=== PATIENT | female | born 1945 | race Caucasian/White ===

== ENCOUNTER → 2017-02-19 | Outpatient (CLI) | payer MEDICARE ==
[~2017-02-19] MED LIST: ACETAMINOPHEN325 M2 PO; ACTOS45 M1 PO; ACTOS45 MG; ALDACTONE 25MG25 MG PO; AMARYL 2MG TABLE2 MG PO; AMARYL2 MG PO; AMLODIPINE BESY1 CA6 PO; ATIVAN2 MG/ML IM; B COMPLEX #11 TA1 PO; BISOPROLOL 5MG T5 MG PO; CELEBREX200 MG; COREG CR20 MG; CRESTOR5 MG PO; FAMOTIDINE20 MG PO; FISH OIL 1,2001 EACH PO; FISH OIL EC 1,1 EAC2 PO; FUROSEMIDE 40MG40 M1 PO; GUAIFENESIN DM118 ML PO; HALOPERIDOL1 MG PO; HYDROCHLOROTHIA25 M1 PO; IPRATROPIUM BROM3 M1 INH; ISOSORBIDE MONO30 MG PO; JANUVIA100 MG; KLOR-CON M2020 MEQ PO; LASIX 40MG. TAB40 MG PO; LASIX40 MG; LEVAQUIN250 MG PO; LEVOFLOXACIN 7750 M1 PO; LEVOTHYROXIN0.025 M1 PO; LEVOTHYROXIN0.025 M3 PO; LISINOPRIL 5MG T5 MG PO; MAG-OX 400MG T400 MG PO; MAREPA1200 MG; METFORMIN500 MG PO; MICONAZOLE45 GM/TUB1 TP; NICODERM C21 MG/24 H TD; NYSTATIN 1100000 UNI PO; NYSTATIN SU60 ML/BOT PO; PIOGLITAZONE HC45 MG PO; POTASSIUM CHLO10 ME3 PO; RELION NOVOL100 U/M1 IJ; RELION NOVOL100 U/M1 SC; SALINE FLUSH 1010 ML IV; SEROQUEL 25MG T25 MG PO; SUPER B-50 COM1 EACH PO; SYNTHROID0.025 MG PO; TARKA 1 MG-2401 TER PO; TYLENOL ES500 MG PO; VALIUM 10MG TAB10 MG PO; VALIUM10 MG PO; VITAMIN B COMPL1 CAP PO; ZESTRIL 5MG TABL5 MG PO; [UNRECOGNIZED DRUG - OTHER] IM
== END ==
LOC: LAB 11:29
DX: I10 Essential (primary) hypertension (principal); E11.9 Type 2 diabetes mellitus without complications

== ENCOUNTER 2017-04-18 20:10 | Inpatient (IN) | payer MEDICARE ==
[~2017-04-18] VITALS: Ht 165.1 cm; Wt 108.5 kg
[2017-04-18 20:25] VITALS: BP 152/95
--- NOTE | 2017-04-18 20:49 | Emergency Room Report ---
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 N Clinical Suspician of Infection? Y Mental Status: 2 - Mildly Altered Sepsis Risk:Possible Sepsis Risk Have you (or family members/close friends) recently traveled outside the [place]? N If Yes, where/when: Have you had exposure to infectious disease within the past month? TB? Other? Specify: 71 years old white female with history of diabetes and lung cancer, she opted for no treatment for lung cancer. She developed headache, chills, and body aches yesterday. Today she vomited 2 and was brought to the ED by the family. She does not confusion in the ED. Sore throat cough and congestion. Abdominal pain or diarrhea. She denied having neck pain or spine pain. She admitted to having ongoing burning urination with no treatment. The patient does not want to be admitted. Family on the bedside. I ordered IV fluids and IV antibiotics. Source patient, RN notes reviewed, family Exam Limitations no limitations ALLERGIES Coded Allergies: codeine (Mild, 11/21/15) latex (Mild, 11/21/15) Home Medications Active Scripts POTASSIUM CHL (Potassium Chloride) 20 MEQ PO DAILY #60 Prov: 12/17/15 Furosemide (Lasix 40MG) 40 MG PO DAILY #30 TAB Prov: 12/17/15 Spironolactone (Aldactone) 50 MG PO DAILY #30 TAB Ref 1 Prov: 12/17/15 Famotidine 20 MG PO QHS #30 TAB Ref 1 Prov: 12/17/15 Isosorbide Mononitrate (Isosorbide Mononitrate ER) 30 MG PO DAILY #30 Ref 1 Prov: 12/17/15 BISOPROLOL FUMARATE (Bisoprolol 5MG) 5 MG PO DAILY #30 TAB Ref 1 Prov: 12/17/15 Levothyroxine Sodium (Synthroid 0.025MG) 0.05 MG PO DAILY #30 TAB Ref 1 Prov: 12/17/15 Metformin HCL (Metformin) 500 MG PO BIDD #60 TAB Ref 1 Prov: 12/17/15 Reported Medications Acetaminophen (Tylenol XS 500MG) 1,000 MG PO Q6HP PRN PAIN/FEVER Glimepiride (Amaryl 2MG Tablet) 2 MG PO DAILY Quetiapine Fumarate (Seroquel 25MG) 25 MG PO DAILY Rosuvastatin Calcium (Crestor) 5 MG PO QHS Diazepam (Valium 10MG) 5 MG PO QHSP PRN ANXIETY LISINOPRIL (Lisinopril) 2.5 MG PO DAILY Famotidine (Pepcid 20MG Tablet) 20 MG PO DAILY ASPIRIN (Aspirin 325MG) 325 MG PO DAILY Metformin HCL (Metformin) 1,000 MG PO BID Glimepiride (Glimepiride 2MG Tablet) 2 MG PO BID History Medical History General CAD? No Angina: No ID: No Hypertension? Yes Hyperlipidemia? Yes CHF? Yes DVT? No PE? No COPD? No Asthma? No Anemia? No GERD? No Gastric ulcers? No GI Bleed? No Hernia? No Thyroid Problems? Yes Hypothyroidism? Yes CVA? No Seizures? No Diabetes? Yes Insulin Dependent: No Insulin Pump: No Home FSBS? Yes Renal Insuffiency? No End Stage Renal Disease? No UTI? No Stones? No BPH? No GB Disease: Yes Nephritic Syndrome? No Asplenia? No Hepatitis? No Sickle Cell Disease? No Arthritis? Yes Migraines? No Cataracts? No Glaucoma? No MRSA? No HIV? No TB? No Anxiety? Yes Depression? Yes Cancer? No More? No Immunization Hx DT/Tetanus Unknown Flu 2014-FSN Pneumonia Received In Past Surgical Hx Previous Surgery?Y Cholecystectomy LT BREAST CYST REMOVAL LT ANKLE BILATERAL CATARACTS PORT PLACEMENT Family History Family Hx Diabetes Yes CAD Yes Hypertension Yes Hyperlipidemia Yes Cancer Yes TB No Social History Smoking Hx Smoker: Former Smoker Tobacco: No Alcohol Alcohol: No Review of Systems All Other Systems Reviewed and Negative Constitutional see HPI, chills, fever Eyes no symptoms reported ENT no symptoms reported. Respiratory no symptoms reported Cardiovascular no symptoms reported Gastrointestinal see HPI, vomiting Genitourinary see HPI, dysuria. Musculoskeletal no symptoms reported Skin no symptoms reported Psychiatric/Neurological no symptoms reported Physical Exam Vital Signs Vital Signs Date Time Temp Pulse Resp B/P Pulse O2 O2 Flow FiO2 Ox Delivery Rate 08/03 2154 100 20 150/92 93 04/18 2025 99.0 114 20 152/95 94 - WBC >12,000 or <4,000 or 10% bands? 2 or more SIRS Criteria Met? B/P:152/95 MAP:114 Creatinine >2.0? UA output<0.5ml/kg/hr for 2 hrs? Platelet count >100,000? Lactate >2.0mmol/1? INR >1.2 or PTT > than 60 sec? Evidence of Organ Dysfunction? Provider documented clinical suspician of infection? Y Sepsis Criteria Count: 2 Sepsis Risk: Possible Sepsis Risk General Appearance normal appearance, WD/WN Eye Exam - bilateral eye normal exam, bilateral eye PERRL, bilateral eye EOMI Ear, Nose, Throat hearing grossly normal, normal ENT inspection Neck normal inspection, non-tender, supple, full range of motion Respiratory Status Yes: trachea midline, chest symmetrical, non tender chest. No: respiratory distress. Lung Sounds bilateral: normal breath sounds, lungs clear. 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 No Results/Orders Laboratory Tests 04/18/172205: ABG pH Pending, ABG pCO2 (Temp Corrct Pending, ABG pO2 (Temp Correct Pending, ABG HCO3 Pending, ABG O2 Sat (Calculated) Pending, ABG Base Excess Pending 04/18/17 2100: Lactic Acid 2.4 H 04/18/17 2100: Sodium 125 L, Potassium 3.5, Chloride 87 L, Carbon Dioxide 28, BUN 25 H, Creatinine 2.2 H, Estimated Creat Clear 38 L, Estimated GFR (MDRD) 22 L, Glucose 656 *H, Calcium 8.8, Total Bilirubin 1.2 H, AST 43 H, ALT 23, Alkaline Phosphatase 172 H, Creatine Kinase 1426 H, CK-MB (CK-2) Rel Index 0.1, CK and CKMB Interp 2.1, Troponin I 0.11 H, Total Protein 8.5 H, Albumin 2.9 L, Globulin 5.6 H, Albumin/Globulin Ratio 0.5 L, WBC 8.8, RBC 5.11, Hgb 14.9, Hct 47.4 H, MCV 92.8, RDW 14.1, Plt Count 191, MPV 9.2, Gran % 88.5 H, Gran # 7.8, Total Counted Pending, Lymphocytes % 5.6 L, Monocytes % 5.0, Eosinophils % 0.4, Basophils % 0.5, Neutrophils Pending, Lymphocytes (Manual) Pending, Lymphocytes # 0.5 L, Monocytes # 0.4, Eosinophils # 0.0, Basophils # 0.0, Platelet Estimate Pending, PUBS MCHC 31.2 L, MCH 29.0, Acetone Level NONE DETECTED 04/18/172039: Urine Color YELLOW, Urine Appearance CLEAR, Urine pH 6.0, Ur Specific [place] 1.015, Urine Protein 3+ H, Urine Ketones NEGATIVE, Urine Blood 3+ H, Urine Nitrate POSITIVE H, Urine Bilirubin NEGATIVE, Urine Urobilinogen 0.2, Ur Leukocyte Esterase 1+ H, Urine RBC 10-20, Urine WBC 20-50, Ur Squamous Epith Cells OCC, Urine Bacteria 1+, Urine Mucus 1+, Urine Glucose 3+ H Current Medication Orders Sig/Emanuel Start time Last Medication Dose Route Stop Time Status Admin Insulin Human Regular 100 UNITS .Q20H 04/18 2200 AC Sodium Chloride 100 ML IV Sodium Chloride 1,000 ML .Q1H1M 04/18 2200 AC IV 04/18 230 Sodium Chloride 10 ML PRN PRN 04/18 2200 AC IV 04/19 2150 Ceftriaxone Sodium 0 .STK-MED ONE 04/18 2127 DC IV Sodium Chloride 1,000 ML .STK-MED ONE 04/18 2127 DC IV Sodium Chloride 100 ML .STK-MED ONE 04/18 2126 DC IV Ceftriaxone Sodium 1 GM ONCE ONE 04/18 2115 DC 04/18 Sodium Chloride 50 ML IV 04/18 Sodium Chloride 1,000 ML .Q1H1M 04/18 2115 AC 04/18 IV 04/18 Sodium Chloride 10 ML PRN PRN 04/18 2115 AC IV 04/19 2113 Sodium Chloride 10 ML PRN PRN 04/18 2045 AC IV 04/19 2033 Orders Procedure Date/time Status DIET-NOTHING BY MOUTH 04/19 B Active ARTERIAL BLOOD GAS REQUEST 04/18 2149 Active Acetone, Serum 04/18 2149 Complete LACTIC ACID FOLLOW UP 04/18 2140 Active CULTURE, BLOOD 04/18 2114 Active LACTIC ACID 04/18 2114 Complete DIFFERENTIAL-WBC 04/[address] HEAD W/O CONTRAST 04/[address] ABD & PELVIS W/O CONTRAST 04/18 2043 Active CULTURE, URINE 04/18 2040 Active ELECTROCARDIOGRAM REQUEST 04/[address] HEAD REQ 04/[address] ABD/PELVIS REQ 04/18 2033 Complete CHEST(2 VIEWS-NOT PORTABLE) 04/18 2033 Active IV SALINE LOCK 04/18 2033 Active URINALYSIS/COMPLETE 04/18 2033 Complete COMPLETE METABOLIC PANEL 04/18 2033 Complete CBC WITH AUTO DIFF 04/18 2033 Active CARDIAC ENZYMES 04/18 2033 Complete 12 LEAD EKG-BESSON (INITIAL) 04/18 2030 Active CM/EKG CM/EKG EKG rate, NSR, rhythm, no evid. of ischemic chgs, no ectopy, normal QRS, normal MN, normal EKG, no EKG for comparison, non-spec. ST/Twave chgs, ST elevation, ST depression, LBBB, RBBB, ectopy, abnormal Q waves XRAY/CT/US XRAY/CT/US XRAY chest XR interpretation by reviewed by me Xray Results no infiltrates Departure Departure Time of Disposition 2207 Disposition Still a Patient Clinical Impression Primary Impression: UTI (urinary tract infection) Secondary Impressions: Acute renal failure, Diabetes mellitus, Hyperglycemia, Lung cancer Condition STABLE Referrals Raji AARON,Ralph Farmer (Family) Additional Instructions I discussed with the patient her that CT scan and lab findings. She agreed to be admitted for IV fluids and insulin drip. I contacted Dr. Edmond who agreed to admit to Dr. Kiser covering for Dr. Alegria. Patient was admitted in stable condition. Discharge Counseling Counseled pt/family regarding diagnosis, test results, medications/RX, follow up needs ED Critical Care Critical Care No If Critical Care minutes are documented, the time involved in the performance of seperately reportable procedures was not counted toward critical care time documented. I directly delivered medical care to this critically ill and/or injured patient. Timely evaluation and treatment was necessary to address the significant organ system(s) dysfunction present in this patient. at [id number]
[2017-04-18 20:52] LABS: URINE BILIRUBIN - DIPSTICK NEGATIVE (NEG); URINE BLOOD 3+ (NEG)
[2017-04-18 20:57] LABS: URINE SQUAMOUS CELLS OCC #/hpf (0-5)
[2017-04-18 21:19] LABS: LYMPH # 0.5 K/mm3 (0.7-4.5); LYMPH % 5.6 % (10-50.0)
[2017-04-18 21:28] LABS: HEMOGLOBIN 14.9 g/dL (12.2-16.2)
[2017-04-18] MEDS ORDERED: PEPCID 20MG TAB20 MG PO (21:31)
[2017-04-18] MEDS ORDERED: ASPIRIN 325MG325 MG PO (21:33)
[2017-04-18] MEDS ORDERED: METFORMIN500 MG PO (21:35)
[2017-04-18] MEDS ORDERED: GLIMEPIRIDE 2MG2 MG PO (21:36)
[2017-04-18 22:08] LABS: NEUTROPHILS 93 % (42-76)
[2017-04-18 22:10] LABS: ALLEN'S TEST ACCEPTABLE; ARTERIAL ABE 2.8 MMOL/L (-2.4-+2.3); OXYGEN ROOM AIR
[2017-04-18 23:00] VITALS: BP 161/72
[2017-04-18 23:57] VITALS: BP 161/72
[2017-04-19] VITALS (9 sets, daily range): BP systolic 132–172; BP diastolic 67–86
[2017-04-19] MEDS ORDERED: LASIX20 MG PO (01:32)
[2017-04-19] MEDS ORDERED: AMARYL 2MG TABLE2 MG PO (01:33)
--- NOTE | 2017-04-19 07:24 | PHARMACY CLINIC NOTE ---
Patient Demographics Patient Demographics Admission date: 04/18/17 Date: 04/19/17 Time: 0724 Allergies Coded Allergies: codeine (Mild, 11/21/15) latex (Mild, 11/21/15) HEIGHT- FT: 5 IN: 5.00 K.465 VTE General Information Labs: Laboratory Tests 04/18 2100 Hematology Hgb (12.2 - 16.2 g/dL) 14.9 Hct (37.0 - 47.0 %) 47.4 H Plt Count (142 - 424 K/mm3) 191 Disclaimer The following section includes nursing documentation that has been pulled in for pharmacy review. Patient's VTE score: 2 Patient's VTE Risk: VERY LOW RISK Clinical trial participant? No VTE prophylaxis NQF [id number] VTE prophylaxis ordered? Yes Type of prophylaxis/treatment: Lovenox at 0724
--- NOTE | 2017-04-19 07:31 | Discharge Summary Standard ---
Demographics: Admit date: 04/18/17 Chief complaint: Pain/shortness of air PRIMARY DIAGNOSIS: ACUTE RENAL FAILURE Allergies: Coded Allergies: codeine (Mild, 11/21/15) latex (Mild, 11/21/15) History of present illness: History of present illness: 71-year-old white female with diabetes, metastatic lung cancer who has refused treatment, who came to the emergency department last night with shortness of air dehydration symptoms. Was found to be hyperglycemic with evidence of dehydration and acute kidney injury and was admitted overnight for fluids and further observation. I had a long talk with her and her son this morning. She lives with her son after the of her last March. She continues to affirm that she does not wish any treatment for lung cancer and is open to hospice care for end-of-life/palliative care. She feels much better after a night of IV fluids and wishes to be discharged home. Past medical history: Family HX Diabetes Yes CAD Yes Hypertension Yes Hyperlipidemia Yes Cancer Yes TB No Immunization HX DT/Tetanus Unknown Flu 2014-FSN Pneumonia Received In Past TB Test in last year No General CAD? No Angina: No NH: No Hypertension? Yes Hyperlipidemia? Yes CHF? Yes DVT? No PE? No COPD? No Asthma? No Anemia? No GERD? No Gastric ulcers? No GI Bleed? No Hernia? No Thyroid Problems? Yes Hypothyroidism? Yes CVA? No Seizures? No Diabetes? Yes Insulin Dependent: No Insulin Pump: No Home FSBS? Yes Renal Insuffiency? No UTI? No Stones? No BPH? No GB Disease: Yes Nephritic Syndrome? No Asplenia? No Hepatitis? No Sickle Cell Disease? No Arthritis? Yes Migraines? No Cataracts? No Glaucoma? No MRSA? No HIV? No TB? No Anxiety? Yes Depression? Yes Cancer? No More? No Past Surgical HX Previous Surgery?Y Cholecystectomy LT BREAST CYST REMOVAL LT ANKLE BILATERAL CATARACTS PORT PLACEMENT Current home meds: Reported Medications Furosemide (Lasix) 20 MG PO BID Glimepiride (Amaryl 2MG Tablet) 2 MG PO BIDD Rosuvastatin Calcium (Crestor) 5 MG PO QHS LISINOPRIL (Lisinopril) 2.5 MG PO DAILY Famotidine (Pepcid 20MG Tablet) 20 MG PO DAILY ASPIRIN (Aspirin 325MG) 325 MG PO DAILY Metformin HCL (Metformin) 1,000 MG PO BID Social Hx: Smoking HX Tobacco No Alcohol Alcohol: No Hx of Drug Use Drug Use? No Patien't marital status is Review of systems: Constitutional No: fever, malaise, weakness. Respiratory shortness of breath, SOB with excertion, SOB at rest. Cardiovascular No edema, No palpitations, No syncope Gastrointestinal/Abdominal difficulty swallowing, nausea, poor appetite, poor fluid intake Genitourinary No: no symptoms reported. Musculoskeletal gout, joint pain, joint swelling. Neurological Yes: weakness. Exam: Lab data for last 24 hours: Laboratory Tests 04/19/17 0520: Sodium 137, Potassium 2.9 *L, Chloride 98, Carbon Dioxide 32, BUN 23 H, Creatinine 1.9 H, Estimated Creat Clear 48 L, Estimated GFR (MDRD) 26 L, Glucose 156 H, Calcium 8.4 L 04/19/17 0100: Lactic Acid 4.3 H 04/18/17 2206: ABG pH 7.45, ABG pCO2 (Temp Corrct 39.0, ABG pO2 (Temp Correct 56.0 L, ABG HCO3 26.8 H, ABG Total CO2 28.0 H, ABG O2 Sat (Calculated) 89 L, ABG Base Excess 2.8 H, [place] Test ACCEPTABLE 04/18/17 2100: Lactic Acid 2.4 H 04/18/17 2100: Sodium 125 L, Potassium 3.5, Chloride 87 L, Carbon Dioxide 28, BUN 25 H, Creatinine 2.2 H, Estimated Creat Clear 38 L, Estimated GFR (MDRD) 22 L, Glucose 656 *H, Calcium 8.8, Total Bilirubin 1.2 H, AST 43 H, ALT 23, Alkaline Phosphatase 172 H, Creatine Kinase 1426 H, CK-MB (CK-2) Rel Index 0.1, CK and CKMB Interp 2.1, Troponin I 0.11 H, Total Protein 8.5 H, Albumin 2.9 L, Globulin 5.6 H, Albumin/Globulin Ratio 0.5 L, WBC 8.8, RBC 5.11, Hgb 14.9, Hct 47.4 H, MCV 92.8, RDW 14.1, Plt Count 191, MPV 9.2, Gran % 88.5 H, Gran # 7.8, Total Counted 100, Lymphocytes % 5.6 L, Monocytes % 5.0, Eosinophils % 0.4, Basophils % 0.5, Neutrophils 93 H, Lymphocytes (Manual) 5 L, Lymphocytes # 0.5 L, Monocytes (Manual) 2, Monocytes # 0.4, Eosinophils # 0.0, Basophils # 0.0, Platelet Estimate NORMAL, PUBS MCHC 31.2 L, MCH 29.0, Acetone Level NONE DETECTED 04/18/172039: Urine Color YELLOW, Urine Appearance CLEAR, Urine pH 6.0, Ur Specific [place] 1.015, Urine Protein 3+ H, Urine Ketones NEGATIVE, Urine Blood 3+ H, Urine Nitrate POSITIVE H, Urine Bilirubin NEGATIVE, Urine Urobilinogen 0.2, Ur Leukocyte Esterase 1+ H, Urine RBC 10-20, Urine WBC 20-50, Ur Squamous Epith Cells OCC, Urine Bacteria 1+, Urine Mucus 1+, Urine Glucose 3+ H Microbiology 04/18 2100 BLOOD: Anaerobic Blood Culture - RECD 04/18 2100 BLOOD: Aerobic Blood Culture - RECD 04/18 2100 BLOOD: Anaerobic Blood Culture - RECD 04/18 2100 BLOOD: Aerobic Blood Culture - RECD 04/18 2040 URINE CC: Urine Culture - RECD Admission vital signs: 1ST Vital Signs Result Date Time Pulse Ox 94 04/18 2025 B/P 152/95 04/18 2025 Temp 99.0 04/18 2025 Pulse 114 04/18 2025 Resp 20 04/18 2025 O2 Delivery ROOM AIR 04/18 2300 O2 Flow Rate 2 04/18 2300 Additional information: Patient is obese. Lungs have rhonchi, fairly symmetric air entry. Heart rate regular. No edema. Eating well, alert, oriented 3. Hospital Course Hospital Course: Patient was admitted, labs improved. Patient is without symptoms at this point and wishing to be discharged. Plan will be to discharge her home with hospice services. She states that she has currently no pain. She states that she has Valium at home for anxiety and has all of her other medication. We will initiate hospice services for home today and discharge patient. Medications Medications: Discharge meds are as noted. Follow up Follow up in office in: 1 DAY with: OTHER at 0731
--- NOTE | 2017-04-19 09:09 | RADIOLOGY REPORT PS360 ---
CT HEAD W/O CONTRAST HISTORY: CONFUSIONaltered mental status. Memory loss. Confusion. Disorientation Patient Age: 71 years: Female Ordering Physician: Ralph Alegria MD TECHNIQUE: Routine axial CT head without contrast COMPARISON :Previous CT head September 30, 2015 FINDINGS Patchy low-density is seen throughout the cerebral deep white matter regions bilaterally. This appearance is very similar to 2016 study. Question very slight progression these chronic deep white matter changes the interval.. However no discrete focal single new area is identified. It can be difficult to exclude a new deep white matter ischemic focus among the chronic changes.. However no territorial infarct nor discrete new findings are evident. Basically stable Lateral ventricles only slightly dilated reflecting the cerebral atrophy. Basal cisterns are clear. Posterior fossa. Stable unchanged. CT bone windows demonstrate the visualized paranasal sinuses to be clear.. Middle air, IACs appear satisfactory. Again note some mild opacification inferior mastoid air cells bilaterally reflecting stable minimal mastoid effusion towards mastoid tip regions bilateral. IMPRESSION------ No discrete acute intracranial abnormalities Atrophy and chronic small vessel deep white matter ischemic changes cerebral hemispheres again noted. . Basically stable head CT since September 2015
--- NOTE | 2017-04-19 09:27 | RADIOLOGY REPORT PS360 ---
CHEST(2 VIEWS-NOT PORTABLE) HISTORY: NAUSEA/VOMITINGnausea and vomiting abdominal pain Patient Age: 71 years: Female Ordering Physician: Ralph Alegria MD TECHNIQUE: PA & lateral CXR 2 view COMPARISON :12/15/2015 FINDINGS Port-A-Cath again noted entering from right subclavian with tip at the superior SVC . Unchanged as prior study. The lungs clear with acute infiltrate.. Mild chronic changes. The questionable nodular density projected over the anterior second rib and likely corresponds with one of the pulmonary nodule densities seen right upper chest on CT July 2016... On the lateral film there is minimal density anteriorly which may reflect the extruded nodule at the lingula. Equivocal features on plain film here. This patient warrants ongoing CT follow-up for her metastatic disease. Borderline this mild cardiomegaly but noted Heart decreased in size since previous CXR November 2015. Studies.... Calcified aortic knob. Otherwise Judith and mediastinal structures unremarkable Chest wall T-spine stable no pleural effusion or pneumothorax. IMPRESSION: 1. No acute infiltrate or findings. Stable Port-A-Cath enters from right. 2. Vague density projected over anterior second rib likely reflects residual of of evident lung nodules on July 2016 study. Also On today's lateral film question some minimal density into the judith which may reflect treated nodule at lingula seen on that prior CT exam as well. 3. This patient will benefit from ongoing CT follow-ups through her oncology follow-up
--- NOTE | 2017-04-19 10:52 | RADIOLOGY REPORT PS360 ---
CT ABD PELVIS W/O CONTRAST HISTORY: CONFUSION confusion and headaches nausea vomiting abdominal pain history of lung cancer Patient Age: 71 years: Female Ordering Physician: Ralph Alegria MD TECHNIQUE: Helical CT scanning performed the abdomen pelvis with no oral or IV contrast utilized. Sagittal coronal reconstructions on CT workstation. COMPARISON :Previous CT abdomen and pelvis 10/02/2015. FINDINGS Lower thorax. No acute findings. Cardiomegaly . Patient has a prior treated lung lesion only partially imaged here at lingula ABDOMEN/PELVIS. The lack of oral and IV contrast decreases sensitivity. Contrast would be particularly helpful in the setting of lung cancer Liver appears satisfactory no focal lesion. Spleen appears normal size with granulomatous calcifications. Unchanged. Pancreas unremarkable. Gallbladder removed Adrenals. Mildly nodular enlarged adrenals bilaterally particularly the left adrenal. However this is seen previously and stable since November 2015.. Again noted 15 mm nodule anterior left adrenal with a slightly larger 7 tendon millimeter nodule posterior left adrenal. These are low-density, which favors stable benign adenomas Kidneys. Perinephric stranding is again seen but if anything appears slightly more pronounced today bilaterally. Warrants correlation with urinalysis to pyelonephritis. Right kidney. Suspect vaguely most likely cyst 12 mm size anterior aspect lower pole right kidney. Left kidney. 4 cm cyst anterior left kidney and off the anterior aspect lower pole again noted. Also 2.3 cm cyst off the posterior aspect lower pole again noted. These are may be incrementally larger. Pelvis. Hysterectomy. Moderate wall thickness bladder slight hazy appearance about bladder. Cannot exclude cystitis. Unremarkable. Large and small bowel satisfactory.. Appendix normal. Osseous structures intact IMPRESSION: 1. No acute findings abdomen or pelvis 2. Generous perinephric stranding about both kidneys is similar to slightly more pronounced than on previous studies.. May reflect interval infection. Warrants correlation with urinalysis to exclude current pyelonephritis No urinary tract obstruction nor calculi. Benign renal cysts again noted bilateral. 3. Suggestion of subtle hazy appearance about bladder with perhaps mild wall thickening.. Cannot exclude cystitis. Stable low-density nodules at adrenals, most notable stable low-density nodules left adrenal. These can be followed no change since 2015, and low-density character favors a benign adenomas here as well
--- OUTSIDE RECORDS SUMMARY | 2017-04-20 03:07 | External Medical Summary Rpt ---
Author Author , MARIANNA Hamilton MARIANNA Address Unknown Phone [email or web address] Providers Care Drug Abuse Counselor Name Role Phone A Korin PUTNAM MD [facility], Bibi Unavailable Unavailable Korin PUTNAM MD [facility], AM Unavailable [facility] Unavailable Un[facility], [facility] Unavailable Un[facility], [facility], ARH Unavailable Unavailable [facility] BALTA DAO, BALTA DAO Unavailable Unavailable BALTA DAO, BALTA DAO Unavailable Unavailable KATHRYN HUBERT, Unavailable Unavailable KATHRYN HUBERT GERARDO PERALTALAS, Unavailable Unavailable KATHRYN, IVAN FRANSISCO PATEL, Unavailable Unavailable FRANSISCO PATEL [facility], Unavailable Unavailable LLC[facility] HUGO ADRIAN, HUGO Unavailable Unavailable ADRIAN [facility] Unavailable Unavailable HOSPITA, [facility] SIERRA GRE, SIERRA GRE Unavailable Unavailable ALMAZAN HOANG, ALMAZAN HOANG Unavailable Unavailable PB RHO, PB Unavailable Unavailable RHO PB RHO, PB Unavailable Unavailable RHO [facility] Unavailable Unavailable [facility], [facility] Unavailable Unavailable [facility], [facility] Unavailable Unavailable [facility], [facility], Unavailable Unavailable [facility], [facility]available Unavailable [facility], Unavailable Unavailable [facility] KILPELA JEA, KILPELA Unavailable Unavailable JEA KILPELA JEA, KILPELA Unavailable Unavailable J[facility] Unavailable [facility]available [facility], [facility] [employer] [facility], Unavailable Unavailable [facility] Unavailable Unavailable SERVICES, [facility] Un[facility]available [facility], [facility] KELLEY SERRANO, Unavailable Unavailable KELLEY SERRANO RASHAAD EILEEN, RASHAAD EILEEN Unavailable Unavailable RASHAAD EILEEN, RASHAAD EILEEN Unavailable Unavailable [facility], Unavailable Unavailable [facility], Unavailable Unavailable [facility] YOSSI DAO, YOSSI Unavailable Unavailable DAO YOSSI DAO, YOSSI Unavailable Unavailable DAO YOSSI, ROSITA, Unavailable Unavailable YOSSI, ROSITA JR. FREYA BARROW, Unavailable Unavailable JR. FREYA ABRROW JR. JAM, Unavailable Unavailable JR. FREYA BARROW [facility], [facility] Unavailable Unavailable [facility], [facility] Unavailable Unavailable [facility], Unavailable [facility], Unavailable Unavailable [facility] Unavailable Unavailable [facility] MER[facility] WILLIS Unavailable Unavailable [facility] Unavailable Unavailable [facility] Unavailable Unavailable [facility], Unavailable Unavailable [facility] Unavailable [facility]available [facility], [facility] Unavailable Unavailable [facility], [facility] # [facility]available Unavailable [id number], [facility] # [id number] [facility] Unavailable Unavailable AGENCY, [facility] PUTNAM A, PUTNAM A Unavailable Unavailable PUTNAMBibi C, PUTNAM, Unavailable Unavailable A C CELESTINO MAT, CELESTINO MAT Unavailable Unavailable CELESTINO MAT, CELESTINO MAT Unavailable Unavailable Purpose Continuity of Care Document - 10-10-2007 through 2016 Problems Code Diagnosis DOS Provider Status E662 MORBID 12-09-2015 [facility] OBESITY [facility] W/ALVEOLAR HYPOVENTILA TION E872 ACIDOSIS 12-09-2015 [facility] INC I2609 OTHER 12-09-2015 [facility] EMBOLISM INC W/ACUTE COR PULMONALE I272 OTHER 12-09-2015 [facility] PULMONARY INC HYPERTENSIO N I5033 ACUTE ON 12-09-2015 [facility] DIASTOLIC INC CONGESTIV HEART FAILURE J189 PNEUMONIA 12-09-2015 [facility] ORGANISM INC J9621 ACUTE & 12-09-2015 [facility] RESPIRATORY INC FAILURE WITH HYPOXIA Z6841 BODY MASS 12-09-2015 [facility] IN[facility] BMI [facility] 40.0-44.9 INC ADULT E119 TYPE 2 11-22-2015 [facility]ETES [facility] MELLITUS INC WITHOUT COMPLICATIO NS E669 OBESITY 11-22-2015 [facility]PEC[facility] INC I130 HTN HEART & 11-22-2015 [facility] CKD W/HF & [facility] CKD STAGE INC 1-4 OR UNS CKD I5032 CHRONIC 11-22-2015 [facility]IASTOLIC [facility] CONGESTIVE INC HEART FAILURE N183 CHRONIC 11-22-2015 [facility] DISEASE INC STAGE 3 MODERATE R0902 HYPOXEMIA 11-22-2015 [facility] INC Z6842 BODY MASS 11-22-2015 [facility] 45.0-49.9 INC ADULT H39806 PERSONAL 11-22-2015 [facility] NICOTINE INC DEPENDENCE E8342 HYPOMAGNESE 09-30-2015 [facility]LOS [facility] INC E876 HYPOKALEMIA 09-30-2015 [facility] INC I129 HYPERTENSIV 09-30-2015 [facility] E CKD [facility] W/STAGE 1-4 INC CKD OR UNS CKD I2510 ASHD [place] [facility] [place] 09-30-2015 [facility] CORONARY [facility] ARTERY W/O INC ANGINA [place] N179 ACUTE 09-30-2015 [facility] FAILURE INC UNSPECIFIED 28041 SEC 06-15-2013 [facility] EQUIP OSTEOARTHRO SIS ANKLE AND FOOT 8248 UNSPECIFIED 01-28-2013 CELESTINO MAT CLOSED FRACTURE OF ANKLE 32043 PAIN IN 01-22-2013 ALVIN JOINT, [facility] ANKLE AND HOSPITA FOOT 25454 OTHER 01-22-2013 PB RHO NONSPECIFIC ABNORMAL FINDING OF LUNG FIELD V7283 OTHER 01-22-2013 ALVIN SPECIFIED [facility] PRE-OPERATI HOSPITA VE EXAMINATION 7859 OTHER 12-05-2012 [facility] INVOLVING INC CARDIOVASCU LAR SYSTEM V7612 OTHER 12-05-2012 [facility]CREENING [facility] MAMMOGRAM INC 22444 PRIMARY 10-23-2012 ALLI BARROW JR. OSTEOARTHRO SIS ANKLE AND FOOT 67197 OSTEOARTHRO 10-08-2012 [facility] SIS UNSPEC [facility] WHETHER INC GEN/LOC ANK&FOOT 19560 DISORDER OF 10-01-2012 [facility] CARTILAGE UNSPECIFIED 68581 NONSPECIFIC 08-28-2012 [facility] J ABNORMAL ELECTROCARD IOGRAM 7852 UNDIAGNOSED 08-25-2012 [facility] CARDIAC MURMURS 23227 SHORTNESS 08-25-2012 [facility] J OF BREATH V700 ROUTINE 08-04-2012 [facility] GENERAL MEDICAL EXAM@HEALTH CARE FACL 4019 UNSPECIFIED 07-18-2012 BALTA DAO ESSENTIAL HYPERTENSIO N 21124 DIAB W/O 07-17-2012 ST NEETU COMP TYPE MOUNT II/UNS NOT IJ STATED UNCNTRL 4293 CARDIOMEGAL 07-17-2012 ST DE ANDA Y [place]OUNT JI 4400 ATHEROSCLER 07-17-2012 ST DE ANDA OSIS OF [facility] AORTA JI V7284 UNSPECIFIED 07-17-2012 [facility] PRE-OPERATI JI VE EXAMINATION 62008 DIAB W/O 06-09-2012 RASHAAD EILEEN MENTION COMP TYPE II/UNS TYPE UNCNTRL 2724 OTHER AND 06-05-2012 RASHAAD ARELLANO UNSPECIFIED HYPERLIPIDE JUANCARLOS 4011 ESSENTIAL 06-05-2012 RASHAADKIERRA ARELLANO HYPERTENSIO N, BENIGN 64849 OSTEOARTHRO 04-22-2012 [facility] S [facility] WHETHER GEN/LOC UNSPEC SITE 06345 PLANTAR 03-25-2012 JENY BARROW JR. JAM FIBROMATOSI S 84744 DIAB 02-21-2012 [facility] W/NEURO SURGICAL MANIFESTS TYPE II/UNS NOT UNCNTRL 98125 PRESSURE 02-21-2012 [facility] ULCER SURGICAL UNSPECIFIED SITE E9479 UNSPEC 02-01-2012 [facility] L SBSTNC CAUS ADVRS EFF TX USE V0481 NEED 06-27-2011 [facility] VACCINATION &INOCULATIO N FLU 52064 ULCER OF 05-01-2011 YOSSI DAO OTHER PART OF FOOT 05196 UNSPECIFIED 05-01-2011 YOSSI DAO ARTHROPATHY SITE UNSPECIFIED 62180 OBESITY, 04-16-2011 [facility] UNSPECIFIED [facility]ENCY 7812 ABNORMALITY 04-16-2011 [facility] OF GAIT HEALTH AGENCY 8920 OPEN WOUND 04-16-2011 [facility] FT NO TOE HEALTH ALONE AGENCY WITHOUT MENTION COMP 8930 OPEN WOUND 04-16-2011 [facility] TOE WITHOUT HEALTH MENTION AGENCY COMPLICATIO N 7079 CHRONIC 03-23-2011 A C [place] ULCER OF [facility] UNSPECIFIED SITE 5849 ACUTE 03-22-2011 [facility] FAILURE INC UNSPECIFIED 5939 UNSPECIFIED 03-22-2011 [facility]NEY [facility] AND URETER 6827 CELLULITIS 03-22-2011 [facility] AND ABSCESS [facility]ERGENCY OF FOOT SERVICES EXCEPT TOES 21016 DIAB W/OTH 02-25-2011 [facility] MANIFESTS [facility] TYPE II/UNS INC NOT UNCNTRL 13485 PRESSURE 02-25-2011 [facility] ULCER OTHER EMERGENCY SITE SERVICES 09253 OTHER 02-25-2011 [facility] ABNORMAL EMERGENCY GLUCOSE SERVICES 7906 OTHER 02-25-2011 [facility] ABNORMAL [facility] BLOOD INC CHEMISTRY V431 LENS 04-13-2010 [place] INST FOR REPLACED BY EYEHLTH & OTHER SURGPSC MEANS 274 GOUT 11-17-2009 A Korin PUTNAM MD [facility] 39419 CORTICAL 09-01-2009 [place] INST FOR SENILE EYEHLTH & CATARACT SURGPSC 3669 UNSPECIFIED 09-01-2009 [facility] CAT[facility]ACT NE[facility]U [facility] V1582 PERS HX 09-01-2009 [facility] TOBACCO USE NEETU PRESENTING [facility] V0382 NEED PROPH 08-08-2009 DHS/CO VACCINATION HEALTH AGAINST CENTRAL STREP BANK ACCT PNEUMONE 5990 URINARY 07-28-2009 A Korin PUTNAM TRACT [facility] INFECTION SITE NOT SPECIFIED 2449 UNSPECIFIED 07-22-2009 [facility]YPOT[facility] ISM 6923 [facility] 12-17-2008 A Korin PUTNAM DERMATITIS& [facility] OTH ECZEMA-RX&M EDS [facility] W/SKN 7881 DYSURIA 07-16-2008 A Korin PUTNAM MD [facility] 1121 CANDIDIASIS 03-11-2008 A Korin PUTNAM OF [facility] 94972 OTHER SIGN 03-02-2008 [facility] SYMPTOM [facility] IN BREAST INC 04566 UNSPECIFIED 03-02-2008 [place] 7062 SEBACEOUS 01-29-2008 A Korin PUTNAM CYST [facility] 7862 COUGH 01-19-2008 A Korin PUTNAM MD [facility] 0340 STREPTOCOCC 11-04-2007 A Korin EUBANKS SORE [facility] THROAT 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 E11.9 TYPE 2 DIABETES MELLITUS WITHOUT COMPLICATIO NS E87.6 HYPOKALEMIA I50.9 HEART FAILURE, UNSPECIFIED J96.01 ACUTE RESPIRATORY FAILURE WITH HYPOXIA N17.9 ACUTE KIDNEY FAILURE, UNSPECIFIED N39.0 URINARY TRACT INFECTION, SITE NOT SPECIFIED R09.02 HYPOXEMIA R73.9 HYPERGLYCEM IA, UNSPECIFIED Allergies, Adverse Reactions, Alerts Clinical Alert Notifications Alert Diabetes: no A1C in the last 6 months Diabetes: no eye exam in the last 365 days Diabetes: no influenza vaccine in the last 365 days Diabetes: no lipid panel in the last 365 days Diabetes: no urine protein screening in the last 365 days Medications Na ND Rx Da Fi Fi Am Da Di Ph RX Ph St me C No te ll ll ou ys ag ar # ys at rm s nt no ma ic us Or Da si cy ia de te s n re d RE 53 04 04 0 85 7 ME 12 GA Ac ME 32 -0 -2 0. D 36 IN ti DY 90 3- 7- 00 CA 97 EY ve 16 20 20 0 RE 32 PH 97 16 16 NJ YT 9 PH CH OP AR AE LE MA L X CY S AN TI LL FU C NG AL 2% RE 53 04 04 0 85 7 ME 12 GA Ac ME 32 -0 -1 0. D 33 IN ti DY 90 3- 6- 00 CA 98 EY ve 16 20 20 0 RE 48 PH 97 16 16 NJ YT 9 PH CH OP AR AE LE MA L X CY S AN TI LL FU C NG AL 2% MA 00 04 04 0 30 5 ME 12 GA Ac PA 90 -0 -0 0. D 29 IN ti P 41 4- 4- 00 CA 37 EY ve 50 98 20 20 0 RE 72 0 86 16 16 NJ MG 1 PH CH AR AE TA MA L BL CY S ET LL C RE 53 04 04 0 85 7 ME 12 GA Ac ME 32 -0 -0 0. D 29 IN ti DY 90 3- 4- CA 40 EY ve 16 20 20 0 RE 18 PH 97 16 16 NJ YT 9 PH CH OP AR AE LE MA L X CY S AN TI LL FU C NG AL 2% PO 00 04 04 0 60 30 ME 12 GA Ac TA 78 -0 -0 0. D 29 IN ti SS 15 4- 4- 00 CA 37 EY ve IU 71 20 20 0 RE 88 M 01 16 16 NJ CL 0 PH CH AR AE ER MA L CY S 10 LL ME C Q TA BL ET Q- 00 04 04 0 11 3 ME 12 GA Ac TU 60 -0 -0 80 D 29 IN ti SS 30 4- 4- .0 CA 37 EY ve IN 85 20 20 00 RE 80 59 16 16 NJ DM 4 PH CH AR AE SY MA L RU CY S P LL C FI 74 03 03 0 15 15 ME 12 GA Ac SH 31 -1 -2 0. D 25 IN ti 20 1- 4- CA 52 EY ve OI 13 20 20 0 RE 01 L 32 16 16 NJ 1, 9 PH CH 20 AR AE 0 MA L MG CY S SO LL FT C GE L RE 53 03 03 0 85 5 ME 12 GA Ac ME 32 -1 -1 0. D 22 IN ti DY 90 1 4- CA 01 EY ve 16 20 20 0 RE 51 PH 97 16 16 NJ YT 9 PH CH OP AR AE LE MA L X CY S AN TI LL FU C NG AL 2% FI 74 03 03 0 15 15 ME 12 GA Ac SH 31 -1 -1 0. D 22 IN ti 20 1- 1- 00 CA 01 EY ve OI 13 20 20 0 RE 93 L 32 16 16 NJ 1, 9 PH CH 20 AR AE 0 MA L MG CY S SO LL FT C GE L FU 63 09 10 5 30 30 [place] 71 RI Ac RO 30 -1 -2 .0 L- 34 SH ti SE 40 3- 8- 00 MA 63 ER ve NJ 62 20 20 RT 9 DE 51 11 11 RI 0 PH CH 40 AR AR MA D MG CY # TA BL 10 ET 05 91 JA 00 08 10 2 30 30 WA 71 RI Ac NU 00 -1 -2 .0 L- 31 SH ti 60 7- 5- 00 MA 30 ER ve A 27 20 20 RT 5 10 73 11 11 RI 0 1 PH CH MG AR AR MA D TA CY BL # ET 10 05 91 DI 00 10 10 3 30 30 WA 44 RI Ac AZ 59 -1 -1 .0 L- 96 SH ti EP 15 3- 3- 00 MA 89 ER ve AM 62 20 20 RT 2 01 11 11 RI 10 0 PH CH AR AR MG MA D CY TA # BL ET 10 05 91 TR 68 09 10 5 30 30 WA 71 RI Ac AN 46 -1 -1 .0 L- 34 SH ti DO 20 3- 2- 00 MA 64 ER ve LA 32 20 20 RT 0 MA 90 11 11 RI -V 1 PH CH ER AR AR AP MA D AM CY # ER 10 4- 05 24 91 0 MG CR 00 03 10 2 30 30 WA 71 RI Ac ES 31 -1 -1 .0 L- 11 SH ti TO 00 5- 2- 00 MA 24 ER ve R 75 20 20 RT 1 5 59 11 11 RI MG 0 PH CH AR AR TA MA D BL CY ET # 10 05 91 HY 23 07 10 5 30 30 [place] [address] 15 -1 -1 .0 L- 26 SH ti OC 50 2- 2- 00 MA 75 ER ve HL 04 20 20 RT 3 OR 71 11 11 RI OT 0 PH CH HI AR AR AZ MA D ID CY E # 25 10 MG 05 91 TA B FU 63 09 09 5 30 30 [place] 71 RI Ac RO 30 -1 -2 .0 L- 34 SH ti SE 40 3- 5- 00 MA 63 ER ve NJ 62 20 20 RT 9 DE 51 11 11 RI 0 PH CH 40 AR AR MA D MG CY # TA BL 10 ET 05 91 JA 00 08 09 2 30 30 WA 71 RI Ac NU 00 -1 -2 .0 L- 31 SH ti 60 7- 0- 00 MA 30 ER ve A 27 20 20 RT 5 10 73 11 11 RI 0 1 PH CH MG AR AR MA D TA CY BL # ET 10 05 91 AC 64 08 09 2 30 30 WA 71 RI Ac TO 76 -1 -2 .0 L- 31 SH ti S 40 7- 0- 00 MA 30 ER ve 45 45 20 20 RT 7 12 11 11 RI MG 4 PH CH AR AR TA MA D BL CY ET # 10 05 91 TR 68 09 09 5 30 30 WA 71 RI Ac AN 46 -1 -1 .0 L- 34 SH ti DO 20 3- 3- 00 MA 64 ER ve LA 32 20 20 RT 0 MA 90 11 11 RI -V 1 PH CH ER AR AR AP MA D AM CY # ER 10 4- 05 24 91 0 MG DI 00 06 09 2 30 30 WA 44 RI Ac AZ 17 -1 -1 .0 L- 94 SH ti EP 23 5- 3- 00 MA 37 ER ve AM 92 20 20 RT 8 78 11 11 RI 10 0 PH CH AR AR MG MA D CY TA # BL ET 10 05 91 HY 23 07 09 5 30 30 [place] [address] 15 -1 -1 .0 L- 26 SH ti OC 50 2- 3- 00 MA 75 ER ve HL 04 20 20 RT 3 OR 71 11 11 RI OT 0 PH CH HI AR AR AZ MA D ID CY E # 25 10 MG 05 91 TA B FU 63 06 08 2 30 30 WA 71 RI Ac RO 30 -1 -2 .0 L- 23 SH ti SE 40 6- 9- 00 MA 49 ER ve NJ 62 20 20 RT 0 DE 51 11 11 RI 0 PH CH 40 AR AR MA D MG CY # TA BL 10 ET 05 91 JA 00 08 08 2 30 30 WA 71 RI Ac NU 00 -1 -1 .0 L- 31 SH ti 60 7- 7- 00 MA 30 ER ve A 27 20 20 RT 5 10 73 11 11 RI 0 1 PH CH MG AR AR MA D TA CY BL # ET 10 05 91 AC 64 08 08 2 30 30 WA 71 RI Ac TO 76 -1 -1 .0 L- 31 SH ti S 40 7- 7- 00 MA 30 ER ve 45 45 20 20 RT 7 12 11 11 RI MG 4 PH CH AR AR TA MA D BL CY ET # 10 05 91 TR 00 08 08 2 60 30 WA 44 RI Ac AM 37 -1 -1 .0 L- 95 SH ti AD 84 6- 6- 00 MA 61 ER ve OL 15 20 20 RT 6 10 11 11 RI HC 1 PH CH L AR AR 50 MA D CY MG # TA 10 BL 05 ET 91 HY 23 07 08 5 30 30 [place] [address] 15 -1 -1 .0 L- 26 SH ti OC 50 2- 5- 00 MA 75 ER ve HL 04 20 20 RT 3 OR 71 11 11 RI OT 0 PH CH HI AR AR AZ MA D ID CY E # 25 10 MG 05 91 TA B TR 68 06 08 2 30 30 WA 71 RI Ac AN 46 -1 -1 .0 L- 23 SH ti DO 20 6- 5- 00 MA 48 ER ve LA 32 20 20 RT 9 MA 90 11 11 RI -V 1 PH CH ER AR AR AP MA D AM CY # ER 10 4- 05 24 91 0 MG FU 63 06 07 2 30 30 WA 71 RI Ac RO 30 -1 -2 .0 L- 23 SH ti SE 40 6- 9- 00 MA 49 ER ve NJ 62 20 20 RT 0 DE 51 11 11 RI 0 PH CH 40 AR AR MA D MG CY # TA BL 10 ET 05 91 DI 00 06 07 2 30 30 WA 44 RI Ac AZ 37 -1 -2 .0 L- 94 SH ti EP 80 5- 2- 00 MA 37 ER ve AM 47 20 20 RT 8 70 11 11 RI 10 5 PH CH AR AR MG MA D CY TA # BL ET 10 05 91 AC 64 06 07 1 30 30 WA 71 RI Ac TO 76 -1 -1 .0 L- 22 SH ti S 40 3- 4- 00 MA 97 ER ve 45 45 20 20 RT 6 12 11 11 RI MG 4 PH CH AR AR TA MA D BL CY ET # 10 05 91 TR 68 06 07 2 30 30 WA 71 RI Ac AN 46 -1 -1 .0 L- 23 SH ti DO 20 6- 4- 00 MA 48 ER ve LA 32 20 20 RT 9 MA 90 11 11 RI -V 1 PH CH ER AR AR AP MA D AM CY # ER 10 4- 05 24 91 0 MG JA 00 07 07 0 30 30 WA 71 RI Ac NU 00 -1 -1 .0 L- 27 SH ti 60 4- 4- 00 MA 09 ER ve A 27 20 20 RT 1 10 73 11 11 RI 0 1 PH CH MG AR AR MA D TA CY BL # ET 10 05 91 HY 23 07 07 5 30 30 [place] [address] 15 -1 -1 .0 L- 26 SH ti OC 50 2- 2- 00 MA 75 ER ve HL 04 20 20 RT 3 OR 71 11 11 RI OT 0 PH CH HI AR AR AZ MA D ID CY E # 25 10 MG 05 91 TA B 00 07 07 0 60 10 WA 44 RI Ac 40 -0 -0 .0 L- 94 SH ti 60 8- 8- 00 MA 87 ER ve 35 20 20 RT 1 70 11 11 RI 5 PH CH AR AR MA D CY # 10 05 91 FL 00 06 06 0 2. 8 WA 71 RI Ac UC 17 -2 -2 00 L- 24 SH ti ON 25 7- 7- 0 MA 82 ER ve AZ 41 20 20 RT 8 OL 21 11 11 RI E 1 PH CH 15 AR AR 0 MA D MG CY # TA BL 10 ET 05 91 FU 63 06 06 2 30 30 WA 71 RI Ac RO 30 -1 -2 .0 L- 23 SH ti SE 40 6- 3- 00 MA 49 ER ve NJ 62 20 20 RT 0 DE 51 11 11 RI 0 PH CH 40 AR AR MA D MG CY # TA BL 10 ET 05 91 MU 68 06 06 2 22 7 WA 71 RI Ac PI 46 -2 -2 .0 L- 23 SH ti RO 20 0- 0- 00 MA 84 ER ve CI 18 20 20 RT 1 N 02 11 11 RI 2% 2 PH CH AR AR OI MA D NT CY ME # NT 10 05 91 TR 68 06 06 2 30 30 WA 71 RI Ac AN 46 -1 -1 .0 L- 23 SH ti DO 20 6- 6- 00 MA 48 ER ve LA 32 20 20 RT 9 MA 90 11 11 RI -V 1 PH CH ER AR AR AP MA D AM CY # ER 10 4- 05 24 91 0 MG DI 00 06 06 2 30 30 WA 44 RI Ac AZ 37 -1 -1 .0 L- 94 SH ti EP 80 5- 5- 00 MA 37 ER ve AM 47 20 20 RT 8 70 11 11 RI 10 5 PH CH AR AR MG MA D CY TA # BL ET 10 05 91 AM 00 06 06 0 20 10 WA 71 RI Ac OX 78 -1 -1 .0 L- 23 SH ti -C 11 4- 4- 00 MA 20 ER ve LA 85 20 20 RT 9 V 22 11 11 RI 87 0 PH CH 5- AR AR 12 MA D 5 CY MG # TA 10 BL 05 ET 91 HY 23 10 06 5 30 30 [place] [address] 15 -1 -1 .0 L- 89 SH ti OC 50 1- 4- 00 MA 77 ER ve HL 04 20 20 RT 2 OR 71 10 11 RI OT 0 PH CH HI AR AR AZ MA D ID CY E # 25 10 MG 05 91 TA B 00 06 06 0 30 5 WA 44 RI Ac 40 -1 -1 .0 L- 94 SH ti 60 4- 4- 00 MA 36 ER ve 35 20 20 RT 0 70 11 11 RI 5 PH CH AR AR MA D CY # 10 05 91 AC 64 06 06 1 30 30 WA 71 RI Ac TO 76 -1 -1 .0 L- 22 SH ti S 40 3- 3- 00 MA 97 ER ve 45 45 20 20 RT 6 12 11 11 RI MG 4 PH CH AR AR TA MA D BL CY ET # 10 05 91 CO 00 03 06 2 30 30 WA 71 RI Ac RE 00 -1 -1 .0 L- 11 SH ti G 73 5- 3- 00 MA 23 ER ve CR 37 20 20 RT 8 01 11 11 RI 10 3 PH CH AR AR MG MA D CY CA # PS UL 10 E 05 91 JA 00 06 06 0 30 30 WA 71 RI Ac NU 00 -1 -1 .0 L- 22 SH ti 60 3- 3- 00 MA 90 ER ve A 27 20 20 RT 1 10 73 11 11 RI 0 1 PH CH MG AR AR MA D TA CY BL # ET 10 05 91 CI 00 06 06 0 20 10 WA 71 GR Ac MA 37 -1 -1 .0 L- 22 AY ti OF 87 2- 2- 00 MA 83 ve LO 09 20 20 RT 6 RO XA 80 11 11 BE CI 1 PH RT N AR B HC MA L CY 50 # 0 MG 10 05 TA 91 B 00 03 05 2 30 30 WA 71 RI Ac 37 -1 -2 .0 L- 11 SH ti 80 5- 7- 00 MA 24 ER ve 21 20 20 RT 2 69 11 11 RI 3 PH CH AR AR MA D CY # 10 05 91 TR 68 03 05 2 30 30 WA 71 RI Ac AN 46 -1 -1 .0 L- 11 SH ti DO 20 5- 4- 00 MA 23 ER ve LA 32 20 20 RT 6 MA 90 11 11 RI -V 1 PH CH ER AR AR AP MA D AM CY # ER 10 4- 05 24 91 0 MG HY 23 03 05 2 30 30 [place] [address] 15 -1 -1 .0 L- 11 SH ti OC 50 5- 4- 00 MA 23 ER ve HL 04 20 20 RT 7 OR 71 11 11 RI OT 0 PH CH HI AR AR AZ MA D ID CY E # 25 10 MG 05 91 TA B DI 00 03 05 2 30 30 WA 44 RI Ac AZ 37 -1 -1 .0 L- 92 SH ti EP 80 5- 2- 00 MA 39 ER ve AM 47 20 20 RT 9 70 11 11 RI 10 5 PH CH AR AR MG MA D CY TA # BL ET 10 05 91 JA 00 03 05 2 30 30 WA 71 RI Ac NU 00 -1 -1 .0 L- 11 SH ti 60 5- 2- 00 MA 24 ER ve A 27 20 20 RT 0 10 73 11 11 RI 0 1 PH CH MG AR AR MA D TA CY BL # ET 10 05 91 CR 00 03 05 2 30 30 WA 71 RI Ac ES 31 -1 -0 .0 L- 11 SH ti TO 00 5- 3- 00 MA 24 ER ve R 75 20 20 RT 1 5 59 11 11 RI MG 0 PH CH AR AR TA MA D BL CY ET # 10 05 91 00 03 04 2 30 30 WA 71 RI Ac 37 -1 -2 .0 L- 11 SH ti 80 5- 7- 00 MA 24 ER ve 21 20 20 RT 2 69 11 11 RI 3 PH CH AR AR MA D CY # 10 05 91 AC 64 03 04 2 90 30 WA 71 RI Ac TO 76 -1 -2 .0 L- 11 SH ti S 40 5- 5- 00 MA 23 ER ve 15 15 20 20 RT 9 10 11 11 RI MG 4 PH CH AR AR TA MA D BL CY ET # 10 05 91 CO 00 03 04 2 30 30 WA 71 RI Ac RE 00 -1 -2 .0 L- 11 SH ti G 73 5- 5- 00 MA 23 ER ve CR 37 20 20 RT 8 01 11 11 RI 10 3 PH CH AR AR MG MA D CY CA # PS UL 10 E 05 91 HY 23 03 04 2 30 30 [place] [address] 15 -1 -1 .0 L- 11 SH ti OC 50 5- 5- 00 MA 23 ER ve HL 04 20 20 RT 7 OR 71 11 11 RI OT 0 PH CH HI AR AR AZ MA D ID CY E # 25 10 MG 05 91 TA B DI 00 03 04 2 30 30 [place] 44 RI Ac AZ 37 -1 -1 .0 L- 92 SH ti EP 80 5- 4- 00 MA 39 ER ve AM 47 20 20 RT 9 70 11 11 RI 10 5 PH CH AR AR MG MA D CY TA # BL ET 10 05 91 TR 68 03 04 2 30 30 WA 71 RI Ac AN 46 -1 -1 .0 L- 11 SH ti DO 20 5- 4- 00 MA 23 ER ve LA 32 20 20 RT 6 MA 90 11 11 RI -V 1 PH CH ER AR AR AP MA D AM CY # ER 10 4- 05 24 91 0 MG JA 00 03 04 2 30 30 WA 71 RI Ac NU 00 -1 -1 .0 L- 11 SH ti 60 5- 4- 00 MA 24 ER ve A 27 20 20 RT 0 10 73 11 11 RI 0 1 PH CH MG AR AR MA D TA CY BL # ET 10 05 91 00 03 03 2 30 30 [place] 71 RI Ac 37 -1 -2 .0 L- 11 SH ti 80 5- 2- 00 MA 24 ER ve 21 20 20 RT 2 69 11 11 RI 3 PH CH AR AR MA D CY # 10 05 91 CR 00 03 03 2 30 30 WA 71 RI Ac ES 31 -1 -2 .0 L- 11 SH ti TO 00 5- 2- 00 MA 24 ER ve R 75 20 20 RT 1 5 59 11 11 RI MG 0 PH CH AR AR TA MA D BL CY ET # 10 05 91 CE 00 03 03 1 30 30 WA 71 RI Ac LE 02 -1 -1 .0 L- 11 SH ti BR 51 7- 7- 00 MA 57 ER ve EX 52 20 20 RT 1 53 11 11 RI 20 1 PH CH 0 AR AR MG MA D CY CA # PS UL 10 E 05 91 23 03 03 2 30 30 WA 71 RI Ac 15 -1 -1 .0 L- 11 SH ti 50 5- 5- 00 MA 23 ER ve 13 20 20 RT 7 81 11 11 RI 0 PH CH AR AR MA D CY # 10 05 91 CO 00 03 03 2 30 30 WA 71 RI Ac RE 00 -1 -1 .0 L- 11 SH ti G 73 5- 5- 00 MA 23 ER ve CR 37 20 20 RT 8 01 11 11 RI 10 3 PH CH AR AR MG MA D CY CA # PS UL 10 E 05 91 AC 64 03 03 2 90 30 WA 71 RI Ac TO 76 -1 -1 .0 L- 11 SH ti S 40 5- 5- 00 MA 23 ER ve 15 15 20 20 RT 9 10 11 11 RI MG 4 PH CH AR AR TA MA D BL CY ET # 10 05 91 JA 00 03 03 2 30 30 [place] 71 RI Ac NU 00 -1 -1 .0 L- 11 SH ti 60 5- 5- 00 MA 24 ER ve A 27 20 20 RT 0 10 73 11 11 RI 0 1 PH CH MG AR AR MA D TA CY BL # ET 10 05 91 DI 00 03 03 2 30 30 [place] 44 RI Ac AZ 37 -1 -1 .0 L- 92 SH ti EP 80 5- 5- 00 MA 39 ER ve AM 47 20 20 RT 9 70 11 11 RI 10 5 PH CH AR AR MG MA D CY TA # BL ET 10 05 91 TR 68 03 03 2 30 30 [place] 71 RI Ac AN 46 -1 -1 .0 L- 11 SH ti DO 20 5- 5- 00 MA 23 ER ve LA 32 20 20 RT 6 MA 90 11 11 RI -V 1 PH CH ER AR AR AP MA D AM CY # ER 10 4- 05 24 91 0 MG FU 63 09 02 3 30 30 WA 70 RI Ac RO 30 -2 -2 .0 L- 87 SH ti SE 40 7- 3- 00 MA 98 ER ve NJ 62 20 20 RT 1 DE 51 10 11 RI 0 PH CH 40 AR AR MA D MG CY # TA BL 10 ET 05 91 CR 00 01 02 1 30 30 WA 71 RI Ac ES 31 -2 -2 .0 L- 03 SH ti TO 00 4- 3- 00 MA 73 ER ve R 75 20 20 RT 9 5 59 11 11 RI MG 0 PH CH AR AR TA MA D BL CY ET # 10 05 91 DI 00 12 02 2 30 30 WA 44 RI Ac AZ 37 -1 -1 .0 L- 90 SH ti EP 80 5- 4- 00 MA 49 ER ve AM 47 20 20 RT 9 70 10 11 RI 10 5 PH CH AR AR MG MA D CY TA # BL ET 10 05 91 TR 68 02 02 0 30 30 WA 71 MO Ac AN 46 -1 -1 .0 L- 06 SE ti DO 20 1- 1- 00 MA 47 S ve LA 32 [address] MA 90 11 11 EP -V 1 PH HE ER AR N AP MA A AM CY # ER 10 4- 05 24 91 0 MG JA 00 02 02 0 30 30 WA 71 MO Ac NU 00 -1 -1 .0 L- 06 SE ti 60 1- 1- 00 MA 47 S ve A 27 [address] 10 73 11 11 EP 0 1 PH HE MG AR N MA A TA CY BL # ET 10 91 AC 64 02 02 0 90 30 WA 71 MO Ac TO 76 -1 -1 .0 L- 06 SE ti S 40 1- 1- 00 MA 47 S ve 15 15 [address] 10 11 11 EP MG 4 PH HE AR N TA MA A BL CY ET # 10 CO 00 02 02 0 30 30 WA 71 MO Ac RE 00 -1 -1 .0 L- 06 SE ti G 73 1- 1- 00 MA 47 S ve CR 37 [address] 01 11 11 EP 10 3 PH HE AR N MG MA A CY CA # PS UL 10 E 05 91 23 10 02 5 30 30 WA 70 RI Ac 15 -1 -1 .0 L- 89 SH ti 50 1- 0- 00 MA 77 ER ve 13 20 20 RT 2 81 10 11 RI 0 PH CH AR AR MA D CY # 10 05 91 AC 64 12 01 2 45 15 WA 70 RI Ac TO 76 -1 -2 .0 L- 98 SH ti S 40 5- 7- 00 MA 60 ER ve 15 15 20 20 RT 5 10 10 11 RI MG 4 PH CH AR AR TA MA D BL CY ET # 10 05 91 CR 00 01 01 1 30 30 WA 71 RI Ac ES 31 -2 -2 .0 L- 03 SH ti TO 00 4- 4- 00 MA 73 ER ve R 75 20 20 RT 9 5 59 11 11 RI MG 0 PH CH AR AR TA MA D BL CY ET # 10 05 91 FU 63 09 01 3 30 30 WA 70 RI Ac RO 30 -2 -2 .0 L- 87 SH ti SE 40 7- 3- 00 MA 98 ER ve NJ 62 20 20 RT 1 DE 51 10 11 RI 0 PH CH 40 AR AR MA D MG CY # TA BL 10 ET 05 91 DI 00 12 01 2 30 30 WA 44 RI Ac AZ 37 -1 -1 .0 L- 90 SH ti EP 80 5- 6- 00 MA 49 ER ve AM 47 20 20 RT 9 70 10 11 RI 10 5 PH CH AR AR MG MA D CY TA # BL ET 10 05 91 23 10 01 5 30 30 WA 70 RI Ac 15 -1 -1 .0 L- 89 SH ti 50 1- 4- 00 MA 77 ER ve 13 20 20 RT 2 81 10 11 RI 0 PH CH AR AR MA D CY # 10 05 91 AC 64 12 01 2 45 15 WA 70 RI Ac TO 76 -1 -0 .0 L- 98 SH ti S 40 5- 9- 00 MA 60 ER ve 15 15 20 20 RT 5 10 10 11 RI MG 4 PH CH AR AR TA MA D BL CY ET # 10 05 91 JA 00 10 01 3 30 30 WA 70 RI Ac NU 00 -0 -0 .0 L- 89 SH ti 60 5- 7- 00 MA 06 ER ve A 27 20 20 RT 3 10 73 10 11 RI 0 1 PH CH MG AR AR MA D TA CY BL # ET 10 91 TR 68 10 12 2 30 30 WA 70 RI Ac AN 46 -2 -3 .0 L- 92 SH ti DO 20 9- 1- 00 MA 24 ER ve LA 32 20 20 RT 6 MA 90 10 10 RI -V 1 PH CH ER AR AR AP MA D AM CY # ER 10 4- 05 24 91 0 MG CR 00 10 12 2 30 30 [place] 70 RI Ac ES 31 -2 -2 .0 L- 91 SH ti TO 00 5- 3- 00 MA 54 ER ve R 75 20 20 RT 0 5 59 10 10 RI MG 0 PH CH AR AR TA MA D BL CY ET # 10 05 91 FU 63 09 12 3 30 30 [place] 70 RI Ac RO 30 -2 -2 .0 L- 87 SH ti SE 40 7- 2- 00 MA 98 ER ve NJ 62 20 20 RT 1 DE 51 10 10 RI 0 PH CH 40 AR AR MA D MG CY # TA BL 10 ET 05 91 DI 00 12 12 2 30 30 [place] 44 RI Ac AZ 37 -1 -1 .0 L- 90 SH ti EP 80 5- 5- 00 MA 49 ER ve AM 47 20 20 RT 9 70 10 10 RI 10 5 PH CH AR AR MG MA D CY TA # BL ET 10 05 91 AC 64 12 12 2 45 15 WA 70 RI Ac TO 76 -1 -1 .0 L- 98 SH ti S 40 5- 5- 00 MA 60 ER ve 15 15 20 20 RT 5 10 10 10 RI MG 4 PH CH AR AR TA MA D BL CY ET # 10 05 91 23 10 12 5 30 30 [place] 70 RI Ac 15 -1 -1 .0 L- 89 SH ti 50 1- 4- 00 MA 77 ER ve 13 20 20 RT 2 81 10 10 RI 0 PH CH AR AR MA D CY # 10 05 91 JA 00 10 12 3 30 30 [place] 70 RI Ac NU 00 -0 -0 .0 L- 89 SH ti 60 5- 7- 00 MA 06 ER ve A 27 20 20 RT 3 10 73 10 10 RI 0 1 PH CH MG AR AR MA D TA CY BL # ET 10 05 91 TR 68 10 11 2 30 30 [place] 70 RI Ac AN 46 -2 -3 .0 L- 92 SH ti DO 20 9- 0- 00 MA 24 ER ve LA 32 20 20 RT 6 MA 90 10 10 RI -V 1 PH CH ER AR AR AP MA D AM CY # ER 10 4- 05 24 91 0 MG CR 00 10 11 2 30 30 [place] 70 RI Ac ES 31 -2 -2 .0 L- 91 SH ti TO 00 5- 6- 00 MA 54 ER ve R 75 20 20 RT 0 5 59 10 10 RI MG 0 PH CH AR AR TA MA D BL CY ET # 10 05 91 FU 63 09 11 3 30 30 [place] 70 RI Ac RO 30 -2 -2 .0 L- 87 SH ti SE 40 7- 2- 00 MA 98 ER ve NJ 62 20 20 RT 1 DE 51 10 10 RI 0 PH CH 40 AR AR MA D MG CY # TA BL 10 ET 05 91 23 10 11 5 30 30 [place] 70 RI Ac 15 -1 -1 .0 L- 89 SH ti 50 1- 4- 00 MA 77 ER ve 13 20 20 RT 2 81 10 10 RI 0 PH CH AR AR MA D CY # 10 05 91 FR 99 11 11 11 50 25 AM 88 RI Ac EE 07 -0 -1 .0 ME [address] 30 9- 0- 00 D 12 ER ve YL 70 20 20 HO E 82 10 10 ME RI LI 2 CA CH TE RE AR D TE PH ST AR MA ST CY RI # P 1 SA 38 11 11 11 10 30 AM 88 RI Ac FE 41 -0 -1 0. ME 49 SH ti TY 50 9- 0- 00 D 13 ER ve 10 20 20 0 HO SE 03 10 10 ME RI AL 0 CA CH RE AR 30 D G PH LA AR NC MA ET CY S # 1 JA 00 10 11 3 30 30 WA 70 RI Ac NU 00 -0 -0 .0 L- 89 SH ti 60 5- 5- 00 MA 06 ER ve A 27 20 20 RT 3 10 73 10 10 RI 0 1 PH CH MG AR AR MA D TA CY BL # ET 10 05 91 DI 00 09 10 1 30 30 [place] 44 RI Ac AZ 37 -0 -2 .0 L- 88 SH ti EP 80 9- 9- 00 MA 28 ER ve AM 47 20 20 RT 8 70 10 10 RI 10 5 PH CH AR AR MG MA D CY TA # BL ET 10 05 91 TR 68 10 10 2 30 30 WA 70 RI Ac AN 46 -2 -2 .0 L- 92 SH ti DO 20 9- 9- 00 MA 24 ER ve LA 32 20 20 RT 6 MA 90 10 10 RI -V 1 PH CH ER AR AR AP MA D AM CY # ER 10 4- 05 24 91 0 MG FU 63 09 10 1 30 30 WA 70 RI Ac RO 30 -2 -2 .0 L- 87 SH ti SE 40 4- 5- 00 MA 63 ER ve NJ 62 20 20 RT 8 DE 51 10 10 RI 0 PH CH 40 AR AR MA D MG CY # TA BL 10 ET 05 91 CR 00 10 10 2 30 30 WA 70 RI Ac ES 31 -2 -2 .0 L- 91 SH ti TO 00 5- 5- 00 MA 54 ER ve R 75 20 20 RT 0 5 59 10 10 RI MG 0 PH CH AR AR TA MA D BL CY ET # 10 05 91 AC 64 06 10 1 30 30 WA 70 RI Ac TO 76 -2 -1 .0 L- 75 SH ti S 40 2- 9- 00 MA 64 ER ve 45 45 20 20 RT 3 12 10 10 RI MG 4 PH CH AR AR TA MA D BL CY ET # 10 05 91 23 10 10 5 30 30 [place] 70 RI Ac 15 -1 -1 .0 L- 89 SH ti 50 1- 1- 00 MA 77 ER ve 13 20 20 RT 2 81 10 10 RI 0 PH CH AR AR MA D CY # 10 05 91 JA 00 10 10 3 30 30 [place] 70 RI Ac NU 00 -0 -0 .0 L- 89 SH ti 60 5- 5- 00 MA 06 ER ve A 27 20 20 RT 3 10 73 10 10 RI 0 1 PH CH MG AR AR MA D TA CY BL # ET 10 05 91 TR 68 09 09 0 30 30 [place] 70 RI Ac AN 46 -2 -2 .0 L- 88 SH ti DO 20 9- 9- 00 MA 31 ER ve LA 32 20 20 RT 0 MA 90 10 10 RI -V 1 PH CH ER AR AR AP MA D AM CY # ER 10 4- 05 24 91 0 MG FU 63 09 09 1 30 30 [place] 70 RI Ac RO 30 -2 -2 .0 L- 87 SH ti SE 40 4- 4- 00 MA 63 ER ve NJ 62 20 20 RT 8 DE 51 10 10 RI 0 PH CH 40 AR AR MA D MG CY # TA BL 10 ET 05 91 DI 00 09 09 1 30 30 [place] 44 RI Ac AZ 37 -0 -2 .0 L- 88 SH ti EP 80 9- 3- 00 MA 28 ER ve AM 47 20 20 RT 8 70 10 10 RI 10 5 PH CH AR AR MG MA D CY TA # BL ET 10 05 91 CR 00 06 09 2 30 30 [place] 70 RI Ac ES 31 -2 -2 .0 L- 75 SH ti TO 00 2- 0- 00 MA 64 ER ve R 75 20 20 RT 9 5 59 10 10 RI MG 0 PH CH AR AR TA MA D BL CY ET # 10 05 91 54 06 09 2 30 30 [place] 70 RI Ac 45 -2 -0 .0 L- 75 SH ti 80 2- 7- 00 MA 64 ER ve 94 20 20 RT 8 11 10 10 RI 0 PH CH AR AR MA D CY # 10 05 91 TR 68 06 09 2 30 30 WA 70 RI Ac AN 46 -2 -0 .0 L- 75 SH ti DO 20 2- 1- 00 MA 64 ER ve LA 32 20 20 RT 7 MA 90 10 10 RI -V 1 PH CH ER AR AR AP MA D AM CY # ER 10 4- 05 24 91 0 MG JA 00 06 08 2 30 30 WA 70 RI Ac NU 00 -2 -2 .0 L- 75 SH ti 60 2- 9- 00 MA 63 ER ve A 27 20 20 RT 3 10 73 10 10 RI 0 1 PH CH MG AR AR MA D TA CY BL # ET 10 05 91 DI 00 06 08 2 30 30 [place] 44 RI Ac AZ 37 -2 -2 .0 L- 86 SH ti EP 80 2- 7- 00 MA 44 ER ve AM 47 20 20 RT 9 70 10 10 RI 10 5 PH CH AR AR MG MA D CY TA # BL ET 10 05 91 00 06 08 2 30 30 [place] 70 RI Ac 37 -2 -2 .0 L- 75 SH ti 80 2- 5- 00 MA 64 ER ve 21 20 20 RT 5 69 10 10 RI 3 PH CH AR AR MA D CY # 10 05 91 AC 64 06 08 1 30 30 WA 70 RI Ac TO 76 -2 -1 .0 L- 75 SH ti S 40 2- 8- 00 MA 64 ER ve 45 45 20 20 RT 3 12 10 10 RI MG 4 PH CH AR AR TA MA D BL CY ET # 10 05 91 CR 00 06 08 2 30 30 WA 70 RI Ac ES 31 -2 -1 .0 L- 75 SH ti TO 00 2- 7- 00 MA 64 ER ve R 75 20 20 RT 9 5 59 10 10 RI MG 0 PH CH AR AR TA MA D BL CY ET # 10 05 91 ZE 66 07 08 2 30 30 WA 70 RI Ac TI 58 -2 -1 .0 L- 79 SH ti A 20 0- 7- 00 MA 01 ER ve 10 41 20 20 RT 8 43 10 10 RI MG 1 PH CH AR AR TA MA D BL CY ET # 10 05 91 54 06 08 2 30 30 WA 70 RI Ac 45 -2 -0 .0 L- 75 SH ti 80 2- 7- 00 MA 64 ER ve 94 20 20 RT 8 11 10 10 RI 0 PH CH AR AR MA D CY # 10 05 91 TR 68 06 08 2 30 30 WA 70 RI Ac AN 46 -2 -0 .0 L- 75 SH ti DO 20 2- 1- 00 MA 64 ER ve LA 32 20 20 RT 7 MA 90 10 10 RI -V 1 PH CH ER AR AR AP MA D AM CY # ER 10 4- 05 24 91 0 MG DI 00 06 07 2 30 30 [place] 44 RI Ac AZ 37 -2 -3 .0 L- 86 SH ti EP 80 2- 0- 00 MA 44 ER ve AM 47 20 20 RT 9 70 10 10 RI 10 5 PH CH AR AR MG MA D CY TA # BL ET 10 05 91 JA 00 06 07 2 30 30 [place] 70 RI Ac NU 00 -2 -2 .0 L- 75 SH ti 60 2- 7- 00 MA 63 ER ve A 27 20 20 RT 3 10 73 10 10 RI 0 1 PH CH MG AR AR MA D TA CY BL # ET 10 05 91 00 06 07 2 30 30 [place] 70 RI Ac 37 -2 -2 .0 L- 75 SH ti 80 2- 6- 00 MA 64 ER ve 21 20 20 RT 5 69 10 10 RI 3 PH CH AR AR MA D CY # 10 05 91 ZE 66 07 07 2 30 30 WA 70 RI Ac TI 58 -2 -2 .0 L- 79 SH ti A 20 0- 0- 00 MA 01 ER ve 10 41 20 20 RT 8 43 10 10 RI MG 1 PH CH AR AR TA MA D BL CY ET # 10 05 91 CR 00 06 07 2 30 30 WA 70 RI Ac ES 31 -2 -1 .0 L- 75 SH ti TO 00 2- 2- 00 MA 64 ER ve R 75 20 20 RT 9 5 59 10 10 RI MG 0 PH CH AR AR TA MA D BL CY ET # 10 05 91 54 06 07 2 30 30 WA 70 RI Ac 45 -2 -0 .0 L- 75 SH ti 80 2- 1- 00 MA 64 ER ve 94 20 20 RT 8 11 10 10 RI 0 PH CH AR AR MA D CY # 10 05 91 TR 68 06 06 2 30 30 WA 70 RI Ac AN 46 -2 -2 .0 L- 75 SH ti DO 20 2- 8- 00 MA 64 ER ve LA 32 20 20 RT 7 MA 90 10 10 RI -V 1 PH CH ER AR AR AP MA D AM CY # ER 10 4- 05 24 91 0 MG DI 00 06 06 2 30 30 [place] 44 RI Ac AZ 37 -2 -2 .0 L- 86 SH ti EP 80 2- 5- 00 MA 44 ER ve AM 47 20 20 RT 9 70 10 10 RI 10 5 PH CH AR AR MG MA D CY TA # BL ET 10 05 91 AC 64 03 06 2 30 30 WA 70 RI Ac TO 76 -1 -2 .0 L- 63 SH ti S 40 9- 2- 00 MA 26 ER ve 45 45 20 20 RT 7 12 10 10 RI MG 4 PH CH AR AR TA MA D BL CY ET # 10 05 91 CO 00 05 06 1 30 30 WA 70 RI Ac RE 00 -2 -2 .0 L- 71 SH ti G 73 4- 2- 00 MA 84 ER ve CR 37 20 20 RT 9 01 10 10 RI 10 3 PH CH AR AR MG MA D CY CA # PS UL 10 E 05 91 JA 00 06 06 2 30 30 WA 70 RI Ac NU 00 -2 -2 .0 L- 75 SH ti 60 2- 2- 00 MA 63 ER ve A 27 20 20 RT 3 10 73 10 10 RI 0 1 PH CH MG AR AR MA D TA CY BL # ET 10 05 91 00 06 06 2 30 30 [place] 70 RI Ac 37 -2 -2 .0 L- 75 SH ti 80 2- 2- 00 MA 64 ER ve 21 20 20 RT 5 69 10 10 RI 3 PH CH AR AR MA D CY # 10 05 91 CR 00 06 06 0 30 30 WA 70 RI Ac ES 31 -1 -1 .0 L- 74 SH ti TO 00 6- 8- 00 MA 95 ER ve R 75 20 20 RT 8 5 59 10 10 RI MG 0 PH CH AR AR TA MA D BL CY ET # 10 05 91 23 09 06 99 30 30 [place] 70 RI Ac 15 -0 -0 .0 L- 35 SH ti 50 4- 7- 00 MA 31 ER ve 13 20 20 RT 9 81 09 10 RI 0 PH CH AR AR MA D CY # 10 05 91 DI 00 03 06 2 30 30 [place] 44 RI Ac AZ 37 -1 -0 .0 L- 84 SH ti EP 80 9- 1- 00 MA 28 ER ve AM 47 20 20 RT 4 70 10 10 RI 10 5 PH CH AR AR MG MA D CY TA # BL ET 10 05 91 TA 00 04 06 2 30 30 WA 70 RI Ac RK 07 -0 -0 .0 L- 65 SH ti A 43 1- 1- 00 MA 06 ER ve ER 29 20 20 RT 2 01 10 10 RI 4- 3 PH CH 24 AR AR 0 MA D MG CY # TA BL 10 ET 05 91 CR 00 03 05 2 30 30 WA 70 RI Ac ES 31 -1 -2 .0 L- 63 SH ti TO 00 9- 5- 00 MA 26 ER ve R 75 20 20 RT 6 5 59 10 10 RI MG 0 PH CH AR AR TA MA D BL CY ET # 10 05 91 CO 00 05 05 1 30 30 WA 70 RI Ac RE 00 -2 -2 .0 L- 71 SH ti G 73 4- 4- 00 MA 84 ER ve CR 37 20 20 RT 9 01 10 10 RI 10 3 PH CH AR AR MG MA D CY CA # PS UL 10 E 05 91 00 03 05 2 30 30 WA 70 RI Ac 37 -1 -2 .0 L- 63 SH ti 80 9- 4- 00 MA 27 ER ve 21 20 20 RT 0 69 10 10 RI 3 PH CH AR AR MA D CY # 10 05 91 JA 00 04 05 1 30 30 WA 70 RI Ac NU 00 -1 -1 .0 L- 67 SH ti 60 9- 5- 00 MA 27 ER ve A 27 20 20 RT 8 10 73 10 10 RI 0 1 PH CH MG AR AR MA D TA CY BL # ET 10 05 91 23 09 05 99 30 30 WA 70 RI Ac 15 -0 -0 .0 L- 35 SH ti 50 4- 7- 00 MA 31 ER ve 13 20 20 RT 9 81 09 10 RI 0 PH CH AR AR MA D CY # 10 05 91 AC 64 03 05 2 30 30 WA 70 RI Ac TO 76 -1 -0 .0 L- 63 SH ti S 40 9- 7- 00 MA 26 ER ve 45 45 20 20 RT 7 12 10 10 RI MG 4 PH CH AR AR TA MA D BL CY ET # 10 05 91 TA 00 04 04 2 30 30 WA 70 RI Ac RK 07 -0 -3 .0 L- 65 SH ti A 43 1- 0- 00 MA 06 ER ve ER 29 20 20 RT 2 01 10 10 RI 4- 3 PH CH 24 AR AR 0 MA D MG CY # TA BL 10 ET 05 91 DI 00 03 04 2 30 30 WA 44 RI Ac AZ 37 -1 -3 .0 L- 84 SH ti EP 80 9- 0- 00 MA 28 ER ve AM 47 20 20 RT 4 70 10 10 RI 10 5 PH CH AR AR MG MA D CY TA # BL ET 10 05 91 CR 00 03 04 2 30 30 WA 70 RI Ac ES 31 -1 -2 .0 L- 63 SH ti TO 00 9- 8- 00 MA 26 ER ve R 75 20 20 RT 6 5 59 10 10 RI MG 0 PH CH AR AR TA MA D BL CY ET # 10 05 91 00 03 04 2 30 30 WA 70 RI Ac 37 -1 -2 .0 L- 63 SH ti 80 9- 1- 00 MA 27 ER ve 21 20 20 RT 0 69 10 10 RI 3 PH CH AR AR MA D CY # 10 05 91 JA 00 04 04 1 30 30 WA 70 RI Ac NU 00 -1 -1 .0 L- 67 SH ti 60 9- 9- 00 MA 27 ER ve A 27 20 20 RT 8 10 73 10 10 RI 0 1 PH CH MG AR AR MA D TA CY BL # ET 10 05 91 23 09 04 99 30 30 WA 70 RI Ac 15 -0 -0 .0 L- 35 SH ti 50 4- 2- 00 MA 31 ER ve 13 20 20 RT 9 81 09 10 RI 0 PH CH AR AR MA D CY # 10 05 91 TA 00 04 04 2 30 30 WA 70 RI Ac RK 07 -0 -0 .0 L- 65 SH ti A 43 1- 1- 00 MA 06 ER ve ER 29 20 20 RT 2 01 10 10 RI 4- 3 PH CH 24 AR AR 0 MA D MG CY # TA BL 10 ET 05 91 CO 00 01 03 1 30 30 WA 70 RI Ac RE 00 -2 -2 .0 L- 55 SH ti G 73 5- 9- 00 MA 84 ER ve CR 37 20 20 RT 0 01 10 10 RI 10 3 PH CH AR AR MG MA D CY CA # PS UL 10 E 05 91 00 03 03 2 30 30 WA 70 RI Ac 37 -1 -1 .0 L- 63 SH ti 80 9- 9- 00 MA 27 ER ve 21 20 20 RT 0 69 10 10 RI 3 PH CH AR AR MA D CY # 10 05 91 LO 00 03 03 1 30 30 WA 88 RI Ac RA 78 -1 -1 .0 L- 15 SH ti TA 15 9- 9 MA 68 ER ve DI 07 20 20 RT 6 NE 70 10 10 RI 1 PH CH 10 AR AR MA D MG CY # TA BL 10 ET 05 91 DI 00 03 03 2 30 30 WA 44 RI Ac AZ 37 -1 -1 .0 L- 84 SH ti EP 80 9- 9- 00 MA 28 ER ve AM 47 20 20 RT 4 70 10 10 RI 10 5 PH CH AR AR MG MA D CY TA # BL ET 10 05 91 CR 00 03 03 2 30 30 WA 70 RI Ac ES 31 -1 -1 .0 L- 63 SH ti TO 00 9 9- MA 26 ER ve R 75 20 20 RT 6 5 59 10 10 RI MG 0 PH CH AR AR TA MA D BL CY ET # 10 05 91 AC 64 03 03 2 30 30 WA 70 RI Ac TO 76 -1 -1 .0 L- 63 SH ti S 40 9- 9- 00 MA 26 ER ve 45 45 20 20 RT 7 12 10 10 RI MG 4 PH CH AR AR TA MA D BL CY ET # 10 05 91 JA 00 01 03 2 30 30 WA 70 RI Ac NU 00 -1 -1 .0 L- 54 SH ti 60 5- 7- 00 MA 50 ER ve A 27 20 20 RT 6 10 73 10 10 RI 0 1 PH CH MG AR AR MA D TA CY BL # ET 10 05 91 23 09 03 99 30 30 WA 70 RI Ac 15 -0 -0 .0 L- 35 SH ti 50 4- 3- 00 MA 31 ER ve 13 20 20 RT 9 81 09 10 RI 0 PH CH AR AR MA D CY # 10 05 91 TA 00 12 03 2 30 30 WA 70 RI Ac RK 07 -3 -0 .0 L- 52 SH ti A 43 1- 3- 00 MA 48 ER ve ER 29 20 20 RT 2 01 09 10 RI 4- 3 PH CH 24 AR AR 0 MA D MG CY # TA BL 10 ET 05 91 JA 00 01 02 01 30 30 WA 70 RI Ac NU 00 -1 -2 .0 L- 54 SH ti 60 5- 6- 00 MA 50 ER ve A 27 20 20 RT 6 10 73 10 10 RI 0 1 PH CH MG AR AR MA D TA CY BL ET #5 91 CR 00 01 02 01 30 30 WA 70 RI Ac ES 31 -0 -2 .0 L- 53 SH ti TO 00 5- 6- 00 MA 08 ER ve R 75 20 20 RT 6 10 19 10 10 RI 0 PH CH MG AR AR MA D TA CY BL ET #5 91 00 02 02 00 30 30 [place] 70 RI Ac 37 -1 -2 .0 L- 59 SH ti 80 8- 6- 00 MA 00 ER ve 21 20 20 RT 9 69 10 10 RI 3 PH CH AR AR MA D CY #5 91 TA 00 12 02 01 30 30 [place] 70 RI Ac RK 07 -3 -1 .0 L- 52 SH ti A 43 1- 1- 00 MA 48 ER ve ER 29 20 20 RT 2 01 09 10 RI 4- 3 PH CH 24 AR AR 0 MA D MG CY TA #5 BL 91 ET 54 09 02 05 30 30 WA 70 RI Ac 45 -0 -1 .0 L- 35 SH ti 80 4- 1- 00 MA 31 ER ve 97 20 20 RT 9 01 09 10 RI 0 PH CH AR AR MA D CY #5 91 AC 64 08 02 03 30 30 WA 70 RI Ac TO 76 -2 -1 .0 L- 33 SH ti S 40 0- 1- 00 MA 11 ER ve 45 45 20 20 RT 6 12 09 10 RI MG 4 PH CH AR AR TA MA D BL CY ET #5 91 DI 00 12 02 01 30 30 [place] 44 RI Ac AZ 37 -2 -1 .0 L- 82 SH ti EP 80 4- 1- 00 MA 28 ER ve AM 47 20 20 RT 5 70 09 10 RI 10 5 PH CH AR AR MG MA D CY TA BL #5 ET 91 CO 00 02 00 30 30 WA 70 RI Ac RE 00 -2 -1 .0 L- 55 SH ti G 73 5- 1- 00 MA 84 ER ve CR 37 20 20 RT 0 01 10 10 RI 10 3 PH CH AR AR MG MA D CY CA PS #5 UL 91 E JA 00 09 16 00 30 30 WA 70 RI Ac NU 00 -1 -2 .0 L- 54 SH ti 60 5- 8- 00 MA 50 ER ve A 27 20 20 RT 6 10 73 10 10 RI 0 1 PH CH MG AR AR MA D TA CY BL ET #5 91 00 09 16 00 30 30 [place] 70 RI Ac 37 -1 -2 .0 L- 54 SH ti 80 8- 8- 00 MA 89 ER ve 21 20 20 RT 8 69 10 10 RI 3 PH CH AR AR MA D CY #5 91 CR 00 09 16 00 30 30 WA 70 RI Ac ES 31 -0 -1 .0 L- 53 SH ti TO 00 5- 4- 00 MA 08 ER ve R 75 20 20 RT 6 10 19 10 10 RI 0 PH CH MG AR AR MA D TA CY BL ET #5 91 54 09 01 04 30 30 [place] 70 RI Ac 45 -0 -1 .0 L- 35 SH ti 80 4- 4- 00 MA 31 ER ve 97 20 20 RT 9 01 09 10 RI 0 PH CH AR AR MA D CY #5 91 TA 00 12 01 00 30 30 [place] 70 RI Ac RK 07 -3 -1 .0 L- 52 SH ti A 43 1- 4- 00 MA 48 ER ve ER 29 20 20 RT 2 01 09 10 RI 4- 3 PH CH 24 AR AR 0 MA D MG CY TA #5 BL 91 ET 00 12 12 00 30 30 WA 70 RI Ac 37 -1 -3 .0 L- 50 SH ti 80 8- 1- 00 MA 77 ER ve 21 20 20 RT 6 69 09 09 RI 3 PH CH AR AR MA D CY #5 91 JA 00 08 12 03 30 30 [place] 70 RI Ac NU 00 -2 -3 .0 L- 33 SH ti 60 0- 1- 00 MA 11 ER ve A 27 20 20 RT 5 10 73 09 09 RI 0 1 PH CH MG AR AR MA D TA CY BL ET #5 91 DI 00 12 12 00 30 30 [place] 44 RI Ac AZ 37 -2 -3 .0 L- 82 SH ti EP 80 4- 1- 00 MA 28 ER ve AM 47 20 20 RT 5 70 09 09 RI 10 5 PH CH AR AR MG MA D CY TA BL #5 ET 91 AC 64 08 12 02 30 30 WA 70 RI Ac TO 76 -2 -3 .0 L- 33 SH ti S 40 0- 1- 00 MA 11 ER ve 45 45 20 20 RT 6 12 09 09 RI MG 4 PH CH AR AR TA MA D BL CY ET #5 91 CO 00 08 12 03 30 30 [place] 70 RI Ac RE 00 -2 -3 .0 L- 33 SH ti G 73 0- 1- 00 MA 11 ER ve CR 37 20 20 RT 3 01 09 09 RI 10 3 PH CH AR AR MG MA D CY CA PS #5 UL 91 E CR 00 08 12 01 30 30 [place] 70 RI Ac ES 31 -2 -1 .0 L- 33 SH ti TO 00 0- 7- 00 MA 12 ER ve R 75 20 20 RT 1 10 19 09 09 RI 0 PH CH MG AR AR MA D TA CY BL ET #5 91 TA 00 08 12 02 30 30 [place] 70 RI Ac RK 07 -2 -1 .0 L- 33 SH ti A 43 0- 7- 00 MA 11 ER ve ER 29 20 20 RT 9 01 09 09 RI 4- 3 PH CH 24 AR AR 0 MA D MG CY TA #5 BL 91 ET 54 09 12 03 30 30 [place] 70 RI Ac 45 -0 -1 .0 L- 35 SH ti 80 4- 7- 00 MA 31 ER ve 97 20 20 RT 9 01 09 09 RI 0 PH CH AR AR MA D CY #5 91 00 11 12 00 3. 20 WA 70 EV Ac GA 06 -1 -0 00 L- 47 AN ti MO 54 3- 3- 0 MA 57 S ve X 01 20 20 RT 9 ABBEY 0. 30 09 09 GARCIA 5% 3 PH NN AR ES EY MA C E CY DR OP #5 S 91 AC 64 08 12 01 30 30 WA 70 RI Ac TO 76 -2 -0 .0 L- 33 SH ti S 40 0- 3- 00 MA 11 ER ve 45 45 20 20 RT 6 12 09 09 RI MG 4 PH CH AR AR TA MA D BL CY ET #5 91 DI 00 08 12 03 30 30 [place] 44 RI Ac AZ 37 -2 -0 .0 L- 79 SH ti EP 80 0- 3- 00 MA 03 ER ve AM 47 20 20 RT 9 70 09 09 RI 10 5 PH CH AR AR MG MA D CY TA BL #5 ET 91 00 08 12 03 30 30 [place] 70 RI Ac 37 -2 -0 .0 L- 33 SH ti 80 0- 3- 00 MA 11 ER ve 21 20 20 RT 4 69 09 09 RI 3 PH CH AR AR MA D CY #5 91 JA 00 08 12 02 30 30 [place] 70 RI Ac NU 00 -2 -0 .0 L- 33 SH ti 60 0- 3- 00 MA 11 ER ve A 27 20 20 RT 5 10 73 09 09 RI 0 1 PH CH MG AR AR MA D TA CY BL ET #5 91 54 09 11 02 30 30 [place] 70 RI Ac 45 -0 -1 .0 L- 35 SH ti 80 4- 9- 00 MA 31 ER ve 97 20 20 RT 9 01 09 09 RI 0 PH CH AR AR MA D CY #5 91 MOISE 53 11 11 00 14 7 WA 70 RI Ac LF 74 -1 -1 .0 L- 45 SH ti AM 60 2- 9- 00 MA 37 ER ve ET 27 20 20 RT 6 HO 20 09 09 RI XA 5 PH CH ZO AR AR LE MA D -T CY MP #5 DS 91 TA BL ET CO 00 08 11 02 30 30 [place] 70 RI Ac RE 00 -2 -1 .0 L- 33 SH ti G 73 0- 9- 00 MA 11 ER ve CR 37 20 20 RT 3 01 09 09 RI 10 3 PH CH AR AR MG MA D CY CA PS #5 UL 91 E JA 00 08 11 01 30 30 [place] 70 RI Ac NU 00 -2 -0 .0 L- 33 SH ti 60 0- 5- 00 MA 11 ER ve A 27 20 20 RT 5 10 73 09 09 RI 0 1 PH CH MG AR AR MA D TA CY BL ET #5 91 TA 00 08 11 01 30 30 [place] 70 RI Ac RK 07 -2 -0 .0 L- 33 SH ti A 43 0- 5- 00 MA 11 ER ve ER 29 20 20 RT 9 01 09 09 RI 4- 3 PH CH 24 AR AR 0 MA D MG CY TA #5 BL 91 ET CR 00 08 11 00 30 30 [place] 70 RI Ac ES 31 -2 -0 .0 L- 33 SH ti TO 00 0- 5- 00 MA 12 ER ve R 75 20 20 RT 1 10 19 09 09 RI 0 PH CH MG AR AR MA D TA CY BL ET #5 91 DI 00 08 11 02 30 30 [place] 44 RI Ac AZ 37 -2 -0 .0 L- 79 SH ti EP 80 0- 5- 00 MA 03 ER ve AM 47 20 20 RT 9 70 09 09 RI 10 5 PH CH AR AR MG MA D CY TA BL #5 ET 91 00 08 10 02 30 30 [place] 70 RI Ac 37 -2 -2 .0 L- 33 SH ti 80 0- 2- 00 MA 11 ER ve 21 20 20 RT 4 69 09 09 RI 3 PH CH AR AR MA D CY #5 91 54 09 10 01 30 30 [place] 70 RI Ac 45 -0 -2 .0 L- 35 SH ti 80 4- 2- 00 MA 31 ER ve 97 20 20 RT 9 01 09 09 RI 0 PH CH AR AR MA D CY #5 91 CO 00 08 10 01 30 30 [place] 70 RI Ac RE 00 -2 -2 .0 L- 33 SH ti G 73 0- 2- 00 MA 11 ER ve CR 37 20 20 RT 3 01 09 09 RI 10 3 PH CH AR AR MG MA D CY CA PS #5 UL 91 E DI 00 08 10 01 30 30 [place] 44 RI Ac AZ 37 -2 -0 .0 L- 79 SH ti EP 80 0- 8- 00 MA 03 ER ve AM 47 20 20 RT 9 70 09 09 RI 10 5 PH CH AR AR MG MA D CY TA BL #5 ET 91 TA 00 08 10 00 30 30 [place] 70 RI Ac RK 07 -2 -0 .0 L- 33 SH ti A 43 0- 8- 00 MA 11 ER ve ER 29 20 20 RT 9 01 09 09 RI 4- 3 PH CH 24 AR AR 0 MA D MG CY TA #5 BL 91 ET CR 00 07 10 02 30 30 WA 70 MO Ac ES 31 -2 -0 .0 L- 30 SE ti TO 00 8- 8- 00 MA 10 S ve R 75 [address] 10 19 09 09 EP 0 PH HE MG AR N MA A TA CY BL ET #5 91 00 08 09 01 30 30 [place] 70 RI Ac 37 -2 -2 .0 L- 33 SH ti 80 0- 4- 00 MA 11 ER ve 21 20 20 RT 4 69 09 09 RI 3 PH CH AR AR MA D CY #5 91 TA 00 06 09 03 30 30 [place] 70 RI Ac RK 07 -0 -1 .0 L- 23 SH ti A 43 5- 0- 00 MA 40 ER ve ER 29 20 20 RT 3 01 09 09 RI 4- 3 PH CH 24 AR AR 0 MA D MG CY TA #5 BL 91 ET AC 64 08 09 00 30 30 WA 70 RI Ac TO 76 -2 -1 .0 L- 33 SH ti S 40 0- 0- 00 MA 11 ER ve 45 45 20 20 RT 6 12 09 09 RI MG 4 PH CH AR AR TA MA D BL CY ET #5 91 JA 00 08 09 00 30 30 [place] 70 RI Ac NU 00 -2 -1 .0 L- 33 SH ti 60 0- 0- 00 MA 11 ER ve A 27 20 20 RT 5 10 73 09 09 RI 0 1 PH CH MG AR AR MA D TA CY BL ET #5 91 54 09 09 00 30 30 [place] 70 RI Ac 45 -0 -1 .0 L- 35 SH ti 80 4- 0- 00 MA 31 ER ve 97 20 20 RT 9 01 09 09 RI 0 PH CH AR AR MA D CY #5 91 CO 00 08 09 00 30 30 [place] 70 RI Ac RE 00 -2 -1 .0 L- 33 SH ti G 73 0- 0- 00 MA 11 ER ve CR 37 20 20 RT 3 01 09 09 RI 10 3 PH CH AR AR MG MA D CY CA PS #5 UL 91 E CR 00 07 09 01 30 30 WA 70 MO Ac ES 31 -2 -1 .0 L- 30 SE ti TO 00 8- 0- 00 MA 10 S ve R 75 [address] 10 19 09 09 EP 0 PH HE MG AR N MA A TA CY BL ET #5 91 00 08 08 00 30 30 [place] 70 RI Ac 37 -2 -2 .0 L- 33 SH ti 80 0- 7- 00 MA 11 ER ve 21 20 20 RT 4 69 09 09 RI 3 PH CH AR AR MA D CY #5 91 DI 00 08 08 00 30 30 [place] 44 RI Ac AZ 37 -2 -2 .0 L- 79 SH ti EP 80 0- 7- 00 MA 03 ER ve AM 47 20 20 RT 9 70 09 09 RI 10 5 PH CH AR AR MG MA D CY TA BL #5 ET 91 PA 68 01 08 01 30 30 [place] 70 RI Ac RO 38 -0 -2 .0 L- 02 SH ti XE 20 5- 7- 00 MA 53 ER ve TI 00 20 20 RT 9 NE 10 09 09 RI 6 PH CH HC AR AR L MA D 40 CY MG #5 91 TA BL ET JA 00 06 08 02 30 30 WA 70 RI Ac NU 00 -1 -1 .0 L- 24 SH ti 60 2- 3- 00 MA 51 ER ve A 27 20 20 RT 0 10 73 09 09 RI 0 1 PH CH MG AR AR MA D TA CY BL ET #5 91 AC 64 07 08 00 30 30 [place] 70 RI Ac TO 76 -0 -1 .0 L- 27 SH ti S 40 8- 3- 00 MA 77 ER ve 45 45 20 20 RT 7 12 09 09 RI MG 4 PH CH AR AR TA MA D BL CY ET #5 91 TA 00 06 08 02 30 30 [place] 70 RI Ac RK 07 -0 -1 .0 L- 23 SH ti A 43 5- 3- 00 MA 40 ER ve ER 29 20 20 RT 3 01 09 09 RI 4- 3 PH CH 24 AR AR 0 MA D MG CY TA #5 BL 91 ET 54 07 08 00 30 30 [place] 70 RI Ac 45 -2 -1 .0 L- 30 SH ti 80 9- 3- 00 MA 29 ER ve 97 20 20 RT 9 01 09 09 RI 0 PH CH AR AR MA D CY #5 91 CR 00 07 08 00 30 30 WA 70 MO Ac ES 31 -2 -1 .0 L- 30 SE ti TO 00 8- 3- 00 MA 10 S ve R 75 [address] 10 19 09 09 EP 0 PH HE MG AR N MA A TA CY BL ET #5 91 CR 00 04 07 02 30 30 WA 70 MO Ac ES 31 -2 -1 .0 L- 17 SE ti TO 00 4- 6- 00 MA 83 S ve R 75 [address] 10 19 09 09 EP 0 PH HE MG AR N MA A TA CY BL ET #5 91 00 07 07 08 30 30 [place] 69 MO Ac 37 -2 -1 .0 L- 80 SE ti 80 5- 6- 00 MA 76 S ve 21 [address] 69 08 09 EP 3 PH HE AR N MA A CY #5 91 AC 64 01 07 02 30 30 [place] 70 RI Ac TO 76 -0 -1 .0 L- 02 SH ti S 40 5- 6- 00 MA 53 ER ve 45 45 20 20 RT 8 12 09 09 RI MG 4 PH CH AR AR TA MA D BL CY ET #5 91 DI 00 05 07 02 30 30 [place] 44 RI Ac AZ 37 -0 -1 .0 L- 76 SH ti EP 80 5- 6- 00 MA 44 ER ve AM 47 20 20 RT 5 70 09 09 RI 10 5 PH CH AR AR MG MA D CY TA BL #5 ET 91 JA 00 06 07 01 30 30 [place] 70 RI Ac NU 00 -1 -1 .0 L- 24 SH ti 60 2- 6- 00 MA 51 ER ve A 27 20 20 RT 0 10 73 09 09 RI 0 1 PH CH MG AR AR MA D TA CY BL ET #5 91 TA 00 06 07 01 30 30 [place] 70 RI Ac RK 07 -0 -1 .0 L- 23 SH ti A 43 5- 6- 00 MA 40 ER ve ER 29 20 20 RT 3 01 09 09 RI 4- 3 PH CH 24 AR AR 0 MA D MG CY TA #5 BL 91 ET HY 00 05 07 02 30 30 [place] [address] 17 -0 -1 .0 L- 19 SH ti OC 22 5- 6- 00 MA 35 ER ve HL 08 20 20 RT 5 OR 38 09 09 RI OT 0 PH CH HI AR AR AZ MA D ID CY E 25 #5 91 MG TA B DI 00 05 06 01 30 30 WA 44 RI Ac AZ 37 -0 -1 .0 L- 76 SH ti EP 80 5- 8- 00 MA 44 ER ve AM 47 20 20 RT 5 70 09 09 RI 10 5 PH CH AR AR MG MA D CY TA BL #5 ET 91 HY 00 05 06 01 30 30 [place] [address] 17 -0 -1 .0 L- 19 SH ti OC 22 5- 8- 00 MA 35 ER ve HL 08 20 20 RT 5 OR 38 09 09 RI OT 0 PH CH HI AR AR AZ MA D ID CY E 25 #5 91 MG TA B JA 00 06 06 00 30 30 WA 70 RI Ac NU 00 -1 -1 .0 L- 24 SH ti 60 2- 8- 00 MA 51 ER ve A 27 20 20 RT 0 10 73 09 09 RI 0 1 PH CH MG AR AR MA D TA CY BL ET #5 91 TA 00 06 06 00 30 30 WA 70 RI Ac RK 07 -0 -1 .0 L- 23 SH ti A 43 5- 8- 00 MA 40 ER ve ER 29 20 20 RT 3 01 09 09 RI 4- 3 PH CH 24 AR AR 0 MA D MG CY TA #5 BL 91 ET 00 07 06 07 30 30 WA 69 MO Ac 37 -2 -1 .0 L- 80 SE ti 80 5- 8- 00 MA 76 S ve 21 [address] 69 08 09 EP 3 PH HE AR N MA A CY #5 91 JA 00 01 06 03 30 30 WA 70 RI Ac NU 00 -0 -0 .0 L- 02 SH ti 60 5- 4- 00 MA 54 ER ve A 27 20 20 RT 0 10 73 09 09 RI 0 1 PH CH MG AR AR MA D TA CY BL ET #5 91 CR 00 04 06 01 30 30 WA 70 MO Ac ES 31 -2 -0 .0 L- 17 SE ti TO 00 4- 4- 00 MA 83 S ve R 75 [address] 10 19 09 09 EP 0 PH HE MG AR N MA A TA CY BL ET #5 91 AC 64 01 05 01 30 30 WA 70 RI Ac TO 76 -0 -2 .0 L- 02 SH ti S 40 5- 1- 00 MA 53 ER ve 45 45 20 20 RT 8 12 09 09 RI MG 4 PH CH AR AR TA MA D BL CY ET #5 91 HY 00 05 05 00 30 30 [place] [address] 17 -0 -2 .0 L- 19 SH ti OC 22 5- 1- 00 MA 35 ER ve HL 08 20 20 RT 5 OR 38 09 09 RI OT 0 PH CH HI AR AR AZ MA D ID CY E 25 #5 91 MG TA B DI 00 05 05 00 30 30 WA 44 RI Ac AZ 37 -0 -2 .0 L- 76 SH ti EP 80 5- 1- 00 MA 44 ER ve AM 47 20 20 RT 5 70 09 09 RI 10 5 PH CH AR AR MG MA D CY TA BL #5 ET 91 TA 00 03 05 02 30 30 WA 70 RI Ac RK 07 -0 -2 .0 L- 10 SH ti A 43 3- 1- 00 MA 39 ER ve ER 29 20 20 RT 3 01 09 09 RI 4- 3 PH CH 24 AR AR 0 MA D MG CY TA #5 BL 91 ET 00 07 05 06 30 30 WA 69 MO Ac 37 -2 -2 .0 L- 80 SE ti 80 5- 1- 00 MA 76 S ve 21 [address] 69 08 09 EP 3 PH HE AR N MA A CY #5 91 CR 00 04 05 00 30 30 WA 70 MO Ac ES 31 -2 -0 .0 L- 17 SE ti TO 00 4- 7- 00 MA 83 S ve R 75 [address] 10 19 09 09 EP 0 PH HE MG AR N MA A TA CY BL ET #5 91 DI 00 01 04 03 30 30 [place] 44 RI Ac AZ 37 -0 -2 .0 L- 73 SH ti EP 80 5- 3- 00 MA 37 ER ve AM 47 20 20 RT 0 70 09 09 RI 10 5 PH CH AR AR MG MA D CY TA BL #5 ET 91 00 07 04 05 30 30 WA 69 MO Ac 37 -2 -2 .0 L- 80 SE ti 80 5- 3- 00 MA 76 S ve 21 [address] 69 08 09 EP 3 PH HE AR N MA A CY #5 91 TA 00 03 04 01 30 30 [place] 70 RI Ac RK 07 -0 -2 .0 L- 10 SH ti A 43 3- 3- 00 MA 39 ER ve ER 29 20 20 RT 3 01 09 09 RI 4- 3 PH CH 24 AR AR 0 MA D MG CY TA #5 BL 91 ET HY 00 04 04 08 30 30 [place] [address] 17 -2 -2 .0 L- 69 SH ti OC 22 8- 3- 00 MA 74 ER ve HL 08 20 20 RT 4 OR 38 08 09 RI OT 0 PH CH HI AR AR AZ MA D ID CY E 25 #5 91 MG TA B JA 00 01 04 02 30 30 WA 70 RI Ac NU 00 -0 -2 .0 L- 02 SH ti 60 5- 3- 00 MA 54 ER ve A 27 20 20 RT 0 10 73 09 09 RI 0 1 PH CH MG AR AR MA D TA CY BL ET #5 91 KE 00 04 04 00 60 15 WA 70 RI Ac TO 09 -0 -0 .0 L- 14 SH ti CO 30 3- 9- 00 MA 94 ER ve NA 84 20 20 RT 0 ZO 03 09 09 RI LE 0 PH CH AR AR 2% MA D CY CR EA #5 M 91 AZ 00 04 04 00 6. 5 [place] 70 RI Ac IT 78 -0 -0 00 L- 14 SH ti HR 11 3- 9- 0 MA 93 ER ve OM 49 20 20 RT 9 YC 66 09 09 RI IN 8 PH CH AR AR 25 MA D 0 CY MG #5 TA 91 BL ET CR 00 01 04 02 30 30 WA 70 RI Ac ES 31 -2 -0 .0 L- 04 SH ti TO 00 0- 9- 00 MA 71 ER ve R 75 20 20 RT 2 10 19 09 09 RI 0 PH CH MG AR AR MA D TA CY BL ET #5 91 TA 00 03 03 00 30 30 [place] 70 RI Ac RK 07 -0 -1 .0 L- 10 SH ti A 43 3- 2- 00 MA 39 ER ve ER 29 20 20 RT 3 01 09 09 RI 4- 3 PH CH 24 AR AR 0 MA D MG CY TA #5 BL 91 ET HY 00 04 03 07 30 30 [place] [address] 17 -2 -1 .0 L- 69 SH ti OC 22 8- 2- 00 MA 74 ER ve HL 08 20 20 RT 4 OR 38 08 09 RI OT 0 PH CH HI AR AR AZ MA D ID CY E 25 #5 91 MG TA B DI 00 01 03 02 30 30 [place] 44 RI Ac AZ 37 -0 -1 .0 L- 73 SH ti EP 80 5- 2- 00 MA 37 ER ve AM 47 20 20 RT 0 70 09 09 RI 10 5 PH CH AR AR MG MA D CY TA BL #5 ET 91 00 07 03 04 30 30 [place] 69 MO Ac 37 -2 -1 .0 L- 80 SE ti 80 5- 2- 00 MA 76 S ve 21 [address] 69 08 09 EP 3 PH HE AR N MA A CY #5 91 JA 00 01 02 01 30 30 [place] 70 RI Ac NU 00 -0 -2 .0 L- 02 SH ti 60 5- 6- 00 MA 54 ER ve A 27 20 20 RT 0 10 73 09 09 RI 0 1 PH CH MG AR AR MA D TA CY BL ET #5 91 CR 00 01 02 01 30 30 [place] 70 RI Ac ES 31 -2 -2 .0 L- 04 SH ti TO 00 0- 6- 00 MA 71 ER ve R 75 20 20 RT 2 10 19 09 09 RI 0 PH CH MG AR AR MA D TA CY BL ET #5 91 54 12 02 02 30 30 [place] 69 RI Ac 45 -0 -1 .0 L- 97 SH ti 80 2- 2- 00 MA 97 ER ve 97 20 20 RT 2 01 08 09 RI 0 PH CH AR AR MA D CY #5 91 00 12 02 02 30 30 [place] 69 MO Ac 37 -0 -1 .0 L- 97 SE ti 80 2- 2- 00 MA 97 S ve 21 [address] 69 08 09 EP 3 PH HE AR N MA A CY #5 91 DI 00 01 02 01 30 30 [place] 44 RI Ac AZ 37 -0 -1 .0 L- 73 SH ti EP 80 5- 2- 00 MA 37 ER ve AM 47 20 20 RT 0 70 09 09 RI 10 5 PH CH AR AR MG MA D CY TA BL #5 ET 91 TA 00 12 02 02 30 30 [place] 69 RI Ac RK 07 -0 -1 .0 L- 97 SH ti A 43 2- 2- 00 MA 97 ER ve ER 29 20 20 RT 0 01 08 09 RI 4- 3 PH CH 24 AR AR 0 MA D MG CY TA #5 BL 91 ET CR 00 01 01 00 30 30 [place] 70 RI Ac ES 31 -2 -3 .0 L- 04 SH ti TO 00 0- 0- 00 MA 71 ER ve R 75 20 20 RT 2 10 19 09 09 RI 0 PH CH MG AR AR MA D TA CY BL ET #5 91 AC 64 01 00 30 30 WA 70 RI Ac TO 76 -0 -1 .0 L- 02 SH ti S 40 5- 5- 00 MA 53 ER ve 45 45 20 20 RT 8 12 09 09 RI MG 4 PH CH AR AR TA MA D BL CY ET #5 91 JA 00 01 01 00 30 30 [place] 70 RI Ac NU 00 -0 -1 .0 L- 02 SH ti 60 5- 5- 00 MA 54 ER ve A 27 20 20 RT 0 10 73 09 09 RI 0 1 PH CH MG AR AR MA D TA CY BL ET #5 91 TA 00 12 01 01 30 30 [place] 69 RI Ac RK 07 -0 -1 .0 L- 97 SH ti A 43 2- 5- 00 MA 97 ER ve ER 29 20 20 RT 0 01 08 09 RI 4- 3 PH CH 24 AR AR 0 MA D MG CY TA #5 BL 91 ET PA 68 01 01 00 30 30 [place] 70 RI Ac RO 38 -0 -1 .0 L- 02 SH ti XE 20 5- 5- 00 MA 53 ER ve TI 00 20 20 RT 9 NE 10 09 09 RI 6 PH CH HC AR AR L MA D 40 CY MG #5 91 TA BL ET DI 00 01 01 00 30 30 [place] 44 RI Ac AZ 37 -0 -1 .0 L- 73 SH ti EP 80 5- 5- 00 MA 37 ER ve AM 47 20 20 RT 0 70 09 09 RI 10 5 PH CH AR AR MG MA D CY TA BL #5 ET 91 54 12 01 01 30 30 [place] 69 RI Ac 45 -0 -1 .0 L- 97 SH ti 80 2- 5- 00 MA 97 ER ve 97 20 20 RT 2 01 08 09 RI 0 PH CH AR AR MA D CY #5 91 FU 00 12 01 01 30 30 WA 69 MO Ac RO 37 -0 -1 .0 L- 97 SE ti SE 80 2- 5- 00 MA 97 S ve NJ 21 [address] DE 60 08 09 EP 1 PH HE 40 AR N MA A MG CY TA #5 BL 91 ET CR 00 10 01 02 30 30 [place] 69 RI Ac ES 31 -1 -0 .0 L- 91 SH ti TO 00 3- 1- 00 MA 13 ER ve R 75 20 20 RT 9 10 19 08 09 RI 0 PH CH MG AR AR MA D TA CY BL ET #5 91 TA 00 12 12 00 30 30 [place] 69 RI Ac RK 07 -0 -1 .0 L- 97 SH ti A 43 2- 8- 00 MA 97 ER ve ER 29 20 20 RT 0 01 08 08 RI 4- 3 PH CH 24 AR AR 0 MA D MG CY TA #5 BL 91 ET DI 00 12 12 00 30 30 [place] 44 RI Ac AZ 37 -0 -1 .0 L- 72 SH ti EP 80 2- 8- 00 MA 54 ER ve AM 47 20 20 RT 2 70 08 08 RI 10 5 PH CH AR AR MG MA D CY TA BL #5 ET 91 54 12 12 00 30 30 [place] 69 RI Ac 45 -0 -1 .0 L- 97 SH ti 80 2- 8- 00 MA 97 ER ve 97 20 20 RT 2 01 08 08 RI 0 PH CH AR AR MA D CY #5 91 FU 00 12 12 00 30 30 WA 69 MO Ac RO 37 -0 -1 .0 L- 97 SE ti SE 80 2- 8- 00 MA 97 S ve NJ 21 [address] DE 60 08 08 EP 1 PH HE 40 AR N MA A MG CY TA #5 BL 91 ET CR 00 10 12 01 30 30 WA 69 RI Ac ES 31 -1 -0 .0 L- 91 SH ti TO 00 3- 4- 00 MA 13 ER ve R 75 20 20 RT 9 10 19 08 08 RI 0 PH CH MG AR AR MA D TA CY BL ET #5 91 TA 00 10 11 00 30 30 WA 69 RI Ac RK 07 -3 -0 .0 L- 93 SH ti A 43 1- 7- 00 MA 57 ER ve ER 29 20 20 RT 1 01 08 08 RI 4- 3 PH CH 24 AR AR 0 MA D MG CY TA #5 BL 91 ET GL 00 07 11 01 60 30 WA 69 RI Ac YB 09 -0 -0 .0 L- 78 SH ti UR 39 8- 7- 00 MA 67 ER ve ID 36 20 20 RT 5 E 40 08 08 RI 5 1 PH CH MG AR AR MA D TA CY BL ET #5 91 DI 00 10 11 00 30 30 [place] 44 RI Ac AZ 37 -3 -0 .0 L- 71 SH ti EP 80 1- 7- 00 MA 86 ER ve AM 47 20 20 RT 5 70 08 08 RI 10 5 PH CH AR AR MG MA D CY TA BL #5 ET 91 53 12 11 04 60 30 WA 69 RI Ac 74 -1 -0 .0 L- 52 SH ti 60 4- 7- 00 MA 47 ER ve 13 20 20 RT 6 20 07 08 RI 5 PH CH AR AR MA D CY #5 91 HY 00 04 11 06 30 30 [place] [address] 17 -2 -0 .0 L- 69 SH ti OC 22 8- 7- 00 MA 74 ER ve HL 08 20 20 RT 4 OR 38 08 08 RI OT 0 PH CH HI AR AR AZ MA D ID CY E 25 #5 91 MG TA B AC 64 06 11 02 30 30 WA 69 RI Ac TO 76 -2 -0 .0 L- 77 SH ti S 40 6- 7- 00 MA 37 ER ve 45 45 20 20 RT 7 12 08 08 RI MG 4 PH CH AR AR TA MA D BL CY ET #5 91 FU 00 07 11 03 30 30 WA 69 MO Ac RO 37 -2 -0 .0 L- 80 SE ti SE 80 5- 7- 00 MA 76 S ve NJ 21 [address] DE 61 08 08 EP 0 PH HE 40 AR N MA A MG CY TA #5 BL 91 ET CR 00 10 10 00 30 30 WA 69 RI Ac ES 31 -1 -2 .0 L- 91 SH ti TO 00 3- 3- 00 MA 13 ER ve R 75 20 20 RT 9 10 19 08 08 RI 0 PH CH MG AR AR MA D TA CY BL ET #5 91 TA 00 09 10 00 30 30 WA 69 RI Ac RK 07 -2 -0 .0 L- 89 SH ti A 43 9- 9- 00 MA 31 ER ve ER 29 20 20 RT 8 01 08 08 RI 4- 3 PH CH 24 AR AR 0 MA D MG CY TA #5 BL 91 ET DI 00 09 10 00 30 30 [place] 44 RI Ac AZ 37 -2 -0 .0 L- 71 SH ti EP 80 9- 9- 00 MA 14 ER ve AM 47 20 20 RT 9 70 08 08 RI 10 5 PH CH AR AR MG MA D CY TA BL #5 ET 91 HY 00 04 10 05 30 30 [place] [address] 17 -2 -0 .0 L- 69 SH ti OC 22 8- 9- 00 MA 74 ER ve HL 08 20 20 RT 4 OR 38 08 08 RI OT 0 PH CH HI AR AR AZ MA D ID CY E 25 #5 91 MG TA B FU 00 07 10 02 30 30 WA 69 MO Ac RO 37 -2 -0 .0 L- 80 SE ti SE 80 5- 9- 00 MA 76 S ve NJ 21 [address] DE 61 08 08 EP 0 PH HE 40 AR N MA A MG CY TA #5 BL 91 ET LI 00 08 09 01 30 30 [place] 69 RI Ac PI 07 -0 -2 .0 L- 82 SH ti TO 10 7- 6- 00 MA 30 ER ve R 15 20 20 RT 9 20 62 08 08 RI 3 PH CH MG AR AR MA D TA CY BL ET #5 91 DI 00 08 09 00 30 30 [place] 44 RI Ac AZ 37 -2 -1 .0 L- 70 SH ti EP 80 9- 1- 00 MA 44 ER ve AM 47 20 20 RT 9 70 08 08 RI 10 5 PH CH AR AR MG MA D CY TA BL #5 ET 91 GL 00 07 09 00 60 30 WA 69 RI Ac YB 09 -0 -1 .0 L- 78 SH ti UR 39 8- 1- 00 MA 67 ER ve ID 36 20 20 RT 5 E 40 08 08 RI 5 1 PH CH MG AR AR MA D TA CY BL ET #5 91 FU 00 07 09 01 30 30 WA 69 MO Ac RO 37 -2 -1 .0 L- 80 SE ti SE 80 5- 1- 00 MA 76 S ve NJ 21 [address] DE 61 08 08 EP 0 PH HE 40 AR N MA A MG CY TA #5 BL 91 ET HY 00 04 09 04 30 30 [place] [address] 17 -2 -1 .0 L- 69 SH ti OC 22 8- 1- 00 MA 74 ER ve HL 08 20 20 RT 4 OR 38 08 08 RI OT 0 PH CH HI AR AR AZ MA D ID CY E 25 #5 91 MG TA B TA 00 06 09 02 30 30 WA 69 RI Ac RK 07 -2 -1 .0 L- 77 SH ti A 43 6- 1- 00 MA 37 ER ve ER 29 20 20 RT 5 01 08 08 RI 4- 3 PH CH 24 AR AR 0 MA D MG CY TA #5 BL 91 ET AC 64 06 09 01 30 30 WA 69 RI Ac TO 76 -2 -1 .0 L- 77 SH ti S 40 6- 1- 00 MA 37 ER ve 45 45 20 20 RT 7 12 08 08 RI MG 4 PH CH AR AR TA MA D BL CY ET #5 91 LI 00 08 08 00 30 30 [place] 69 RI Ac PI 07 -0 -1 .0 L- 82 SH ti TO 10 7- 4- 00 MA 30 ER ve R 15 20 20 RT 9 20 62 08 08 RI 3 PH CH MG AR AR MA D TA CY BL ET #5 91 HY 00 04 08 03 30 30 [place] [address] 17 -2 -0 .0 L- 69 SH ti OC 22 8- 1- 00 MA 74 ER ve HL 08 20 20 RT 4 OR 38 08 08 RI OT 0 PH CH HI AR AR AZ MA D ID CY E 25 #5 91 MG TA B TA 00 06 08 01 30 30 WA 69 RI Ac RK 07 -2 -0 .0 L- 77 SH ti A 43 6- 1- 00 MA 37 ER ve ER 29 20 20 RT 5 01 08 08 RI 4- 3 PH CH 24 AR AR 0 MA D MG CY TA #5 BL 91 ET FU 00 07 08 00 30 30 WA 69 MO Ac RO 37 -2 -0 .0 L- 80 SE ti SE 80 5- 1- 00 MA 76 S ve NJ 21 [address] DE 61 08 08 EP 0 PH HE 40 AR N MA A MG CY TA #5 BL 91 ET GL 00 07 07 00 60 30 WA 69 RI Ac YB 09 -0 -1 .0 L- 78 SH ti UR 39 7- 7- 00 MA 49 ER ve ID 36 20 20 RT 5 E 40 08 08 RI 5 1 PH CH MG AR AR MA D TA CY BL ET #5 91 AC 64 06 07 00 30 30 WA 69 RI Ac TO 76 -2 -1 .0 L- 77 SH ti S 40 6- 7- 00 MA 37 ER ve 45 45 20 20 RT 7 12 08 08 RI MG 4 PH CH AR AR TA MA D BL CY ET #5 91 DI 00 07 07 00 30 30 [place] 44 RI Ac AZ 37 -0 -1 .0 L- 69 SH ti EP 80 8- 7- 00 MA 36 ER ve AM 47 20 20 RT 1 70 08 08 RI 10 5 PH CH AR AR MG MA D CY TA BL #5 ET 91 LI 00 05 07 02 30 30 WA 69 RI Ac PI 07 -0 -1 .0 L- 71 SH ti TO 10 8- 7- 00 MA 23 ER ve R 15 20 20 RT 7 20 62 08 08 RI 3 PH CH MG AR AR MA D TA CY BL ET #5 91 TA 00 06 07 00 30 30 WA 69 RI Ac RK 07 -2 -0 .0 L- 77 SH ti A 43 6- 3- 00 MA 37 ER ve ER 29 20 20 RT 5 01 08 08 RI 4- 3 PH CH 24 AR AR 0 MA D MG CY TA #5 BL 91 ET DI 00 05 07 01 30 30 WA 44 RI Ac AZ 37 -0 -0 .0 L- 67 SH ti EP 80 1- 3- 00 MA 90 ER ve AM 47 20 20 RT 3 70 08 08 RI 10 5 PH CH AR AR MG MA D CY TA BL #5 ET 91 63 06 07 00 2. 7 WA 69 RI Ac 30 -2 -0 00 L- 77 SH ti 40 6- 3- 0 MA 36 ER ve 80 20 20 RT 7 51 08 08 RI 2 PH CH AR AR MA D CY #5 91 53 12 07 03 60 30 WA 69 RI Ac 74 -1 -0 .0 L- 52 SH ti 60 4- 3- 00 MA 47 ER ve 13 20 20 RT 6 20 07 08 RI 5 PH CH AR AR MA D CY #5 91 PA 68 06 07 00 30 30 WA 69 RI Ac RO 38 -2 -0 .0 L- 77 SH ti XE 20 6- 3- 00 MA 37 ER ve TI 00 20 20 RT 6 NE 10 08 08 RI 6 PH CH HC AR AR L MA D 40 CY MG #5 91 TA BL ET MOISE 53 06 07 00 14 7 WA 69 RI Ac LF 74 -2 -0 .0 L- 77 SH ti AM 60 6- 3- 00 MA 36 ER ve ET 27 20 20 RT 5 HO 20 08 08 RI XA 5 PH CH ZO AR AR LE MA D -T CY MP #5 DS 91 TA BL ET FU 00 03 07 03 30 30 WA 69 RI Ac RO 37 -2 -0 .0 L- 65 SH ti SE 80 6- 3- 00 MA 62 ER ve NJ 21 20 20 RT 4 DE 61 08 08 RI 0 PH CH 40 AR AR MA D MG CY TA #5 BL 91 ET HY 00 04 07 02 30 30 [place] [address] 17 -2 -0 .0 L- 69 SH ti OC 22 8- 3- 00 MA 74 ER ve HL 08 20 20 RT 4 OR 38 08 08 RI OT 0 PH CH HI AR AR AZ MA D ID CY E 25 #5 91 MG TA B AC 64 12 06 02 30 30 WA 69 RI Ac TO 76 -1 -1 .0 L- 52 SH ti S 40 4- 2- 00 MA 47 ER ve 45 45 20 20 RT 5 12 07 08 RI MG 4 PH CH AR AR TA MA D BL CY ET #5 91 LI 00 05 06 01 30 30 WA 69 RI Ac PI 07 -0 -1 .0 L- 71 SH ti TO 10 8- 2- 00 MA 23 ER ve R 15 20 20 RT 7 20 62 08 08 RI 3 PH CH MG AR AR MA D TA CY BL ET #5 91 53 12 06 02 60 30 WA 69 RI Ac 74 -1 -0 .0 L- 52 SH ti 60 4- 5- 00 MA 47 ER ve 13 20 20 RT 6 20 07 08 RI 5 PH CH AR AR MA D CY #5 91 FU 00 03 06 02 30 30 WA 69 RI Ac RO 37 -2 -0 .0 L- 65 SH ti SE 80 6- 5- 00 MA 62 ER ve NJ 21 20 20 RT 4 DE 61 08 08 RI 0 PH CH 40 AR AR MA D MG CY TA #5 BL 91 ET TA 00 05 06 01 30 30 WA 69 RI Ac RK 07 -0 -0 .0 L- 70 SH ti A 43 1- 5- 00 MA 20 ER ve ER 29 20 20 RT 8 01 08 08 RI 4- 3 PH CH 24 AR AR 0 MA D MG CY TA #5 BL 91 ET HY 00 04 06 01 30 30 [place] [address] 17 -2 -0 .0 L- 69 SH ti OC 22 8- 5- 00 MA 74 ER ve HL 08 20 20 RT 4 OR 38 08 08 RI OT 0 PH CH HI AR AR AZ MA D ID CY E 25 #5 91 MG TA B PA 68 05 06 01 30 30 WA 69 RI Ac RO 38 -0 -0 .0 L- 70 SH ti XE 20 1- 5- 00 MA 20 ER ve TI 00 20 20 RT 9 NE 10 08 08 RI 6 PH CH HC AR AR L MA D 40 CY MG #5 91 TA BL ET TR 00 05 06 00 60 15 WA 69 RI Ac AM 37 -2 -0 .0 L- 73 SH ti AD 84 2- 5- 00 MA 01 ER ve OL 15 20 20 RT 5 10 08 08 RI HC 1 PH CH L AR AR 50 MA D CY MG #5 TA 91 BL ET DI 00 05 05 00 30 30 [place] 44 No Ac AZ 37 -0 -2 .0 L- 67 t ti EP 80 1- 2- 00 MA 90 Av ve AM 47 20 20 RT 3 ai 70 08 08 la 10 5 PH bl AR e MG MA CY TA BL #5 ET 91 53 05 05 00 60 6 WA 44 No Ac 01 -0 -2 .0 L- 67 t ti 40 5- 2- 00 MA 98 Av ve 54 20 20 RT 7 ai 86 08 08 la 7 PH bl AR e MA CY #5 91 GL 00 05 05 00 60 30 WA 69 No Ac YB 09 -1 -2 .0 L- 71 t ti UR 39 2- 2- 00 MA 62 Av ve ID 36 20 20 RT 9 ai E 40 08 08 la 5 1 PH bl MG AR e MA TA CY BL ET #5 91 LI 00 05 05 00 30 30 WA 69 No Ac PI 07 -0 -2 .0 L- 71 t ti TO 10 8- 2- 00 MA 23 Av ve R 15 20 20 RT 7 ai 20 62 08 08 la 3 PH bl MG AR e MA TA CY BL ET #5 91 00 05 05 00 21 7 WA 69 No Ac 07 -1 -2 .0 L- 72 t ti 46 5- 2- 00 MA 13 Av ve 32 20 20 RT 6 ai 01 08 08 la 3 PH bl AR e MA CY #5 91 FU 00 03 05 01 30 30 [place] 69 No Ac RO 37 -2 -0 .0 L- 65 t ti SE 80 6- 8- 00 MA 62 Av ve NJ 21 20 20 RT 4 ai DE 61 08 08 la 0 PH bl 40 AR e MA MG CY TA #5 BL 91 ET PA 68 05 05 00 30 30 WA 69 No Ac RO 38 -0 -0 .0 L- 70 t ti XE 20 1- 8- 00 MA 20 Av ve TI 00 20 20 RT 9 ai NE 10 08 08 la 6 PH bl HC AR e L MA 40 CY MG #5 91 TA BL ET TA 00 05 05 00 30 30 [place] 69 No Ac RK 07 -0 -0 .0 L- 70 t ti A 43 1- 8- 00 MA 20 Av ve ER 29 20 20 RT 8 ai 01 08 08 la 4- 3 PH bl 24 AR e 0 MA MG CY TA #5 BL 91 ET HY 00 04 05 00 30 30 [place] [address] 17 -2 -0 .0 L- 69 t ti OC 22 8- 8- 00 MA 74 Av ve HL 08 20 20 RT 4 ai OR 38 08 08 la OT 0 PH bl HI AR e AZ MA ID CY E 25 #5 91 MG TA B 53 12 05 01 60 30 WA 69 No Ac 74 -1 -0 .0 L- 52 t ti 60 4- 8- 00 MA 47 Av ve 13 20 20 RT 6 ai 20 07 08 la 5 PH bl AR e MA CY #5 91 DI 00 02 05 02 30 30 [place] 44 No Ac AZ 37 -1 -0 .0 L- 66 t ti EP 80 4- 8- 00 MA 28 Av ve AM 47 20 20 RT 3 ai 70 08 08 la 10 5 PH bl AR e MG MA CY TA BL #5 ET 91 DI 00 02 04 01 30 30 [place] 44 No Ac AZ 37 -1 -1 .0 L- 66 t ti EP 80 4- 7- 00 MA 28 Av ve AM 47 20 20 RT 3 ai 70 08 08 la 10 5 PH bl AR e MG MA CY TA BL #5 ET 91 GL 00 12 04 02 60 30 WA 69 No Ac YB 09 -1 -1 .0 L- 52 t ti UR 39 4- 0- 00 MA 47 Av ve ID 36 20 20 RT 7 ai E 40 07 08 la 5 1 PH bl MG AR e MA TA CY BL ET #5 91 LI 00 04 04 00 30 30 WA 69 No Ac PI 07 -0 -1 .0 L- 66 t ti TO 10 3- 0- 00 MA 69 Av ve R 15 20 20 RT 9 ai 20 62 08 08 la 3 PH bl MG AR e MA TA CY BL ET #5 91 TA 00 01 04 02 30 30 WA 69 No Ac RK 07 -3 -1 .0 L- 58 t ti A 43 1- 0- 00 MA 23 Av ve ER 29 20 20 RT 1 ai 01 08 08 la 4- 3 PH bl 24 AR e 0 MA MG CY TA #5 BL 91 ET HY 00 10 04 05 30 30 [place] [address] 17 -1 -1 .0 L- 45 t ti OC 22 7- 0- 00 MA 41 Av ve HL 08 20 20 RT 4 ai OR 38 07 08 la OT 0 PH bl HI AR e AZ MA ID CY E 25 #5 91 MG TA B FU 00 03 04 00 30 WA 69 No Ac RO 37 -2 -1 .0 L- 65 t ti SE 80 6- 0- 00 MA 62 Av ve NJ 21 20 20 RT 4 ai DE 61 08 08 la 0 PH bl 40 AR e MA MG CY TA #5 BL 91 ET FU 00 11 04 03 30 30 WA 69 No Ac RO 37 -1 -0 .0 L- 49 t ti SE 80 9- 7- 00 MA 06 Av ve NJ 21 20 20 RT 8 ai DE 61 07 08 la 0 PH bl 40 AR e MA MG CY TA #5 BL 91 ET LI 00 11 04 03 30 30 [place] 69 No Ac PI 07 -2 -0 .0 L- 50 t ti TO 10 9- 7- 00 MA 32 Av ve R 15 20 20 RT 8 ai 20 62 07 08 la 3 PH bl MG AR e MA TA CY BL ET #5 91 HY 00 10 04 04 30 30 [place] [address] 17 -1 -0 .0 L- 45 t ti OC 22 7- 7- 00 MA 41 Av ve HL 08 20 20 RT 4 ai OR 38 07 08 la OT 0 PH bl HI AR e AZ MA ID CY E 25 #5 91 MG TA B PA 68 12 04 02 30 30 [place] 69 No Ac RO 38 -1 -0 .0 L- 52 t ti XE 20 4- 7- 00 MA 47 Av ve TI 00 20 20 RT 4 ai NE 10 07 08 la 6 PH bl HC AR e L MA 40 CY MG #5 91 TA BL ET TA 00 01 04 01 30 30 [place] 69 No Ac RK 07 -3 -0 .0 L- 58 t ti A 43 1- 7- 00 MA 23 Av ve ER 29 20 20 RT 1 ai 01 08 08 la 4- 3 PH bl 24 AR e 0 MA MG CY TA #5 BL 91 ET AC 64 12 04 01 30 30 WA 69 No Ac TO 76 -1 -0 .0 L- 52 t ti S 40 4- 7- 00 MA 47 Av ve 45 45 20 20 RT 5 ai 12 07 08 la MG 4 PH bl AR e TA MA BL CY ET #5 91 GL 00 12 03 01 60 30 [place] 69 No Ac YB 09 -1 -2 .0 L- 52 t ti UR 39 4- 6- 00 MA 47 Av ve ID 36 20 20 RT 7 ai E 40 07 08 la 5 1 PH bl MG AR e MA TA CY BL ET #5 91 DI 00 02 03 00 30 30 [place] 44 No Ac AZ 37 -1 -2 .0 L- 66 t ti EP 80 4- 6- 00 MA 28 Av ve AM 47 20 20 RT 3 ai 70 08 08 la 10 5 PH bl AR e MG MA CY TA BL #5 ET 91 TA 00 01 03 00 30 30 [place] 69 No Ac RK 07 -3 -2 .0 L- 58 t ti A 43 1- 6- 00 MA 23 Av ve ER 29 20 20 RT 1 ai 01 08 08 la 4- 3 PH bl 24 AR e 0 MA MG CY TA #5 BL 91 ET FA 00 02 03 00 3. 1 [place] 69 No Ac MC 09 -1 -2 00 L- 60 t ti IC 38 4- 6- 0 MA 36 Av ve LO 11 20 20 RT 6 ai 95 08 08 la R 6 PH bl 50 AR e 0 MA MG CY TA #5 BL 91 ET LI 00 11 03 02 30 30 [place] 69 No Ac PI 07 -2 -2 .0 L- 50 t ti TO 10 9- 6- 00 MA 32 Av ve R 15 20 20 RT 8 ai 20 62 07 08 la 3 PH bl MG AR e MA TA CY BL ET #5 91 63 02 03 00 40 10 WA 69 No Ac 30 -1 -2 .0 L- 60 t ti 40 8- 6- 00 MA 86 Av ve 65 20 20 RT 2 ai 70 08 08 la 1 PH bl AR e MA CY #5 91 PA 60 12 03 01 30 30 [place] 69 No Ac RO 50 -1 -2 .0 L- 52 t ti XE 50 4- 5- 00 MA 47 Av ve TI 10 20 20 RT 4 ai NE 10 07 08 la 1 PH bl HC AR e L MA 40 CY MG #5 91 TA BL ET DI 00 11 03 02 30 30 [place] 44 No Ac AZ 37 -1 -2 .0 L- 64 t ti EP 80 4- 5- 00 MA 28 Av ve AM 47 20 20 RT 7 ai 70 07 08 la 10 5 PH bl AR e MG MA CY TA BL #5 ET 91 HY 00 10 03 03 30 30 [place] [address] 17 -1 -2 .0 L- 45 t ti OC 22 7- 5- 00 MA 41 Av ve HL 08 20 20 RT 4 ai OR 38 07 08 la OT 0 PH bl HI AR e AZ MA ID CY E 25 #5 91 MG TA B FU 00 11 03 02 30 30 [place] 69 No Ac RO 37 -1 -2 .0 L- 49 t ti SE 80 9- 5- 00 MA 06 Av ve NJ 21 20 20 RT 8 ai DE 61 07 08 la 0 PH bl 40 AR e MA MG CY TA #5 BL 91 ET TA 00 11 03 02 30 30 [place] 69 No Ac RK 07 -0 -2 .0 L- 47 t ti A 43 2- 4- 00 MA 20 Av ve ER 29 20 20 RT 2 ai 01 07 08 la 4- 3 PH bl 24 AR e 0 MA MG CY TA #5 BL 91 ET Immunization Name Date Rout CVX Reac Dose Comm Prov Is Faci e tion ent ider Refu lity Give sed n IIV3 06-16 141 CAROLINE No CAROLINE 2-20 VEE VEE VACC 11 CO CO INE HEAL HEAL SPLI TH TH T CENT CENT VIRU ER ER S 0.5 ML DOSA GE IM USE IIV3 07-17 141 CAROLINE No CAROLINE 0-20 VEE VEE VACC 10 CO CO INE HEAL HEAL SPLI TH TH T CENT CENT VIRU ER ER S 0.5 ML DOSA GE IM USE PPSV - 33 CAROLINE No DHS/ 23 3-20 VEE CO VACC 09 CO HEAL INE HEAL TH 2 TH CENT YRS CENT RAL OR ER BANK OLDE R ACCT FOR SUBQ /IM USE IIV3 - 141 CAROLINE No DHS/ 0-20 VEE CO VACC 09 CO HEAL INE HEAL TH SPLI TH CENT T CENT RAL VIRU ER BANK S 0.5 ACCT ML DOSA GE IM USE Results Labs Lab Lab Date Result Refere Interp Status Commen Order Detail nces retati t Range on Gas panel in Arterial blood (04-18-2017 22:06) Arteria ACCEPTA complet l 017 BLE ed patency 22:06 Wrist artery --pre arteria l punctur e Differential panel, method unspecified - (04-18-2017 21:00) LYMPH 5 % 10% - Low complet 017 50% ed 21:00 Platele NORMAL complet ts 017 ed [Presen 21:00 ce] in Blood by Light microsc opy Urinalysis dipstick W Reflex Microscopic panel in Urine (04-18-2017 20:40) Bacteri 1+ O complet a 017 ed [Presen 20:40 ce] in Urine sedimen t by Light microsc opy Erythro 10-20 0 complet cytes 017 ed [Presen 20:40 ce] in Urine sedimen t by Light microsc opy Epithel OCC 0#/hp complet ial 017 f - ed cells.s 20:40 5#/hp quamous f [Presen ce] in Urine sedimen t by Microsc opy high power field Leukocy 20-50 O complet valorie 017 wbc/hpf ed [#/volu 20:40 me] in Urine Urinalysis dipstick W Reflex Microscopic panel in Urine (04-18-2017 20:40) Appeara CLEAR CLEAR complet nce of 017 ed Urine 20:40 Bilirub NEGATIV NEG complet in 017 E ed [Presen 20:40 ce] in Urine by Test strip Erythro 3+ NEG Abnorma complet cytes 017 l ed [Presen 20:40 ce] in Urine Color YELLOW YELLOW complet of 017 ed Urine 20:40 Ketones NEGATIV NEG complet 017 E ed [Presen 20:40 ce] in Urine by Automat ed test strip Mucus 1+ NEG Abnorma complet [Presen 017 l ed ce] in 20:40 Urine sedimen t by Light microsc opy Nitrite POSITIV NEG Abnorma complet 017 E l ed [Presen 20:40 ce] in Urine by Test strip Urobili 0.2 NEG complet nogen 017 ed [Presen 20:40 ce] in Urine by Test strip Hemoglobin A1c in Blood (03-22-2017 10:30) Hemoglo 10.8 % 0.0% High complet bin A1c 017 - ed in 10:30 7.0% Blood Hemoglobin A1c in Blood (02-19-2017 09:35) Hemoglo 10.2 % 0.0% High complet bin A1c 017 - ed in 09:35 7.0% Blood Urinalysis dipstick W Reflex Microscopic panel in Urine (02-18-2017 11:50) Bacteri 1+ O complet a 017 ed [Presen 11:50 ce] in Urine sedimen t by Light microsc opy Erythro 3-5 0 complet cytes 017 ed [Presen 11:50 ce] in Urine sedimen t by Light microsc opy Epithel 3-5 0#/hp complet ial 017 f - ed cells.s 11:50 5#/hp quamous f [Presen ce] in Urine sedimen t by Microsc opy high power field Leukocy 3-5 O complet valorie 017 wbc/hpf ed [#/volu 11:50 me] in Urine Urinalysis dipstick W Reflex Microscopic panel in Urine (02-18-2017 11:50) Appeara CLEAR CLEAR complet nce of 017 ed Urine 11:50 Bilirub NEGATIV NEG complet in 017 E ed [Presen 11:50 ce] in Urine by Test strip Erythro TRACE-L NEG complet cytes 017 YSED ed [Presen 11:50 ce] in Urine Color YELLOW YELLOW complet of 017 ed Urine 11:50 Ketones NEGATIV NEG complet 017 E ed [Presen 11:50 ce] in Urine by Automat ed test strip Mucus 1+ NEG Abnorma complet [Presen 017 l ed ce] in 11:50 Urine sedimen t by Light microsc opy Nitrite NEGATIV NEG complet 017 E ed [Presen 11:50 ce] in Urine by Test strip Urobili 0.2 NEG complet nogen 017 ed [Presen 11:50 ce] in Urine by Test strip Procedures Procedure DOS Code Location Performer Comment COMPREHEN [id number] [facility] PANEL COLLECTIO 29244 M[facility] D[facility]NE[facility] N VENOUS 6 [facility] BLOOD INC INC VENIPUNCT URE GLUC BLD 49023 MANN DARNELL GLUC MNTR 6 [facility] DEV INC INC CLEARED FDA SPEC HOME USE BLOOD 89514 MANN DARNELL COUNT 6 [facility] COMPLETE INC INC AUTO&AUTO DIFRNTL WBC PRESSURIZ [id number] MANN DARNELL ED/NONPRE 6 [facility] SSURIZED INC INC INHALATIO N TREATMENT INJECTION [id number] MANN DARNELL HEPARIN 6 [facility] SODIUM INC INC PER 10 UNITS NONINVASI [id number] MANN DARNELL VE 6 [facility] EAR/PULSE INC INC OXIMETRY SINGLE DETER PRESSURIZ [id number] MANN DARNELL ED/NONPRE 6 [facility] SSURIZED INC INC INHALATIO N TREATMENT INJECTION [id number] MANN DARNELL CEFEPIME 6 [facility] INC INC HYDROCHLO RIDE 500 MG GLUC BLD 26069 MANN DARNELL GLUC MNTR 6 [facility] DEV INC INC CLEARED FDA SPEC HOME USE THERAPEUT 99523 MANN DARNELL IC PX 1/> 6 [facility] AREAS INC INC EACH 15 MIN EXERCISES PHYSICAL 68534 MANN DARNELL THERAPY 6 [facility] EVALUATIO INC INC N THERAPEUT 36913 MANN DARNELL IC PX 1/> 6 [facility] AREAS INC INC EACH 15 MIN EXERCISES THERAPEUT 62988 MANN DARNELL ACTVITY 6 [facility] DIRECT PT INC INC CONTACT EACH 15 MIN COLLECTIO [id number] MANN DARNELL N VENOUS 6 [facility] [place] [address] MANN DARNELL AMMONIA 6 [facility] INC INC GLUC BLD 38492 MANNRAY DARNELL GLUC MNTR 6 [facility] DEV INC INC CLEARED FDA SPEC HOME USE BASIC 36348 MANNRAY DARNELL METABOLIC 6 [facility] PANEL INC INC CALCIUM TOTAL INJECTION [id number] MANN DARNELL CEFEPIME 6 [facility] INC INC HYDROCHLO RIDE 500 MG PRESSURIZ 68900 MANN DARNELL ED/NONPRE 6 [facility] SSURIZED INC INC INHALATIO N TREATMENT NONINVASI 26356 MANN DARNELL VE 6 [facility] EAR/PULSE INC INC OXIMETRY SINGLE DETER RADIOLOGI 23446 MANN DARNELL C 6 [facility] EXAMINATI INC INC ON [place]ST [place] FRONTAL NONINVASI 14357 MANN DARNELL VE 6 [facility] EAR/PULSE INC INC OXIMETRY SINGLE DETER PRESSURIZ 75003 MANN DARNELL ED/NONPRE 6 [facility] SSURIZED INC INC INHALATIO N TREATMENT INJECTION [id number] MANN DARNELL CEFEPIME 6 [facility] INC INC HYDROCHLO RIDE 500 MG GLUC BLD 54709 MANN DARNELL GLUC MNTR 6 [facility] DEV INC INC CLEARED FDA SPEC HOME USE GLUC BLD 86736 MANN DARNELL GLUC MNTR 6 [facility] DEV INC INC CLEARED FDA SPEC HOME USE COLLECTIO 53586 MANN DARNELL N VENOUS 6 [facility] BLOOD INC INC VENIPUNCT URE COMPREHEN 95850 MANN DARNELL SIVE 6 [facility] METABOLIC INC INC PANEL INJECTION [id number] MANN DARNELL CEFEPIME 6 [facility] INC INC HYDROCHLO RIDE 500 MG PRESSURIZ 78973 MANN DARNELL ED/NONPRE 6 [facility] SSURIZED [place] [address] MANN DARNELL MAGNESIUM 6 [facility] INC INC BLOOD 70038 MANN DARNELL COUNT 6 [facility] COMPLETE INC INC AUTO&AUTO DIFRNTL WBC BLOOD 34839 MANN DARNELL COUNT 6 [facility] COMPLETE INC INC AUTO&AUTO DIFRNTL WBC BASIC 42020 MANN DARNELL METABOLIC 6 [facility] PANEL INC INC CALCIUM TOTAL BRNCDILAT 34480 MANN DARNELL RSPSE 6 [facility] SPMTRY INC INC [place] [address] MANN DARNELL ANGIOGRAP 6 [facility] HY CHEST INC INC W/CONTRAS T/NONCONT RAST INJECTION [id number] MANN DARNELL CEFEPIME 6 [facility] INC INC HYDROCHLO RIDE 500 MG NONINVASI 33048 MANN DARNELL VE 6 [facility] EAR/PULSE INC INC OXIMETRY SINGLE DETER COLLECTIO 52900 MANN DARNELL N VENOUS 6 [facility] BLOOD INC INC VENIPUNCT URE LOCM Q9967 MANN DARNELL [phone] [facility] MG/ML INC INC IODINE CONCENTRA TION PER ML GLUC BLD 15464 MANN DARNELL GLUC MNTR 6 [facility] DEV INC INC CLEARED FDA SPEC HOME USE CULTURE 44425 MANN DARNELL BACTERIAL 6 [facility] BLOOD INC INC AEROBIC W/ID ISOLATES GLUC BLD 03285 MANN DARNELL GLUC MNTR 6 [facility] DEV INC INC CLEARED FDA SPEC HOME USE COLLECTIO 88457 MANN MOHRKYRIE N VENOUS 6 [facility] MATTERS, BLOOD INC LLC. VENIPUNCT URE NONINVASI 11908 MANN DARNELL VE 6 [facility] EAR/PULSE INC INC OXIMETRY SINGLE DETER BASIC 98585 MANN DARNELL METABOLIC 6 [facility] PANEL INC INC CALCIUM TOTAL BASIC 37714 MANN EVRYDAY METABOLIC 6 [facility] MATTERS, [place] [address] MANN BLAKEON MAGNESIUM 6 [facility] [place] [address] MANN CHACHARYDAY TROPONIN 6 [facility] QUANTITAT INC LLC. GALDINO BLOOD 60640 MANN DARNELL COUNT 6 [facility] COMPLETE INC INC AUTO&AUTO DIFRNTL WBC NONINVASI 91338 MANN DARNELL VE 6 [facility] EAR/PULSE INC INC OXIMETRY SINGLE DETER GLUC BLD 58787 MANN DARNELL GLUC MNTR 6 [facility] DEV INC INC CLEARED FDA SPEC HOME USE GLUC BLD 01828 MANN DARNELL GLUC MNTR 6 [facility] DEV INC INC CLEARED FDA SPEC HOME USE BLOOD 68209 MANN BURNHAMRYKYRIE GASES ANY 6 [facility] MATTERS, INC LLC. COMBINATI ON PH PCO2 PO2 [place] [address] MANN EVRYDAY FOLIC 6 [facility] ACID INC LLC. SERUM COLLECTIO 73574 MANN AWAD N VENOUS 6 [facility], BLOOD INC LLC. VENIPUNCT URE COMPREHEN 35194 MANN EVRYDAY SIVE 6 [facility], [place] [address] MANN DARNELL INFUSION 6 [facility] THERAPY/P INC INC ROPHYLAXI S /DX 1ST TO 1 HR THERAPEUT 92670 MANN BLAKEON IC 6 [facility] INJECTION INC INC IV PUSH EACH NEW DRUG BLOOD 06192 MANN DARNELL COUNT 6 [facility] RETICULOC INC INC YTE AUTOMATED BLOOD 90688 MANN MANN COUNT 6 [facility] COMPLETE INC INC AUTO&[place] [address] MANN EVRYDAY TROPONIN 6 [facility] QUANTITAT INC LLC. GALDINO CYANOCOBA 72502 MANN DARNELL TIMA 6 [facility] VITAMIN INC INC B-12 NATRIURET 04494 MANN EVRYDAY IC 6 [facility], PEPTIDE INC LLC. RADIOLOGI 65109 MANN DARNELL C 6 [facility] EXAMINATI INC INC ON CHEST SINGLE VIEW FRONTAL RADIOLOGI 76584 MANN DARNELL C 6 [facility] EXAMINATI INC INC ON CHEST SINGLE VIEW FRONTAL BLOOD 76625 MANN DARNELL COUNT 6 [facility] COMPLETE INC INC AUTO&AUTO DIFRNTL WBC NONINVASI 51064 MANN DARNELL VE 6 [facility] EAR/PULSE INC INC OXIMETRY SINGLE DETER PRESSURIZ 93001 MANN DARNELL ED/NONPRE 6 [facility] SSURIZED INC INC INHALATIO N TREATMENT COMPREHEN 14237 MANN DARNELL SIVE 6 [facility] METABOLIC INC INC PANEL COLLECTIO 15008 MANN DARNELL N VENOUS 6 [facility] BLOOD INC INC VENIPUNCT URE COLLECTIO 56684 MANN DARNELL N VENOUS 6 [facility] BLOOD INC INC VENIPUNCT URE URNLS DIP 30577 MANN DARNELL 6 [facility] STICK/TAB INC INC LET REAGENT AUTO MICROSCOP Y CULTURE 80728 MANN DARNELL BACTERIAL 6 [facility] INC INC QUANTTATI VE COLONY COUNT URINE NONINVASI 66595 MANN DARNELL VE 6 [facility] EAR/PULSE INC INC OXIMETRY SINGLE DETER BASIC 76367 MANN DARNELL METABOLIC 6 [facility] PANEL INC INC CALCIUM TOTAL CREATINE 60508 MANN DARNELL KINASE 6 [facility] [place] [address] MANN DARNELL TROPONIN 6 [facility] QUANTITAT INC INC GALDINO NATRIURET 10303 MANN DARNELL IC 6 [facility] PEPTIDE INC INC BLOOD 89622 MANN DARNELL COUNT 6 [facility] COMPLETE INC INC AUTO&AUTO DIFRNTL WBC NONINVASI 72426 MANN DARNELL VE 6 [facility] EAR/PULSE INC INC OXIMETRY SINGLE DETER ECG 50902 MANN DARNELL ROUTINE 6 [facility] ECG INC INC W/LEAST 12 LDS TRCG ONLY W/O I&R CREATINE 83534 MANN DARNELL KINASE MB 6 [facility] [place] [address] MANN DARNELL THYROID 6 [facility] STIMULATI INC INC NG HORMONE TSH COMPREHEN 53556 MANN DARNELL SIVE 6 [facility] METABOLIC INC INC PANEL RADIOLOGI 28017 MANN DARNELL C 6 [facility] EXAMINATI INC INC ON CHEST SINGLE VIEW FRONTAL RADIOLOGI 71966 MANN DARNELL C 6 [facility] EXAMINATI INC INC ON CHEST SINGLE VIEW FRONTAL COMPREHEN 55593 MANN DARNELL SIVE 6 [facility] METABOLIC INC INC PANEL CREATINE 97434 MANN DARNELL KINASE MB 6 [facility] FRACTION INC INC ONLY THER 06723 MANN DARNELL PROPH/DX 6 [facility] NJX IV INC INC PUSH SINGLE/1S T SBST/[place] [address] MANN DARNELL THYROID 6 [facility] STIMULATI INC INC NG HORMONE TSH BLOOD 52837 MANN DARNELL GASES ANY 6 [facility] INC INC COMBINATI ON PH PCO2 PO2 CO2 HCO3 ECG 43243 MANN DARNELL ROUTINE 6 [facility] ECG INC INC W/LEAST 12 LDS TRCG ONLY W/O I&R BLOOD 66530 MANN DARNELL COUNT 6 [facility] COMPLETE INC INC AUTO&[place] [address] MANN DARNELL TROPONIN 6 [facility] QUANTITAT INC INC GALDINO NATRIURET 72993 MANN DARNELL IC 6 [facility] PEPTIDE INC INC CREATINE 08441 MANN DARNELL KINASE 6 [facility] TOTAL INC INC INSERTION [id number] MANN DARNELL VAD 6 [facility] CHEST INC INC SUBQ TISSUE & FASCIA OPEN INSERTION [id number] MANN DARNELL INFUSION 6 [facility] DEVC RT INC INC SUBCLAVIA N VEIN PERQ FLUORO [id number] MANN DARNELL MULTI 6 [facility] CORONARY INC INC ARTERIES LOW OSMOLAR CONT FLUOROSCO [id number] MANN DARNELL PY LEFT 6 [facility] HEART LOW INC INC OSMOLAR CONTRAST MEASUREME [id number] MANN DARNELL NT 6 [facility] CARDIAC INC INC SAMPLING PRESS LT HEART PERQ HEAVY-DUT K0006 [facility] H[facility]P WHEELCHAI EQUIP EQUIP R HEAVY-DUT K0006 [facility] HOSP WHEELCHAI EQUIP EQUIP R HEAVY-DUT K0006 [facility] HOSP WHEELCHAI EQUIP EQUIP R HEAVY-DUT K0006 [facility] 3 [facility] HOSP WHEELCHAI EQUIP EQUIP R HEAVY-DUT K0006 [facility] HOSP WHEELCHAI EQUIP EQUIP R RADIOLOGI 11316 CELESTINO MAT CELESTINO MAT C 3 EXAMINATI ON ANKLE 2 VIEWS BASIC 64991 [facility] METABOLIC 3 N N PANEL [facility] COMMUNITY CALCIUM HOSPITA HOSPITA TOTAL BLOOD 00861 [facility] COUNT 3 N N COMPLETE [facility] COMMUNITY AUTO&AUTO HOSPITA HOSPITA DIFRNTL WBC RADIOLOGI 78934 PB PB C EXAM 3 RHO RHO CHEST 2 VIEWS FRONTAL&L ATERAL COLLECTIO 49356 [facility] N VENOUS 3 N N BLOOD [facility] VENIPUNCT HOSPITA HOSPITA URE HEAVY-DUT K0006 [facility] 3 [facility]OSP HOSP WHEELCHAI EQUIP EQUIP R HEAVY-DUT K0006 [facility] 3 [facility]P HOSP WHEELCHAI EQUIP EQUIP R DUPLEX 48877 KATHRYN KATHRYN SCAN 3 [facility] H[facility]ERT EXTRACRAN IAL ART COMPL BI STUDY SCREENING G0202 MANN DARNELL 3 [facility] MAMMOGRAP INC INC HY JOSEFINA INCL CAD WHEN PERFORMD COMPUTER- 82834 MANN DARNELL AIDED 3 [facility] DETECTION INC INC SCREENING MAMMOGRAP HY COLLECTIO 41295 [facility] N VENOUS 3 N N BLOOD [facility] COMMUNITY VENIPUNCT HOSPITA HOSPITA URE BLOOD 76739 [facility] COUNT 3 N N COMPLETE [facility] COMMUNITY AUTO&AUTO HOSPITA HOSPITA DIFRNTL WBC BASIC 66444 [facility] METABOLIC 3 N N PANEL COMMUNITY COMMUNITY CALCIUM HOSPITA HOSPITA TOTAL RADIOLOGI 10222 [facility] C EXAM 3 N N CHEST 2 COMMUNITY COMMUNITY VIEWS HOSPITA HOSPITA FRONTAL&L ATERAL ECG 71331 [facility] ROUTINE 3 N N ECG COMMUNITY COMMUNITY W/LEAST HOSPITA HOSPITA 12 LDS TRCG ONLY W/O I&R HEAVY-DUT K0006 DAINA LAMA Y 3 HOSP HOSP WHEELCHAI EQUIP EQUIP R WHEELCHAI 26343 MANN DARNELL R MGMT EA 3 [facility] 15 MIN INC INC RADEX 42122 [facility] 3 Y Y [facility] MINIMUM 3 VIEWS ECHO 97642 [facility] TTHRC R-T 2 2D W/WO M-MODE REST&STRS CONT ECG DOP 77361 [facility] ECHOCARD 2 [place] V[place] [address] [facility] ECHO 2 CONTRAST AGENT DURING STRESS ECHO INJECTION Q9957 [facility] 2 PERFLUTRE N LIPID MICROSPHE RES PER ML DOPPLER 57619 [facility] ECHOCARD 2 PULSE WAVE W/SPECTRA L DISPLAY HEAVY-DUT K0006 DAINA LAMA Y 2 HOSP HOSP WHEELCHAI EQUIP EQUIP R ECG 31315 [facility] ROUTINE 2 ECG W/LEAST 12 LDS I&R ONLY RADIOLOGI 08904 [facility] C EXAM 2 [place] CHEST 2 JI JI VIEWS FRONTAL&L ATERAL ECG 27307 [facility] ROUTINE 2 [place] ECG JI JI W/LEAST 12 LDS TRCG ONLY W/O I&R BLOOD 15193 [facility] COUNT 2 [place] COMPLETE JI JI AUTO&AUTO DIFRNTL WBC COLLECTIO 10232 [facility] N VENOUS 2 [place] BLOOD JI JI VENIPUNCT URE COMPREHEN 94965 [facility] SIVE 2 [facility] METABOLIC JI JI PANEL HEAVY-DUT K0006 DAINA LAMA Y 2 HOSP HOSP WHEELCHAI EQUIP EQUIP R RADEX 36745 [facility] GRE ANKLE 2 COMPLETE MINIMUM 3 VIEWS DIAB ONLY A5500 CHERELLE ARREDONDO CSTM 2 ORTHOPEDI ORTHOPEDI PREP&SPL CS CS SHOE MX DNSITY INSRT BASIC 55090 [facility] METABOLIC 2 DIAGNOSTI DIAGNOSTI PANEL CS CS CALCIUM TOTAL LIPID 70662 RASHAAD EILEEN RASHAAD EILEEN PANEL 2 TRANSFERA 04524 RASHAAD EILEEN RASHAAD EILEEN SE 2 ASPARTATE AMINO AST SGOT GLUCOSE 11826 RASHAAD EILEEN RASHAAD EILEEN QUANTITAT 2 GALDINO BLOOD XCPT REAGENT STRIP HEMOGLOBI 71206 RASHAAD EILEEN RASHAAD EILEEN N 2 GLYCOSYLA ELSA A1C ADD LW L2820 CHERELLE VILLARREAL EXT ORTH 2 ORTHOPEDI ORTHOPEDI SFT CS CS INTERFCE MOLD BELW KNEE WALKER E0143 SHIVANI PARRISH FOLDING 2 SURGICAL SURGICAL WHEELED ADJUSTABL E/FIXED HEIGHT SEAT E0156 SHIVANI PARRISH ATTACHMEN 2 SURGICAL SURGICAL T WALKER RADEX 23206 BARROW, BARROW, ANKLE 2 JR. FREYA PILLAI COMPLETE MINIMUM 3 VIEWS DIAB ONLY A5500 SHIVANI ARREDONDO CSTM 2 SURGICAL SURGICAL PREP&SPL SHOE MX DNSITY INSRT BASIC 95721 [facility] METABOLIC 2 DIAGNOSTI DIAGNOSTI PANEL CS CS CALCIUM TOTAL COLLECTIO 91324 RASHAAD EILEEN RASHAAD EILEEN N VENOUS 2 BLOOD VENIPUNCT URE LIPID 12440 [facility] PANEL 2 DIAGNOSTI DIAGNOSTI CS CS HEMOGLOBI 00219 [facility]ST QUEST N 2 DIAGNOSTI DIAGNOSTI GLYCOSYLA CS CS ELSA A1C TRANSFERA 95734 [facility] QUEST SE 2 DIAGNOSTI DIAGNOSTI ASPARTATE CS CS AMINO AST SGOT TRANSFERA 23988 [facility] SE 2 DIAGNOSTI DIAGNOSTI ASPARTATE CS CS AMINO AST SGOT COLLECTIO 45756 YOSSI YOSSI N VENOUS 2 DAO DAO BLOOD VENIPUNCT URE HEMOGLOBI 43278 [facility] N 2 DIAGNOSTI DIAGNOSTI GLYCOSYLA CS CS ELSA A1C LIPID 22936 [facility] PANEL 2 DIAGNOSTI DIAGNOSTI CS CS BASIC 43197 [facility] METABOLIC 2 DIAGNOSTI DIAGNOSTI PANEL CS CS CALCIUM TOTAL SCREENING G0202 [place] KATHRYN 1 [facility] MAMMOGRAP IMAGING HY JOSEFINA ASS INCL CAD WHEN PERFORMD COMPUTER- 08838 [place] KATHRYN AIDED 1 [facility] DETECTION IMAGING ASS SCREENING MAMMOGRAP HY IIV3 33475 MANN DARNELL VACCINE 1 [facility] VIRUS 0.5 ML DOSAGE IM USE BASIC 20553 [facility] METABOLIC 1 DIAGNOSTI DIAGNOSTI PANEL CS CS CALCIUM TOTAL LIPID 73557 [facility] PANEL 1 DIAGNOSTI DIAGNOSTI CS CS HEMOGLOBI 00996 [facility]ST N 1 DIAGNOSTI DIAGNOSTI GLYCOSYLA CS CS ELSA A1C TRANSFERA 85059 [facility] SE 1 DIAGNOSTI DIAGNOSTI ASPARTATE CS CS AMINO AST SGOT GAUZE A6402 [facility] NON-IMPRE 1 HOME HOME [facility] 16 SQ/< AGENCY AGENCY W/O ADHES BORDR CONFORMIN A6446 [facility] ARH G BANDGE 1 HOME REFERENC NON-[facility] AGENCY KNITTED/W OVEN STERL TAPE A4450 [facility] NON-WATER 1 HOME HOME PROOF PER HEALTH HEALTH 18 AGENCY AGENCY SQUARE INCHES CUL BACT 91097 MANN DARNELL XCPT 1 [facility] URINE INC INC BLOOD/STO OL AEROBIC ISOL RADEX 46038 MANN DARNELL FOOT 1 [facility] COMPLETE INC INC MINIMUM 3 VIEWS BASIC 02813 MANN DARNELL METABOLIC 1 [facility] PANEL INC INC CALCIUM TOTAL BLOOD 85558 MANN DARNELL COUNT 1 [facility] COMPLETE INC INC AUTO&[place] [address] MANN DARNELL INFUSION 1 [facility] THERAPY/P INC INC ROPHYLAXI S /DX 1ST TO 1 HR SUSCEPTIB 06290 MANN DARNELL LTY STDY 1 [facility] ANTIMICRB INC INC IAL MICRO/AGA R DILUTJ CUL BACT 69548 MANN DARNELL AEROBIC 1 [facility] ADDL INC INC METHS DEFINITIV E EA ISOL CONFORMIN A6446 [facility] G BANDGE 1 HOME HOME NON-[facility] AGENCY AGENCY KNITTED/W OVEN STERL TUBULAR A6457 [facility] DRSG W/WO 1 HOME HOME ELASTIC HEALTH HEALTH ANY WDTH AGENCY AGENCY PER LINEAR YD TAPE A4450 [facility] NON-WATER 1 HOME HOME PROOF PER HEALTH HEALTH 18 AGENCY AGENCY SQUARE INCHES CONFORMIN A6446 [facility] G BANDGE 1 HOME HOME NON-[facility] AGENCY AGENCY KNITTED/W OVEN STERL GAUZE A6402 [facility] NON-IMPRE 1 HOME HOME G [facility] HEALTH 16 SQ/< AGENCY AGENCY W/O ADHES BORDR STERILE A4217 [facility] WATER/SULEMA 1 HOME HOME INE 500 HEALTH HEALTH ML AGENCY AGENCY GLOVES A4927 [facility] NON-STERI 1 HOME HOME LE PER HEALTH HEALTH 100 AGENCY AGENCY CULTURE 82210 MANN DARNELL BACTERIAL 1 [facility] BLOOD INC INC AEROBIC W/ID ISOLATES SUSCEPTIB 37234 MANN DARNELL LTY STDY 1 [facility] ANTIMICRB INC INC IAL MICRO/[place] IV [address] MANN DARNELL INFUSION 1 [facility] THERAPY/P INC INC ROPHYLAXI S /DX 1ST TO 1 HR CUL BACT 90955 MANN DARNELL AEROBIC 1 [facility] ADDL INC INC METHS DEFINITIV E EA ISOL BASIC 96277 MANN DARNELL METABOLIC 1 [facility] PANEL INC INC CALCIUM TOTAL BLOOD 59196 MANN DARNELL COUNT 1 [facility] COMPLETE INC INC AUTO&AUTO DIFRNTL WBC DIAB ONLY A5500 SHIVANI PARRISH FIT CSTM 1 SURGICAL SURGICAL PREP&SPL SHOE MX DNSITY INSRT FOR DIAB A5512 SHIVANI PARRISH ONLY MX 1 SURGICAL SURGICAL DNSITY INSRT DIR FORMD PRFAB EA HEMOGLOBI 49015 [facility] N 1 [facility] GLYCOSYLA ELSA A1C TRANSFERA 15872 [facility] SE 1 [facility] ASPARTATE AMINO AST SGOT LIPID 56030 [facility] PANEL 1 [facility] [facility] BASIC 43908 [facility] METABOLIC 1 [facility] PANEL CALCIUM TOTAL SCREENING G0202 MANN DARNELL 0 [facility] MAMMOGRAP INC INC HY JOSEFINA INCL CAD WHEN PERFORMD COMPUTER- 95076 MANN DARNELL AIDED 0 [facility] DETECTION INC INC SCREENING MAMMOGRAP HY IIV3 69105 MANN DARNELL VACCINE 0 [facility] VIRUS 0.5 ML DOSAGE IM USE HEMOGLOBI 34649 [facility] N 0 [facility] GLYCOSYLA ELSA A1C BASIC 37073 [facility] METABOLIC 0 [facility] PANEL CALCIUM TOTAL LIPID 85164 [facility] OF PANEL 0 [facility] [place] TRANSFERA 60432 [facility] SE 0 [place] [facility] ASPARTATE AMINO AST SGOT BLD GLU A4253 AM MED AM MED TEST/REAG 0 DIRECT DIRECT T STRIPS [facility] HOME BLD GLU SAT-50 BLD GLU A4253 AM MED AM MED TEST/REAG 0 DIRECT DIRECT T STRIPS [facility] HOME BLD GLU MON-50 LANCETS A4259 AM MED AM MED PER BOX 0 DIRECT DIRECT OF 100 [facility] DETERMINA 84210 [facility] PATEL, TION 0 FOR FRANSISCO REFRACTIV EYEHLTH & C E STATE SURGPS DUPLEX 73960 MANN DARNELL SCAN 0 [facility] EXTRACRAN INC INC IAL ART COMPL BI STUDY BASIC 08357 [facility] METABOLIC 0 [facility] PANEL CALCIUM TOTAL LIPID 25252 [facility] PANEL 0 [facility] [place] [facility] TRANSFERA 75689 [facility] SE 0 [place] [facility] ASPARTATE AMINO AST SGOT HEMOGLOBI 79868 Bibi C YOSSI, N 0 JERSEY BECKER GLYCOSYLA PSC ELSA A1C BLD GLU A4253 AM MED AM MED TEST/REAG 0 DIRECT DIRECT T STRIPS [facility] HOME BLD GLU MON-50 BLD GLU A4253 AM MED AM MED TEST/REAG 0 DIRECT DIRECT T [facility] PH[facility] GLU MON-50 LANCETS A4259 AM MED AM MED PER BOX 0 DIRECT DIRECT OF 100 [facility] PH[facility]ACY PHARMACY BLD GLU A4253 AM MED AM MED TEST/REAG 0 DIRECT DIRECT T [facility] PHARMACY GLU MON-50 FOR DIAB A5512 SHIVANI PARRISH ONLY MX 0 SURGICAL SURGICAL DNSITY INSRT DIR FORMD PRFAB EA DIAB ONLY A5500 SHIVANI PARRISH FIT CSTM 0 SURGICAL SURGICAL PREP&SPL SHOE MX DNSITY INSRT BLD GLU A4253 AM MED AM MED TEST/REAG 0 DIRECT DIRECT T [facility] PHARMACY GLU MON-50 LIPID 33460 [facility] PANEL 0 [facility] [place] [facility] TRANSFERA 09040 [facility] SE 0 [facility] [place] [facility] ASPARTATE AMINO AST SGOT HEMOGLOBI 32636 [facility] N 0 [facility] [place] [facility] GLYCOSYLA ELSA A1C BASIC 03873 [facility] METABOLIC 0 [facility] [place] [facility] PANEL CALCIUM TOTAL BLD GLU A4253 AM MED AM MED TEST/REAG 0 DIRECT DIRECT T [facility] PHARMACY GLU MON-50 LANCETS A4259 AM MED AM MED PER BOX 0 DIRECT DIRECT OF 100 [facility] PH[facility]Y PHARMACY BLD GLU A4253 AM MED AM MED TEST/REAG 0 DIRECT DIRECT T [facility] PHARMACY GLU MON-50 CATARACT 28306 RAYMUNDO PATEL, REMOVAL 9 FOR FRANSISCO INSERTION EYEHLTH & C OF LENS SURGPSC POSTERIOR V2632 [facility] AR [facility] BMTRY [address] [place] JOANNE 9 FOR FRANSISCO ECHOGRAPY EYEHLTH & C A-SCAN SURGPSC IO LENS PWR GUS BLD GLU A4253 AM MED AM MED TEST/REAG 9 DIRECT DIRECT T [facility] [employer] [facility] HOME BLD PHARMACY PHARMACY GLU MON-50 [place] 68119 [facility] REMOVAL 9 NEETU DE ANDA INSERTION [place] [facility] ANESTHESI 62843 ROLANDOA MTZ, A EYE 9 [facility] LAN R LENS ANESTHESI SURGERY A PSC PPSV23 [id number] DHS/CO MANN VACCINE 2 9 [facility] O[facility] FOR BANK ACCT SUBQ/IM USE OPHTH 87543 [place] [facility] JORGE, [facility] 9 FOR FRANSISCO XM&EVAL EYEHLTH & C COMPRHNSV SURGPSC ESTAB PT 1/> OPH BMTRY 94776 [place] [facility] JORGE, 9 FOR FRANSISCO ECHOGRAPY EYEHLTH & C A-SCAN SURGPSC IO LENS PWR GUS BLD GLU A4253 AM MED AM MED TEST/REAG 9 DIRECT DIRECT [facility] PHARMACY GLU SAT-50 LANCETS A4259 AM MED AM MED PER BOX 9 DIRECT DIRECT OF 100 [facility] PH[facility] PHARMACY LIPID 64235 [facility] PANEL 9 [employer] TRANSFERA 38148 [facility] SE 9 [employer]IC [employer] ASPARTATE [place] [address] [facility] THYROID 9 AMERIC AMERIC STIMULATI HOLDING HOLDING NG HORMONE TSH HEMOGLOBI 18439 [facility] N 9 AMERIC AMERIC GLYCOSYLA HOLDING HOLDING ELSA A1C BASIC 24512 [facility] METABOLIC 9 [employer]IC [employer] PANEL HOLDING HOLDING CALCIUM TOTAL BLD GLU A4253 AM MED AM MED TEST/REAG 9 DIRECT DIRECT T [facility] [employer] HOME BLD PHARMACY PHARMACY GLU MON-50 IIV3 [id number] DHS/CO MANN VACCINE 9 [facility]ALTH [facility] VIRUS 0.5 BANK ACCT ML DOSAGE IM USE SCREENING 96748 EB PERALTA, 9 MEDICAL IVAN MAMMOGRAP IMAGING HY ASSOCIATE BILATERAL S COMPUTER- 33201 [place] VIKTOR PERALTA 9 MEDICAL IVAN DETECTION IMAGING ASSOCIATE SCREENING S MAMMOGRAP HY FOR DIAB A5512 SHIVANI PARRISH ONLY MX 9 SURGICAL SURGICAL DNSITY INSRT DIR FORMD PRFAB EA DIAB ONLY A5500 SHIVANI PARRISH FIT CSTM 9 SURGICAL SURGICAL PREP&SPL SHOE MX DNSITY INSRT BLD GLU A4253 AM MED AM MED TEST/REAG 9 DIRECT DIRECT [facility] GLU MON-50 BLD GLU A4253 AM MED AM MED TEST/REAG 9 DIRECT DIRECT T [facility] PHARMACY GLU MON-50 LANCETS A4259 AM MED AM MED PER BOX 9 DIRECT DIRECT OF 100 [facility] PH[facility] PHARMACY LIPID 66956 [facility] PANEL 9 [employer] HOLDING COLLECTIO 55661 Bibi BLACK VENOUS 9 JERSEY Langley BLOOD PSC VENIPUNCT URE TRANSFERA 60846 [facility] SE 9 [employer] ASPARTATE HOLDING HOLDING AMINO AST SGOT HEMOGLOBI 57787 [facility] N 9 AMERIC AMERIC GLYCOSYLA HOLDING HOLDING ELSA A1C BASIC 34190 [facility] METABOLIC 9 [employer]IC [employer] PANEL HOLDING HOLDING CALCIUM TOTAL BLD GLU A4253 AM MED AM MED TEST/REAG 9 DIRECT DIRECT [facility] PHARMACY GLU MON-50 BLD GLU A4253 [facility] TEST/REAG 9 PHARMACY PHARMACY T STRIPS #[phone] #[phone] HOME BLD GLU MON-50 BLD GLU A4253 AM MED AM MED TEST/REAG 9 DIRECT DIRECT T [facility] PHARM[facility]Y GLU MON-50 LANCETS A4259 AM MED AM MED PER BOX 9 DIRECT DIRECT OF 100 [facility] PH[facility] PHARMACY BLD GLU A4253 AM MED AM MED TEST/REAG 9 DIRECT DIRECT T STRIPS [facility] PHARMACY GLU MON-50 BLD GLU A4253 AM MED AM MED TEST/REAG 9 DIRECT DIRECT T [facility] GLU MON-50 LIPID 57723 [facility] PANEL 9 [employer] COLLECTIO 23942 Sandrine HE VENOUS 9 JERSEY BECKER BLOOD PSC VENIPUNCT URE BASIC 71890 [facility] METABOLIC 9 AMERIC AMERIC PANEL HOLDING HOLDING CALCIUM TOTAL HEMOGLOBI 08660 [facility] N 9 AMERIC AMERIC GLYCOSYLA HOLDING HOLDING ELSA A1C TRANSFERA 23770 [facility] SE 9 [employer] ASPARTATE HOLDING HOLDING AMINO AST SGOT BLD GLU A4253 AM MED AM MED TEST/REAG 9 DIRECT DIRECT [facility] HOME BLD GLU MON-50 LANCETS A4259 AM MED AM MED PER BOX 9 DIRECT DIRECT OF 100 [facility] LANCETS A4259 AM MED AM MED PER BOX 8 DIRECT DIRECT OF 100 [facility] PHARMACY PHARMACY BLD GLU A4253 AM MED AM MED TEST/REAG 8 DIRECT DIRECT [facility] HOME BLD PHARMACY PHARMACY GLU MON-50 LIPID 85739 [facility] PANEL 8 [employer] COLLECTIO 09981 Sandrine HE VENOUS 8 JERSEY BECKER BLOOD PSC VENIPUNCT URE TRANSFERA 34002 [facility] SE 8 [employer] ASPARTATE HOLDING HOLDING AMINO AST SGOT HEMOGLOBI 16865 [facility] N 8 [employer]IC AMERIC GLYCOSYLA HOLDING HOLDING ELSA A1C BASIC 18737 [facility] METABOLIC 8 [employer] PANEL HOLDING HOLDING CALCIUM TOTAL URINLS 11809 Bibi SY DIP 8 JERSEY BECKER STICK/TAB PSC LET REAGNT NON-AUTO MICRSCPY HEMOGLOBI 79357 [facility] N 8 [employer] GLYCOSYLA HOLDING HOLDING ELSA A1C TRANSFERA 15963 [facility] SE 8 [employer] ASPARTATE HOLDING HOLDING AMINO AST SGOT GLUCOSE 45099 [facility] QUANTITAT 8 [employer]IC AMERIC GALDINO BLOOD HOLDING HOLDING XCPT REAGENT STRIP COLLECTIO 83200 Bibi BLACK N VENOUS 8 JERSEY Langley BLOOD PSC VENIPUNCT URE LIPID 65505 [facility] PANEL 8 [employer] MAMMOGRAP 11512 MANN DARNELL HY 8 [facility] INC INC L EXC B9 64743 Bibi SY, LESION 8 JERSEY BECKER MRGN XCP PSC SK TG T/A/L 2.1-3.0 CM TRANSFERA 10137 [facility] SE 8 [employer] ASPARTATE HOLDING HOLDING AMINO AST SGOT LIPID 75724 [facility] PANEL 8 [employer] COLLECTIO 99725 Bibi BLACK N VENOUS 8 JERSEY Langley BLOOD PSC VENIPUNCT URE HEMOGLOBI 16059 [facility] N 8 [employer] GLYCOSYLA [employer]ING HOLDING ELSA A1C BASIC 40547 [facility] METABOLIC 8 [employer] PANEL HOLDING HOLDING CALCIUM TOTAL BLD GLU A4253 [facility] TEST/REAG 8 PHARMACY PHARMACY T STRIPS #591 #591 HOME BLD GLU MON-50 IADNA 56558 Bibi SY, STREPTOCO 8 JERSEY BECKER CCUS PSC GROUP A QUANTIFIC ATION BLD GLU A4253 [facility]/REAG 8 PHARMACY PHARMACY T STRIPS #591 #591 HOME BLD GLU MON-50 Encounters Encounter Start End Date Code Location Performer Type Date EMERGENCY 63254 MANN DEPT 6 6 [facility] VISIT [facility] HIGH [facility]VERITY& THREAT [facility] MANN - 6 6 [facility] INPATIENT [facility] MANN - 6 6 [facility] INPATIENT [facility] EMERGENCY 65389 MANN 6 6 [facility] T VISIT [facility]IGH/URGE NT SEVERITY EMERGENCY 37500 MANN DEPT 6 6 [facility] VISIT [facility] HIGH SEVERITY& THREAT [facility] MANN - 6 6 [facility]PAT[facility] [place] [address] 3 N [facility] 3 3 [facility] [place] [address] [facility] [address] BARROW, BARROW, OUTPATIEN 3 3 FREYA PILLAI T VISIT 15 MINUTES HOSPITAL MANN - 3 3 [facility] OUTPATIEN [facility] UN[facility]IT - 3 3 Y [facility] T OFFICE 20610 MERLY Byrd OUTPATIEN 2 2 T NEW 45 MINUTES PERIODIC 93309 CANELO LEMOS PREVENTIV 2 2 NOLA VACA E MED EST PATIENT 40-64YRS [facility] - 2 2 [facility] T OFFICE 84919 BARROW, BARROW, OUTPATIEN 2 2 FREYA PILLAI T VISIT 15 MINUTES OFFICE 79185 [facility] GRE OUTPATIEN 2 2 T NEW 30 MINUTES OFFICE 72260 RASHAAD EILEEN RASHAAD EILEEN OUTPATIEN 2 2 T VISIT 15 MINUTES OFFICE 07879 BARROW, BARROW, OUTPATIEN 2 2 FREYA PILLAI T VISIT 15 MINUTES OFFICE 47186 BARROW, BARROW, OUTPATIEN 2 2 Hunter FREYA PILLAI T NEW 30 MINUTES OFFICE 61935 YOSSI YOSSI OUTPATIEN 2 2 DAO DAO T VISIT 25 MINUTES OFFICE 52653 YOSSI YOSSI OUTPATIEN 2 2 DAO DAO T VISIT 10 MINUTES HOSPITAL MANN - 1 1 [facility] OUTPATIEN [facility] T OFFICE 78542 YOSSI YOSSI OUTPATIEN 1 1 DAO DAO T VISIT 25 MINUTES HOME [facility], 1 1 HOME [facility] T AGENCY OFFICE 04005 Bibi Langley YOSSI OUTPATIEN 1 1 JERSEY AARON DAO T VISIT PSC 15 MINUTES HOSPITAL MANN - 1 1 [facility] OUTPATIEN INC T EMERGENCY 62561 ARLENE ARIAS DEPT 1 1 EMERGENCY [facility] VISIT SERVICES HIGH SEVERITY& THREAT FUNCJ EMERGENCY 20845 [facility] MODERATE SEVERITY HOME [facility], 1 1 HOME OUTPATIEN HEALTH T AGENCY HOME [facility] 1 1 HOME OUTPATIEN HEALTH T AGENCY OFFICE 35668 A C YOSSI OUTPATIEN 1 1 JERSEY DC T VISIT PSC 25 MINUTES HOSPITAL MANN - 1 1 [facility] OUTPATIEN INC T EMERGENCY 00713 ARLENE BOLTON 1 1 EMERGENCY DEPARTMEN SERVICES T VISIT HIGH/URGE NT SEVERITY OFFICE 52461 A C YOSSI OUTPATIEN 1 1 JERSEY DC T VISIT PSC 25 MINUTES OFFICE 18892 A Korin Mtz OUTPATIEN 1 1 JERSEY Isbell VISIT 5 PSC MINUTES HOSPITAL MANN - 0 0 [facility] OUTPATIEN [facility] T OFFICE 31912 A C YOSSI OUTPATIEN 0 0 JERSEY Isbell VISIT 5 PSC MINUTES OFFICE 84908 PA INST JORGE OUTPATIEN 0 0 FOR FRANSISCO T VISIT EYEHLTH & C 15 SURGPSC MINUTES HOSPITAL MANN - 0 0 [facility] OUTPATIEN [facility] T OFFICE 72863 A C YOSSI, OUTPATIEN 0 0 JERSEY Isbell VISIT PSC 25 MINUTES OFFICE 48855 A Bibi ANDUJAR OUTPATIEN 0 0 JERSEY Langley T VISIT 5 PSC MINUTES [facility] [address] OFFICE [address] DHS/CO MANN OUTPATIEN 9 9 [facility] MINUTES BANK ACCT OFFICE 88251 A C YOSSI, OUTPATIEN 9 9 JERSEY BECKER T VISIT PSC 15 MINUTES OFFICE 10322 A C YOSSI, OUTPATIEN 9 9 JERSEY BECKER T VISIT PSC 25 MINUTES HOSPITAL MANN - 9 9 [facility] T OFFICE 11704 A Korin PUTNAM, A OUTPATIEN 9 9 JERSEY Langley T VISIT 5 PSC MINUTES OFFICE 98424 A C YOSSI, OUTPATIEN 9 9 JERSEY BECKER T VISIT PSC 25 MINUTES OFFICE 66891 A C YOSSI, OUTPATIEN 9 9 JERSEY BECKER T VISIT PSC 25 MINUTES OFFICE 64634 A Korin YOSSI, OUTPATIEN 8 8 JERSEY BECKER T VISIT 5 PSC MINUTES OFFICE 91889 A Korin YOSSI, OUTPATIEN 8 8 JERSEY BECKER T VISIT PSC 25 MINUTES OFFICE 84384 A Korin PUTNAM A OUTPATIEN 8 8 JERSEY Langley T VISIT 5 PSC MINUTES OFFICE 10969 A C YOSSI, OUTPATIEN 8 8 JERSEY BECKER T VISIT PSC 15 MINUTES HOSPITAL MANN - 8 8 [facility] OUTPATIEN INC T OFFICE 82636 A C YOSSI, OUTPATIEN 8 8 JERSEY BECKER T VISIT PSC 15 MINUTES OFFICE 90083 A Korin PUT[place] A OUTPATIEN 8 8 JERSEY Langley T VISIT PSC 25 MINUTES OFFICE 80045 A Korin [place] A OUTPATIEN 8 8 JERSEY Langley T VISIT 5 PSC MINUTES OFFICE 21685 A Korin SY OUTPATIEN 8 8 JERSEY BECKER T VISIT PSC 15 MINUTES
--- OUTSIDE RECORDS SUMMARY | 2017-04-20 03:07 | External Medical Summary Rpt ---
Author Author , MARIANNA Hamilton MARIANNA Address Unknown Phone [email or web address] Care Team Providers Care Asset Protection Greeter Name Role Phone A Korin PUTNAM MD [...] LLC. HUGO ADRIAN, HUGO Unavailable Unavailable ADRIAN [facility] Unavailable Unavailable HOSPITA, [facility], [facility] Unavailable Unavailable ALMAZAN HOANG, ALMAZAN HOANG Unavailable Unavailable PB RHO, PB Unavailable Unavailable RHO PB RHO, PB Unavailable Unavailable RHO [facility] Unavailable Unavailable [place] Un[facility] Un[facility] [place] Unavailable Unavailable INC, [facility], Unavailable Unavailable [facility], Unavailable Unavailable [facility], Unavailable Unavailable [facility] KILPELA JEA, KILPELA Unavailable Unavailable JEA KILPELA JEA, KILPELA Unavailable Unavailable JEA [facility] Unavailable Unavailable [facility], [facility], Unavailable Unavailable [facility] Unavailable Unavailable SERVICES, [facility] Unavailable Unavailable [...] JR. FREYA BARROW, Unavailable Unavailable JR. FREYA BARROW JR. JAM, Unavailable Unavailable JR. FREYA BARROW [facility], [facility] Unavailable Unavailable [facility], [facility] Unavailable Unavailable [facility], Unavailable [facility]available [facility]available Unavailable [facility] Unavailable Unavailable [facility] MERLY WILLIS Unavailable Unavailable MERLY WILLIS Unavailable Unavailable [facility] Unavailable Unavailable [facility], Unavailable Unavailable [facility] Unavailable Unavailable [address], [facility] Unavailable Unavailable [address], [facility] # Unavailable Unavailable [id number], [facility] # [id number] [facility] Unavailable Unavailable AGENCY, [facility] PUTNAM A, PUTNAM A Unavailable Unavailable [...] INDEX BMI [facility] 45.0-49.9 INC ADULT [id number] PERSONAL 11-22-2015 [facility] NICOTINE INC DEPENDENCE E8342 HYPOMAGNESE 09-30-2015 [facility] JUANCARLOS [facility] INC E876 HYPOKALEMIA 09-30-2015 [facility] INC I129 HYPERTENSIV 09-30-2015 [facility] E CKD [facility] W/STAGE 1-4 INC CKD OR UNS CKD I2510 ASHD HUALAPAI 09-30-2015 [facility] CORONARY [facility] ARTERY W/O INC ANGINA PECTORIS N179 ACUTE 09-30-2015 [facility] KIDNEY [facility] FAILURE INC UNSPECIFIED 12210 SEC 06-15-2013 [facility] EQUIP OSTEOARTHRO SIS ANKLE AND FOOT 8248 UNSPECIFIED 01-28-2013 CELESTINO MAT CLOSED FRACTURE OF ANKLE 64155 PAIN IN 01-22-2013 [place] JOINT, [facility] ANKLE AND HOSPITA FOOT 72483 OTHER 01-22-2013 PB RHO NONSPECIFIC ABNORMAL FINDING OF LUNG FIELD V7283 OTHER 01-22-2013 [place] SPECIFIED [facility] PRE-OPERATI HOSPITA VE EXAMINATION 7859 OTHER 12-05-2012 [facility] SYMPTOMS [facility] INVOLVING INC CARDIOVASCU LAR SYSTEM V7612 OTHER 12-05-2012 [facility] SCREENING [facility] MAMMOGRAM INC 65939 PRIMARY 10-23-2012 ALLI BARROW JR. OSTEOARTHRO SIS ANKLE AND FOOT 80600 OSTEOARTHRO 10-08-2012 [facility] SIS UNSPEC [facility] WHETHER INC GEN/LOC ANK&FOOT 52543 DISORDER OF 10-01-2012 [facility] CARTILAGE UNSPECIFIED 01342 NONSPECIFIC 08-28-2012 SARTINI J ABNORMAL ELECTROCARD IOGRAM 7852 UNDIAGNOSED 08-25-2012 [facility] J CARDIAC MURMURS 50517 SHORTNESS 08-25-2012 [place]ART[place]I J OF BREATH V700 ROUTINE 08-04-2012 CANELO VACA GENERAL MEDICAL EXAM@HEALTH CARE FACL 4019 UNSPECIFIED 07-18-2012 [facility] DAO ESSENTIAL HYPERTENSIO N 12831 DIAB W/O 07-17-2012 ST NEETU COMP TYPE MOUNT II/UNS NOT JI STATED UNCNTRL 4293 CARDIOMEGAL 07-17-2012 ST DE ANDA Y MOUNT JI 4400 ATHEROSCLER 07-17-2012 ST DE ANDA OSIS OF [facility] AORTA JI V7284 UNSPECIFIED 07-17-2012 [facility] PRE-OPERATI JI VE EXAMINATION 52905 DIAB W/O 06-09-2012 RASHAAD EILEEN MENTION COMP TYPE II/UNS TYPE UNCNTRL 2724 OTHER AND 06-05-2012 RASHAAD ARELLANO UNSPECIFIED HYPERLIPIDE JUANCARLOS 4011 ESSENTIAL 06-05-2012 RASHAADKIERRA ARELLANO HYPERTENSIO N, BENIGN 66996 OSTEOARTHRO 04-22-2012 CHERELLE S UNSPEC ORTHOP[facility]ICS WHETHER GEN/LOC UNSPEC SITE 59657 PLANTAR 03-25-2012 JENY BARROW JR. JAM FIBROMATOSI S 05917 DIAB 02-21-2012 ROSS W/NEURO SURGICAL MANIFESTS TYPE II/UNS NOT UNCNTRL 48191 PRESSURE 02-21-2012 ROSS ULCER SURGICAL UNSPECIFIED SITE E9479 UNSPEC 02-01-2012 [facility] L SBSTNC CAUS ADVRS EFF TX USE V0481 NEED 06-27-2011 [facility] VACCINATION &INOCULATIO N FLU 82560 ULCER OF 05-01-2011 YOSSI DAO OTHER PART OF FOOT 99715 UNSPECIFIED 05-01-2011 YOSSI DAO ARTHROPATHY SITE UNSPECIFIED 90165 OBESITY, 04-16-2011 [facility] UNSPECIFIED HEALTH AGENCY [...] ABSCESS EMERGENCY OF FOOT SERVICES EXCEPT TOES 20688 DIAB W/OTH 02-25-2011 [facility] MANIFESTS [facility] TYPE II/UNS INC NOT UNCNTRL 61606 PRESSURE 02-25-2011 [facility] ULCER OTHER EMERGENCY SITE SERVICES 88440 OTHER 02-25-2011 [facility] ABNORMAL EMERGENCY GLUCOSE SERVICES 7906 OTHER 02-25-2011 [facility] ABNORMAL [facility] BLOOD INC CHEMISTRY V431 LENS 04-13-2010 [place] INST FOR REPLACED BY EYEHLTH & OTHER SURGPSC MEANS 274 GOUT 11-17-2009 A Korin PUTNAM MD [facility] 36591 CORTICAL 09-01-2009 [place] INST FOR SENILE EYEHLTH & CATARACT SURGPSC 3669 UNSPECIFIED 09-01-2009 [facility] V1582 PERS HX 09-01-2009 [facility] TOBACCO USE NEETU PRESENTING [facility] V0382 NEED PROPH 08-08-2009 DHS/CO VACCINATION HEALTH AGAINST CENTRAL STREP BANK ACCT PNEUMONE 5990 URINARY 07-28-2009 A Korin PUTNAM TRACT [facility] INFECTION SITE NOT SPECIFIED 2449 UNSPECIFIED 07-22-2009 [facility]YPOT[facility] ISM 6923 [facility] 12-17-2008 A Korin PUTNAM DERMATITIS& [facility] OTH ECZEMA-RX&M EDS [facility] W/SKN 7881 DYSURIA 07-16-2008 A Korin PUTNAM MD PSC 1121 CANDIDIASIS 03-11-2008 A Korin PUTNAM OF VULVA [facility] AND VAGINA 29619 OTHER SIGN 03-02-2008 [facility] AND SYMPTOM [facility] IN BREAST INC 76127 UNSPECIFIED 03-02-2008 [facility] [place] [facility] 7062 SEBACEOUS 01-29-2008 A Korin PUTNAM CYST [facility] 7862 COUGH 01-19-2008 A Korin PUTNAM MD [facility] 0340 STREPTOCOCC 11-04-2007 A Korin EUBANKS SORE [facility] THROAT 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 D 33 IN ti DY 90 3- 6- 00 CA 98 EY ve 16 20 20 0 RE 48 PH 97 16 16 ME YT 9 PH CH OP AR AE LE MA L X CY S AN TI LL FU C NG AL 2% MA 00 04 04 0 30 5 ME 12 GA Ac PA 90 -0 -0 0. D 29 IN ti P 41 4- 4- 00 CA 37 EY ve 50 98 20 20 0 RE 72 0 86 16 16 ME MG 1 PH CH AR AE TA MA L BL CY S ET LL C RE 53 04 04 0 85 7 ME 12 GA Ac ME 32 -0 -0 0. D 29 IN ti DY 90 3- 4- CA 40 EY ve 16 20 20 0 RE 18 PH 97 16 16 ME YT 9 PH CH OP AR AE LE MA L X CY S AN TI LL FU C NG AL 2% PO 00 04 04 0 60 30 ME 12 GA Ac TA 78 -0 -0 0. D 29 IN ti SS 15 4- 4- 00 CA 37 EY ve IU 71 20 20 0 RE 88 M 01 16 16 ME CL 0 PH CH AR AE ER MA L CY S 10 LL ME C Q TA BL ET Q- 00 04 04 0 11 3 ME 12 GA Ac TU 60 -0 -0 80 D 29 IN ti SS 30 4- 4- .0 CA 37 EY ve IN 85 20 20 00 RE 80 59 16 16 ME DM 4 PH CH AR AE SY MA L RU CY S P LL C FI 74 03 03 0 15 15 ME 12 GA Ac SH 31 -1 -2 0. D 25 IN ti 20 1- 4- CA 52 EY ve OI 13 20 20 0 RE 01 L 32 16 16 ME 1, 9 PH CH 20 AR AE 0 MA L MG CY S SO LL FT C GE L RE 53 03 03 0 85 5 ME 12 GA Ac ME 32 -1 -1 0. D 22 IN ti DY 90 1 4- CA 01 EY ve 16 20 20 0 RE 51 PH 97 16 16 ME YT 9 PH CH OP AR AE LE MA L X CY S AN TI LL FU C NG AL 2% FI 74 03 03 0 15 15 ME 12 GA Ac SH 31 -1 -1 0. D 22 IN ti 20 1- 1- 00 CA 01 EY ve OI 13 20 20 0 RE 93 L 32 16 16 ME 1, 9 PH CH 20 AR AE 0 MA L MG CY S SO LL FT C GE L FU 63 09 10 5 30 30 WA 71 RI Ac RO 30 -1 -2 .0 L- 34 SH ti SE 40 3- 8- 00 MA 63 ER ve ME 62 20 20 RT 9 DE 51 [...] ve LA 32 20 20 RT 0 MS 90 11 11 RI -V 1 PH [...] 3- 5- 00 MA 63 ER ve ME 62 20 20 RT 9 DE 51 [...] ve LA 32 20 20 RT 0 MS 90 11 11 RI -V 1 PH [...] 6- 9- 00 MA 49 ER ve ME 62 20 20 RT 0 DE 51 [...] ve LA 32 20 20 RT 9 MS 90 11 11 RI -V 1 PH CH ER AR AR AP MA D AM CY # ER 10 4- 05 24 91 0 MG FU 63 06 07 2 30 30 WA 71 RI Ac RO 30 -1 -2 .0 L- 23 SH ti SE 40 6- 9- 00 MA 49 ER ve ME 62 20 20 RT 0 DE 51 [...] ve LA 32 20 20 RT 9 MS 90 11 11 RI -V 1 PH [...] 6- 3- 00 MA 49 ER ve ME 62 20 20 RT 0 DE 51 [...] ve LA 32 20 20 RT 9 MS 90 11 11 RI -V 1 PH [...] 0 20 10 WA 71 GR Ac MS 37 -1 -1 .0 L- 22 AY [...] ve LA 32 20 20 RT 6 MS 90 11 11 RI -V 1 PH [...] ve LA 32 20 20 RT 6 MS 90 11 11 RI -V 1 PH [...] ve LA 32 20 20 RT 6 MS 90 11 11 RI -V 1 PH CH ER AR AR AP MA D AM CY # ER 10 4- 05 24 91 0 MG FU 63 09 02 3 30 30 WA 70 RI Ac RO 30 -2 -2 .0 L- 87 SH ti SE 40 7- 3- 00 MA 98 ER ve ME 62 20 20 RT 1 DE 51 [...] LA 32 [address] MS 90 11 11 EP -V 1 PH [...] 7- 3- 00 MA 98 ER ve ME 62 20 20 RT 1 DE 51 [...] ve LA 32 20 20 RT 6 MS 90 10 10 RI -V 1 PH [...] 7- 2- 00 MA 98 ER ve ME 62 20 20 RT 1 DE 51 [...] ve LA 32 20 20 RT 6 MS 90 10 10 RI -V 1 PH [...] 7- 2- 00 MA 98 ER ve ME 62 20 20 RT 1 DE 51 [...] ve LA 32 20 20 RT 6 MS 90 10 10 RI -V 1 PH CH ER AR AR AP MA D AM CY # ER 10 4- 05 24 91 0 MG FU 63 09 10 1 30 30 WA 70 RI Ac RO 30 -2 -2 .0 L- 87 SH ti SE 40 4- 5- 00 MA 63 ER ve ME 62 20 20 RT 8 DE 51 [...] ve LA 32 20 20 RT 0 MS 90 10 10 RI -V 1 PH CH ER AR AR AP MA D AM CY # ER 10 4- 05 24 91 0 MG FU 63 09 09 1 30 30 WA 70 RI Ac RO 30 -2 -2 .0 L- 87 SH ti SE 40 4- 4- 00 MA 63 ER ve ME 62 20 20 RT 8 DE 51 [...] ve LA 32 20 20 RT 7 MS 90 10 10 RI -V 1 PH [...] ve LA 32 20 20 RT 7 MS 90 10 10 RI -V 1 PH [...] ve LA 32 20 20 RT 7 MS 90 10 10 RI -V 1 PH [...] 2- 5- 00 MA 97 S ve ME 21 [address] DE [...] 2- 8- 00 MA 97 S ve ME 21 [address] DE [...] 5- 7- 00 MA 76 S ve ME 21 [address] DE [...] 5- 9- 00 MA 76 S ve ME 21 [address] DE [...] 5- 1- 00 MA 76 S ve ME 21 [address] DE [...] 5- 1- 00 MA 76 S ve ME 21 [address] DE [...] 6- 3- 00 MA 62 ER ve ME 21 20 20 RT 4 DE 61 [...] 6- 5- 00 MA 62 ER ve ME 21 20 20 RT 4 DE 61 [...] 6- 8- 00 MA 62 Av ve ME 21 20 20 RT 4 ai DE [...] 6- 0- 00 MA 62 Av ve ME 21 20 20 RT 4 ai DE 61 08 08 la 0 PH bl 40 AR e MA MG CY TA #5 BL 91 ET FU 00 11 04 03 30 30 WA 69 No Ac RO 37 -1 -0 .0 L- 49 t ti SE 80 9- 7- 00 MA 06 Av ve ME 21 20 20 RT 8 ai DE [...] 9- 5- 00 MA 06 Av ve ME 21 20 20 RT 8 ai DE [...] Procedure DOS Code Location Performer Comment COMPREHEN 78419 [facility] S[facility] METABOLIC INC INC PANEL COLLECTIO 47752 M[facility] DARNE[facility] N VENOUS 6 [facility] BLOOD INC INC VENIPUNCT URE GLUC BLD 05830 MANN DARNELL GLUC MNTR 6 [facility] DEV INC INC CLEARED FDA SPEC HOME USE BLOOD 88172 MANN DARNELL COUNT 6 [facility] COMPLETE INC INC AUTO&AUTO DIFRNTL WBC PRESSURIZ 19153 MANN DARNELL ED/NONPRE 6 [facility] SSURIZED INC INC INHALATIO N TREATMENT INJECTION J1642 MANN DARNELL HEPARIN 6 [facility] SODIUM INC INC PER 10 UNITS NONINVASI 24973 MANN DARNELL VE 6 [facility] EAR/PULSE INC INC OXIMETRY SINGLE DETER PRESSURIZ 04939 MANN DARNELL ED/NONPRE 6 [facility] SSURIZED INC INC INHALATIO N TREATMENT INJECTION J0692 MANN DARNELL CEFEPIME 6 [facility] INC INC HYDROCHLO RIDE 500 MG GLUC BLD 46195 MANN DARNELL GLUC MNTR 6 [facility] DEV INC INC CLEARED FDA SPEC HOME USE THERAPEUT 75521 MANN DARNELL IC PX 1/> 6 [facility] AREAS INC INC EACH 15 MIN EXERCISES PHYSICAL 50685 MANN DARNELL THERAPY 6 [facility] EVALUATIO INC INC N THERAPEUT 91486 MANN DARNELL IC PX 1/> 6 [facility] AREAS INC INC EACH 15 MIN EXERCISES THERAPEUT 23121 MANN DARNELL ACTVITY 6 [facility] DIRECT PT INC INC CONTACT EACH 15 MIN COLLECTIO 58075 [facility] DARNELL N VENOUS 6 [facility] [place] [address] MANN DARNELL AMMONIA 6 [facility] INC INC GLUC BLD 48781 MANNRAY DARNELL GLUC MNTR 6 [facility] DEV INC INC CLEARED FDA SPEC HOME USE BASIC 46463 MANNRAY DARNELL METABOLIC 6 [facility] PANEL INC INC CALCIUM TOTAL INJECTION J0692 M[facility] DARNELL CEFEPIME 6 [facility] INC INC HYDROCHLO RIDE 500 MG PRESSURIZ 48117 MANN DARNELL ED/NONPRE 6 [facility] SSURIZED INC INC INHALATIO N TREATMENT NONINVASI 82324 MANN DARNELL VE 6 [facility] EAR/PULSE INC INC OXIMETRY SINGLE DETER RADIOLOGI 83115 MANN DARNELL C 6 [facility] EXAMINATI INC INC ON CHEST SINGLE VIEW FRONTAL NONINVASI 94960 MANN DARNELL VE 6 [facility] EAR/PULSE INC INC OXIMETRY SINGLE DETER PRESSURIZ 57973 MANN DARNELL ED/NONPRE 6 [facility] SSURIZED INC INC INHALATIO N TREATMENT INJECTION J0692 MANN DARNELL CEFEPIME 6 [facility] INC INC HYDROCHLO RIDE 500 MG GLUC BLD 56754 MANN DARNELL GLUC MNTR 6 [facility] DEV INC INC CLEARED FDA SPEC HOME USE GLUC BLD 71891 MANN DARNELL GLUC MNTR 6 [facility] DEV INC INC CLEARED FDA SPEC HOME USE COLLECTIO 35478 MANN DARNELL N VENOUS 6 [facility] BLOOD INC INC VENIPUNCT URE COMPREHEN 82741 M[facility] DARNELL SIVE 6 [facility] METABOLIC INC INC PANEL INJECTION J0692 MANN DARNELL CEFEPIME 6 [facility] INC INC HYDROCHLO RIDE 500 MG PRESSURIZ 65119 MANN DARNELL ED/NONPRE 6 [facility] SSURIZED [place] [address] MANN DARNELL MAGNESIUM 6 [facility] INC INC BLOOD 79776 [facility] DARNELL COUNT 6 [facility] COMPLETE INC INC AUTO&AUTO DIFRNTL WBC BLOOD 22013 MANN DARNELL COUNT 6 [facility] COMPLETE INC INC AUTO&AUTO DIFRNTL WBC BASIC 72232 MANN DARNELL METABOLIC 6 [facility] PANEL INC INC CALCIUM TOTAL BRNCDILAT 65114 MANN DARNELL RSPSE 6 [facility] SPMTRY INC INC PRE&[place] [address] MANN DARNELL ANGIOGRAP 6 [facility] HY CHEST INC INC W/CONTRAS T/NONCONT RAST INJECTION J0692 MANN DARNELL CEFEPIME 6 [facility] INC INC HYDROCHLO RIDE 500 MG NONINVASI 03490 MANN DARNELL VE 6 [facility] EAR/PULSE INC INC OXIMETRY SINGLE DETER COLLECTIO 95216 MANN DARNELL N VENOUS 6 [facility] BLOOD INC INC VENIPUNCT URE LOCM Q9967 MANN DARNELL [phone] [facility] MG/ML INC INC IODINE CONCENTRA TION PER ML GLUC BLD 11215 MANN DARNELL GLUC MNTR 6 [facility] DEV INC INC CLEARED FDA SPEC HOME USE CULTURE 07906 MANN DARNELL BACTERIAL 6 [facility] BLOOD INC INC AEROBIC W/ID ISOLATES GLUC BLD 86053 MANN DARNELL GLUC MNTR 6 [facility] DEV INC INC CLEARED FDA SPEC HOME USE COLLECTIO 50927 MANN MOHRKYRIE N VENOUS 6 [facility] MATTERS, BLOOD INC LLC. VENIPUNCT URE NONINVASI 88162 MANN DARNELL VE 6 [facility] EAR/PULSE INC INC OXIMETRY SINGLE DETER BASIC 19526 MANN DARNELL METABOLIC 6 [facility] PANEL INC INC CALCIUM TOTAL BASIC 65453 MANN EVRYDAY METABOLIC 6 [facility] [employer], [place] [address] MANN BLAKEON MAGNESIUM 6 [facility] [place] [address] MANN CHACHARYDAY TROPONIN 6 [facility] QUANTITAT INC LLC. GALDINO BLOOD 59138 MANN DARNELL COUNT 6 [facility] COMPLETE INC INC AUTO&AUTO DIFRNTL WBC NONINVASI 75910 MANN DARNELL VE 6 [facility] EAR/PULSE INC INC OXIMETRY SINGLE DETER GLUC BLD 52490 MANN DARNELL GLUC MNTR 6 [facility] DEV INC INC CLEARED FDA SPEC HOME USE GLUC BLD 57265 MANN DARNELL GLUC MNTR 6 [facility] DEV INC INC CLEARED FDA SPEC HOME USE BLOOD 03710 MANN BURNHAMRYKYRIE GASES ANY 6 [facility]TER[facility], INC LLC. COMBINATI ON PH PCO2 PO2 [place]2 [place] [address] MANN EVRYDAY FOLIC 6 [facility] ACID INC LLC. SERUM COLLECTIO 72562 MANN AWAD N VENOUS 6 [facility] BLOOD INC LLC. VENIPUNCT URE COMPREHEN 66158 MANN EVRYDAY SIVE 6 [facility], [place] [address] MANN DARNELL INFUSION 6 [facility] THERAPY/P INC INC ROPHYLAXI S /DX 1ST TO 1 HR THERAPEUT 91242 MANN BLAKEON IC 6 [facility]OSP INJECTION INC INC IV PUSH EACH NEW DRUG BLOOD 07265 MANN DARNELL COUNT 6 [facility] RETICULOC INC INC YTE AUTOMATED BLOOD 96571 MANN MANN COUNT 6 [facility] COMPLETE INC INC AUTO&[place] [address] MANN EVRYDAY TROPONIN 6 [facility] QUANTITAT INC LLC. GALDINO CYANOCOBA 37975 MANN DARNELL TIMA 6 [facility] HOSP VITAMIN INC INC B-12 NATRIURET 27726 MANN EVRYDAY IC 6 [facility] PEPTIDE INC LLC. RADIOLOGI 45039 MANN DARNELL C 6 [facility] HOSP EXAMINATI INC INC ON CHEST SINGLE VIEW FRONTAL RADIOLOGI 39638 MANN DARNELL C 6 [facility] EXAMINATI INC INC ON CHEST SING[place] FRONTAL BLOOD 59592 MANN DARNELL COUNT 6 [facility] COMPLETE INC INC AUTO&AUTO DIFRNTL WBC NONINVASI 09614 MANN DARNELL VE 6 [facility] EAR/PULSE INC INC OXIMETRY SINGLE DETER PRESSURIZ 75353 MANN DARNELL ED/NONPRE 6 [facility] SSURIZED INC INC INHALATIO N TREATMENT COMPREHEN 35728 [facility] D[facility]NELL SIVE 6 [facility] METABOLIC INC INC PANEL COLLECTIO 87777 MANN DARNELL N VENOUS 6 [facility] BLOOD INC INC VENIPUNCT URE COLLECTIO 81545 MANN DARNELL N VENOUS 6 [facility] BLOOD INC INC VENIPUNCT URE URNLS DIP 77369 MANN DARNLEL 6 [facility] STICK/TAB INC INC LET REAGENT AUTO MICROSCOP Y CULTURE 18410 MANN DARNELL BACTERIAL 6 [facility] INC INC QUANTTATI VE COLONY COUNT URINE NONINVASI 57376 MANN DARNELL VE 6 [facility] EAR/PULSE INC INC OXIMETRY SINGLE DETER BASIC 47601 MANN DARNELL METABOLIC 6 [facility] PANEL INC INC CALCIUM TOTAL CREATINE 64285 MANN DARNELL KINASE 6 [facility] [place] [address] MANN DARNELL TROPONIN 6 [facility] QUANTITAT INC INC GALDINO NATRIURET 72905 MANN [facility]ARNELL IC 6 [facility] PEPTIDE INC INC BLOOD 55870 MANN DARNELL COUNT 6 [facility] COMPLETE INC INC AUTO&AUTO DIFRNTL WBC NONINVASI 62049 MANN DARNELL VE 6 [facility] EAR/PULSE INC INC OXIMETRY SINGLE DETER ECG 74166 MANN DARNELL ROUTINE 6 [facility] ECG INC INC W/LEAST 12 LDS TRCG ONLY W/O I&R CREATINE 36009 MANN DARNELL KINASE MB 6 [facility] [place] [address] MANN DARNELL THYROID 6 [facility] STIMULATI INC INC NG HORMONE TSH COMPREHEN 94334 MANN DARNELL SIVE 6 [facility] METABOLIC INC INC PANEL RADIOLOGI 52737 MANN DARNELL C 6 [facility] EXAMINATI INC INC ON CHEST SINGLE VIEW FRONTAL RADIOLOGI 60426 MANN DARNELL C 6 [facility] EXAMINATI INC INC ON CHEST SINGLE VIEW FRONTAL COMPREHEN 70564 MANN DARNELL SIVE 6 [facility] METABOLIC INC INC PANEL CREATINE 64256 MANN DARNELL KINASE MB 6 [facility] FRACTION INC INC ONLY THER 70384 MANN DARNELL PROPH/DX 6 [facility] NJX IV INC INC PUSH SINGLE/1S T SBST/[place] [address] M[facility] D[facility] THYROID 6 [facility] STIMULATI INC INC NG HORMONE TSH BLOOD 72145 MANN D[facility]NE[facility] GASES ANY 6 [facility] INC INC COMBINATI ON PH PCO2 PO2 CO2 HCO3 ECG 48416 MANN DARNELL ROUTINE 6 [facility] ECG INC INC W/LEAST 12 LDS TRCG ONLY W/O I&R BLOOD 72083 MANN DARNELL COUNT 6 [facility] COMPLETE INC INC AUTO&[place] [address] MANN DARNELL TROPONIN 6 [facility] QUANTITAT INC INC GALDINO NATRIURET [id number] MANN DARNELL IC 6 [facility] PEPTIDE INC INC CREATINE [id number] M[facility] D[facility] KINASE 6 [facility] TOTAL INC INC INSERTION [id number] M[facility] VAD 6 [facility] CHEST INC INC SUBQ TISSUE & FASCIA OPEN INSERTION [id number] MANN DARNELL INFUSION 6 [facility] DEVC RT INC INC SUBCLAVIA N VEIN PERQ FLUORO [id number] [facility] MULTI 6 [facility] CORONARY INC INC ARTERIES LOW OSMOLAR CONT FLUOROSCO [id number] MANN DARNELL PY LEFT 6 [facility] HEART LOW INC INC OSMOLAR CONTRAST MEASUREME [id number] [facility] NT 6 [facility] [...] [facility] HOSP WHEELCHAI EQUIP EQUIP R RADIOLOGI 48245 CELESTINO MAT CELESTINO MAT C 3 EXAMINATI ON ANKLE 2 VIEWS BASIC 12243 [facility] METABOLIC 3 N N PANEL [facility] COMMUNITY CALCIUM HOSPITA HOSPITA TOTAL BLOOD 27529 [facility] COUNT 3 N N COMPLETE [facility] AUTO&AUTO HOSPITA HOSPITA DIFRNTL WBC RADIOLOGI 65856 PB PB C EXAM 3 RHO RHO CHEST 2 VIEWS FRONTAL&L ATERAL COLLECTIO 77610 [facility] N VENOUS 3 N N BLOOD [facility] VENIPUNCT HOSPITA HOSPITA URE HEAVY-DUT K0006 [facility] Y 3 HOSP HOSP WHEELCHAI EQUIP EQUIP R HEAVY-DUT K0006 [facility] Y 3 [facility]OSP HOSP WHEELCHAI EQUIP EQUIP R DUPLEX 37471 KATHRYN KATHRYN SCAN 3 HUBERT HUBERT EXTRACRAN IAL ART COMPL BI STUDY SCREENING [id number] [facility] 3 [facility] MAMMOGRAP INC INC HY JOSEFINA INCL CAD WHEN PERFORMD COMPUTER- 20890 MANN D[facility]LL AIDED 3 [facility] DETECTION INC INC SCREENING MAMMOGRAP HY COLLECTIO 25028 [facility] N VENOUS 3 N N BLOOD [facility]ITY VENIPUNCT HOSPITA HOSPITA URE BLOOD 97839 [facility] COUNT 3 N N COMPLETE [facility] COMM[facility] AUTO&AUTO HOSPITA HOSPITA DIFRNTL WBC BASIC 57071 [facility] METABOLIC 3 N N PANEL [facility] COMMUNITY CALCIUM HOSPITA HOSPITA TOTAL RADIOLOGI 85331 [facility] C EXAM 3 N N CHEST 2 COMMUNITY COMMUNITY VIEWS HOSPITA HOSPITA FRONTAL&L ATERAL ECG 98294 [facility] ROUTINE 3 N N ECG COMMUNITY COMMUNITY W/LEAST HOSPITA HOSPITA 12 LDS TRCG ONLY W/O I&R HEAVY-DUT K0006 DAINA LAMA Y 3 HOSP HOSP WHEELCHAI EQUIP EQUIP R WHEELCHAI 02590 MANN DARNELL R MGMT EA 3 [facility] 15 MIN INC INC RADEX 61513 [facility] 3 Y Y [facility] MINIMUM 3 VIEWS ECHO 45836 MERLY Byrd TTHRC R-T 2 2D W/WO M-MODE REST&STRS CONT ECG DOP 70785 MERLY Byrd ECHOCARD 2 [place] V[place] [address] MERLY Byrd ECHO 2 CONTRAST AGENT DURING STRESS ECHO INJECTION Q9957 MERLY Byrd 2 PERFLUTRE N LIPID MICROSPHE RES PER ML DOPPLER 99058 MERLY Byrd ECHOCARD 2 PULSE WAVE W/SPECTRA L DISPLAY HEAVY-DUT K0006 DAINA LAMA Y 2 HOSP HOSP WHEELCHAI EQUIP EQUIP R ECG 35781 [facility] BALTA DAO ROUTINE 2 ECG W/LEAST 12 LDS I&R ONLY RADIOLOGI 98204 [facility] C EXAM 2 [place] CHEST 2 JI JI VIEWS FRONTAL&L ATERAL ECG 36711 [facility] ROUTINE 2 [place] ECG JI JI W/LEAST 12 LDS TRCG ONLY W/O I&R BLOOD 28221 [facility] COUNT 2 [place] COMPLETE JI JI AUTO&AUTO DIFRNTL WBC COLLECTIO 62320 [facility] N VENOUS 2 [place] BLOOD JI JI VENIPUNCT URE COMPREHEN 08661 [facility] SIVE 2 [place] METABOLIC JI JI PANEL HEAVY-DUT K0006 DAINA LAMA Y 2 HOSP HOSP WHEELCHAI EQUIP EQUIP R RADEX 84145 [facility] ANKLE 2 COMPLETE MINIMUM 3 VIEWS DIAB ONLY A5500 CHERELLE ARREDONDO CSTM 2 ORTHOPEDI ORTHOPEDI PREP&SPL CS CS SHOE MX DNSITY INSRT BASIC 14624 [facility] METABOLIC 2 DIAGNOSTI DIAGNOSTI PANEL CS CS CALCIUM TOTAL LIPID 80907 RASHAAD EILEEN RASHAAD EILEEN PANEL 2 TRANSFERA 19289 RASHAAD EILEEN RASHAAD EILEEN SE 2 ASPARTATE AMINO AST SGOT GLUCOSE 74210 RASHAAD EILEEN RASHAAD EILEEN QUANTITAT 2 GALDINO BLOOD XCPT REAGENT STRIP HEMOGLOBI 54781 RASHAAD EILEEN RASHAAD EILEEN N 2 GLYCOSYLA ELSA A1C ADD LW L2820 CHERELLE VILLARREAL EXT ORTH 2 ORTHOPEDI ORTHOPEDI SFT CS CS INTERFCE MOLD BELW KNEE WALKER E0143 SHIVANI PARRISH FOLDING 2 SURGICAL SURGICAL WHEELED ADJUSTABL E/FIXED HEIGHT SEAT E0156 SHIVANI PARRISH ATTACHMEN 2 SURGICAL SURGICAL T WALKER RADEX 06970 BARROW, BARROW, ANKLE 2 JR. FREYA PILLAI COMPLETE MINIMUM 3 VIEWS DIAB ONLY A5500 SHIVANI ARREDONDO CSTM 2 SURGICAL SURGICAL PREP&SPL SHOE MX DNSITY INSRT BASIC 22258 [facility]ST QUEST METABOLIC 2 DIAGNOSTI DIAGNOSTI PANEL CS CS CALCIUM TOTAL COLLECTIO 97324 RASHAAD EILEEN RASHAAD EILEEN N VENOUS 2 BLOOD VENIPUNCT URE LIPID 92640 QUEST QUEST PANEL 2 DIAGNOSTI DIAGNOSTI CS CS HEMOGLOBI 28407 QUEST QUEST N 2 DIAGNOSTI DIAGNOSTI GLYCOSYLA CS CS ELSA A1C TRANSFERA 78100 [facility] QUEST SE 2 DIAGNOSTI DIAGNOSTI ASPARTATE CS CS AMINO AST SGOT TRANSFERA 71286 [facility] QUEST SE 2 DIAGNOSTI DIAGNOSTI ASPARTATE CS CS AMINO AST SGOT COLLECTIO 52984 YOSIS YOSSI N VENOUS 2 DAO DAO BLOOD VENIPUNCT URE HEMOGLOBI 35404 [facility]ST QUEST N 2 DIAGNOSTI DIAGNOSTI GLYCOSYLA CS CS ELSA A1C LIPID 24612 [facility] QUEST PANEL 2 DIAGNOSTI DIAGNOSTI CS CS BASIC 22535 [facility] QUEST METABOLIC 2 DIAGNOSTI DIAGNOSTI PANEL CS CS CALCIUM TOTAL SCREENING G0202 [place] KATHRYN 1 MEDICAL [facility] MAMMOGRAP IMAGING HY JOSEFINA ASS INCL CAD WHEN PERFORMD COMPUTER- 70191 [place] KATHRYN AIDED 1 MEDICAL HUBERT DETECTION IMAGING ASS SCREENING MAMMOGRAP HY IIV3 80709 MANN DARNELL VACCINE 1 [facility] VIRUS 0.5 ML DOSAGE IM USE BASIC 46980 QUEST QUEST METABOLIC 1 DIAGNOSTI DIAGNOSTI PANEL CS CS CALCIUM TOTAL LIPID 10747 QUEST QUEST PANEL 1 DIAGNOSTI DIAGNOSTI CS CS HEMOGLOBI 53395 QUEST QUEST N 1 DIAGNOSTI DIAGNOSTI GLYCOSYLA CS CS ELSA A1C TRANSFERA 56490 QUEST QUEST SE 1 DIAGNOSTI DIAGNOSTI ASPARTATE [...] 18 AGENCY AGENCY SQUARE INCHES CUL BACT 90138 MANN DARNELL XCPT 1 [facility] URINE INC INC BLOOD/STO OL AEROBIC ISOL RADEX 99865 MANN DARNELL FOOT 1 [facility] COMPLETE INC INC MINIMUM 3 VIEWS BASIC 72348 MANN DARNELL METABOLIC 1 [facility] PANEL INC INC CALCIUM TOTAL BLOOD 62999 MANN DARNELL COUNT 1 [facility] COMPLETE INC INC AUTO&[place] [address] MANN DARNELL INFUSION 1 [facility] THERAPY/P INC INC ROPHYLAXI S /DX 1ST TO 1 HR SUSCEPTIB 65718 MANN DARNELL LTY STDY 1 [facility] ANTIMICRB INC INC IAL MICRO/AGA R DILUTJ CUL BACT 71865 MANN DARNELL AEROBIC 1 [facility] MEM [...] PER HEALTH HEALTH 100 AGENCY AGENCY CULTURE 98777 MANN DARNELL BACTERIAL 1 [facility] BLOOD INC INC AEROBIC W/ID ISOLATES SUSCEPTIB 40714 MANN DARNELL LTY STDY 1 [facility] ANTIMICRB INC INC I[place]CRO/[place] [address] MANN DARNELL INFUSION 1 [facility] THERAPY/P INC INC ROPHYLAXI S /DX 1ST TO 1 HR CUL BACT 27791 MANN DARNELL AEROBIC 1 [facility] ADDL INC INC METHS DEFINITIV E EA ISOL BASIC 63591 MANN DARNELL METABOLIC 1 [facility] PANEL INC INC CALCIUM TOTAL BLOOD 27015 MANN DARNELL COUNT 1 [facility] COMPLETE INC INC AUTO&AUTO DIFRNTL WBC DIAB ONLY A5500 SHIVANI PARRISH FIT CSTM 1 SURGICAL SURGICAL PREP&SPL SHOE MX DNSITY INSRT FOR DIAB A5512 SHIVANI PARRISH ONLY MX 1 SURGICAL SURGICAL DNSITY INSRT DIR FORMD PRFAB EA HEMOGLOBI 38194 [facility] N 1 [place] [facility] [place] [facility] GLYCOSYLA ELSA A1C TRANSFERA 79585 [facility] SE 1 [place] [facility] [place] [facility] ASPARTATE AMINO AST SGOT LIPID 39103 [facility] PANEL 1 [place] [facility] [place] [facility] BASIC 66453 [facility] METABOLIC 1 [place] [facility] PANEL CALCIUM TOTAL SCREENING G0202 MANN DARNELL 0 [facility] MAMMOGRAP INC INC HY JOSEFINA INCL CAD WHEN PERFORMD COMPUTER- 56875 MANN DARNELL AIDED 0 [facility] DETECTION INC INC SCREENING MAMMOGRAP HY IIV3 91007 MANN DARNELL VACCINE 0 [facility] VIRUS 0.5 ML DOSAGE IM USE HEMOGLOBI 93251 [facility] N 0 [place] [facility] GLYCOSYLA ELSA A1C BASIC 10073 [facility] METABOLIC 0 [facility] PANEL CALCIUM TOTAL LIPID 29756 [facility] PANEL 0 [place] [facility] [place] INC TRANSFERA 88783 [facility] SE 0 [place] [facility] ASPARTATE AMINO AST SGOT BLD GLU A4253 AM MED AM MED TEST/REAG 0 DIRECT DIRECT T [facility] HOME BLD GLU SAT-50 BLD GLU A4253 AM MED AM MED TEST/REAG 0 DIRECT DIRECT T STRIPS [facility] HOME BLD GLU MON-50 LANCETS A4259 AM MED AM MED PER BOX 0 DIRECT DIRECT OF 100 [facility] DETERMINA 15715 [facility] PATEL, TION 0 FOR FRANSISCO REFRACTIV EYEHLTH & C E STATE SURGPS DUPLEX 37444 MANN DARNELL SCAN 0 [facility] EXTRACRAN INC INC IAL ART COMPL BI STUDY BASIC 82275 [facility] METABOLIC 0 [facility] PANEL CALCIUM TOTAL LIPID 95409 [facility] PANEL 0 [place] [facility] [place] [facility] TRANSFERA 51964 [facility] SE 0 [place] [facility] ASPARTATE AMINO AST SGOT HEMOGLOBI 23455 Bibi C YOSSI, N 0 JERSEY BECKER GLYCOSYLA PSC ELSA A1C BLD GLU A4253 AM MED AM MED TEST/REAG 0 DIRECT DIRECT T STRIPS [facility] HOME BLD GLU MON-50 BLD GLU A4253 AM MED AM MED TEST/REAG 0 DIRECT [facility] GLU MON-50 LANCETS A4259 AM MED AM MED PER BOX 0 DIRECT DIRECT OF 100 [facility] PHARMACY PHARMACY BLD GLU A4253 AM MED AM MED TEST/REAG 0 DIRECT DIRECT [facility] GLU MON-50 FOR DIAB A5512 SHIVANI PARRISH ONLY MX 0 SURGICAL SURGICAL DNSITY INSRT DIR FORMD PRFAB EA DIAB ONLY A5500 SHIVANI PARRISH FIT CSTM 0 SURGICAL SURGICAL PREP&SPL SHOE MX DNSITY INSRT BLD GLU A4253 AM MED AM MED TEST/REAG 0 DIRECT DIRECT [facility] GLU MON-50 LIPID 60343 [facility] PANEL 0 [place] [facility] [place] [facility] TRANSFERA 71978 [facility] SE 0 [place] [facility] [place] [facility] ASPARTATE AMINO AST SGOT HEMOGLOBI 98255 [facility] N 0 [place] [facility] [place] [facility] GLYCOSYLA ELSA A1C BASIC 41702 [facility] METABOLIC 0 [place] [facility] [facility] PANEL CALCIUM TOTAL BLD GLU A4253 AM MED AM MED TEST/REAG 0 DIRECT DIRECT [facility] GLU MON-50 LANCETS A4259 AM MED AM MED PER BOX 0 DIRECT DIRECT OF 100 [facility] PHARMACY PHARMACY BLD GLU A4253 AM MED AM MED TEST/REAG 0 DIRECT DIRECT T [facility] GLU MON-50 CATARACT 11831 RAYMUNDO PATEL, REMOVAL 9 FOR FRANSISCO INSERTION EYEHLTH & C OF LENS SURGPSC POSTERIOR V2632 [facility] 9 [facility] INTRAOCUL [place] AR LENS [facility] OPH BMTRY 17196 [place] JOANNE 9 FOR FRANSISCO ECHOGRAPY EYEHLTH & C A-SCAN SURGPSC IO LENS PWR GUS BLD GLU A4253 AM MED AM MED TEST/REAG 9 DIRECT DIRECT [facility] HOME BLD PHARMACY PHARMACY GLU MON-50 CATARACT 39872 [facility] REMOVAL 9 NEETU DE ANDA INSERTION [place] OF LENS [facility] ANESTHESI 57495 ROLANDOA MTZ, A EYE 9 [facility] LAN R LENS ANESTHESI SURGERY A PSC PPSV23 07028 DHS/CO MANN VACCINE 2 9 [facility] [place] [place] O[facility] FOR BANK ACCT SUBQ/IM USE OPHTH 59957 [place] [facility] JORGE, [facility] 9 FOR FRANSISCO XM&EVAL EYEHLTH & C COMPRHNSV SURGPSC ESTAB PT 1/> OPH BMTRY 20342 [place] [facility] JORGE, 9 FOR FRANSISCO ECHOGRAPY EYEHLTH & C A-SCAN SURGPSC IO LENS PWR GUS BLD GLU A4253 AM MED AM MED TEST/REAG 9 DIRECT DIRECT [facility] HOME BLD PHARMACY PHARMACY GLU SAT-50 LANCETS A4259 AM MED AM MED PER BOX 9 DIRECT DIRECT OF 100 [facility] PHARMACY PHARMACY LIPID 13857 [facility] PANEL 9 [employer] HOLDING TRANSFERA 78657 [facility] SE 9 AMERIC AMERIC ASPARTATE [place] [address] [facility] THYROID 9 AMERIC AMERIC STIMULATI HOLDING HOLDING NG HORMONE TSH HEMOGLOBI 27651 [facility] N 9 AMERIC AMERIC GLYCOSYLA HOLDING HOLDING ELSA A1C BASIC 13105 [facility] METABOLIC 9 AMERIC AMERIC PANEL HOLDING HOLDING CALCIUM TOTAL BLD GLU A4253 AM MED AM MED TEST/REAG 9 DIRECT DIRECT T [facility] HOME BLD PHARMACY PHARMACY GLU MON-50 IIV3 52417 DHS/CO MANN VACCINE 9 [facility]ALTH [facility] VIRUS 0.5 BANK ACCT ML DOSAGE IM USE SCREENING 55288 EB PERALTA, 9 MEDICAL IVAN MAMMOGRAP IMAGING HY ASSOCIATE BILATERAL S COMPUTER- 46766 [place] VIKTOR PERALTA 9 MEDICAL IVAN DETECTION IMAGING ASSOCIATE SCREENING S MAMMOGRAP HY FOR DIAB A5512 SHIVANI PARRISH ONLY MX 9 SURGICAL SURGICAL DNSITY INSRT DIR FORMD PRFAB EA DIAB ONLY A5500 SHIVANI PARRISH FIT CSTM 9 SURGICAL SURGICAL PREP&SPL SHOE MX DNSITY INSRT BLD GLU A4253 AM MED AM MED TEST/REAG 9 DIRECT DIRECT [facility] GLU MON-50 BLD GLU A4253 AM MED AM MED TEST/REAG 9 DIRECT DIRECT [facility]ARM[facility] GLU MON-50 LANCETS A4259 AM MED AM MED PER BOX 9 DIRECT DIRECT OF 100 [facility] PHARMACY PHARMACY LIPID 96795 [facility] PANEL 9 [employer] HOLD[employer] HOLDING COLLECTIO 14806 Bibi BLACK VENOUS 9 JERSEY Langley BLOOD PSC VENIPUNCT URE TRANSFERA 33885 [facility] SE 9 AMERIC AMERIC ASPARTATE HOLDING HOLDING AMINO AST SGOT HEMOGLOBI 06943 [facility] N 9 AMERIC AMERIC GLYCOSYLA HOLDING HOLDING ELSA A1C BASIC 99741 [facility] METABOLIC 9 AMERIC AMERIC PANEL HOLDING HOLDING CALCIUM TOTAL BLD GLU A4253 AM MED AM MED TEST/REAG 9 DIRECT DIRECT [facility] GLU MON-50 BLD GLU A4253 [facility] TEST/REAG 9 PHARMACY PHARMACY T [facility] #591 #591 HOME BLD GLU MON-50 BLD GLU A4253 AM MED AM MED TEST/REAG 9 DIRECT DIRECT [facility] GLU MON-50 LANCETS A4259 AM MED AM MED PER BOX 9 DIRECT DIRECT OF 100 [facility] PHARMACY PHARMACY BLD GLU A4253 AM MED AM MED TEST/REAG 9 DIRECT DIRECT T [facility] PH[facility]ACY PHARMACY GLU MON-50 BLD GLU A4253 AM MED AM MED TEST/REAG 9 DIRECT DIRECT [facility] GLU MON-50 LIPID 39585 [facility] PANEL 9 [employer] HOLDING COLLECTIO 65867 Sandrine HE VENOUS 9 JERSEY BECKER BLOOD PSC VENIPUNCT URE BASIC 63000 [facility] METABOLIC 9 AMERIC AMERIC PANEL HOLDING HOLDING CALCIUM TOTAL HEMOGLOBI 18062 [facility] N 9 AMERIC AMERIC GLYCOSYLA HOLDING HOLDING ELSA A1C TRANSFERA 72695 [facility] SE 9 AMERIC [...] HOME BLD PHARMACY PHARMACY GLU MON-50 LIPID 14447 [facility] PANEL 8 [employer] HOLD[employer] HOLDING COLLECTIO 40283 Sandrine HE VENOUS 8 JERSEY BECKER BLOOD PSC VENIPUNCT URE TRANSFERA 98205 [facility] SE 8 AMERIC AMERIC ASPARTATE HOLDING HOLDING AMINO AST SGOT HEMOGLOBI 09125 [facility] N 8 AMERIC AMERIC GLYCOSYLA HOLDING HOLDING ELSA A1C BASIC 01817 [facility] METABOLIC 8 AMERIC AMERIC PANEL HOLDING HOLDING CALCIUM TOTAL URINLS 95912 Bibi SY DIP 8 JERSEY BECKER STICK/TAB PSC LET REAGNT NON-AUTO MICRSCPY HEMOGLOBI 13031 [facility] N 8 AMERIC AMERIC GLYCOSYLA HOLDING HOLDING ELSA A1C TRANSFERA 49529 [facility] SE 8 AMERIC AMERIC ASPARTATE HOLDING HOLDING AMINO AST SGOT GLUCOSE 86673 [facility] QUANTITAT 8 AMERIC AMERIC GALDINO BLOOD HOLDING HOLDING XCPT REAGENT STRIP COLLECTIO 36714 Bibi LBACK N VENOUS 8 JERSEY Langley BLOOD PSC VENIPUNCT URE LIPID 95371 [facility] PANEL 8 AMERIC [employer] HOLDING HOLDING MAMMOGRAP 08259 MANN DARNELL HY 8 [facility] UNILATERA INC INC L EXC B9 27644 Bibi SY, LESION 8 JERSEY BECKER MRGN XCP PSC SK TG T/A/L 2.1-3.0 CM TRANSFERA 45989 [facility] SE 8 AMERIC AMERIC ASPARTATE HOLDING HOLDING AMINO AST SGOT LIPID 76452 [facility] PANEL 8 AMERIC AMER[employer] HOLDING HOLDING COLLECTIO 62311 Bibi BLACK N VENOUS 8 JERSEY Langley BLOOD PSC VENIPUNCT URE HEMOGLOBI 45900 [facility] N 8 AMERIC AMERIC GLYCOSYLA HOLDING HOLDING ELSA A1C BASIC 39284 [facility] METABOLIC 8 AMERIC AMERIC PANEL HOLDING HOLDING CALCIUM TOTAL BLD GLU A4253 [facility] TEST/REAG 8 PHARMACY PHARMACY T [facility] #591 #591 HOME BLD GLU MON-50 IADNA 62753 Bibi SY, STREPTOCO 8 JERSEY BECKER CCUS PSC GROUP A QUANTIFIC ATION BLD GLU A4253 [facility] TEST/REAG 8 PHARMACY PHARMACY T [facility]IPS #591 #591 HOME BLD GLU MON-50 Encounters Encounter Start End Date Code Location Performer Type Date EMERGENCY 90654 MANN DEPT 6 6 [facility] VISIT [facility] HIGH SEVERITY& THREAT [facility] MANN - 6 6 [facility]PATIENT [facility] MANN - 6 6 [facility] INPATIENT [facility] EMERGENCY 08195 MANN 6 6 [facility] T VISIT HIGH/URGE NT SEVERITY EMERGENCY 67234 MANN DEPT 6 6 [facility] VISIT [facility] HIGH SEVERITY& THREAT [facility] MANN - 6 6 [facility]PAT[facility] [place] [address] [facility] [place] [address] [facility] 29[address] BARROW, BARROW, OUTPATIEN 3 3 FREYA PILLAI T VISIT 15 MINUTES HOSPITAL MANN - 3 3 [facility] OUTPATIEN [facility]PITAL UNIVERSIT - 3 3 Y [facility] T OFFICE 53145 MERLY Byrd OUTPATIEN 2 2 T NEW 45 MINUTES PERIODIC 95591 CANELO LEMOS PREVENTIV 2 2 NOLA VACA E MED EST PATIENT 40-64YRS [facility] - 2 2 [facility] T OFFICE 34128 BARROW, BARROW, OUTPATIEN 2 2 FREYA PILLAI T VISIT 15 MINUTES OFFICE 60843 [facility] OUTPATIEN 2 2 T NEW 30 MINUTES OFFICE 16879 RASHAAD EILEEN RASHAAD EILEEN OUTPATIEN 2 2 T VISIT 15 MINUTES OFFICE 39606 BARROW, BARROW, OUTPATIEN 2 2 FREYA PILLAI T VISIT 15 MINUTES OFFICE 87900 BARROW, BARROW, OUTPATIEN 2 2 Hunter FREYA PILLAI T NEW 30 MINUTES OFFICE 14937 YOSSI YOSSI OUTPATIEN 2 2 DAO DAO T VISIT 25 MINUTES OFFICE 74836 YOSSI YOSSI OUTPATIEN 2 2 DAO DAO T VISIT 10 MINUTES HOSPITAL MANN - 1 1 [facility] OUTPATIEN [facility] T OFFICE 26203 YOSSI YOSSI OUTPATIEN 1 1 DAO DAO T VISIT 25 MINUTES HOME [facility], 1 1 HOME [facility] T AGENCY OFFICE 28639 Bibi Langley YOSSI OUTPATIEN 1 1 JERSEY AARON DAO T VISIT PSC 15 MINUTES HOSPITAL MANN - 1 1 [facility] OUTPATIEN INC T EMERGENCY 45773 ARLENE ARIAS DEPT 1 1 EMERGENCY [facility] SERVICES HIGH SEVERITY& THREAT FUNCJ EMERGENCY 77705 [facility] MODERATE SEVERITY HOME [facility], 1 1 HOME OUTPATIEN HEALTH T AGENCY HOME [facility], 1 1 HOME OUTPATIEN HEALTH T AGENCY OFFICE 77182 A C YOSSI OUTPATIEN 1 1 JERSEY DC T VISIT PSC 25 MINUTES HOSPITAL MANN - 1 1 [facility] T EMERGENCY 21566 ARLENE BOL[place] 1 1 EMERGENCY DEPARTMEN SERVICES T VISIT HIGH/URGE NT SEVERITY OFFICE 30535 A C YOSSI OUTPATIEN 1 1 JERSEY DC T VISIT PSC 25 MINUTES OFFICE 74216 A Korin Mtz OUTPATIEN 1 1 JERSEY Isbell VISIT 5 PSC MINUTES [facility]OSPITAL [facility] - [facility] T OFFICE 58534 A C YOSSI OUTPATIEN 0 0 JERSEY Isbell VISIT 5 PSC MINUTES OFFICE 60953 [facility] OUTPAT[facility] 0 0 FOR FRANSISCO T VISIT EYEHLTH & C 15 SURGPSC MINUTES HOSPITAL MANN - 0 0 [facility] OUT[facility] T OFFICE 97197 A C YOSSI, OUTPATIEN 0 0 JERSEY Isbell VISIT PSC 25 MINUTES OFFICE 40076 A Bibi ANDUJAR OUTPATIEN 0 0 JERSEY Langley T VISIT 5 PSC MINUTES [facility] [address] OFFICE 21397 DHS/CO MANN OUTPATIEN 9 9 [facility] 10 [facility] MINUTES BANK ACCT OFFICE 43735 A C YOSSI, OUTPATIEN 9 9 JERSEY BECKER T VISIT PSC 15 MINUTES OFFICE 62423 A C YOSSI, OUTPATIEN 9 9 JERSEY BECKER T VISIT PSC 25 MINUTES HOSPITAL MANN - 9 9 [facility] OUT[facility] INC T OFFICE 48653 A Korin P[place], A OUTPATIEN 9 9 JERSEY Langlye T VISIT 5 PSC MINUTES OFFICE 24386 A C YOSSI, OUTPATIEN 9 9 JERSEY BECKER T VISIT PSC 25 MINUTES OFFICE 87644 A C YOSSI, OUTPATIEN 9 9 JERSEY BECKER T VISIT PSC 25 MINUTES OFFICE 80023 A Korin YOSSI, OUTPATIEN 8 8 JERSEY BECKER T VISIT 5 PSC MINUTES OFFICE 46781 A Korin YOSSI, OUTPATIEN 8 8 JERSEY BECKER T VISIT PSC 25 MINUTES OFFICE 55314 A Korin PUTNAM A OUTPATIEN 8 8 JERSEY Langley T VISIT 5 PSC MINUTES OFFICE 78167 A C YOSSI, OUTPATIEN 8 8 JERSEY BECKER T VISIT PSC 15 MINUTES HOSPITAL MANN - 8 8 [facility] OUTPATIEN INC T OFFICE 94112 A C YOSSI, OUTPATIEN 8 8 JERSEY BECKER T VISIT PSC 15 MINUTES OFFICE 55351 A Korin P[place] A OUTPATIEN 8 8 JERSEY Langley T VISIT PSC 25 MINUTES OFFICE 74295 A Korin [place] A OUTPATIEN 8 8 JERSEY Langley T VISIT 5 PSC MINUTES OFFICE 18853 A Korin SY OUTPATIEN 8 8 JERSEY BECKER T VISIT PSC 15 MINUTES
--- OUTSIDE RECORDS SUMMARY | 2017-04-20 03:22 | External Medical Summary Rpt ---
Author Author , MARIANNA CABRAL Address Unknown Phone [email or web address] Team Providers Care Bundle Wrapper Name Role Phone A Korin PUTNAM MD PSC, A Unavailable Unavailable Korin PUTNAM MD PSC AM [...] Unavailable KATHRYN HUBERT, Unavailable Unavailable KATHRYN HUBERT IVAN PERALTA, Unavailable Unavailable IVAN PERALTA JOHANNES C, Unavailable Unavailable FRANSISCO PATEL [facility], Unavailable Unavailable LLC[facility] [employer] HUGO ADRIAN, HUGO Unavailable Unavailable ADRIAN [facility] Unavailable Unavailable HOSPITA, [facility] SIERRA GRE, SIERRA GRE Unavailable Unavailable PB RHO, PB Unavailable Unavailable RHO PB RHO, PB Unavailable Unavailable RHO [facility] Unavailable Unavailable [facility] [place] Un[place] Unavailable Unavailable INC, [facility], Unavailable Unavailable [facility], Unavailable Unavailable [facility], Unavailable Unavailable [facility] KILPELA JEA, KILPELA Unavailable Unavailable JEA KILPELA JEA, KILPELA Unavailable Unavailable J[facility] Unavailable Unavailable [facility], [facility], Unavailable Unavailable [facility] Unavailable Unavailable SERVICES, [facility], [facility] KELLEY SERRANO, Unavailable Unavailable KELLEY SERRANO RASHAAD EILEEN, RASHAAD EILEEN Unavailable Unavailable RASHAAD EILEEN, RASHAAD EILEEN Unavailable Unavailable [facility], Unavailable Unavailable [facility], Unavailable Unavailable [facility] YOSSI DAO, YOSSI Unavailable Unavailable DAO YOSSI DAO, YOSSI Unavailable Unavailable DAO YOSSI, ROSITA, Unavailable Unavailable YOSSI, ROSITA BARROW, JR. JAM, Unavailable Unavailable JR. FREYA BARROW JR. JAM, Unavailable Unavailable JR. FREYA BARROW [facility], [facility] Unavailable Unavailable [facility], [facility] Unavailable Unavailable [facility], Unavailable Unavailable [facility], Unavailable Unavailable [facility] Unavailable Unavailable [facility] Unavailable Unavailable MER[facility] Unavailable Unavailable [facility] Unavailable Unavailable [facility], Unavailable Unavailable [facility] Unavailable Unavailable [address], [facility] Unavailable Unavailable [address], [facility] # Unavailable Unavailable [id number], [facility] # [id number] [facility] Unavailable Unavailable AGENCY, [facility] PUTNAM A, PUTNAM A Unavailable Unavailable PUTNAM, A C, PUTNAM, Unavailable Unavailable A C CELESTINO [...] INDEX BMI [facility] 45.0-49.9 INC ADULT [id number] PERSONAL 11-22-2015 [facility] NICOTINE INC DEPENDENCE E8342 HYPOMAGNESE 09-30-2015 [facility]ARLOS [facility] INC E876 HYPOKALEMIA 09-30-2015 [facility] INC I129 HYPERTENSIV 09-30-2015 [facility] E CKD [facility] W/STAGE 1-4 INC CKD OR UNS CKD I2510 [facility] [place] 09-30-2015 [facility] CORONARY [facility] ARTERY W/O INC ANGINA [place] N179 ACUTE 09-30-2015 [facility]NEY [facility] FAILURE INC UNSPECIFIED 10191 SEC 06-15-2013 [facility] OSTEOARTHRO SIS ANKLE AND FOOT 8248 UNSPECIFIED 01-28-2013 CELESTINO MAT CLOSED FRACTURE OF ANKLE 43770 PAIN IN 01-22-2013 [facility], [facility] ANKLE AND HOSPITA FOOT 47296 OTHER 01-22-2013 PB [facility]HO NONSPECIFIC ABNORMAL FINDING OF LUNG FIELD V7283 OTHER 01-22-2013 [facility] PRE-OPERATI HOSPITA VE EXAMINATION 7859 OTHER 12-05-2012 [facility] SYMPTOMS [facility] INVOLVING INC CARDIOVASCU LAR SYSTEM V7612 OTHER 12-05-2012 [facility]CRE[facility]ING [facility] MAMMOGRAM INC 11790 PRIMARY 10-23-2012 ALLI BARROW JR. OSTEOARTHRO SIS ANKLE AND FOOT 50052 OSTEOARTHRO 10-08-2012 [facility] SIS UNSPEC [facility]OS[facility] WHETHER INC GEN/LOC ANK&FOOT 06168 DISORDER OF 10-01-2012 [facility] CARTILAGE UNSPECIFIED 00978 NONSPECIFIC 08-28-2012 [facility] ABNORMAL ELECTROCARD IOGRAM 7852 UNDIAGNOSED 08-25-2012 [facility] CARDIAC MURMURS 90726 SHORTNESS 08-25-2012 [facility] J OF BREATH V700 ROUTINE 08-04-2012 [facility] GENERAL MEDICAL EXAM@HEALTH CARE FACL 4019 UNSPECIFIED 07-18-2012 [facility] DAO ESSENTIAL HYPERTENSIO N 85895 DIAB W/O 07-17-2012 ST NE[facility]U COMP TYPE MOUNT II/UNS NOT JI STATED UNCNTRL 4293 CARDIOMEGAL 07-17-2012 ST VAL[facility] Y M[place] JI 4400 ATHEROSCLER 07-17-2012 [facility] OSIS OF [facility] AORTA JI V7284 UNSPECIFIED 07-17-2012 [facility] PRE-OPERATI JI VE EXAMINATION 68442 DIAB W/O 06-09-2012 RASHAAD EILEEN MENTION COMP TYPE II/UNS TYPE UNCNTRL 2724 OTHER AND 06-05-2012 RASHAAD EILEEN UNSPECIFIED HYPERLIPIDE JUANCARLOS 4011 ESSENTIAL 06-05-2012 RASHAAD EILEEN HYPERTENSIO N, BENIGN 53424 OSTEOARTHRO 04-22-2012 [facility] S [facility]NSPEC [facility]ICS WHETHER GEN/LOC UNSPEC SITE 27458 PLANTAR 03-25-2012 JENY BARROW JR. JAM FIBROMATOSI S 93075 DIAB 02-21-2012 [facility] W/NEURO SURGICAL MANIFESTS TYPE II/UNS NOT UNCNTRL 03121 PRESSURE 02-21-2012 [facility] ULCER SURGICAL UNSPECIFIED SITE E9479 UNSPEC 02-01-2012 [facility] L SBSTNC CAUS ADVRS EFF TX USE V0481 NEED 06-27-2011 [facility] VACCINATION &INOCULATIO N FLU 49763 ULCER OF 05-01-2011 YOSSI DAO OTHER PART OF FOOT 66571 UNSPECIFIED 05-01-2011 YOSSI DAO ARTHROPATHY SITE UNSPECIFIED 29912 OBESITY, 04-16-2011 [facility] UNSPECIFIED HEALTH AGENCY [...] ABSCESS EMERGENCY OF FOOT SERVICES EXCEPT TOES 29702 DIAB W/OTH 02-25-2011 [facility] MANIFESTS [facility] TYPE II/UNS INC NOT UNCNTRL 83904 PRESSURE 02-25-2011 [facility] ULCER OTHER EMERGENCY SITE SERVICES 92001 OTHER 02-25-2011 [facility] ABNORMAL EMERGENCY GLUCOSE SERVICES 7906 OTHER 02-25-2011 [facility] ABNORMAL [facility] BLOOD INC CHEMISTRY V431 LENS 04-13-2010 [place]ST FOR REPLACED BY EYEHLTH & OTHER SURGPSC MEANS 274 GOUT 11-17-2009 A Korin PUTNAM MD PSC 61376 CORTICAL 09-01-2009 [place] INST FOR SENILE EYEHLTH & CATARACT SURGPSC 3669 UNSPECIFIED 09-01-2009 [facility] CAT[facility]ACT [facility] V1582 PERS HX 09-01-2009 [facility] TOBACCO USE NEETU PRESENTING [facility] V0382 NEED PROPH 08-08-2009 DHS/CO VACCINATION HEALTH AGAINST CENTRAL STREP BANK ACCT PNEUMONE 5990 URINARY 07-28-2009 A Korin LEUNG MD PSC INFECTION SITE NOT SPECIFIED 2449 UNSPECIFIED 07-22-2009 [facility]YPOT[facility] ISM 6923 [facility] 12-17-2008 A Korin PUTNAM DERMATITIS& PSC OTH ECZEMA-RX&M EDS [facility] W/SKN 7881 DYSURIA 07-16-2008 A Korin PUTNAM MD PSC 1121 CANDIDIASIS 03-11-2008 A Korin PUTNAM OF VULVA PSC AND VAGINA 31220 OTHER SIGN 03-02-2008 [facility] IN BREAST INC 40922 UNSPECIFIED 03-02-2008 [facility] 7062 SEBACEOUS 01-29-2008 A Korin PUTNAM CYST PSC 7862 COUGH 01-19-2008 A Korin PUTNAM MD PSC 0340 STREPTOCOCC 11-04-2007 A Korin HARVEY MD PSC THROAT Medications Na ND Rx Da Fi Fi [...] 0 RE 32 PH [address] YT 9 PH CH OP AR AE LE MA L X CY S AN TI LL FU C NG AL 2% RE 53 04 04 0 85 7 ME 12 GA Ac ME 32 -0 -1 0. D 33 IN ti DY 90 3- 6- 00 CA 98 EY ve 16 20 20 0 RE 48 PH [address] YT 9 PH CH OP AR AE LE MA L X CY S AN TI LL FU C NG AL 2% MA 00 04 04 0 30 5 ME 12 GA Ac PA 90 -0 -0 0. D 29 IN ti P 41 4- 4- 00 CA 37 EY ve 50 98 20 20 0 RE 72 [address] MG 1 PH CH AR AE TA MA L BL CY S ET LL C RE 53 04 04 0 85 7 ME 12 GA Ac ME 32 -0 -0 0. D 29 IN ti DY 90 3- 4- 00 CA 40 EY ve 16 20 20 0 RE 18 PH [address] YT 9 PH CH OP AR AE LE MA L X CY S AN TI LL FU C NG AL 2% PO 00 04 04 0 60 30 ME 12 GA Ac TA 78 -0 -0 0. D 29 IN ti SS 15 4- 4- 00 CA 37 EY ve IU 71 20 20 0 RE 88 M [address] CL 0 PH CH AR AE ER MA L CY S 10 LL ME C Q TA BL ET Q- 00 04 04 0 11 3 ME 12 GA Ac TU 60 -0 -0 80 D 29 IN ti SS 30 4- 4- .0 CA 37 EY ve IN 85 20 20 00 RE [address] DM 4 PH CH AR AE SY MA L RU CY S P LL C FI 74 03 03 0 15 15 ME 12 GA Ac SH 31 -1 -2 0. D 25 IN ti 20 CA 52 EY ve OI 13 20 20 0 RE 01 L [address] 1, 9 PH CH 20 AR AE 0 MA L MG CY S SO LL FT C GE L RE 53 03 03 0 85 5 ME 12 GA Ac ME 32 -1 -1 0. D 22 IN ti DY 90 CA 01 EY ve 16 20 20 0 RE 51 PH [address] YT 9 PH CH OP AR AE LE MA L X CY S AN TI LL FU C NG AL 2% FI 74 03 03 0 15 15 ME 12 GA Ac SH 31 -1 -1 0. D 22 IN ti 20 09-16- CA 01 EY ve OI 13 20 20 0 RE 93 L [address] 1, 9 PH CH 20 AR AE 0 MA L MG CY S SO LL FT C GE L FU 63 09 10 5 30 30 WA 71 RI Ac RO 30 -1 -2 .0 L- 34 SH ti SE 40 3- 8- 00 MA [address] 62 20 20 RT 9 DE 51 [...] ve LA 32 20 20 RT 0 ME 90 11 11 RI -V 1 PH [...] 3- 5- 00 MA [address] 62 20 20 RT 9 DE 51 [...] ve LA 32 20 20 RT 0 ME 90 11 11 RI -V 1 PH [...] 6- 9- 00 MA [address] 62 20 20 RT 0 DE 51 [...] # TA 10 BL 05 ET 91 TR 68 06 08 2 30 30 WA 71 RI Ac AN 46 -1 -1 .0 L- 23 SH ti DO 20 6- 5- 00 MA 48 ER ve LA 32 20 20 RT 9 ME 90 11 11 RI -V 1 PH CH ER AR AR AP MA D AM CY # ER 10 4- 05 24 91 0 MG HY 23 07 08 5 30 30 [...] 05 91 TA B FU 63 06 07 2 30 30 WA 71 RI Ac RO 30 -1 -2 .0 L- 23 SH ti SE 40 6- 9- 00 MA [address] 62 20 20 RT 0 DE 51 [...] BL ET 10 05 91 TR 68 06 07 2 30 30 WA 71 RI Ac AN 46 -1 -1 .0 L- 23 SH ti DO 20 6- 4- 00 MA 48 ER ve LA 32 20 20 RT 9 ME 90 11 11 RI -V 1 PH [...] # ET 10 05 91 AC 64 06 07 1 30 30 WA 71 RI Ac TO 76 -1 -1 .0 L- 22 SH ti S 40 3- 4- 00 MA 97 ER ve 45 45 20 20 RT 6 12 11 11 RI MG 4 PH CH AR AR TA MA D BL CY ET # 10 05 91 HY 23 07 07 [...] 6- 3- 00 MA [address] 62 20 20 RT 0 DE 51 [...] ve LA 32 20 20 RT 9 ME 90 11 11 RI -V 1 PH [...] BL ET 10 05 91 00 06 06 0 30 5 WA 44 RI Ac 40 -1 -1 .0 L- 94 SH ti 60 4- 4- 00 MA 36 ER ve 35 20 20 RT 0 70 11 11 RI 5 PH CH AR AR MA D CY # 10 05 91 HY 23 10 06 5 30 30 [place] [address] 15 -1 -1 .0 L- 89 SH ti OC 50 1- 4- 00 MA 77 ER ve HL 04 20 20 RT 2 OR 71 10 11 RI OT 0 PH CH HI AR AR AZ MA D ID CY E # 25 10 MG 05 91 TA B AM 00 06 06 0 20 10 WA 71 RI Ac OX 78 -1 -1 .0 L- 23 SH ti -C 11 4- 4- 00 MA 20 ER ve LA 85 20 20 RT 9 V 22 11 11 RI 87 0 PH CH 5- AR AR 12 MA D 5 CY MG # TA 10 BL 05 ET 91 CO 00 03 06 2 30 [...] # ET 10 05 91 AC 64 06 06 1 30 30 WA 71 RI Ac TO 76 -1 -1 .0 L- 22 SH ti S 40 3- 3- 00 MA 97 ER ve 45 45 20 20 RT 6 12 11 11 RI MG 4 PH CH AR AR TA MA D BL CY ET # 10 05 91 CI 00 06 06 0 20 10 WA 71 GR Ac ME 37 -1 -1 .0 L- 22 AY [...] ve LA 32 20 20 RT 6 ME 90 11 11 RI -V 1 PH [...] 25 10 MG 05 91 TA B JA 00 03 05 2 30 30 WA 71 RI Ac NU 00 -1 -1 .0 L- 11 SH ti 60 5- 2- 00 MA 24 ER ve A 27 20 20 RT 0 10 73 11 11 RI 0 1 PH CH MG AR AR MA D TA CY BL # ET 10 05 91 DI 00 03 05 2 30 30 [...] ve LA 32 20 20 RT 6 ME 90 11 11 RI -V 1 PH [...] ET # 10 05 91 00 03 03 2 30 30 WA 71 RI Ac 37 -1 -2 .0 L- 11 SH ti 80 5- 2- 00 MA 24 ER ve 21 20 20 RT 2 69 11 11 RI 3 PH CH AR AR MA D CY # 10 05 91 CE 00 03 03 1 30 30 WA 71 RI Ac LE 02 -1 -1 .0 L- 11 SH ti BR 51 7- 7- 00 MA 57 ER ve EX 52 20 20 RT 1 53 11 11 RI 20 1 PH CH 0 AR AR MG MA D CY CA # PS UL 10 E 05 91 DI 00 03 03 2 [...] ve LA 32 20 20 RT 6 ME 90 11 11 RI -V 1 PH CH ER AR AR AP MA D AM CY # ER 10 4- 05 24 91 0 MG 23 03 03 2 30 30 WA [...] CY BL # ET 10 05 91 FU 63 09 02 3 30 30 WA 70 RI Ac RO 30 -2 -2 .0 L- 87 SH ti SE 40 7- 3- 00 MA [address] 62 20 20 RT 1 DE 51 [...] LA 32 [address] ME 90 11 11 EP -V 1 PH [...] A TA CY BL # ET 10 05 91 AC 64 02 02 0 90 30 WA 71 MO Ac TO 76 -1 -1 .0 L- 06 SE ti S 40 1- 1- 00 MA 47 S ve 15 15 [address] 10 11 11 EP MG 4 PH HE AR N TA MA A BL CY ET # 10 05 91 CO 00 02 02 0 30 30 [...] 7- 3- 00 MA [address] 62 20 20 RT 1 DE 51 [...] ET 10 05 91 TR 68 10 12 2 30 30 WA 70 RI Ac AN 46 -2 -3 .0 L- 92 SH ti DO 20 9- 1- 00 MA 24 ER ve LA 32 20 20 RT 6 ME 90 10 10 RI -V 1 PH [...] 7- 2- 00 MA [address] 62 20 20 RT 1 DE 51 [...] ve LA 32 20 20 RT 6 ME 90 10 10 RI -V 1 PH [...] 7- 2- 00 MA [address] 62 20 20 RT 1 DE 51 [...] ve LA 32 20 20 RT 6 ME 90 10 10 RI -V 1 PH CH ER AR AR AP MA D AM CY # ER 10 4- 05 24 91 0 MG FU 63 09 10 1 30 30 WA 70 RI Ac RO 30 -2 -2 .0 L- 87 SH ti SE 40 4- 5- 00 MA [address] 62 20 20 RT 8 DE 51 [...] ve LA 32 20 20 RT 0 ME 90 10 10 RI -V 1 PH CH ER AR AR AP MA D AM CY # ER 10 4- 05 24 91 0 MG FU 63 09 09 1 30 30 WA 70 RI Ac RO 30 -2 -2 .0 L- 87 SH ti SE 40 4- 4- 00 MA [address] 62 20 20 RT 8 DE 51 [...] ve LA 32 20 20 RT 7 ME 90 10 10 RI -V 1 PH [...] ve LA 32 20 20 RT 7 ME 90 10 10 RI -V 1 PH [...] ve LA 32 20 20 RT 7 ME 90 10 10 RI -V 1 PH [...] ET # 10 05 91 00 03 05 2 30 30 WA 70 RI Ac 37 -1 -2 .0 L- 63 SH ti 80 9- 4- 00 MA 27 ER ve 21 20 20 RT 0 69 10 10 RI 3 PH CH AR AR MA D CY # 10 05 91 CO 00 05 05 1 30 30 WA 70 RI Ac RE 00 -2 -2 .0 L- 71 SH ti G 73 4- 4- 00 MA 84 ER ve CR 37 20 20 RT 9 01 10 10 RI 10 3 PH CH AR AR MG MA D CY CA # PS UL 10 E 05 91 JA 00 04 05 1 [...] ET # 10 05 91 DI 00 03 04 2 30 30 WA 44 RI Ac AZ 37 -1 -3 .0 L- 84 SH ti EP 80 9- 0- 00 MA 28 ER ve AM 47 20 20 RT 4 70 10 10 RI 10 5 PH CH AR AR MG MA D CY TA # BL ET 10 05 91 TA 00 04 04 [...] 10 ET 05 91 CR 00 03 04 2 [...] L- 15 SH ti TA 15 9- 9- 00 MA 68 ER ve DI 07 20 [...] 63 SH ti TO 00 9 9- 00 MA 26 ER ve R 75 [...] MA D CY #5 91 CO 00 01 02 00 30 30 WA 70 RI Ac RE 00 -2 -1 .0 L- 55 SH ti G 73 5- 1- 00 MA 84 ER ve CR 37 20 20 RT 0 01 10 10 RI 10 3 PH CH AR AR MG MA D CY CA PS #5 UL 91 E 54 09 02 05 30 30 WA [...] #5 BL 91 ET AC 64 08 02 03 30 30 [...] TA BL #5 ET 91 JA 00 01 01 00 30 [...] MA D CY #5 91 CR 00 01 00 30 30 WA 70 RI [...] D CY #5 91 TA 00 12 00 30 30 WA 70 RI Ac RK 07 -3 -1 .0 L- 52 SH ti A 43 1- 4- 00 MA 48 ER ve ER 29 20 20 RT 2 01 09 10 RI 4- 3 PH CH 24 AR AR 0 MA D MG CY TA #5 BL 91 ET CO 00 08 12 03 30 30 WA 70 RI Ac RE 00 -2 -3 .0 L- 33 SH ti G 73 0- 1- 00 MA 11 ER ve CR 37 20 20 RT 3 01 09 09 RI 10 3 PH CH AR AR MG MA D CY CA PS #5 UL 91 E 00 12 12 00 30 30 WA [...] MA D BL CY ET #5 91 54 09 12 03 30 30 WA 70 RI Ac 45 -0 -1 .0 L- 35 SH ti 80 4- 7- 00 MA 31 ER ve 97 20 20 RT 9 01 09 09 RI 0 PH CH AR AR MA D CY #5 91 CR 00 08 12 01 30 30 [...] MG CY TA #5 BL 91 ET JA 00 08 12 02 30 30 WA 70 RI Ac NU 00 -2 -0 .0 L- 33 SH ti 60 0- 3- 00 MA 11 ER ve A 27 20 20 RT 5 10 73 09 09 RI 0 1 PH CH MG AR AR MA D TA CY BL ET #5 91 00 08 12 03 30 30 WA 70 RI Ac 37 -2 -0 .0 L- 33 SH ti 80 0- 3- 00 MA 11 ER ve 21 20 20 RT 4 69 09 09 RI 3 PH CH AR AR MA D CY #5 91 AC 64 08 12 01 30 [...] CY TA BL #5 ET 91 00 11 12 00 3. 20 WA 70 EV Ac GA 06 -1 -0 00 L- 47 AN ti MO 54 3- 3- 0 MA 57 S ve X 01 20 20 RT 9 ABBEY 0. 30 09 09 GARCIA 5% 3 PH NN AR ES EY MA C E CY DR OP #5 S 91 MOISE 53 11 11 00 14 [...] CY CA PS #5 UL 91 E 54 09 11 02 30 30 WA 70 RI Ac 45 -0 -1 .0 L- 35 SH ti 80 4- 9- 00 MA 31 ER ve 97 20 20 RT 9 01 09 09 RI 0 PH CH AR AR MA D CY #5 91 TA 00 08 11 01 30 30 WA 70 RI Ac RK 07 -2 -0 .0 L- 33 SH ti A 43 0- 5- 00 MA 11 ER ve ER 29 20 20 RT 9 01 09 09 RI 4- 3 PH CH 24 AR AR 0 MA D MG CY TA #5 BL 91 ET DI 00 08 11 02 30 30 WA 44 RI Ac AZ 37 -2 -0 .0 L- 79 SH ti EP 80 0- 5- 00 MA 03 ER ve AM 47 20 20 RT 9 70 09 09 RI 10 5 PH CH AR AR MG MA D CY TA BL #5 ET 91 CR 00 08 11 00 30 30 WA 70 RI Ac ES 31 -2 -0 .0 L- 33 SH ti TO 00 0- 5- 00 MA 12 ER ve R 75 20 20 RT 1 10 19 09 09 RI 0 PH CH MG AR AR MA D TA CY BL ET #5 91 JA 00 08 11 01 30 30 WA 70 RI Ac NU 00 -2 -0 .0 L- 33 SH ti 60 0- 5- 00 MA 11 ER ve A 27 20 20 RT 5 10 73 09 09 RI 0 1 PH CH MG AR AR MA D TA CY BL ET #5 91 CO 00 08 10 01 30 30 WA 70 RI Ac RE 00 -2 -2 .0 L- 33 SH ti G 73 0- 2- 00 MA 11 ER ve CR 37 20 20 RT 3 01 09 09 RI 10 3 PH CH AR AR MG MA D CY CA PS #5 UL 91 E 54 09 10 01 30 30 WA 70 RI Ac 45 -0 -2 .0 L- 35 SH ti 80 4- 2- 00 MA 31 ER ve 97 20 20 RT 9 01 09 09 RI 0 PH CH AR AR MA D CY #5 91 00 08 10 02 30 30 WA 70 RI Ac 37 -2 -2 .0 L- 33 SH ti 80 0- 2- 00 MA 11 ER ve 21 20 20 RT 4 69 09 09 RI 3 PH CH AR AR MA D CY #5 91 TA 00 08 10 00 30 30 WA 70 RI Ac RK 07 -2 -0 .0 L- 33 SH ti A 43 0- 8- 00 MA 11 ER ve ER 29 20 20 RT 9 01 09 09 RI 4- 3 PH CH 24 AR AR 0 MA D MG CY TA #5 BL 91 ET DI 00 08 10 01 30 30 WA 44 RI Ac AZ 37 -2 -0 .0 L- 79 SH ti EP 80 0- 8- 00 MA 03 ER ve AM 47 20 20 RT 9 70 09 09 RI 10 5 PH CH AR AR MG MA D CY TA BL #5 ET 91 CR 00 07 10 02 30 30 [...] D CY #5 91 AC 64 08 09 00 30 30 WA 70 RI Ac TO 76 -2 -1 .0 L- 33 SH ti S 40 0- 0- 00 MA 11 ER ve 45 45 20 20 RT 6 12 09 09 RI MG 4 PH CH AR AR TA MA D BL CY ET #5 91 TA 00 06 09 03 30 30 WA 70 RI Ac RK 07 -0 -1 .0 L- 23 SH ti A 43 5- 0- 00 MA 40 ER ve ER 29 20 20 RT 3 01 09 09 RI 4- 3 PH CH 24 AR AR 0 MA D MG CY TA #5 BL 91 ET 54 09 09 00 30 30 WA 70 RI Ac 45 -0 -1 .0 L- 35 SH ti 80 4- 0- 00 MA 31 ER ve 97 20 20 RT 9 01 09 09 RI 0 PH CH AR AR MA D CY #5 91 JA 00 08 09 00 30 30 WA 70 RI Ac NU 00 -2 -1 .0 L- 33 SH ti 60 0- 0- 00 MA 11 ER ve A 27 20 20 RT 5 10 73 09 09 RI 0 1 PH CH MG AR AR MA D TA CY BL ET #5 91 CO 00 08 09 00 [...] MA D CY #5 91 PA 68 01 08 01 30 30 WA 70 RI Ac RO 38 -0 -2 .0 L- 02 SH ti XE 20 5- 7- 00 MA 53 ER ve TI 00 20 20 RT 9 NE 10 09 09 RI 6 PH CH HC AR AR L MA D 40 CY MG #5 91 TA BL ET DI 00 08 08 00 30 30 WA 44 RI Ac AZ 37 -2 -2 .0 L- 79 SH ti EP 80 0- 7- 00 MA 03 ER ve AM 47 20 20 RT 9 70 09 09 RI 10 5 PH CH AR AR MG MA D CY TA BL #5 ET 91 CR 00 07 08 00 30 30 WA 70 MO Ac ES 31 -2 -1 .0 L- 30 SE ti TO 00 8- 3- 00 MA 10 S ve R [address] 10 19 09 09 EP 0 PH HE MG AR N MA A TA CY BL ET #5 91 JA 00 06 08 02 30 30 [...] MA D BL CY ET #5 91 54 07 08 00 30 30 WA 70 RI Ac 45 -2 -1 .0 L- 30 SH ti 80 9- 3- 00 MA 29 ER ve 97 20 20 RT 9 01 09 09 RI 0 PH CH AR AR MA D CY #5 91 TA 00 06 08 02 [...] #5 91 MG TA B AC 64 01 07 02 30 30 WA 70 RI Ac TO 76 -0 -1 .0 L- 02 SH ti S 40 5- 6- 00 MA 53 ER ve 45 45 20 20 RT 8 12 09 09 RI MG 4 PH CH AR AR TA MA D BL CY ET #5 91 TA 00 06 07 01 30 30 WA 70 RI Ac RK 07 -0 -1 .0 L- 23 SH ti A 43 5- 6- 00 MA 40 ER ve ER 29 20 20 RT 3 01 09 09 RI 4- 3 PH CH 24 AR AR 0 MA D MG CY TA #5 BL 91 ET JA 00 06 07 01 30 30 WA 70 RI Ac NU 00 -1 -1 .0 L- 24 SH ti 60 2- 6- 00 MA 51 ER ve A 27 20 20 RT 0 10 73 09 09 RI 0 1 PH CH MG AR AR MA D TA CY BL ET #5 91 DI 00 05 07 02 30 30 WA 44 RI Ac AZ 37 -0 -1 .0 L- 76 SH ti EP 80 5- 6- 00 MA 44 ER ve AM 47 20 20 RT 5 70 09 09 RI 10 5 PH CH AR AR MG MA D CY TA BL #5 ET 91 00 07 07 08 30 30 WA 69 MO Ac 37 -2 -1 .0 L- 80 SE ti 80 5- 6- 00 MA 76 S ve 21 [address] 69 08 09 EP 3 PH HE AR N MA A CY #5 91 CR 00 04 07 02 30 30 WA 70 MO Ac ES 31 -2 -1 .0 L- 17 SE ti TO 00 4- 6- 00 MA 83 S ve R [address] 10 19 09 09 EP 0 PH HE MG AR N MA A TA CY BL ET #5 91 00 07 06 07 30 30 WA 69 MO Ac 37 -2 -1 .0 L- 80 SE ti 80 5- 8- 00 MA 76 S ve 21 [address] 69 08 09 EP 3 PH HE AR N MA A CY #5 91 HY 00 05 06 01 30 30 [place] [address] 17 -0 -1 .0 L- 19 SH ti OC 22 5- 8- 00 MA 35 ER ve HL 08 20 20 RT 5 OR 38 09 09 RI OT 0 PH CH HI AR AR AZ MA D ID CY E 25 #5 91 MG TA B TA 00 06 06 00 30 30 WA 70 RI Ac RK 07 -0 -1 .0 L- 23 SH ti A 43 5- 8- 00 MA 40 ER ve ER 29 20 20 RT 3 01 09 09 RI 4- 3 PH CH 24 AR AR 0 MA D MG CY TA #5 BL 91 ET DI 00 05 06 01 30 30 WA 44 RI Ac AZ 37 -0 -1 .0 L- 76 SH ti EP 80 5- 8- 00 MA 44 ER ve AM 47 20 20 RT 5 70 09 09 RI 10 5 PH CH AR AR MG MA D CY TA BL #5 ET 91 JA 00 06 06 00 30 30 WA 70 RI Ac NU 00 -1 -1 .0 L- 24 SH ti 60 2- 8- 00 MA 51 ER ve A 27 20 20 RT 0 10 73 09 09 RI 0 1 PH CH MG AR AR MA D TA CY BL ET #5 91 JA 00 01 06 03 [...] CY BL ET #5 91 00 07 05 06 30 30 WA 69 MO Ac 37 -2 -2 .0 L- 80 SE ti 80 5- 1- 00 MA 76 S ve 21 [address] 69 08 09 EP 3 PH HE AR N MA A CY #5 91 AC 64 01 05 01 30 30 WA 70 RI Ac TO 76 -0 -2 .0 L- 02 SH ti S 40 5- 1- 00 MA 53 ER ve 45 45 20 20 RT 8 12 09 09 RI MG 4 PH CH AR AR TA MA D BL CY ET #5 91 DI 00 05 05 00 30 30 [place] 44 RI Ac AZ 37 -0 -2 .0 L- 76 SH ti EP 80 5- 1- 00 MA 44 ER ve AM 47 20 20 RT 5 70 09 09 RI 10 5 PH CH AR AR MG MA D CY TA BL #5 ET 91 HY 00 05 05 00 30 30 [place] [address] 17 -0 -2 .0 L- 19 SH ti OC 22 5- 1- 00 MA 35 ER ve HL 08 20 20 RT 5 OR 38 09 09 RI OT 0 PH CH HI AR AR AZ MA D ID CY E 25 #5 91 MG TA B TA 00 03 05 02 30 30 WA 70 RI Ac RK 07 -0 -2 .0 L- 10 SH ti A 43 3- 1- 00 MA 39 ER ve ER 29 20 20 RT 3 01 09 09 RI 4- 3 PH CH 24 AR AR 0 MA D MG CY TA #5 BL 91 ET CR 00 04 05 00 30 30 WA 70 MO Ac ES 31 -2 -0 .0 L- 17 SE ti TO 00 4- 7- 00 MA 83 S ve R [address] 10 19 09 09 EP 0 PH HE MG AR N MA A TA CY BL ET #5 91 00 07 04 05 30 30 WA 69 MO Ac 37 -2 -2 .0 L- 80 SE ti 80 5- 3- 00 MA 76 S ve 21 [address] 69 08 09 EP 3 PH HE AR N MA A CY #5 91 JA 00 01 04 02 30 30 [...] BL #5 ET 91 TA 00 03 04 01 30 [...] E 25 #5 91 MG TA B KE 00 04 04 00 60 15 [...] TA #5 BL 91 ET 00 07 03 04 30 30 WA 69 MO Ac 37 -2 -1 .0 L- 80 SE ti 80 5- 2- 00 MA 76 S ve 21 [address] 69 08 09 EP 3 PH HE AR N MA A CY #5 91 HY 00 04 03 07 30 30 [...] D CY TA BL #5 ET 91 CR 00 01 02 01 30 30 WA 70 RI Ac ES 31 -2 -2 .0 L- 04 SH ti TO 00 0- 6- 00 MA 71 ER ve R 75 20 20 RT 2 10 19 09 09 RI 0 PH CH MG AR AR MA D TA CY BL ET #5 91 JA 00 01 02 01 30 30 [place] 70 RI Ac NU 00 -0 -2 .0 L- 02 SH ti 60 5- 6- 00 MA 54 ER ve A 27 20 20 RT 0 10 73 09 09 RI 0 1 PH CH MG AR AR MA D TA CY BL ET #5 91 TA 00 12 02 02 30 30 WA 69 RI Ac RK 07 -0 -1 .0 L- 97 SH ti A 43 2- 2- 00 MA 97 ER ve ER 29 20 20 RT 0 01 08 09 RI 4- 3 PH CH 24 AR AR 0 MA D MG CY TA #5 BL 91 ET 00 12 02 02 30 30 WA [...] TA BL #5 ET 91 54 12 02 30 30 WA 69 RI Ac 45 -0 -1 .0 L- 97 SH ti 80 2- 2- 00 MA 97 ER ve 97 20 20 RT 2 01 08 09 RI 0 PH CH AR AR MA D CY #5 91 CR 00 01 30 30 WA 70 RI Ac ES 31 -2 -3 .0 L- 04 SH ti TO 00 0- 0- 00 MA 71 ER ve R 75 20 20 RT 2 10 19 09 09 RI 0 PH CH MG AR AR MA D TA CY BL ET #5 91 PA 68 01 30 30 WA 70 RI Ac RO 38 -0 -1 .0 L- 02 SH ti XE 20 5- 5- 00 MA 53 ER ve TI 00 20 20 RT 9 NE 10 09 09 RI 6 PH CH HC AR AR L MA D 40 CY MG #5 91 TA BL ET 54 12 01 30 30 WA 69 RI Ac 45 -0 -1 .0 L- 97 SH ti 80 2- 5- 00 MA 97 ER ve 97 20 20 RT 2 01 08 09 RI 0 PH CH AR AR MA D CY #5 91 TA 00 12 01 30 30 WA 69 RI Ac RK 07 -0 -1 .0 L- 97 SH ti A 43 2- 5- 00 MA 97 ER ve ER 29 20 20 RT 0 01 08 09 RI 4- 3 PH CH 24 AR AR 0 MA D MG CY TA #5 BL 91 ET DI 00 09 16 99 30 30 WA 44 RI Ac AZ 37 -0 -1 .0 L- 73 SH ti EP 80 5- 5- 00 MA 37 ER ve AM 47 20 20 RT 0 70 09 09 RI 10 5 PH CH AR AR MG MA D CY TA BL #5 ET 91 JA 00 09 16 99 30 30 WA 70 RI Ac NU 00 -0 -1 .0 L- 02 SH ti 60 5- 5- 00 MA 54 ER ve A 27 20 20 RT 0 10 73 09 09 RI 0 1 PH CH MG AR AR MA D TA CY BL ET #5 91 AC 64 01 30 30 WA 70 RI Ac TO 76 -0 -1 .0 L- 02 SH ti S 40 5- 5- 00 MA 53 ER ve 45 45 20 20 RT 8 12 09 09 RI MG 4 PH CH AR AR TA MA D BL CY ET #5 91 FU 00 12 01 01 30 30 WA 69 MO Ac RO 37 -0 -1 .0 L- 97 SE ti SE 80 2- 5- 00 MA [address] DE [...] CY BL ET #5 91 54 12 12 00 30 30 WA 69 RI Ac 45 -0 -1 .0 L- 97 SH ti 80 2- 8- 00 MA 97 ER ve 97 20 20 RT 2 01 08 08 RI 0 PH CH AR AR MA D CY #5 91 TA 00 12 12 00 [...] D CY TA BL #5 ET 91 FU 00 12 12 00 30 30 WA 69 MO Ac RO 37 -0 -1 .0 L- 97 SE ti SE 80 2- 8- 00 MA [address] DE [...] BL ET #5 91 HY 00 04 11 06 30 30 [place] [address] 17 -2 -0 .0 L- 69 SH ti OC 22 8- 7- 00 MA 74 ER ve HL 08 20 20 RT 4 OR 38 08 08 RI OT 0 PH CH HI AR AR AZ MA D ID CY E 25 #5 91 MG TA B DI 00 10 11 00 30 30 [...] MA D CY #5 91 AC 64 06 11 02 30 30 WA 69 RI Ac TO 76 -2 -0 .0 L- 77 SH ti S 40 6- 7- 00 MA 37 ER ve 45 45 20 20 RT 7 12 08 08 RI MG 4 PH CH AR AR TA MA D BL CY ET #5 91 TA 00 10 11 [...] BL ET #5 91 FU 00 07 11 03 30 30 WA 69 MO Ac RO 37 -2 -0 .0 L- 80 SE ti SE 80 5- 7- 00 MA [address] DE [...] #5 BL 91 ET HY 00 04 10 05 30 30 [place] [address] 17 -2 -0 .0 L- 69 SH ti OC 22 8- 9- 00 MA 74 ER ve HL 08 20 20 RT 4 OR 38 08 08 RI OT 0 PH CH HI AR AR AZ MA D ID CY E 25 #5 91 MG TA B DI 00 09 10 00 30 30 WA 44 RI Ac AZ 37 -2 -0 .0 L- 71 SH ti EP 80 9- 9- 00 MA 14 ER ve AM 47 20 20 RT 9 70 08 08 RI 10 5 PH CH AR AR MG MA D CY TA BL #5 ET 91 FU 00 07 10 02 30 30 WA 69 MO Ac RO 37 -2 -0 .0 L- 80 SE ti SE 80 5- 9- 00 MA [address] DE [...] TA BL #5 ET 91 TA 00 06 09 02 30 30 [place] 69 RI Ac RK 07 -2 -1 .0 L- 77 SH ti A 43 6- 1- 00 MA 37 ER ve ER 29 20 20 RT 5 01 08 08 RI 4- 3 PH CH 24 AR AR 0 MA D MG CY TA #5 BL 91 ET GL 00 07 09 00 60 30 WA 69 RI Ac YB 09 -0 -1 .0 L- 78 SH ti UR 39 8- 1- 00 MA 67 ER ve ID 36 20 20 RT 5 E 40 08 08 RI 5 1 PH CH MG AR AR MA D TA CY BL ET #5 91 AC 64 06 09 01 30 30 WA 69 RI Ac TO 76 -2 -1 .0 L- 77 SH ti S 40 6- 1- 00 MA 37 ER ve 45 45 20 20 RT 7 12 08 08 RI MG 4 PH CH AR AR TA MA D BL CY ET #5 91 HY 00 04 09 04 30 30 [place] [address] 17 -2 -1 .0 L- 69 SH ti OC 22 8- 1- 00 MA 74 ER ve HL 08 20 20 RT 4 OR 38 08 08 RI OT 0 PH CH HI AR AR AZ MA D ID CY E 25 #5 91 MG TA B FU 00 07 09 01 30 30 WA 69 MO Ac RO 37 -2 -1 .0 L- 80 SE ti SE 80 5- 1- 00 MA [address] 21 [address] DE 61 08 08 EP 0 PH HE 40 AR N MA A MG CY TA #5 BL 91 ET LI 00 08 08 00 30 30 [...] 5- 1- 00 MA [address] DE 61 08 08 EP 0 PH HE 40 AR N MA A MG CY TA #5 BL 91 ET AC 64 06 07 00 30 30 WA 69 RI Ac TO 76 -2 -1 .0 L- 77 SH ti S 40 6- 7- 00 MA 37 ER ve 45 45 20 20 RT 7 12 08 08 RI MG 4 PH CH AR AR TA MA D BL CY ET #5 91 LI 00 05 07 02 30 30 WA 69 RI Ac PI 07 -0 -1 .0 L- 71 SH ti TO 10 8- 7- 00 MA 23 ER ve R 15 20 20 RT 7 20 62 08 08 RI 3 PH CH MG AR AR MA D TA CY BL ET #5 91 GL 00 07 07 00 60 30 WA 69 RI Ac YB 09 -0 -1 .0 L- 78 SH ti UR 39 7- 7- 00 MA 49 ER ve ID 36 20 20 RT 5 E 40 08 08 RI 5 1 PH CH MG AR AR MA D TA CY BL ET #5 91 DI 00 07 07 00 30 30 WA 44 RI Ac AZ 37 -0 -1 .0 L- 69 SH ti EP 80 8- 7- 00 MA 36 ER ve AM 47 20 20 RT 1 70 08 08 RI 10 5 PH CH AR AR MG MA D CY TA BL #5 ET 91 TA 00 06 07 00 30 30 WA 69 RI Ac RK 07 -2 -0 .0 L- 77 SH ti A 43 6- 3- 00 MA 37 ER ve ER 29 20 20 RT 5 01 08 08 RI 4- 3 PH CH 24 AR AR 0 MA D MG CY TA #5 BL 91 ET 63 06 07 00 2. 7 WA 69 RI Ac 30 -2 -0 00 L- 77 SH ti 40 6- 3- 0 MA 36 ER ve 80 20 20 RT 7 51 08 08 RI 2 PH CH AR AR MA D CY #5 91 FU 00 03 07 03 30 30 WA 69 RI Ac RO 37 -2 -0 .0 L- 65 SH ti SE 80 6- 3- 00 MA [address] 21 20 20 RT 4 DE 61 [...] BL #5 ET 91 HY 00 04 07 02 30 30 [place] [address] 17 -2 -0 .0 L- 69 SH ti OC 22 8- 3- 00 MA 74 ER ve HL 08 20 20 RT 4 OR 38 08 08 RI OT 0 PH CH HI AR AR AZ MA D ID CY E 25 #5 91 MG TA B 53 12 07 03 60 30 WA [...] MP #5 DS 91 TA BL ET LI 00 05 06 01 30 30 WA 69 RI Ac PI 07 -0 -1 .0 L- 71 SH ti TO 10 8- 2- 00 MA 23 ER ve R 15 20 20 RT 7 20 62 08 08 RI 3 PH CH MG AR AR MA D TA CY BL ET #5 91 AC 64 12 06 02 30 30 WA 69 RI Ac TO 76 -1 -1 .0 L- 52 SH ti S 40 4- 2- 00 MA 47 ER ve 45 45 20 20 RT 5 12 07 08 RI MG 4 PH CH AR AR TA MA D BL CY ET #5 91 PA 68 05 06 01 30 30 WA 69 RI Ac RO 38 -0 -0 .0 L- 70 SH ti XE 20 1- 5- 00 MA 20 ER ve TI 00 20 20 RT 9 NE 10 08 08 RI 6 PH CH HC AR AR L MA D 40 CY MG #5 91 TA BL ET 53 12 06 02 60 30 WA 69 RI Ac 74 -1 -0 .0 L- 52 SH ti 60 4- 5- 00 MA 47 ER ve 13 20 20 RT 6 20 07 08 RI 5 PH CH AR AR MA D CY #5 91 TA 00 05 06 01 30 30 WA 69 RI Ac RK 07 -0 -0 .0 L- 70 SH ti A 43 1- 5- 00 MA 20 ER ve ER 29 20 20 RT 8 01 08 08 RI 4- 3 PH CH 24 AR AR 0 MA D MG CY TA #5 BL 91 ET FU 00 03 06 02 30 30 WA 69 RI Ac RO 37 -2 -0 .0 L- 65 SH ti SE 80 6- 5- 00 MA [address] 21 20 20 RT 4 DE 61 08 08 RI 0 PH CH 40 AR AR MA D MG CY TA #5 BL 91 ET TR 00 05 06 00 60 15 WA 69 RI Ac AM 37 -2 -0 .0 L- 73 SH ti AD 84 2- 5- 00 MA 01 ER ve OL 15 20 20 RT 5 10 08 08 RI HC 1 PH CH L AR AR 50 MA D CY MG #5 TA 91 BL ET HY 00 04 06 01 30 30 [place] [address] 17 -2 -0 .0 L- 69 SH ti OC 22 8- 5- 00 MA 74 ER ve HL 08 20 20 RT 4 OR 38 08 08 RI OT 0 PH CH HI AR AR AZ MA D ID CY E 25 #5 91 MG TA B 00 05 05 00 21 7 WA [...] CY BL ET #5 91 DI 00 05 05 00 30 30 [...] bl AR e MA CY #5 91 TA 00 05 05 00 30 30 [...] #5 91 MG TA B DI 00 02 05 02 30 30 WA 44 No Ac AZ 37 -1 -0 .0 L- 66 t ti EP 80 4- 8- 00 MA 28 Av ve AM 47 20 20 RT 3 ai 70 08 08 la 10 5 PH bl AR e MG MA CY TA BL #5 ET 91 FU 00 03 05 01 30 30 WA 69 No Ac RO 37 -2 -0 .0 L- 65 t ti SE 80 6- 8- 00 MA [address] 21 20 20 RT 4 ai DE 61 08 08 la 0 PH bl 40 AR e MA MG CY TA #5 BL 91 ET 53 12 05 01 60 30 WA 69 No Ac 74 -1 -0 .0 L- 52 t ti 60 4- 8- 00 MA 47 Av ve 13 20 20 RT 6 ai 20 07 08 la 5 PH bl AR e MA CY #5 91 PA 68 05 05 00 30 30 WA 69 No Ac RO 38 -0 -0 .0 L- 70 t ti XE 20 1- 8- 00 MA 20 Av ve TI 00 20 20 RT 9 ai NE 10 08 08 la 6 PH bl HC AR e L MA 40 CY MG #5 91 TA BL ET DI 00 02 04 01 30 30 WA 44 No Ac AZ 37 -1 -1 .0 L- 66 t ti EP 80 4- 7- 00 MA 28 Av ve AM 47 20 20 RT 3 ai 70 08 08 la 10 5 PH bl AR e MG MA CY TA BL #5 ET 91 TA 00 01 04 02 30 30 WA 69 No Ac RK 07 -3 -1 .0 L- 58 t ti A 43 1- 0- 00 MA 23 Av ve ER 29 20 20 RT 1 ai 01 08 08 la 4- 3 PH bl 24 AR e 0 MA MG CY TA #5 BL 91 ET LI 00 04 04 00 30 30 WA 69 No Ac PI 07 -0 -1 .0 L- 66 t ti TO 10 3- 0- 00 MA 69 Av ve R 15 20 20 RT 9 ai 20 62 08 08 la 3 PH bl MG AR e MA TA CY BL ET #5 91 FU 00 03 04 00 30 30 WA 69 No Ac RO 37 -2 -1 .0 L- 65 t ti SE 80 6- 0- 00 MA [address] 21 20 20 RT 4 ai DE [...] E 25 #5 91 MG TA B GL 00 12 04 02 60 30 [...] 91 MG TA B AC 64 12 04 10 15 30 69 No Ac TO 76 -1 -0 .0 L- 52 t ti S 40 4- 7- 00 MA 47 Av ve 45 45 20 20 RT 5 ai 12 07 08 la MG 4 PH bl AR e TA MA BL CY ET #5 91 LI 00 11 04 12 13 30 WA 69 No Ac PI 07 -2 -0 .0 L- 50 t ti TO 10 9 7- 00 MA 32 Av ve R 15 20 20 RT 8 ai 20 62 07 08 la 3 PH bl MG AR e MA TA CY BL ET #5 91 PA 68 12 04 30 WA 69 No Ac RO 38 -1 -0 .0 L- 52 t ti XE 20 4- 7- 00 MA 47 Av ve TI 00 20 20 RT 4 ai NE 10 07 08 la 6 PH bl HC AR e L MA 40 CY MG #5 91 TA BL ET TA 00 01 04 10 15 30 WA 69 No Ac RK 07 -3 -0 .0 L- 58 t ti A 43 1- 7- 00 MA 23 Av ve ER 29 20 20 RT 1 ai 01 08 08 la 4- 3 PH bl 24 AR e 0 MA MG CY TA #5 BL 91 ET FU 00 11 04 12 13 30 WA 69 No Ac RO 37 -1 -0 .0 L- 49 t ti SE 80 9- 7- 00 MA [address] 21 20 20 RT 8 ai DE 61 07 08 la 0 PH bl 40 AR e MA MG CY TA #5 BL 91 ET LI 00 11 03 02 30 30 69 No Ac PI 07 -2 -2 .0 L- 50 t ti TO 10 9- 6- 00 MA 32 Av ve R 15 20 20 RT 8 ai 20 62 07 08 la 3 PH bl MG AR e MA TA CY BL ET #5 91 FA 00 02 03 00 3. 1 WA 69 No Ac MC 09 -1 -2 00 L- 60 t ti IC 38 4- 6- 0 MA 36 Av ve LO 11 20 20 RT 6 ai 95 08 08 la R 6 PH bl 50 AR e 0 MA MG CY TA #5 BL 91 ET 63 02 03 00 40 10 WA 69 No Ac 30 -1 -2 .0 L- 60 t ti 40 8- 6- 00 MA 86 Av ve 65 20 20 RT 2 ai 70 08 08 la 1 PH bl AR e MA CY #5 91 GL 00 12 03 01 [...] #5 BL 91 ET HY 00 10 03 03 30 30 WA [address] 17 -1 -2 .0 L- 45 t ti OC 22 7- 5- 00 MA 41 Av ve HL 08 20 20 RT 4 ai OR 38 07 08 la OT 0 PH bl HI AR e AZ MA ID CY E 25 #5 91 MG TA B DI 00 11 03 02 30 30 WA 44 No Ac AZ 37 -1 -2 .0 L- 64 t ti EP 80 4- 5- 00 MA 28 Av ve AM 47 20 20 RT 7 ai 70 07 08 la 10 5 PH bl AR e MG MA CY TA BL #5 ET 91 PA 60 12 03 01 30 30 WA 69 No Ac RO 50 -1 -2 .0 L- 52 t ti XE 50 4- 5- 00 MA 47 Av ve TI 10 20 20 RT 4 ai NE 10 07 08 la 1 PH bl HC AR e L MA 40 CY MG #5 91 TA BL ET FU 00 11 03 02 30 30 WA 69 No Ac RO 37 -1 -2 .0 L- 49 t ti SE 80 9- 5- 00 MA [address] 21 20 20 RT 8 ai DE [...] ider Refu lity Give sed n IIV3 10- 141 CAROLINE No CAROLINE 2-20 VEE VEE VACC 11 CO CO INE HEAL HEAL SPLI TH TH T CENT CENT VIRU ER ER S 0.5 ML DOSA GE IM USE IIV3 11- 141 CAROLINE No CAROLINE 0-20 VEE VEE VACC 10 CO CO INE HEAL HEAL SPLI TH TH T CENT CENT VIRU ER ER S 0.5 ML DOSA GE IM USE PPSV 11-2 33 CAROLINE No DHS/ 23 3-20 VEE CO VACC 09 CO HEAL INE HEAL TH 2 TH CENT YRS CENT RAL OR ER BANK OLDE R ACCT FOR SUBQ /IM USE IIV3 09-3 141 CAROLINE No DHS/ 0-20 VEE CO VACC 09 CO HEAL INE HEAL TH SPLI TH CENT T CENT RAL VIRU ER BANK S 0.5 ACCT ML DOSA GE IM USE Procedures Procedure DOS Code Location Performer Comment PRESSURIZ [id number] MANN D[facility]PRE [facility] SS[facility]IZED INC INC INHALATIO N TREATMENT INJECTION J1642 M[facility] HEPARIN 6 [facility] SODIUM INC INC PER 10 UNITS GLUC BLD 90846 MANN DARNELL GLUC MNTR 6 [facility] DEV INC INC CLEARED FDA SPEC HOME USE BLOOD 66585 MANN DARNELL COUNT 6 [facility] COMPLETE INC INC AUTO&AUTO DIFRNTL WBC COLLECTIO 49668 MANN DARNELL N VENOUS 6 [facility] BLOOD INC INC VENIPUNCT URE COMPREHEN 09075 [facility] SIVE 6 [facility] METABOLIC INC INC PANEL INJECTION J0692 MANN DARNELL CEFEPIME 6 [facility] INC INC HYDROCHLO RIDE 500 MG THERAPEUT 58574 MANN DARNELL IC PX 1/> 6 [facility] AREAS INC INC EACH 15 MIN EXERCISES GLUC BLD 61795 MANN DARNELL GLUC MNTR 6 [facility] DEV INC INC CLEARED FDA SPEC HOME USE PRESSURIZ 48985 MANN MANN ED/NONPRE 6 [facility] SSURIZED INC INC INHALATIO N TREATMENT NONINVASI 89907 MANN MANN VE 6 [facility] EAR/PULSE INC INC OXIMETRY SINGLE DETER NONINVASI 97465 MANN MANN VE 6 [facility] EAR/PULSE INC INC OXIMETRY SINGLE DETER PRESSURIZ 04243 MANN MANN ED/NONPRE 6 [facility] SSURIZED INC INC INHALATIO N TREATMENT RADIOLOGI 22543 MANN DARNELL C 6 [facility] EXAMINATI INC INC ON CHEST SINGLE VIEW FRONTAL GLUC BLD 59059 MANN DARNELL GLUC MNTR 6 [facility] DEV INC INC CLEARED FDA SPEC HOME USE BASIC 72335 MANN DARNELL METABOLIC 6 [facility] PANEL INC INC CALCIUM TOTAL PHYSICAL 92022 MANN MANN THERAPY 6 [facility] EVALUATIO INC INC N THERAPEUT 97016 MANN DARNELL IC PX 1/> 6 [facility] INC INC [place]ACH [address] [place] [address] MANN BLAKEON AMMONIA 6 [facility] INC INC INJECTION J0692 MANN MANN CEFEPIME 6 [facility] INC INC HYDROCHLO RIDE 500 MG COLLECTIO 39368 MANN DARNELL N VENOUS 6 [facility] BLOOD INC INC VENIPUNCT URE THERAPEUT 61345 MANN DARNELL ACTVITY 6 [facility] DIRECT PT INC INC CONTACT EACH 15 MIN INJECTION J0692 MANN DARNELL CEFEPIME 6 [facility] INC INC HYDROCHLO RIDE 500 MG GLUC BLD 72695 MANN DARNELL GLUC MNTR 6 [facility] DEV INC INC CLEARED FDA SPEC HOME USE PRESSURIZ 30324 MANN DARNELL ED/NONPRE 6 [facility] SSURIZED INC INC INHALATIO N TREATMENT NONINVASI 46303 MANN DARNELL VE 6 [facility] EAR/PULSE INC INC OXIMETRY SINGLE DETER PRESSURIZ 85156 MANN DARNELL ED/NONPRE 6 [facility] SSURIZED INC INC INHALATIO N TREATMENT GLUC BLD 18843 MANN DARNELL GLUC MNTR 6 [facility] DEV INC INC CLEARED FDA SPEC HOME USE INJECTION J0692 MANN DARNELL CEFEPIME 6 [facility] INC INC HYDROCHLO RIDE 500 MG COMPREHEN 48707 MANN DARNELL SIVE 6 [facility] [place] [address] MANN DARNELL MAGNESIUM 6 [facility] INC INC COLLECTIO 50599 MANN DARNELL N VENOUS 6 [facility] BLOOD INC INC VENIPUNCT URE BLOOD 51405 MANN DARNELL COUNT 6 [facility] COMPLETE INC INC AUTO&AUTO DIFRNTL WBC BLOOD 81373 MANN DARNELL COUNT 6 [facility] COMPLETE INC INC AUTO&AUTO DIFRNTL WBC COLLECTIO 66688 MANN DARNELL N VENOUS 6 [facility] [address] MANN DARNELL ANGIOGRAP 6 [facility] HY CHEST INC INC W/CONTRAS T/NONCONT RAST INJECTION J0692 MANN DARNELL CEFEPIME 6 [facility] INC INC HYDROCHLO RIDE 500 MG GLUC BLD 12816 MANN DARNELL GLUC MNTR 6 [facility] DEV INC INC CLEARED FDA SPEC HOME USE BASIC 80910 MANN DARNELL METABOLIC 6 [facility] PANEL INC INC CALCIUM TOTAL BRNCDILAT 24032 MANN DARNELL RSPSE 6 [facility] SPMTRY INC INC PRE&POST- BRNCDILAT ADMN NONINVASI 00726 MANN DARNELL VE 6 [facility] EAR/PULSE INC INC OXIMETRY SINGLE DETER CULTURE 66106 MANN DARNELL BACTERIAL 6 [facility] BLOOD INC INC AEROBIC W/ID ISOLATES LOCM Q9967 MANN DARNELL [phone] [facility] MG/ML INC INC IODINE CONCENTRA TION PER ML NONINVASI 50654 MANN DARNELL VE 6 [facility] EAR/PULSE INC INC OXIMETRY SINGLE DETER BASIC 40045 MANN DARNELL METABOLIC 6 [facility] PANEL INC INC CALCIUM TOTAL GLUC BLD 99471 MANN DARNELL GLUC MNTR 6 [facility] DEV INC INC CLEARED FDA SPEC HOME USE COLLECTIO 75275 MANN DELMI N VENOUS 6 [facility], BLOOD INC LLC. VENIPUNCT URE BLOOD 73978 MANN DARNELL COUNT 6 [facility] COMPLETE INC INC AUTO&[place] [address] MANN DARNELL MAGNESIUM 6 [facility] INC INC GLUC BLD 56193 MANN DARNELL GLUC MNTR 6 [facility] DEV INC [place] [address] MANN EVRYDAY TROPONIN 6 [facility], QUANTITAT INC LLC. GALDINO BASIC 77453 MANN EVRYDAY METABOLIC 6 [facility], PANEL INC LLC. CALCIUM TOTAL NONINVASI 28942 MANN DARNELL VE 6 [facility] EAR/PULSE INC INC OXIMETRY SINGLE DETER RADIOLOGI 42835 MANN DARNELL C 6 [facility] EXAMINATI INC INC ON CHEST SINGLE VIEW FRONTAL BLOOD 00172 MANN DARNELL COUNT 6 [facility] [place] [address] MANN EVRYDAY TROPONIN 6 [facility], QUANTITAT INC LLC. GALDINO NATRIURET 99091 MANN EVRYDAY IC 6 [facility] PEPTIDE INC LLC. GLUC BLD 93926 MANN DARNELL GLUC MNTR 6 [facility] DEV INC INC CLEARED FDA SPEC HOME USE BLOOD 26621 MANN AWAD GASES ANY 6 [facility], INC LLC. COMBINATI ON PH PCO2 PO2 [place] [address] MANN DARNELL INFUSION 6 [facility] THERAPY/P INC INC ROPHYLAXI S /DX 1ST TO 1 HR THERAPEUT 48726 MANN DARNELL IC 6 [facility] INJECTION INC INC IV PUSH EACH NEW DRUG CYANOCOBA 53738 MANN DARNELL TIMA 6 [facility] VITAMIN INC INC B-12 BLOOD 28702 MANN DARNELL COUNT 6 [facility] COMPLETE INC INC AUTO&AUTO DIFRNTL WBC COMPREHEN 55752 MANN EVRYDAY SIVE 6 [facility] METABOLIC INC LLC. PANEL COLLECTIO 77895 MANN AWAD N VENOUS 6 [facility] [place]LO[place] [address] MANN EVRYDAY FOLIC 6 [facility] ACID INC [facility]. SERUM COMPREHEN 87293 MANN DARNELL SIVE 6 [facility] METABOLIC INC INC PANEL COLLECTIO 63446 MANN DARNELL N VENOUS 6 [facility] BLOOD INC INC VENIPUNCT URE BLOOD 17460 MANN MANN COUNT 6 [facility] COMPLETE INC INC AUTO&AUTO DIFRNTL WBC NONINVASI 65714 MANN DARNELL VE 6 [facility] EAR/PULSE INC INC OXIMETRY SINGLE DETER RADIOLOGI 14182 MANN DARNELL C 6 [facility] EXAMINATI INC INC ON CHEST SINGLE VIEW FRONTAL PRESSURIZ 19424 MANN DARNELL ED/NONPRE 6 [facility] SSURIZED INC INC INHALATIO N TREATMENT CULTURE 85087 MANN DARNELL BACTERIAL 6 [facility] INC INC QUANTTATI VE COLONY COUNT URINE NONINVASI 24640 MANN DARNELL VE 6 [facility] EAR/PULSE INC INC OXIMETRY SINGLE DETER BASIC 39448 MANN MANN METABOLIC 6 [facility] PANEL INC INC CALCIUM TOTAL URNLS DIP 92022 MANN DARNELL 6 [facility] STICK/TAB INC INC LET REAGENT AUTO MICROSCOP Y COLLECTIO 23421 MANN DARNELL N VENOUS 6 [facility] BLOOD INC INC VENIPUNCT URE CREATINE 04156 MANNRAY DARNELL KINASE MB 6 [facility] [place] [address] MANN MANN THYROID 6 [facility] STIMULATI INC INC NG HORMONE TSH COMPREHEN 07831 MANN DARNELL SIVE 6 [facility] [address] MANN DARNELL TROPONIN 6 [facility] QUANTITAT INC INC GALDINO CREATINE 08317 MANN DARNELL KINASE 6 [facility] TOTAL INC INC ECG 74951 MANN DARNELL ROUTINE 6 [facility] ECG INC INC W/LEAST 12 LDS TRCG ONLY W/O I&R BLOOD 25059 MANN DARNELL COUNT 6 [facility] COMPLETE INC INC AUTO&AUTO DIFRNTL WBC NATRIURET 80004 MANN DARNELL IC 6 [facility] PEPTIDE INC INC RADIOLOGI 15442 MANN DARNELL C 6 [facility] EXAMINATI INC INC ON CHEST SINGLE VIEW FRONTAL NONINVASI 56943 MANN DARNELL VE 6 [facility] EAR/PULSE INC INC OXIMETRY SINGLE DETER RADIOLOGI 21772 MANN DARNELL C 6 [facility] EXAMINATI INC INC [place] [address] MANN DARNELL TROPONIN 6 [facility] QUANTITAT INC INC GALDINO NATRIURET 81742 MANN DARNELL IC 6 [facility] PEPTIDE INC INC BLOOD 07860 MANN DARNELL GASES ANY 6 [facility] INC INC COMBINATI ON PH PCO2 PO2 CO2 HCO3 BLOOD 92023 MANN DARNELL COUNT 6 [facility] COMPLETE INC INC AUTO&AUTO DIFRNTL WBC ECG 41859 MANN DARNELL ROUTINE 6 [facility] ECG INC INC W/LEAST 12 LDS TRCG ONLY W/O I&R CREATINE 57206 MANN DARNELL KINASE 6 [facility] TOTAL INC INC CREATINE 25855 MANN DARNELL KINASE MB 6 [facility] FRACTION INC INC ONLY COMPREHEN 05754 MANN DARNELL SIVE 6 [facility] METABOLIC INC INC PANEL THER 80223 MANN DARNELL PROPH/DX 6 [facility] NJX IV INC INC PUSH SINGLE/1S T SBST/[place] [address] MANN DARNELL THYROID 6 [facility] STIMULATI INC INC NG HORMONE TSH INSERTION [id number] MANN DARNELL VAD 6 [facility] CHEST INC INC SUBQ TISSUE & FASCIA OPEN INSERTION [id number] MANN DARNELL INFUSION 6 [facility] DEVC RT INC INC SUBCLAVIA N VEIN PERQ FLUORO [id number] MANN DARNELL MULTI 6 [facility] CORONARY INC INC ARTERIES LOW OSMOLAR CONT MEASUREME [id number] MANN DARNELL NT 6 [facility] CARDIAC INC INC SAMPLING PRESS LT HEART PERQ FLUOROSCO [id number] MANN DARNELL PY LEFT 6 [facility] HEART LOW INC INC OSMOLAR CONTRAST [facility] K0006 [facility] H[facility]P WHEELCHAI EQUIP EQUIP R HEAVY-DUT K0006 [facility] HOSP WHEELCHAI EQUIP EQUIP R HEAVY-DUT K0006 [facility] HOSP WHEELCHAI EQUIP EQUIP R HEAVY-DUT K0006 [facility] HOSP WHEELCHAI EQUIP EQUIP R HEAVY-DUT K0006 [facility] HOSP WHEELCHAI EQUIP EQUIP R RADIOLOGI 63693 CELE[facility]INO MAT CELESTINO MAT C 3 EXAMINATI ON ANKLE 2 VIEWS BLOOD 74759 [facility] COUNT 3 N N COMPLETE [facility] AUTO&AUTO HOSPITA HOSPITA DIFRNTL WBC COLLECTIO 82634 [facility] N VENOUS 3 N N BLOOD [facility] VENIPUNCT HOSPITA HOSPITA URE BASIC 53123 [facility] METABOLIC 3 N N PANEL [facility] CALCIUM HOSPITA HOSPITA TOTAL RADIOLOGI 76954 PB AMBRIZ C EXAM 3 RHO RHO CHEST 2 VIEWS FRONTAL&L ATERAL [facility] K0006 [facility] HOSP WHEELCHAI EQUIP EQUIP R HEAVY-DUT K0006 [facility] HOSP WHEELCHAI EQUIP EQUIP R SCREENING [id number] MANN DARNELL 3 [facility] MAMMOGRAP INC INC HY JOSEFINA INCL CAD WHEN PERFORMD DUPLEX 34036 MANN DARNELL SCAN 3 [facility] EXTRACRAN INC INC IAL ART COMPL BI STUDY COMPUTER- 84046 MANN DARNELL AIDED 3 [facility] DETECTION INC INC SCREENING MAMMOGRAP HY ECG 53714 [facility] ROUTINE 3 N N ECG [facility] W/LEAST HOSPITA HOSPITA 12 LDS TRCG ONLY W/O I&R BLOOD 43227 [facility] COUNT 3 N N COMPLETE [facility] AUTO&AUTO HOSPITA HOSPITA DIFRNTL WBC COLLECTIO 98391 [facility] N VENOUS 3 N N BLOOD [facility] VENIPUNCT HOSPITA HOSPITA URE RADIOLOGI 65943 CELESTINO MAT CELESTINO MAT C EXAM 3 CHEST 2 VIEWS FRONTAL&L ATERAL BASIC 51540 [facility] METABOLIC 3 N N PANEL [facility] CALCIUM HOSPITA HOSPITA TOTAL HEAVY-DUT K0006 [facility] Y 3 HOSP HOSP WHEELCHAI EQUIP EQUIP R WHEELCHAI 02696 MANN Vázquez MGMT EA 3 MEM HOSP MEM HOSP 15 MIN INC INC RADEX 65520 [facility] 3 Y Y COMPLETE [facility] MINIMUM 3 VIEWS DOP 44747 [facility] ECHOCARD 2 [place] V[place] [address] [facility] ECHO 2 CONTRAST AGENT DURING STRESS ECHO DOPPLER 81060 [facility] ECHOCARD 2 PULSE WAVE W/SPECTRA L DISPLAY ECHO 74568 [facility] TTHRC R-T 2 2D W/WO M-MODE REST&STRS CONT ECG INJECTION Q9957 [facility] 2 PERFLUTRE N LIPID MICROSPHE RES PER ML HEAVY-DUT K0006 DAINA LAMA Y 2 HOSP [facility] EQUIP EQUIP R ECG 55841 [facility] ROUTINE 2 ECG W/LEAST 12 LDS I&R ONLY RADIOLOGI 18017 [facility] C EXAM 2 [place] CHEST 2 JI JI VIEWS FRONTAL&L ATERAL ECG 67759 [facility] ROUTINE 2 [place] ECG JI JI W/LEAST 12 LDS TRCG ONLY W/O I&R BLOOD 77886 [facility] COUNT 2 [place] COMPLETE JI IJ AUTO&AUTO DIFRNTL WBC COLLECTIO 47322 [facility] N VENOUS 2 [place] BLOOD JI JI VENIPUNCT URE COMPREHEN 50406 [facility] SIVE 2 [place] METABOLIC JI JI PANEL HEAVY-DUT K0006 ADINA LAMA Y 2 HOSP [facility] EQUIP EQUIP R RADEX 66135 [facility] ANKLE 2 COMPLETE MINIMUM 3 VIEWS DIAB ONLY A5500 CHERELLE VILLARREAL FIT CSTM 2 ORTHOPEDI ORTHOPEDI PREP&SPL CS CS SHOE MX DNSITY INSRT BASIC 58453 [facility] METABOLIC 2 DIAGNOSTI DIAGNOSTI PANEL CS CS CALCIUM TOTAL GLUCOSE 13242 RASHAAD EILEEN RASHAAD EILEEN QUANTITAT 2 GALDINO BLOOD XCPT REAGENT STRIP HEMOGLOBI 44332 RASHAAD CROOKES EILEEN N 2 GLYCOSYLA ELSA A1C LIPID 58081 RASHAAD CROOKES EILEEN PANEL 2 TRANSFERA 53033 RASHAAD CROOKES EILEEN SE 2 ASPARTATE AMINO AST SGOT ADD LW L2820 CHERELLE VILLARREAL EXT ORTH 2 ORTHOPEDI ORTHOPEDI SFT CS CS INTERFCE MOLD BELW KNEE RADEX 73864 BARROW, BARROW, ANKLE 2 JR. FREYA JR. FREYA COMPLETE MINIMUM 3 VIEWS SEAT E0156 SHIVANI PARRISH ATTACHMEN 2 SURGICAL SURGICAL T WALKER WALKER E0143 SHIVANI PARRISH FOLDING 2 SURGICAL SURGICAL WHEELED ADJUSTABL E/FIXED HEIGHT DIAB ONLY A5500 SHIVANI PARRISH FIT CSTM 2 SURGICAL SURGICAL PREP&SPL SHOE MX DNSITY INSRT COLLECTIO 08534 RASHAAD EILEEN RASHAAD EILEEN N VENOUS 2 BLOOD VENIPUNCT URE LIPID 01699 QUEST QUEST PANEL 2 DIAGNOSTI DIAGNOSTI CS CS HEMOGLOBI 15173 QUEST QUEST N 2 DIAGNOSTI DIAGNOSTI GLYCOSYLA CS CS ELSA A1C BASIC 48661 QUEST QUEST METABOLIC 2 DIAGNOSTI DIAGNOSTI PANEL CS CS CALCIUM TOTAL TRANSFERA 47544 QUEST QUEST SE 2 DIAGNOSTI DIAGNOSTI ASPARTATE CS CS AMINO AST SGOT TRANSFERA 48480 QUEST QUEST SE 2 DIAGNOSTI DIAGNOSTI ASPARTATE CS CS AMINO AST SGOT BASIC 58384 QUEST QUEST METABOLIC 2 DIAGNOSTI DIAGNOSTI PANEL CS CS CALCIUM TOTAL HEMOGLOBI 42075 QUEST QUEST N 2 DIAGNOSTI DIAGNOSTI GLYCOSYLA CS CS ELSA A1C LIPID 94985 QUEST QUEST PANEL 2 DIAGNOSTI DIAGNOSTI CS CS COLLECTIO 03016 YOSSI YOSSI N VENOUS 2 DAO DAO BLOOD VENIPUNCT URE COMPUTER- 44311 [facility] KATHRYN AIDED 1 [facility] DETECTION IMAGING ASS SCREENING MAMMOGRAP HY SCREENING G0202 [facility]AM[facility]RE KATHRYN 1 MEDICAL [facility] MAMMOGRAP IMAGING HY JOSEFINA ASS INCL CAD WHEN PERFORMD IIV3 18218 MANN MANN VACCINE 1 [facility] CENTER VIRUS 0.5 ML DOSAGE IM USE LIPID 64146 QUEST QUEST PANEL 1 DIAGNOSTI DIAGNOSTI CS CS HEMOGLOBI 08591 QUEST QUEST N 1 DIAGNOSTI DIAGNOSTI GLYCOSYLA CS CS ELSA A1C BASIC 20694 QUEST QUEST METABOLIC 1 DIAGNOSTI DIAGNOSTI PANEL CS CS CALCIUM TOTAL TRANSFERA 22914 QUEST QUEST SE 1 DIAGNOSTI DIAGNOSTI ASPARTATE CS CS AMINO AST SGOT GAUZE A6402 [facility]PRE 1 [facility] SQ/< AGENCY AGENCY W/O ADHES BORDR CONFORMIN A6446 [facility] G BANDGE 1 HOME REFERENC NON-[facility]ENCY KNITTED/W OVEN ST[facility] TAPE A4450 [facility] NON-WATER 1 HOME HOME PROOF PER HEALTH HEALTH 18 AGENCY AGENCY SQUARE INCHES BLOOD 50731 MANN [facility] COMPLETE INC INC AUTO&[place] [address] MANN [facility] INFUSION 1 [facility] THERAPY/P INC INC ROPHYLAXI S /DX 1ST TO 1 HR RADEX 29601 EB KATHRYN FOOT 1 [facility] COMPLETE IMAGING MINIMUM 3 ASS VIEWS BASIC 01585 MANN [facility] METABOLIC 1 [facility] PANEL INC INC CALCIUM TOTAL SUSCEPTIB 99452 MANN [facility] LTY STDY 1 [facility] ANTIMICRB INC INC IAL MICRO/AGA R DILUTJ CUL BACT 28670 MANN MANN AEROBIC 1 [facility] ADDL INC INC METHS DEFINITIV E EA ISOL CUL BACT 74249 [facility] XCPT 1 [facility] URINE INC INC BLOOD/STO OL AEROBIC ISOL TUBULAR A6457 SHANDACO SHANDACO DRSG W/WO 1 HOME HOME ELASTIC HEALTH HEALTH ANY WDTH AGENCY AGENCY PER LINEAR YD CONFORMIN A6446 [facility] B[facility] HOME NON-[facility]AST [facility] HE[facility] AGENCY AGENCY KNITTED/W OVEN STERL CONFORMIN A6446 [facility] B[facility]GE 1 HOME HOME NON-[facility] HEALTH AGENCY AGENCY KNITTED/W OVEN STERL GAUZE A6402 [facility] NON-IMPRE 1 HOME HOME G STERL HEALTH HEALTH 16 SQ/< AGENCY AGENCY W/O ADHES BORDR GLOVES A4927 [facility] NON-STERI 1 HOME HOME LE PER HEALTH HEALTH 100 AGENCY AGENCY TAPE A4450 [facility] NON-WATER 1 HOME HOME PROOF PER HEALTH HEALTH 18 AGENCY AGENCY SQUARE INCHES STERILE A4217 [facility] WATER/SULEMA 1 HOME HOME INE 500 [place] [address] MANN [facility] INFUSION 1 [facility] THERAPY/P INC INC ROPHYLAXI S /DX 1ST TO 1 HR BLOOD 96148 [facility] COUNT 1 [facility] COMPLETE INC INC AUTO&AUTO DIFRNTL WBC CUL BACT 57817 M[facility] AEROBIC 1 [facility] ADDL INC INC METHS DEFINITIV E EA ISOL SUSCEPTIB 79217 MANN [facility] LTY STDY 1 [facility] ANTIMICRB INC INC IAL MICRO/AGA R DILUTJ CULTURE 64093 M[facility] BACTERIAL 1 [facility] BLOOD INC INC AEROBIC W/ID ISOLATES BASIC 63975 MANN [facility] METABOLIC 1 [facility] PANEL INC INC CALCIUM TOTAL DIAB ONLY A5500 SHIVANI PARRISH FIT CSTM 1 SURGICAL SURGICAL PREP&SPL SHOE MX DNSITY INSRT FOR DIAB A5512 SHIVANI ROSS ONLY MX 1 SURGICAL SURGICAL DNSITY INSRT DIR FORMD PRFAB EA BASIC 06753 [facility] METABOLIC 1 [facility] PANEL CALCIUM TOTAL HEMOGLOBI 49853 [facility] N 1 [facility] GLYCOSYLA ELSA A1C LIPID 72982 [facility] PANEL 1 [facility] TRANSFERA 85425 [facility] SE 1 [facility] ASPARTATE AMINO AST SGOT SCREENING G0202 [place] KATHRYN 0 [facility] MAMMOGRAP IMAGING HY JOSEFINA ASS INCL CAD WHEN PERFORMD COMPUTER- 40019 [facility] AIDED 0 MEDICAL [facility] DETECTION IMAGING ASS SCREENING MAMMOGRAP HY IIV3 13007 MANN DARNELL VACCINE 0 [facility] VIRUS 0.5 ML DOSAGE IM USE LIPID 60294 [facility] PANEL 0 [facility] HEMOGLOBI 55068 [facility] N 0 [facility] GLYCOSYLA ELSA A1C BASIC 99976 [facility] METABOLIC 0 [facility] PANEL CALCIUM TOTAL TRANSFERA 41524 [facility] SE 0 [facility] ASPARTATE AMINO AST SGOT BLD GLU A4253 AM MED AM MED TEST/REAG 0 DIRECT DIRECT T STRIPS [facility] HOME BLD GLU MON-50 BLD GLU A4253 AM MED AM MED TEST/REAG 0 DIRECT DIRECT T STRIPS [facility] HOME BLD GLU MON-50 LANCETS A4259 AM MED AM MED PER BOX 0 DIRECT DIRECT OF 100 [facility] DETERMINA 68864 [facility], TION 0 FOR FRANSISCO REFRACTIV EYEHLTH & C E STATE SURGPS DUPLEX 49364 [place] KATHRYN, SCAN 0 MEDICAL IVAN EXTRACRAN IMAGING IAL ART ASSOCIATE COMPL BI S STUDY LIPID 48850 [facility] PANEL 0 [facility] BASIC 11409 [facility] METABOLIC 0 [facility] PANEL CALCIUM TOTAL HEMOGLOBI 28551 A C YOSSI, N 0 JERSEY BECKER GLYCOSYLA PSC ELSA A1C TRANSFERA 44878 [facility] SE 0 [facility] ASPARTATE AMINO AST SGOT BLD GLU A4253 AM MED AM MED TEST/REAG 0 DIRECT DIRECT T STRIPS [facility] HOME BLD GLU MON-50 BLD GLU A4253 AM MED AM MED TEST/REAG 0 DIRECT DIRECT T STRIPS [facility] HOME D PHARMACY PHARMACY GLU MON-50 LANCETS A4259 AM MED AM MED PER BOX 0 DIRECT DIRECT OF 100 [facility] PHARMACY PHARMACY BLD GLU A4253 AM MED AM MED TEST/REAG 0 DIRECT DIRECT T STRIPS [facility] HOME D PHARMACY PHARMACY GLU MON-50 DIAB ONLY A5500 SHIVANI PARRISH FIT CSTM 0 SURGICAL SURGICAL PREP&SPL SHOE MX DNSITY INSRT FOR DIAB A5512 SHIVANI PARRISH ONLY MX 0 SURGICAL SURGICAL DNSITY INSRT DIR FORMD PRFAB EA BLD GLU A4253 AM MED AM MED TEST/REAG 0 [facility] GLU MON-50 HEMOGLOBI 83190 [facility] N 0 [facility] GLYCOSYLA ELSA A1C BASIC 74746 [facility] METABOLIC 0 [facility] PANEL CALCIUM TOTAL LIPID 90852 [facility] PANEL 0 [facility] TRANSFERA 50445 [facility] SE 0 [facility] ASPARTATE AMINO AST SGOT BLD GLU A4253 AM MED AM MED TEST/REAG 0 DIRECT DIRECT T STRIPS [facility] PHARMACY PHARMACY GLU MON-50 LANCETS A4259 AM MED AM MED PER BOX 0 DIRECT DIRECT OF 100 [facility] PHARMACY PHARMACY BLD GLU A4253 AM MED AM MED TEST/REAG 0 DIRECT DIRECT T STRIPS [facility] PHARMACY PHARMACY GLU MON-50 POSTERIOR V2632 [facility] CHAMBER 9 [facility] INTRAOCUL [facility] LENS [facility] CATARACT 43334 [facility] REMOVAL 9 [facility] INSERTION [facility] LENS [facility] OPH BMTRY 42057 [facility], 9 FOR FRANSISCO ECHOGRAPY EYEHLTH & C A-SCAN SURGPSC IO LENS PWR GUS BLD GLU A4253 AM MED AM MED TEST/REAG 9 DIRECT [facility] PHARMACY GLU 50 ANESTHESI 65509 [facility], A EYE 9 [facility] LAN R LENS ANESTHESI SURGERY A PSC CATARACT 57959 [facility], REMOVAL 9 FOR FRANSISCO INSERTION EYEHLTH & C OF LENS SURGPSC PPSV23 20613 DHS/CO MANN VACCINE 2 9 HEALTH CO HEALTH YRS OR [facility] OLDER FOR BANK ACCT SUBQ/IM USE OPH BMTRY 68951 [facility], US 9 FOR FARNSISCO ECHOGRAPY EYEHLTH & C A-SCAN SURGPSC IO LENS PWR GUS OPHTH 58582 [facility], MEDICAL 9 FOR FRANSISCO XM&EVAL EYEHLTH & C COMPRHNSV SURGPSC ESTAB PT 1/> BLD GLU A4253 AM MED AM MED TEST/REAG 9 DIRECT DIRECT T STRIPS [facility] HOME D PHARMACY PHARMACY GLU SAT-50 LANCETS A4259 AM MED AM MED PER BOX 9 DIRECT DIRECT OF 100 [facility] PHARMACY PHARMACY TRANSFERA 72317 [facility] SE 9 AMERIC AMERIC ASPARTATE [place] [address] [facility] THYROID 9 AMERIC AMERIC STIMULATI HOLDING HOLDING NG HORMONE TSH BASIC 41839 [facility] METABOLIC 9 AMERIC AMERIC PANEL HOLDING HOLDING CALCIUM TOTAL LIPID 31861 [facility] PANEL 9 AMERIC AMERIC HOLDING HOLDING HEMOGLOBI 34493 [facility] N 9 AMERIC AMERIC GLYCOSYLA HOLDING HOLDING ELSA A1C BLD GLU A4253 AM MED AM MED TEST/REAG 9 DIRECT DIRECT T STRIPS [facility] HOME D PHARMACY PHARMACY GLU IIV3 64523 DHS/CO MANN VACCINE 9 HEALTH CO [facility] VIRUS 0.5 BANK ACCT ML DOSAGE IM USE COMPUTER- 08931 MANN [facility] AIDED 9 [facility] DETECTION INC INC SCREENING MAMMOGRAP HY SCREENING 05179 [facility]LL 9 [facility] MAMMOGRAP INC INC HY BILATERAL FOR DIAB A5512 SHIVANI PARRISH ONLY MX 9 SURGICAL SURGICAL DNSITY INSRT DIR FORMD PRFAB EA DIAB ONLY A5500 SHIVANI PARRISH FIT CSTM 9 SURGICAL SURGICAL PREP&SPL SHOE MX DNSITY INSRT BLD GLU A4253 AM MED AM MED TEST/REAG 9 DIRECT DIRECT T STRIPS [facility] HOME D PHARMACY PHARMACY GLU SAT- BLD GLU A4253 AM MED AM MED TEST/REAG 9 DIRECT DIRECT T STRIPS [facility] HOME D PHARMACY PHARMACY GLU SAT- LANCETS A4259 AM MED AM MED PER BOX 9 DIRECT DIRECT OF 100 [facility] PHARMACY PHARMACY COLLECTIO 84099 Bibi BLACK VENOUS 9 JERSEY Langley BLOOD PSC VENIPUNCT URE TRANSFERA 80428 [facility] SE 9 AMERIC AMERIC ASPARTATE HOLDING HOLDING AMINO AST SGOT LIPID 91376 [facility] PANEL 9 AMERIC AMERIC HOLDING HOLDING BASIC 42414 [facility] METABOLIC 9 AMERIC AMERIC PANEL HOLDING HOLDING CALCIUM TOTAL HEMOGLOBI 50432 [facility] N 9 AMERIC AMERIC GLYCOSYLA HOLDING HOLDING ELSA A1C BLD GLU A4253 AM MED AM MED TEST/REAG 9 DIRECT DIRECT T [facility] PHARMACY GLU MON-50 BLD GLU A4253 [facility] TEST/REAG 9 PHARMACY PHARMACY T STRIPS #591 #591 [facility]-50 BLD GLU A4253 AM MED AM MED TEST/REAG 9 DIRECT DIRECT T STRIPS [facility] PHARMACY PHARMACY GLU MON-50 LANCETS A4259 AM MED AM MED PER BOX 9 DIRECT DIRECT OF 100 [facility] PHARMACY PHARMACY BLD GLU A4253 AM MED AM MED TEST/REAG 9 DIRECT DIRECT T [facility] PHARMACY GLU MON-50 BLD GLU A4253 AM MED AM MED TEST/REAG 9 DIRECT DIRECT T [facility] PHARMACY GLU MON-50 TRANSFERA 51870 [facility] SE 9 AMERIC AMERIC ASPARTATE HOLDING HOLDING AMINO AST SGOT COLLECTIO 59205 Sandrine HE VENOUS 9 JERSEY CHA PSC VENIPUNCT URE HEMOGLOBI 69508 [facility] N 9 AMERIC AMERIC GLYCOSYLA HOLDING HOLDING ELSA A1C BASIC 03638 [facility] METABOLIC 9 AMERIC AMERIC PANEL HOLDING HOLDING CALCIUM TOTAL LIPID 97752 [facility] PANEL 9 AMERIC AMERIC HOLDING HOLDING LANCETS A4259 AM MED AM MED PER BOX 9 DIRECT DIRECT OF 100 [facility] BLD GLU A4253 AM MED AM MED TEST/REAG 9 DIRECT DIRECT T STRIPS [facility] BLD GLU MON-50 BLD GLU A4253 AM MED AM MED TEST/REAG 8 DIRECT DIRECT T [facility] PHARMACY GLU MON-50 LANCETS A4259 AM MED AM MED PER BOX 8 DIRECT DIRECT OF 100 [facility] PHARMACY PHARMACY COLLECTIO 56586 Sandrine HE VENOUS 8 PUTNAM MD ROSITA BLOOD PSC VENIPUNCT URE BASIC 82592 [facility] METABOLIC 8 AMERIC AMERIC PANEL HOLDING HOLDING CALCIUM TOTAL LIPID 55205 [facility] PANEL 8 AMERIC AMERIC HOLDING HOLDING HEMOGLOBI 51965 [facility] N 8 AMERIC AMERIC GLYCOSYLA HOLDING HOLDING ELSA A1C TRANSFERA 54148 [facility] SE 8 AMERIC AMERIC ASPARTATE HOLDING HOLDING AMINO AST SGOT URINLS 46127 Bibi SY, DIP 8 JERSEY BECKER STICK/TAB PSC LET REAGNT NON-AUTO MICRSCPY HEMOGLOBI 75495 [facility] N 8 AMERIC AMERIC GLYCOSYLA HOLDING HOLDING ELSA A1C GLUCOSE 69638 [facility] QUANTITAT 8 AMERIC AMERIC GALDINO BLOOD HOLDING HOLDING XCPT REAGENT STRIP LIPID 99728 [facility] PANEL 8 AMERIC AMERIC HOLDING HOLDING COLLECTIO 61694 Bibi BLACK VENOUS 8 JERSEY Langley BLOOD PSC VENIPUNCT URE TRANSFERA 99139 [facility] SE 8 AMERIC AMERIC ASPARTATE HOLDING HOLDING AMINO AST SGOT MAMMOGRAP 00753 [facility] HY 8 MEDICAL KELLEY P UNILATERA IMAGING L ASSOCIATE S EXC B9 84497 Bibi SY, LESION 8 JERSEY BECKER MRGN XCP PSC SK TG T/A/L 2.1-3.0 CM HEMOGLOBI 80678 [facility] N 8 AMERIC AMERIC GLYCOSYLA HOLDING HOLDING ELSA A1C LIPID 86824 [facility] PANEL 8 AMERIC AMERIC HOLDING HOLDING BASIC 41401 [facility] METABOLIC 8 AMERIC AMERIC PANEL HOLDING HOLDING CALCIUM TOTAL COLLECTIO 84217 Bibi BLACK VENOUS 8 JERSEY Langley BLOOD PSC VENIPUNCT URE TRANSFERA 75519 [facility] SE 8 AMERIC AMERIC ASPARTATE HOLDING HOLDING AMINO AST SGOT BLD GLU A4253 [facility] TEST/REAG 8 PHARMACY PHARMACY T STRIPS #591 #591 HOME BLD GLU MON-50 IADNA 52397 Bibi SY STREPTSUNNY 8 JERSEY BECKER CCUS PSC GROUP A QUANTIFIC ATION BLD GLU A4253 [facility] TEST/REAG 8 PHARMACY PHARMACY T STRIPS #591 #591 HOME BLD GLU MON-50 Encounters Encounter Start End Date Code Location Performer Type Date EMERGENCY 67916 [facility] DEPT 6 6 [facility] VISIT INC HIGH SEVERITY& THREAT [facility] MANN - 6 6 [facility] EMERGENCY 94516 MANN 6 6 [facility] VISIT HIGH/URGE NT SEVERITY [facility] MANN - 6 6 [facility] EMERGENCY 74718 MANN DEPT 6 6 [facility] VISIT [facility] HIGH [facility]VERITY& THREAT [facility] DALE - 6 6 [facility] 3 3 N [facility] 3 3 [facility] 3 3 N [facility] OFFICE 80506 BARROW, BARROW, OUTPATIEN 3 3 JR. FREYA PILLAI T VISIT 15 MINUTES [facility] DALE - 3 3 [facility] UNIVERSIT - 3 3 Y [facility] OFFICE 87909 MERLY Byrd OUTPATIEN 2 2 T [facility] 45 MINUTES [facility] 78523 KILPELA KILPELA PREVENTIV 2 2 [place] VACA E MED EST PATIENT 40-64YRS OFFICE 25728 DANIAL, DANIAL, OUTPATIEN 2 2 JR. FREYA PILLAI T VISIT 15 MINUTES [facility] - 2 [facility] T OFFICE 15605 [facility] OUTPATIEN 2 2 T NEW 30 MINUTES OFFICE 11726 RASHAAD EILEEN RASHAAD EILEEN OUTPATIEN 2 2 T VISIT 15 MINUTES OFFICE 39457 BARROW, BARROW, OUTPATIEN 2 2 JR. FREYA PILLAI T VISIT 15 MINUTES OFFICE 73587 BARROW, BARROW, OUTPATIEN 2 2 JR. FREYA PILLAI T NEW 30 MINUTES OFFICE 62045 YOSSI YOSSI OUTPATIEN 2 2 DAO DAO T VISIT 25 MINUTES OFFICE 93406 YOSSI YOSSI OUTPATIEN 2 2 DAO DAO T VISIT 10 MINUTES HOSPITAL MANN - 1 1 [facility] OUTPATIEN INC T OFFICE 84153 YOSSI YOSSI OUTPATIEN 1 1 DAO DAO T VISIT 25 MINUTES HOME [facility], 1 1 HOME OUTPATIEN HEALTH T AGENCY OFFICE 85450 A C YOSSI OUTPATIEN 1 1 JERSEY AARON DAO T VISIT PSC 15 MINUTES EMERGENCY [address] [facility] DEPT 1 1 EMERGENCY [facility] VISIT SERVICES HIGH SEVERITY& THREAT [facility] MANN - 1 1 [facility] OUTPATIEN INC T EMERGENCY 71806 MANN 1 1 [facility] DEPARTMEN INC T VISIT MODERATE SEVERITY HOME [facility], 1 1 HOME OUTPATIEN HEALTH T AGENCY HOME [facility], 1 1 HOME OUTPATIEN HEALTH T AGENCY OFFICE 82455 A C YOSSI OUTPATIEN 1 1 JERSEY AARON DAO T VISIT PSC 25 MINUTES EMERGENCY 55980 MANN 1 1 [facility] DEPARTMEN INC T VISIT HIGH/URGE NT SEVERITY [facility] MANN - 1 1 [facility] OUTPATIEN INC T OFFICE 03882 A C YOSSI OUTPATIEN 1 1 JERSEY Isbell VISIT PSC 25 MINUTES OFFICE 53443 A Korin Mtz OUTPATIEN 1 1 JERSEY Isbell VISIT 5 PSC MINUTES HOSPITAL MANN - 0 0 [facility] OUTPATIEN INC T OFFICE 87771 A Korin SY OUTPATIEN 0 0 JERSEY Isbell VISIT 5 PSC MINUTES OFFICE 34393 [place] SURENDR[facility] PATEL OUTPATIEN 0 0 FOR FRANSISCO T VISIT EYEHLTH & C 15 SURGPSC MINUTES HOSPITAL MANN - 0 0 [facility] OUTPATIEN INC T OFFICE 55636 A C YOSSI OUTPATIEN 0 0 JERSEY Isbell VISIT PSC 25 MINUTES OFFICE 69353 A Bibi ANDUJAR OUTPATIEN 0 0 JERSEY Isbell VISIT 5 PSC MINUTES [facility] [place] [address] 9 [facility] [place] [address] 9 [facility] OFFICE 49327 DHS/CO MANN OUTPATIEN 9 [address] [facility] MINUTES [facility] ACCT OFFICE 08259 A SANJU EPPSPATIEN 9 9 JERSEY Isbell VISIT PSC 15 MINUTES OFFICE 22329 A Korin SY OUTPATITERESSA 9 9 JERSEY Isbell VISIT PSC 25 MINUTES HOSPITAL MANN - 9 9 [facility] OUTPATIEN INC T OFFICE 20240 Bibi BLACK OUTPATITERESSA 9 9 JERSEY Isbell VISIT 5 PSC MINUTES OFFICE 36953 A Korin SY OUTPATITERESSA 9 9 JERSEY Isbell VISIT PSC 25 MINUTES OFFICE 27905 A SANJU EPPSPATITERESSA 9 9 JERSEY Isbell VISIT PSC 25 MINUTES OFFICE 99230 SARAH HE 8 8 JERSEY BECKER T VISIT 5 PSC MINUTES OFFICE 59326 SARAH HE 8 8 JERSEY BECKER T VISIT PSC 25 MINUTES OFFICE 56672 Bibi BLACK 8 8 JERSEY Isbell VISIT 5 PSC MINUTES OFFICE 52212 SARAH HE 8 8 JERSEY BECKER T VISIT PSC 15 MINUTES [facility] MANN - 8 8 [facility] OUTPATIEN INC T OFFICE 37863 SARAH HE 8 8 JERSEY BECKER T VISIT PSC 15 MINUTES OFFICE 74558 Bibi BLACK 8 8 JERSEY Isbell VISIT PSC 25 MINUTES OFFICE 79767 Bibi BLACK 8 8 JERSEY Isbell VISIT 5 PSC MINUTES OFFICE 58103 SARAH HE 8 8 JERSEY Isbell VISIT PSC 15 MINUTES
--- OUTSIDE RECORDS SUMMARY | 2017-04-20 03:22 | External Medical Summary Rpt ---
Author Author , MARIANNA CABRAL Address Unknown Phone [email or web address] Care Team Providers Care Director Auto Name Role Phone A Korin PUTNAM MD [...] FRANSISCO PATEL [employer], Unavailable Unavailable LLC., [employer] HUGO ADRIAN, HUGO Unavailable Unavailable ADRIAN [facility] Unavailable Unavailable HOSPITA, [facility], [facility] Unavailable Unavailable PB RHO, PB Unavailable Unavailable RHO PB RHO, PB Unavailable Unavailable RHO [facility] Unavailable [facility]available [facility] Unavailable Unavailable [place] Unavailable Unavailable INC, [facility], Unavailable Unavailable [facility], Unavailable Unavailable [facility], Unavailable Unavailable [facility] KILPELA JEA, KILPELA Unavailable Unavailable JEA KILPELA JEA, KILPELA Unavailable Unavailable JEA [facility] Unavailable Unavailable HOLDING, [facility] [employer] [employer], Unavailable Unavailable [facility] [employer] [facility] Unavailable Unavailable SERVICES, [facility] Unavailable Unavailable [...] [facility], [facility]available Unavailable [facility] Unavailable Unavailable [facility] MERLY WILLIS Unavailable Unavailable MERLY WILLIS Unavailable Unavailable [facility] Unavailable Unavailable [facility], Unavailable Unavailable [facility] Unavailable Unavailable [address], [facility] Unavailable Unavailable [address], [facility] # Unavailable Unavailable [id number], [facility] # [id number] [facility] Unavailable Unavailable AGENCY, [facility] PUTNAM A, PUTNAM A Unavailable [...] INDEX BMI [facility] 45.0-49.9 INC ADULT [id number] PERSONAL 11-22-2015 [facility] NICOTINE INC DEPENDENCE E8342 HYPOMAGNESE 09-30-2015 [facility]ANCARLOS [facility] INC E876 HYPOKALEMIA 09-30-2015 [facility] INC I129 HYPERTENSIV 09-30-2015 [facility] E CKD [facility] W/STAGE 1-4 INC CKD OR UNS CKD I2510 [facility] [place] 09-30-2015 [facility] CORONARY [facility] ARTERY W/O INC ANGINA PECTORIS N179 ACUTE 09-30-2015 [facility] KIDNEY [facility] FAILURE INC UNSPECIFIED 47865 SEC 06-15-2013 [facility] OSTEOARTHRO SIS ANKLE AND FOOT 8248 UNSPECIFIED 01-28-2013 [facility] CLOSED FRACTURE OF ANKLE 29181 PAIN IN 01-22-2013 [place] [facility] ANKLE AND HOSPITA FOOT 98892 OTHER 01-22-2013 PB RHO NONSPECIFIC ABNORMAL FINDING OF LUNG FIELD V7283 OTHER 01-22-2013 [facility] PRE-OPERATI HOSPITA VE EXAMINATION 7859 OTHER 12-05-2012 [facility] SYMPTOMS [facility] INVOLVING INC CARDIOVASCU LAR SYSTEM V7612 OTHER 12-05-2012 M[facility] SCREENING [facility] MAMMOGRAM INC 85812 PRIMARY 10-23-2012 ALLI BARROW JR. OSTEOARTHRO SIS ANKLE AND FOOT 86908 OSTEOARTHRO 10-08-2012 [facility] SIS UNSPEC [facility] WHETHER INC GEN/LOC ANK&FOOT 86484 DISORDER OF 10-01-2012 [facility] C[facility] UNSPECIFIED 40515 NONSPECIFIC 08-28-2012 [facility] J ABNORMAL ELECTROCARD IOGRAM 7852 UNDIAGNOSED 08-25-2012 [facility] J CARDIAC MURMURS 09932 SHORTNESS 08-25-2012 [facility] J OF BREATH V700 ROUTINE 08-04-2012 [facility]ACA GENERAL MEDICAL EXAM@HEALTH CARE FACL 4019 UNSPECIFIED 07-18-2012 [place] DAO ESSENTIAL HYPERTENSIO N 92565 DIAB W/O 07-17-2012 ST NE[facility] COMP TYPE MOUNT II/UNS NOT JI STATED UNCNTRL 4293 CARDIOMEGAL 07-17-2012 [facility] Y MOUNT JI 4400 ATHEROSCLER 07-17-2012 [facility] AORTA JI V7284 UNSPECIFIED 07-17-2012 [facility] PRE-OPERATI JI VE EXAMINATION 35914 DIAB W/O 06-09-2012 RASHAAD EILEEN MENTION COMP TYPE II/UNS TYPE UNCNTRL 2724 OTHER AND 06-05-2012 RASHAAD EILEEN UNSPECIFIED HYPERLIPIDE JUANCARLOS 4011 ESSENTIAL 06-05-2012 RASHAAD EILEEN HYPERTENSIO N, BENIGN 29003 OSTEOARTHRO 04-22-2012 CHERELLE S UNSPEC ORTHOPEDICS WHETHER GEN/LOC UNSPEC SITE 64247 PLANTAR 03-25-2012 JENY BARROW JR. JAM FIBROMATOSI S 96848 DIAB 02-21-2012 [facility] W/NEURO SURGICAL MANIFESTS TYPE II/UNS NOT UNCNTRL 13896 PRESSURE 02-21-2012 [facility] ULCER SURGICAL UNSPECIFIED SITE E9479 UNSPEC 02-01-2012 [facility] L SBSTNC CAUS ADVRS EFF TX USE V0481 NEED 06-27-2011 [facility] VACCINATION &INOCULATIO N FLU 16554 ULCER OF 05-01-2011 YOSSI DAO OTHER PART OF FOOT 61613 UNSPECIFIED 05-01-2011 YOSSI DAO ARTHROPATHY SITE UNSPECIFIED 38496 OBESITY, 04-16-2011 [facility] UNSPECIFIED HEALTH AGENCY [...] ABSCESS EMERGENCY OF FOOT SERVICES EXCEPT TOES 33244 DIAB W/OTH 02-25-2011 [facility] MANIFESTS [facility] TYPE II/UNS INC NOT UNCNTRL 83969 PRESSURE 02-25-2011 [facility] ULCER OTHER EMERGENCY SITE SERVICES 93672 OTHER 02-25-2011 [facility] ABNORMAL EMERGENCY GLUCOSE SERVICES 7906 OTHER 02-25-2011 [facility] ABNORMAL [facility] BLOOD INC CHEMISTRY V431 LENS 04-13-2010 [place] INST FOR REPLACED BY EYEHLTH & OTHER SURGPSC MEANS 274 GOUT 11-17-2009 A Korin PUTNAM MD PSC 15361 CORTICAL 09-01-2009 [place] INST FOR SENILE EYEHLTH & CATARACT SURGPSC 3669 UNSPECIFIED 09-01-2009 [facility] V1582 PERS HX 09-01-2009 [facility] TOBACCO USE [facility] V0382 NEED PROPH 08-08-2009 [facility]/CO VACCINATION HEALTH AGAINST CENTRAL STREP BANK ACCT PNEUMONE 5990 URINARY 07-28-2009 A Korin LEUNG MD PSC INFECTION SITE NOT SPECIFIED 2449 UNSPECIFIED 07-22-2009 [facility] HYPOTHYROID [facility]ING ISM 6923 [facility] 12-17-2008 A Korin PUTNAM DERMATITIS& PSC OTH ECZEMA-RX&M EDS [facility] W/SKN 7881 DYSURIA 07-16-2008 A Korin PUTNAM MD PSC 1121 CANDIDIASIS 03-11-2008 A Korin PUTNAM OF VULVA PSC AND VAGINA 36790 OTHER SIGN 03-02-2008 [facility] AND SYMPTOM [facility] IN BREAST INC 15565 UNSPECIFIED 03-02-2008 [place] [facility] 7062 SEBACEOUS [...] 0 RE 32 PH 97 16 16 OK YT 9 PH CH OP AR AE LE MA L X CY S AN TI LL FU C NG AL 2% RE 53 04 04 0 85 7 ME 12 GA Ac ME 32 -0 -1 0. D 33 IN ti DY 90 3- 6- 00 CA 98 EY ve 16 20 20 0 RE 48 PH 97 16 16 OK YT 9 PH CH OP AR AE LE MA L X CY S AN TI LL FU C NG AL 2% MA 00 04 04 0 30 5 ME 12 GA Ac PA 90 -0 -0 0. D 29 IN ti P 41 4- 4- 00 CA 37 EY ve 50 98 20 20 0 RE 72 0 86 16 16 OK MG 1 PH CH AR AE TA MA L BL CY S ET LL C RE 53 04 04 0 85 7 ME 12 GA Ac ME 32 -0 -0 0. D 29 IN ti DY 90 3- 4- 00 CA 40 EY ve 16 20 20 0 RE 18 PH 97 16 16 OK YT 9 PH CH OP AR AE LE MA L X CY S AN TI LL FU C NG AL 2% PO 00 04 04 0 60 30 ME 12 GA Ac TA 78 -0 -0 0. D 29 IN ti SS 15 4- 4- 00 CA 37 EY ve IU 71 20 20 0 RE 88 M 01 16 16 OK CL 0 PH CH AR AE ER MA L CY S 10 LL ME C Q TA BL ET Q- 00 04 04 0 11 3 ME 12 GA Ac TU 60 -0 -0 80 D 29 IN ti SS 30 4- 4- .0 CA 37 EY ve IN 85 20 20 00 RE 80 59 16 16 OK DM 4 PH CH AR AE SY MA L RU CY S P LL C FI 74 03 03 0 15 15 ME 12 GA Ac SH 31 -1 -2 0. D 25 IN ti 20 CA 52 EY ve OI 13 20 20 0 RE 01 L 32 16 16 OK 1, 9 PH CH 20 AR AE 0 MA L MG CY S SO LL FT C GE L RE 53 03 03 0 85 5 ME 12 GA Ac ME 32 -1 -1 0. D 22 IN ti DY 90 CA 01 EY ve 16 20 20 0 RE 51 PH 97 16 16 OK YT 9 PH CH OP AR AE LE MA L X CY S AN TI LL FU C NG AL 2% FI 74 03 03 0 15 15 ME 12 GA Ac SH 31 -1 -1 0. D 22 IN ti 20 09-16- CA 01 EY ve OI 13 20 20 0 RE 93 L 32 16 16 OK 1, 9 PH CH 20 AR AE 0 MA L MG CY S SO LL FT C GE L FU 63 09 10 5 30 30 WA 71 RI Ac RO 30 -1 -2 .0 L- 34 SH ti SE 40 3- 8- 00 MA 63 ER ve OK 62 20 20 RT 9 DE 51 [...] ve LA 32 20 20 RT 0 AZ 90 11 11 RI -V 1 PH [...] 3- 5- 00 MA 63 ER ve OK 62 20 20 RT 9 DE 51 [...] ve LA 32 20 20 RT 0 AZ 90 11 11 RI -V 1 PH [...] 6- 9- 00 MA 49 ER ve OK 62 20 20 RT 0 DE 51 [...] ve LA 32 20 20 RT 9 AZ 90 11 11 RI -V 1 PH [...] 6- 9- 00 MA 49 ER ve OK 62 20 20 RT 0 DE 51 [...] ve LA 32 20 20 RT 9 AZ 90 11 11 RI -V 1 PH [...] 6- 3- 00 MA 49 ER ve OK 62 20 20 RT 0 DE 51 [...] ve LA 32 20 20 RT 9 AZ 90 11 11 RI -V 1 PH [...] 0 20 10 WA 71 GR Ac AZ 37 -1 -1 .0 L- 22 AY [...] ve LA 32 20 20 RT 6 AZ 90 11 11 RI -V 1 PH [...] ve LA 32 20 20 RT 6 AZ 90 11 11 RI -V 1 PH [...] ve LA 32 20 20 RT 6 AZ 90 11 11 RI -V 1 PH [...] 7- 3- 00 MA 98 ER ve OK 62 20 20 RT 1 DE 51 [...] LA 32 [address] AZ 90 11 11 EP -V 1 PH [...] 7- 3- 00 MA 98 ER ve OK 62 20 20 RT 1 DE 51 [...] ve LA 32 20 20 RT 6 AZ 90 10 10 RI -V 1 PH [...] 7- 2- 00 MA 98 ER ve OK 62 20 20 RT 1 DE 51 [...] ve LA 32 20 20 RT 6 AZ 90 10 10 RI -V 1 PH [...] 7- 2- 00 MA 98 ER ve OK 62 20 20 RT 1 DE 51 [...] ve LA 32 20 20 RT 6 AZ 90 10 10 RI -V 1 PH CH ER AR AR AP MA D AM CY # ER 10 4- 05 24 91 0 MG FU 63 09 10 1 30 30 WA 70 RI Ac RO 30 -2 -2 .0 L- 87 SH ti SE 40 4- 5- 00 MA 63 ER ve OK 62 20 20 RT 8 DE 51 [...] ve LA 32 20 20 RT 0 AZ 90 10 10 RI -V 1 PH CH ER AR AR AP MA D AM CY # ER 10 4- 05 24 91 0 MG FU 63 09 09 1 30 30 WA 70 RI Ac RO 30 -2 -2 .0 L- 87 SH ti SE 40 4- 4- 00 MA 63 ER ve OK 62 20 20 RT 8 DE 51 [...] ve LA 32 20 20 RT 7 AZ 90 10 10 RI -V 1 PH [...] ve LA 32 20 20 RT 7 AZ 90 10 10 RI -V 1 PH [...] ve LA 32 20 20 RT 7 AZ 90 10 10 RI -V 1 PH [...] 2- 5- 00 MA 97 S ve OK 21 [address] DE [...] 2- 8- 00 MA 97 S ve OK 21 [address] DE [...] 5- 7- 00 MA 76 S ve OK 21 [address] DE [...] 5- 9- 00 MA 76 S ve OK 21 [address] DE [...] 5- 1- 00 MA 76 S ve OK 21 [address] DE [...] 5- 1- 00 MA 76 S ve OK 21 [address] DE [...] 6- 3- 00 MA 62 ER ve OK 21 20 20 RT 4 DE 61 [...] 6- 5- 00 MA 62 ER ve OK 21 20 20 RT 4 DE 61 [...] 6- 8- 00 MA 62 Av ve OK 21 20 20 RT 4 ai DE [...] 6- 0- 00 MA 62 Av ve OK 21 20 20 RT 4 ai DE [...] 9- 7- 00 MA 06 Av ve OK 21 20 20 RT 8 ai DE [...] 9- 5- 00 MA 06 Av ve OK 21 20 20 RT 8 ai DE [...] Procedure DOS Code Location Performer Comment PRESSURIZ [id number] [facility] ED/NONPRE 6 [facility] SSURIZED INC INC INHALATIO N TREATMENT INJECTION J1642 [facility] HEPARIN 6 [facility] SODIUM INC INC PER 10 UNITS GLUC BLD 09907 [facility] GLUC MNTR 6 [facility] DEV INC INC CLEARED FDA SPEC HOME USE BLOOD 06135 [facility] COUNT 6 [facility] COMPLETE INC INC AUTO&AUTO DIFRNTL WBC COLLECTIO 80071 [facility] N VENOUS 6 [facility] BLOOD INC INC VENIPUNCT URE COMPREHEN 81003 [facility] SIVE 6 [facility] METABOLIC INC INC PANEL INJECTION J0692 [facility] CEFEPIME 6 [facility] INC INC HYDROCHLO RIDE 500 MG THERAPEUT 27964 MANN DARNELL IC PX 1/> 6 [facility] AREAS INC INC EACH 15 MIN EXERCISES GLUC BLD 45718 MANN DARNELL GLUC MNTR 6 [facility] DEV INC INC CLEARED FDA SPEC HOME USE PRESSURIZ 65899 MANN MANN ED/NONPRE 6 [facility] SSURIZED INC INC INHALATIO N TREATMENT NONINVASI 13079 MANN MANN VE 6 [facility] EAR/PULSE INC INC OXIMETRY SINGLE DETER NONINVASI 90831 MANN MANN VE 6 [facility] EAR/PULSE INC INC OXIMETRY SINGLE DETER PRESSURIZ 26773 MANN MANN ED/NONPRE 6 [facility] SSURIZED INC INC INHALATIO N TREATMENT RADIOLOGI 40601 MANN DARNELL C 6 [facility] EXAMINATI INC INC ON CHEST SINGLE VIEW FRONTAL GLUC BLD 35631 MANN DARNELL GLUC MNTR 6 [facility] DEV INC INC CLEARED FDA SPEC HOME USE BASIC 48583 M[facility] DARNELL METABOLIC 6 [facility] PANEL INC INC CALCIUM TOTAL PHYSICAL 37412 MANN MANN THERAPY 6 [facility] EVALUATIO INC INC N THERAPEUT 93209 MANN DARNELL IC PX 1/> 6 [facility] AREAS INC INC EACH 15 [place] [address] MANN BLAKEON AMMONIA 6 [facility] INC INC INJECTION J0692 MANN MANN CEFEPIME 6 [facility] INC INC HYDROCHLO RIDE 500 MG COLLECTIO 84243 MANN DARNELL N VENOUS 6 [facility] BLOOD INC INC VENIPUNCT URE THERAPEUT 87022 MANN DARNELL ACTVITY 6 [facility] DIRECT PT INC INC CONTACT EACH 15 MIN INJECTION J0692 MANN DARNELL CEFEPIME 6 [facility] INC INC HYDROCHLO RIDE 500 MG GLUC BLD 61351 MANN DARNELL GLUC MNTR 6 [facility] DEV INC INC CLEARED FDA SPEC HOME USE PRESSURIZ 69022 MANN DARNELL ED/NONPRE 6 [facility] SSURIZED INC INC INHALATIO N TREATMENT NONINVASI 36243 MANN DARNELL VE 6 [facility] EAR/PULSE INC INC OXIMETRY SINGLE DETER PRESSURIZ 68615 MANN DARNELL ED/NONPRE 6 [facility] SSURIZED INC INC INHALATIO N TREATMENT GLUC BLD 06152 MANN DARNELL GLUC MNTR 6 [facility] DEV INC INC CLEARED FDA SPEC HOME USE INJECTION J0692 MANN DARNELL CEFEPIME 6 [facility] INC INC HYDROCHLO RIDE 500 MG COMPREHEN 64508 M[facility] DARNELL SIVE 6 [facility] [place] [address] MANN DARNELL MAGNESIUM 6 [facility] INC INC COLLECTIO 54344 MANN [facility]ARNELL N VENOUS 6 [facility] BLOOD INC INC VENIPUNCT URE BLOOD 04558 [facility] D[facility]NELL COUNT 6 [facility] COMPLETE INC INC AUTO&AUTO DIFRNTL WBC BLOOD 98478 [facility] D[facility]NELL COUNT 6 [facility] COMPLETE INC INC AUTO&AUTO DIFRNTL WBC COLLECTIO 58979 MANN DARNELL N VENOUS 6 [facility] [place] [address] M[facility] DARNELL ANGIOGRAP 6 [facility] HY CHEST INC INC W/CONTRAS T/NONCONT RAST INJECTION J0692 MANN DARNELL CEFEPIME 6 [facility] INC INC HYDROCHLO RIDE 500 MG GLUC BLD 02937 MANN DARNELL GLUC MNTR 6 [facility] DEV INC INC CLEARED FDA SPEC HOME USE BASIC 21477 MANN DARNELL METABOLIC 6 [facility] PANEL INC INC CALCIUM TOTAL BRNCDILAT 14783 [facility] RSPSE 6 [facility] SPMTRY INC INC PRE&POST- BRNCDILAT ADMN NONINVASI 18776 [facility] D[facility]NELL VE 6 [facility] EAR/PULSE INC INC OXIMETRY SINGLE DETER CULTURE 22695 [facility] BACTERIAL 6 [facility] BLOOD INC INC AEROBIC W/ID ISOLATES LOCM Q9967 MANN DARNELL [phone] 6 [facility] MG/ML INC INC IODINE CONCENTRA TION PER ML NONINVASI 49037 M[facility] DARNELL VE 6 [facility] EAR/PULSE INC INC OXIMETRY SINGLE DETER BASIC 09029 MANN DARNELL METABOLIC 6 [facility] PANEL INC INC CALCIUM TOTAL GLUC BLD 33019 MANN DARNELL GLUC MNTR 6 [facility] DEV INC INC CLEARED FDA SPEC HOME USE COLLECTIO 49186 MANN DELMI N VENOUS 6 [facility] MATTERS, BLOOD INC LLC. VENIPUNCT URE BLOOD 90050 MANN DARNELL COUNT 6 [facility] COMPLETE INC INC AUTO&[place] [address] MANN DARNELL MAGNESIUM 6 [facility] INC INC GLUC BLD 87220 MANN DARNELL GLUC MNTR 6 [facility] DEV INC [place] [address] MANN EVRYDAY TROPONIN 6 [facility] MATTERS, QUANTITAT INC LLC. GALDINO BASIC 84436 MANN EVRYDAY METABOLIC 6 [facility] MATTERS, PANEL INC LLC. CALCIUM TOTAL NONINVASI 99559 MANN DARNELL VE 6 [facility] EAR/PULSE INC INC OXIMETRY SINGLE DETER RADIOLOGI 66224 MANN DARNELL C 6 [facility] EXAMINATI INC INC ON CHEST SINGLE VIEW FRONTAL BLOOD 85890 MANN DARNELL COUNT 6 [facility] RETICULOC [place] [address] MANN EVRYDAY TROPONIN 6 [facility] MATTERS, QUANTITAT INC LLC. GALDINO NATRIURET 69354 MANN EVRYDAY IC 6 [facility], PEPTIDE INC LLC. GLUC BLD 10002 MANN DARNELL GLUC MNTR 6 [facility] DEV INC INC CLEARED FDA SPEC HOME USE BLOOD 94401 MANN AWAD GASES ANY 6 [facility] MATTERS, INC LLC. COMBINATI ON PH PCO2 PO2 [place]2 [place] [address] MANN DARNELL INFUSION 6 [facility] THERAPY/P INC INC ROPHYLAXI S /DX 1ST TO 1 HR THERAPEUT 06383 MANN DARNELL IC 6 [facility] INJECTION INC INC IV PUSH EACH NEW DRUG CYANOCOBA 05141 MANN DARNELL TIMA 6 [facility] VITAMIN INC INC B-12 BLOOD 07789 MANN DARNELL COUNT 6 [facility] COMPLETE INC INC AUTO&AUTO DIFRNTL WBC COMPREHEN 43007 MANN EVRYDAY SIVE 6 [facility], METABOLIC INC LLC. PANEL COLLECTIO 44231 MANN AWAD N VENOUS 6 [facility], BLOOD [place] [address] MANN EVRYDAY FOLIC 6 [facility], ACID INC LLC. SERUM COMPREHEN 92734 MANN DARNELL SIVE 6 [facility] METABOLIC INC INC PANEL COLLECTIO 02060 MANN DARNELL N VENOUS 6 [facility] BLOOD INC INC VENIPUNCT URE BLOOD 11579 MANN MANN COUNT 6 [facility] COMPLETE INC INC AUTO&AUTO DIFRNTL WBC NONINVASI 02891 MANN DARNELL VE 6 [facility] EAR/PULSE INC INC OXIMETRY SINGLE DETER RADIOLOGI 55862 MANN DARNELL C 6 [facility] EXAMINATI INC INC ON CHEST SINGLE VIEW FRONTAL PRESSURIZ 83314 MANN DARNELL ED/NONPRE 6 [facility] SSURIZED INC INC INHALATIO N TREATMENT CULTURE 26374 MANN DARNELL BACTERIAL 6 [facility] INC INC QUANTTATI VE COLONY COUNT URINE NONINVASI 16846 MANN DARNELL VE 6 [facility] EAR/PULSE INC INC OXIMETRY SINGLE DETER BASIC 27974 MANN MANN METABOLIC 6 [facility] PANEL INC INC CALCIUM TOTAL URNLS DIP 10800 [facility] DARNELL 6 [facility] STICK/TAB INC INC LET REAGENT AUTO MICROSCOP Y COLLECTIO 29817 M[facility] DARNELL N VENOUS 6 [facility] BLOOD INC INC VENIPUNCT URE CREATINE 24374 MANNRAY DARNELL KINASE MB 6 [facility] [place] [address] MANN MANN THYROID 6 [facility] STIMULATI INC INC NG HORMONE TSH COMPREHEN 91163 MANN DARNELL SIVE 6 [facility] [address] MANN DARNELL TROPONIN 6 [facility] QUANTITAT INC INC GALDINO CREATINE 52018 MANN DARNELL KINASE 6 [facility] TOTAL INC INC ECG 05002 MANN DARNELL ROUTINE 6 [facility] ECG INC INC W/LEAST 12 LDS TRCG ONLY W/O I&R BLOOD 33324 [facility] DARNELL COUNT 6 [facility] COMPLETE INC INC AUTO&AUTO DIFRNTL WBC NATRIURET 29192 MANN DARNELL IC 6 [facility] PEPTIDE INC INC RADIOLOGI 65301 MANN DARNELL C 6 [facility] EXAMINATI INC INC ON CHEST SINGLE VIEW FRONTAL NONINVASI 18294 MANN DARNELL VE 6 [facility] EAR/PULSE INC INC OXIMETRY SINGLE DETER RADIOLOGI 63676 MANN DARNELL C 6 [facility] EXAMINATI INC INC [place] [address] MANN DARNELL TROPONIN 6 [facility] QUANTITAT INC INC GALDINO NATRIURET 67859 MANN DARNELL IC 6 [facility] PEPTIDE INC INC BLOOD 90027 MANN DARNELL GASES ANY 6 [facility] INC INC COMBINATI ON PH PCO2 PO2 CO2 HCO3 BLOOD 42701 M[facility] DARNELL COUNT 6 [facility] COMPLETE INC INC AUTO&AUTO DIFRNTL WBC ECG 38554 MANN DARNELL ROUTINE 6 [facility] ECG INC INC W/LEAST 12 LDS TRCG ONLY W/O I&R CREATINE 98980 MANN DARNELL KINASE 6 [facility] TOTAL INC INC CREATINE 28094 MANN DARNELL KINASE MB 6 [facility] FRACTION INC INC ONLY COMPREHEN 85483 M[facility] DARNELL SIVE 6 [facility] METABOLIC INC INC PANEL THER 32380 MANN DARNELL PROPH/DX 6 [facility] NJX IV INC INC PUSH SINGLE/1S T SBST/[place] [address] MANN DARNELL THYROID 6 [facility] STIMULATI INC INC NG HORMONE TSH INSERTION [id number] MANN DARNELL VAD 6 [facility] CHEST INC INC SUBQ TISSUE & FASCIA OPEN INSERTION [id number] [facility] INFUSION 6 [facility] DEVC RT INC INC SUBCLAVIA N VEIN PERQ FLUORO [id number] [facility] MULTI 6 [facility] CORONARY INC INC ARTERIES LOW OSMOLAR CONT MEASUREME [id number] [facility] NT 6 [facility] CARDIAC INC INC SAMPLING PRESS LT HEART PERQ FLUOROSCO [id number] [facility] D[facility] PY LEFT 6 [facility] [...] HOSP HOSP WHEELCHAI EQUIP EQUIP R RADIOLOGI 14110 CELESTINO MAT CELESTINO MAT C 3 EXAMINATI ON ANKLE 2 VIEWS BLOOD 97211 [facility] COUNT 3 N N COMPLETE COMMUNITY COMMUNITY AUTO&AUTO HOSPITA HOSPITA DIFRNTL WBC COLLECTIO 00737 [facility] N VENOUS 3 N N BLOOD [facility] VENIPUNCT HOSPITA HOSPITA URE BASIC 61304 [facility] METABOLIC 3 N N PANEL [facility] CALCIUM HOSPITA HOSPITA TOTAL RADIOLOGI 63972 PB AMBRIZ C EXAM 3 RHO RHO CHEST 2 VIEWS FRONTAL&L ATERAL HEAVY-DUT K0006 [facility] Y 3 HOSP HOSP WHEELCHAI EQUIP EQUIP R HEAVY-DUT K0006 [facility] Y 3 HOSP HOSP WHEELCHAI EQUIP EQUIP R SCREENING G0202 [facility] 3 [facility] MAMMOGRAP INC INC HY JOSEFINA INCL CAD WHEN PERFORMD DUPLEX 77809 [facility] SCAN 3 [facility] EXTRACRAN INC INC IAL ART COMPL BI STUDY COMPUTER- [id number] MANN DARNELL AIDED 3 [facility] DETECTION INC INC SCREENING MAMMOGRAP HY ECG 10298 [facility] ROUTINE 3 N N ECG [facility] W/LEAST HOSPITA HOSPITA 12 LDS TRCG ONLY W/O I&R BLOOD 31615 [facility] COUNT 3 N N COMPLETE [facility] AUTO&AUTO HOSPITA HOSPITA DIFRNTL WBC COLLECTIO 51774 [facility] N VENOUS 3 N N BLOOD [facility] VENIPUNCT HOSPITA HOSPITA URE RADIOLOGI 22541 CELETSINO MAT CELESTINO MAT C EXAM 3 CHEST 2 VIEWS FRONTAL&L ATERAL BASIC 45989 [facility] METABOLIC 3 N N PANEL [facility] CALCIUM HOSPITA HOSPITA TOTAL HEAVY-DUT K0006 ROTHAUGUSTO [facility]ERT[facility] Y 3 HOSP HOSP WHEELCHAI EQUIP EQUIP R WHEELCHAI 10714 MANN Vázquez MGMT EA 3 [facility] 15 MIN INC INC RADEX 56862 [facility] Y Y COMPLETE [facility] MINIMUM 3 VIEWS DOP 45195 [facility] ECHOCARD 2 [place] V[place] [address] [facility] ECHO 2 CONTRAST AGENT DURING STRESS ECHO DOPPLER 50829 [facility] ECHOCARD 2 PULSE WAVE W/SPECTRA L DISPLAY ECHO 40387 [facility] TTHRC R-T 2 2D W/WO M-MODE REST&STRS CONT ECG INJECTION Q9957 [facility] 2 PERFLUTRE N LIPID MICROSPHE RES PER ML HEAVY-DUT K0006 DAINA LAMA Y 2 HOSP [facility] EQUIP EQUIP R ECG 07597 [facility] ROUTINE 2 ECG W/LEAST 12 LDS I&R ONLY RADIOLOGI 58723 [facility] C EXAM 2 [place] CHEST 2 JI JI VIEWS FRONTAL&L ATERAL ECG 25764 [facility] ROUTINE 2 [place] ECG JI JI W/LEAST 12 LDS TRCG ONLY W/O I&R BLOOD 72011 [facility] COUNT 2 [place] COMPLETE JI JI AUTO&AUTO DIFRNTL WBC COLLECTIO 47793 [facility] N VENOUS 2 [place] BLOOD JI JI VENIPUNCT URE COMPREHEN 24188 [facility] SIVE 2 [place] METABOLIC JI JI PANEL HEAVY-DUT K0006 DAINA LAMA Y 2 HOSP [facility] EQUIP EQUIP R RADEX 94553 [facility] ANKLE 2 COMPLETE MINIMUM 3 VIEWS DIAB ONLY A5500 CHERELLE VILLARREAL FIT CSTM 2 ORTHOPEDI ORTHOPEDI PREP&SPL CS CS SHOE MX DNSITY INSRT BASIC 09216 QUEST QUEST METABOLIC 2 DIAGNOSTI DIAGNOSTI PANEL CS CS CALCIUM TOTAL GLUCOSE 08316 RASHAAD EILEEN RASHAAD EILEEN QUANTITAT 2 GALDINO BLOOD XCPT REAGENT STRIP HEMOGLOBI 80940 RASHAAD CROOKES EILEEN N 2 GLYCOSYLA ELSA A1C LIPID 45876 RASHAAD CROOKES EILEEN PANEL 2 TRANSFERA 41883 RASHAAD CROOKES EILEEN SE 2 ASPARTATE AMINO AST SGOT ADD LW L2820 CHERELLE VILLARREAL EXT ORTH 2 ORTHOPEDI ORTHOPEDI SFT CS CS INTERFCE MOLD BELW KNEE RADEX 95602 BARROW, BARROW, ANKLE 2 JR. FREYA JR. FREYA COMPLETE MINIMUM 3 VIEWS SEAT E0156 SHIVANI PARRISH ATTACHMEN 2 SURGICAL SURGICAL T WALKER WALKER E0143 SHIVANI PARRISH FOLDING 2 SURGICAL SURGICAL WHEELED ADJUSTABL E/FIXED HEIGHT DIAB ONLY A5500 SHIVANI PARRISH FIT CSTM 2 SURGICAL SURGICAL PREP&SPL SHOE MX DNSITY INSRT COLLECTIO 84893 RASHAAD EILEEN RASHAAD EILEEN N VENOUS 2 BLOOD VENIPUNCT URE LIPID 76158 QUEST QUEST PANEL 2 DIAGNOSTI DIAGNOSTI CS CS HEMOGLOBI 41091 QUEST QUEST N 2 DIAGNOSTI DIAGNOSTI GLYCOSYLA CS CS ELSA A1C BASIC 28668 QUEST QUEST METABOLIC 2 DIAGNOSTI DIAGNOSTI PANEL CS CS CALCIUM TOTAL TRANSFERA 51341 QUEST QUEST SE 2 DIAGNOSTI DIAGNOSTI ASPARTATE CS CS AMINO AST SGOT TRANSFERA 36659 QUEST QUEST SE 2 DIAGNOSTI DIAGNOSTI ASPARTATE CS CS AMINO AST SGOT BASIC 42709 QUEST QUEST METABOLIC 2 DIAGNOSTI DIAGNOSTI PANEL CS CS CALCIUM TOTAL HEMOGLOBI 38690 QUEST QUEST N 2 DIAGNOSTI DIAGNOSTI GLYCOSYLA CS CS ELSA A1C LIPID 20193 QUEST QUEST PANEL 2 DIAGNOSTI DIAGNOSTI CS CS COLLECTIO 48555 YOSSI YOSSI N VENOUS 2 DAO DAO BLOOD VENIPUNCT URE COMPUTER- 42343 [place] KATHRYN AIDED 1 MEDICAL HUBERT DETECTION IMAGING ASS SCREENING MAMMOGRAP HY SCREENING G0202 [place] KATHRYN 1 MEDICAL HUBERT MAMMOGRAP IMAGING HY JOSEFINA ASS INCL CAD WHEN PERFORMD IIV3 50633 MANN MANN VACCINE 1 [facility] VIRUS 0.5 ML DOSAGE IM USE LIPID 16043 QUEST QUEST PANEL 1 DIAGNOSTI DIAGNOSTI CS CS HEMOGLOBI 44088 QUEST QUEST N 1 DIAGNOSTI DIAGNOSTI GLYCOSYLA CS CS ELSA A1C BASIC 87814 QUEST QUEST METABOLIC 1 DIAGNOSTI DIAGNOSTI PANEL CS CS CALCIUM TOTAL TRANSFERA 76935 QUEST QUEST SE 1 DIAGNOSTI DIAGNOSTI ASPARTATE [...] HEALTH 18 AGENCY AGENCY SQUARE INCHES BLOOD 69274 MANN DARNELL COUNT 1 [facility] COMPLETE INC INC AUTO&[place] [address] MANN DARNELL INFUSION 1 [facility] THERAPY/P INC INC ROPHYLAXI S /DX 1ST TO 1 HR RADEX 40876 EB KATHRYN FOOT 1 MEDICAL HUBERT COMPLETE IMAGING MINIMUM 3 ASS VIEWS BASIC 43824 MANN DARNELL METABOLIC 1 [facility] PANEL INC INC CALCIUM TOTAL SUSCEPTIB 13755 MANN DARNELL LTY STDY 1 [facility] ANTIMICRB INC INC IAL MICRO/AGA R DILUTJ CUL BACT 02468 MANN MANN AEROBIC 1 [facility] ADDL INC INC METHS DEFINITIV E EA ISOL CUL BACT 94950 AMNN DARNELL XCPT 1 [facility] URINE INC INC BLOOD/STO OL AEROBIC [...] 500 [place] [address] MANN DARNELL INFUSION 1 [facility] THERAPY/P INC INC ROPHYLAXI S /DX 1ST TO 1 HR BLOOD 82852 MANN DARNELL COUNT 1 [facility] COMPLETE INC INC AUTO&AUTO DIFRNTL WBC CUL BACT 21909 MANN DARNELL AEROBIC 1 [facility] ADDL INC INC METHS DEFINITIV E EA ISOL SUSCEPTIB 00813 MANN DARNELL LTY STDY 1 [facility] ANTIMICRB INC INC IAL MICRO/AGA R DILUTJ CULTURE 73514 MANN DARNELL BACTERIAL 1 [facility] BLOOD INC INC AEROBIC W/ID ISOLATES BASIC 44002 MANN DARNELL METABOLIC 1 [facility] PANEL INC INC CALCIUM TOTAL DIAB ONLY A5500 SHIVANI PARRISH FIT CSTM 1 SURGICAL SURGICAL PREP&SPL SHOE MX DNSITY INSRT FOR DIAB A5512 SHIVANI ROSS ONLY MX 1 SURGICAL SURGICAL DNSITY INSRT DIR FORMD PRFAB EA BASIC 38201 [facility] METABOLIC 1 Cel-Fi by [employer] PANEL CALCIUM TOTAL HEMOGLOBI 07399 [facility] N 1 Almondy [facility] GLYCOSYLA ELSA A1C LIPID 90827 [facility] PANEL 1 Almondy [facility] TRANSFERA 26025 [facility] SE 1 Cel-Fi by [employer] ASPARTATE AMINO AST SGOT SCREENING G0202 [place] KATHRYN 0 MEDICAL HUBERT MAMMOGRAP IMAGING HY JOSEFINA ASS INCL CAD WHEN PERFORMD COMPUTER- 04644 [facility] AIDED 0 MEDICAL HUBERT DETECTION IMAGING ASS SCREENING MAMMOGRAP HY IIV3 88243 MANN DARNELL VACCINE 0 [facility] VIRUS 0.5 ML DOSAGE IM USE LIPID 18340 [facility] PANEL 0 Almondy [facility] HEMOGLOBI 64080 [facility] N 0 [facility] GLYCOSYLA ELSA A1C BASIC 99791 [facility] METABOLIC 0 [facility] PANEL CALCIUM TOTAL TRANSFERA 12945 [facility] SE 0 [facility] ASPARTATE AMINO AST SGOT BLD GLU A4253 AM MED AM MED TEST/REAG 0 DIRECT DIRECT T STRIPS [facility] HOME BLD GLU MON-50 BLD GLU A4253 AM MED AM MED TEST/REAG 0 DIRECT DIRECT T STRIPS [facility] HOME BLD GLU MON-50 LANCETS A4259 AM MED AM MED PER BOX 0 DIRECT DIRECT OF 100 [facility] DETERMINA 34069 [facility] JORGE, TION 0 FOR FRANSISCO REFRACTIV EYEHLTH & C E STATE SURGPS DUPLEX 38856 [place] KATHRYN, SCAN 0 MEDICAL IVAN EXTRACRAN IMAGING IAL ART ASSOCIATE COMPL BI S STUDY LIPID 92519 [facility] PANEL 0 [facility] BASIC 64577 [facility] METABOLIC 0 [facility] PANEL CALCIUM TOTAL HEMOGLOBI 76846 A C YOSSI, N 0 JERSEY BECKER GLYCOSYLA PSC ELSA A1C TRANSFERA 06332 [facility] SE 0 [facility] ASPARTATE AMINO AST SGOT BLD GLU A4253 AM MED AM MED TEST/REAG 0 DIRECT DIRECT T STRIPS [facility] HOME BLD GLU MON-50 BLD GLU A4253 AM MED AM MED TEST/REAG 0 DIRECT DIRECT T STRIPS [facility] HOME D PHARMACY PHARMACY GLU MON-50 LANCETS A4259 AM MED AM MED PER BOX 0 DIRECT DIRECT OF 100 [facility] PHARMACY PHARMACY BLD GLU A4253 AM MED AM MED TEST/REAG 0 DIRECT DIRECT T STRIPS [facility] HOME D PHARMACY PHARMACY GLU MON-50 DIAB ONLY A5500 SHIVANI PARRISH FIT CSTM 0 SURGICAL SURGICAL PREP&SPL SHOE MX DNSITY INSRT FOR DIAB A5512 SHIVANI PARRISH ONLY MX 0 SURGICAL SURGICAL DNSITY INSRT DIR FORMD PRFAB EA BLD GLU A4253 AM MED AM MED TEST/REAG 0 DIRECT DIRECT T STRIPS [facility] PHARMACY GLU MON-50 HEMOGLOBI 41268 [facility] N 0 [facility] GLYCOSYLA ELSA A1C BASIC 19641 [facility] METABOLIC 0 [facility] PANEL CALCIUM TOTAL LIPID 08944 [facility] PANEL 0 [facility] TRANSFERA 98821 [facility] SE 0 [facility] ASPARTATE AMINO AST SGOT BLD GLU A4253 AM MED AM MED TEST/REAG 0 DIRECT DIRECT T STRIPS [facility] PHARMACY PHARMACY GLU MON-50 LANCETS A4259 AM MED AM MED PER BOX 0 DIRECT DIRECT OF 100 [facility] PHARMACY PHARMACY BLD GLU A4253 AM MED AM MED TEST/REAG 0 DIRECT DIRECT T STRIPS [facility] PHARMACY PHARMACY GLU MON-50 POSTERIOR V2632 [facility] CHAMBER 9 [facility] INTRA[facility] LENS [facility] CATARACT 55727 [facility] REMOVAL 9 [facility] INSERTION [facility] LENS [facility] OPH BMTRY 07762 [facility] JORGE, 9 FOR FRANSISCO ECHOGRAPY EYEHLTH & C A-SCAN SURGPSC IO LENS PWR GUS BLD GLU A4253 AM MED AM MED TEST/REAG 9 DIRECT DIRECT T STRIPS [facility] PH[facility] PHARMACY GLU 50 ANESTHESI 73960 [facility], A EYE 9 [facility] LAN R LENS ANESTHESI SURGERY A PSC CATARACT 72264 [facility] JORGE, REMOVAL 9 FOR FRANSISCO INSERTION EYEHLTH & C OF LENS SURGPSC PPSV23 44592 DHS/CO MANN VACCINE 2 9 HEALTH CO HEALTH YRS OR [facility] OLDER FOR BANK ACCT SUBQ/IM USE OPH BMTRY 76699 [facility] J[place]GE, [place] 9 FOR FRANSISCO ECHOGRAPY EYEHLTH & C A-SCAN SURGPSC IO LENS PWR GUS OPHTH 50377 [facility] J[facility]GE, MEDICAL 9 FOR FRANSISCO XM&EVAL EYEHLTH & C COMPRHNSV SURGPSC ESTAB PT 1/> BLD GLU A4253 AM MED AM MED TEST/REAG 9 DIRECT DIRECT T STRIPS [facility] HOME D PHARMACY PHARMACY GLU SAT-50 LANCETS A4259 AM MED AM MED PER BOX 9 DIRECT DIRECT OF 100 [facility] PHARMACY PHARMACY TRANSFERA 24115 [facility] SE 9 AMERIC AMERIC ASPARTATE [place] [address] [facility] THYROID 9 AMERIC AMERIC STIMULATI HOLDING HOLDING NG HORMONE TSH BASIC 28939 [facility] METABOLIC 9 AMERIC AMERIC PANEL HOLDING HOLDING CALCIUM TOTAL LIPID 79428 [facility] PANEL 9 AMERIC AMERIC HOLDING HOLDING HEMOGLOBI 62521 [facility] N 9 AMERIC AMERIC GLYCOSYLA HOLDING HOLDING ELSA A1C BLD GLU A4253 AM MED AM MED TEST/REAG 9 DIRECT DIRECT T STRIPS [facility] HOME D PHARMACY PHARMACY GLU IIV3 11821 DHS/CO MANN VACCINE 9 HEALTH CO [facility] VIRUS 0.5 BANK ACCT ML DOSAGE IM USE COMPUTER- 83786 MANN DARNELL AIDED 9 [facility] DETECTION INC INC SCREENING MAMMOGRAP HY SCREENING 77398 MANN DARNELL 9 [facility] MAMMOGRAP INC INC HY BILATERAL FOR DIAB A5512 SHIVANI PARRISH ONLY MX 9 SURGICAL SURGICAL DNSITY INSRT DIR FORMD PRFAB EA DIAB ONLY A5500 SHIVANI PARRISH FIT CSTM 9 SURGICAL SURGICAL PREP&SPL SHOE MX DNSITY INSRT BLD GLU A4253 AM MED AM MED TEST/REAG 9 DIRECT DIRECT T STRIPS [facility] HOME D PHARMACY PHARMACY GLU SAT- BLD GLU A4253 AM MED AM MED TEST/REAG 9 DIRECT DIRECT T STRIPS [facility] HOME D PHARMACY PHARMACY GLU SAT- LANCETS A4259 AM MED AM MED PER BOX 9 DIRECT DIRECT OF 100 [facility] PHARMACY PHARMACY COLLECTIO 92662 Bibi BLACK VENOUS 9 JERSEY Langley BLOOD PSC VENIPUNCT URE TRANSFERA 26146 [facility] SE 9 AMERIC AMERIC ASPARTATE HOLDING HOLDING AMINO AST SGOT LIPID 09487 [facility] PANEL 9 AMERIC AMERIC HOLDING HOLDING BASIC 52842 [facility] METABOLIC 9 AMERIC AMERIC PANEL HOLDING HOLDING CALCIUM TOTAL HEMOGLOBI 58846 [facility] N 9 AMERIC AMERIC GLYCOSYLA HOLDING HOLDING ELSA A1C BLD GLU A4253 AM MED AM MED TEST/REAG 9 DIRECT DIRECT T STRIPS [facility] PH[facility] PHARMACY GLU MON-50 BLD GLU A4253 [facility] TEST/REAG 9 PHARMACY PHARMACY T STRIPS #591 #591 [facility] BLD GLU A4253 AM MED AM MED TEST/REAG 9 DIRECT DIRECT T STRIPS [facility] PHARMACY PHARMACY GLU MON-50 LANCETS A4259 AM MED AM MED PER BOX 9 DIRECT DIRECT OF 100 [facility] PHARMACY PHARMACY BLD GLU A4253 AM MED AM MED TEST/REAG 9 DIRECT DIRECT T STRIPS [facility] PH[facility] PHARMACY GLU MON-50 BLD GLU A4253 AM MED AM MED TEST/REAG 9 DIRECT DIRECT T STRIPS [facility] PH[facility] PHARMACY GLU MON-50 TRANSFERA 10288 [facility] SE 9 AMERIC AMERIC ASPARTATE HOLDING HOLDING AMINO AST SGOT COLLECTIO 43370 Sandrine HE VENOUS 9 JERSEY CHA PSC VENIPUNCT URE HEMOGLOBI 78736 [facility] N 9 AMERIC AMERIC GLYCOSYLA HOLDING HOLDING ELSA A1C BASIC 17482 [facility] METABOLIC 9 AMERIC AMERIC PANEL HOLDING HOLDING CALCIUM TOTAL LIPID 67944 [facility] PANEL 9 AMERIC AMERIC HOLDING HOLDING LANCETS A4259 AM MED AM MED PER BOX 9 DIRECT DIRECT OF 100 [facility] BLD GLU A4253 AM MED AM MED TEST/REAG 9 DIRECT DIRECT T STRIPS [facility] BLD GLU MON-50 BLD GLU A4253 AM MED AM MED TEST/REAG 8 DIRECT DIRECT T STRIPS [facility] PH[facility] PHARMACY GLU MON-50 LANCETS A4259 AM MED AM MED PER BOX 8 DIRECT DIRECT OF 100 [facility] PHARMACY PHARMACY COLLECTIO 77513 Sandrine HE VENOUS 8 PUT[place] MD ROSITA BLOOD PSC VENIPUNCT URE BASIC 67669 [facility] METABOLIC 8 AMERIC AMERIC PANEL HOLDING HOLDING CALCIUM TOTAL LIPID 45313 [facility] PANEL 8 AMERIC AMERIC HOLDING HOLDING HEMOGLOBI 36522 [facility] N 8 AMERIC AMERIC GLYCOSYLA HOLDING HOLDING ELSA A1C TRANSFERA 48572 [facility] SE 8 AMERIC AMERIC ASPARTATE HOLDING HOLDING AMINO AST SGOT URINLS 65934 Bibi SY, DIP 8 JERSEY BECKER STICK/TAB PSC LET REAGNT NON-AUTO MICRSCPY HEMOGLOBI 19943 [facility] N 8 AMERIC AMERIC GLYCOSYLA HOLDING HOLDING ELSA A1C GLUCOSE 52447 [facility] QUANTITAT 8 AMERIC AMERIC GALDINO BLOOD HOLDING HOLDING XCPT REAGENT STRIP LIPID 09335 [facility] PANEL 8 AMERIC AMERIC HOLDING HOLDING COLLECTIO 00457 Bibi BLACK VENOUS 8 JERSEY Langley BLOOD PSC VENIPUNCT URE TRANSFERA 49394 [facility] SE 8 AMERIC AMERIC ASPARTATE HOLDING HOLDING AMINO AST SGOT MAMMOGRAP 53819 [facility] Z[facility], HY 8 MEDICAL KELLEY P UNILATERA IMAGING L ASSOCIATE S EXC B9 23459 Bibi SY, LESION 8 JERSYE BECKER MRGN XCP PSC SK TG T/A/L 2.1-3.0 CM HEMOGLOBI 35536 [facility] N 8 AMERIC AMERIC GLYCOSYLA HOLDING HOLDING ELSA A1C LIPID 86469 [facility] PANEL 8 AMERIC AMERIC HOLDING HOLDING BASIC 34123 [facility] METABOLIC 8 AMERIC AMERIC PANEL HOLDING HOLDING CALCIUM TOTAL COLLECTIO 60717 Bibi BLACK VENOUS 8 JERSEY Langley BLOOD PSC VENIPUNCT URE TRANSFERA 03293 [facility] SE 8 AMERIC AMERIC ASPARTATE HOLDING HOLDING AMINO AST SGOT BLD GLU A4253 [facility] TEST/REAG 8 PHARMACY PHARMACY T STRIPS #591 #591 HOME BLD GLU MON-50 IADNA 37975 Bibi SY STREPTSUNNY 8 JERSEY BECKER CCUS PSC GROUP A QUANTIFIC ATION BLD GLU A4253 [facility] TEST/REAG 8 PHARMACY PHARMACY T STRIPS #591 #591 HOME BLD GLU MON-50 Encounters Encounter Start End Date Code Location Performer Type Date EMERGENCY 45736 [facility] DEPT 6 6 [facility] VISIT INC HIGH SEVERITY& THREAT [facility] MANN - 6 6 [facility] INPATIENT [facility] EMERGENCY 12604 MANN 6 6 [facility] VISIT HIGH/URGE NT SEVERITY [facility] MANN - 6 6 [facility] INPATIENT [facility] EMERGENCY 22820 MANN DEPT 6 6 [facility] VISIT [facility] HIGH [facility]VERITY& THREAT [facility] VANCE - 6 6 [facility] 3 3 N [facility] 3 3 [facility] 3 3 N [facility] OFFICE 55382 BARROW, BARROW, OUTPATIEN 3 3 JR. FREYA PILLAI T VISIT 15 MINUTES [facility] VANCE - 3 3 [facility] - 3 3 Y [facility] OFFICE 40924 MERLY Byrd OUTPATIEN 2 [facility] 06072 KILPELA KILPELA PREVENTIV 2 2 [place] VACA E MED EST PATIENT 40-64YRS OFFICE 86092 DANIAL, DANIAL, OUTPATIEN 2 2 JR. FREYA PILLAI T VISIT 15 MINUTES [facility] - 2 [facility] T OFFICE 39[address] [facility] OUTPATIEN 2 2 T NEW 30 MINUTES OFFICE 78309 RASHAAD EILEEN RASHAAD EILEEN OUTPATIEN 2 2 T VISIT 15 MINUTES OFFICE 38753 BARROW, BARROW, OUTPATIEN 2 2 JR. FREYA PILLAI T VISIT 15 MINUTES OFFICE 01531 BARROW, BARROW, OUTPATIEN 2 2 JR. FREYA PILLAI T NEW 30 MINUTES OFFICE 53586 YOSSI YOSSI OUTPATIEN 2 2 DAO DAO T VISIT 25 MINUTES OFFICE 48793 YOSSI YOSSI OUTPATIEN 2 2 DAO DAO T VISIT 10 MINUTES HOSPITAL MANN - 1 1 [facility] OUTPATIEN INC T OFFICE 82466 YOSSI YOSSI OUTPATIEN 1 1 DAO DAO T VISIT 25 MINUTES [facility], 1 1 HOME OUTPATIEN HEALTH T AGENCY OFFICE 07698 A C YOSSI OUTPATIEN 1 1 JERSEY AARON DAO T VISIT PSC 15 MINUTES EMERGENCY 37659 [facility] DEPT 1 1 EMERGENCY ADRIAN VISIT SERVICES HIGH SEVERITY& THREAT [facility] MANN - 1 1 [facility] OUTPATIEN INC T EMERGENCY 25047 MANN 1 1 [facility] DEPARTMEN INC T VISIT MODERATE SEVERITY [facility], 1 1 HOME OUTPATIEN HEALTH T AGENCY [facility] 1 1 HOME OUTPATIEN HEALTH T AGENCY OFFICE 58066 A C YOSSI OUTPATIEN 1 1 JERSEY AARON DAO T VISIT PSC 25 MINUTES EMERGENCY 55313 MANN 1 1 [facility] DEPARTMEN INC T VISIT HIGH/URGE NT SEVERITY [facility] MANN - 1 1 [facility] OUTPATIEN INC T OFFICE 54999 A C YOSSI OUTPATIEN 1 1 JERSEY Isbell VISIT PSC 25 MINUTES OFFICE 68890 A Korin Mtz OUTPATIEN 1 1 JERSEY Isbell VISIT 5 PSC MINUTES HOSPITAL MANN - 0 0 [facility] OUTPATIEN INC T OFFICE 29784 A Korin SY OUTPATIEN 0 0 JERSEY Isbell VISIT 5 PSC MINUTES OFFICE 86148 [place] [facility] PATEL OUTPATIEN 0 0 FOR FRANSISCO T VISIT EYEHLTH & C 15 SURGPSC MINUTES HOSPITAL MANN - 0 0 [facility] OUTPATIEN INC T OFFICE 91160 A C YOSSI OUTPATIEN 0 0 JERSEY Isbell VISIT PSC 25 MINUTES OFFICE 79671 A Bibi ANDUJAR OUTPATIEN 0 0 JERSEY Isbell VISIT 5 PSC MINUTES [facility] [place] [address] 9 [facility] [place] [address] 9 [facility] OFFICE 89241 DHS/CO MANN OUTPATIEN 9 9 HE[facility] [address] MINUTES [facility] ACCT OFFICE 24108 A SANJU EPPSPATIEN 9 9 JERSEY Isbell VISIT PSC 15 MINUTES OFFICE 71508 A Korin SY OUTPATITERESSA 9 9 JERSEY Isbell VISIT PSC 25 MINUTES HOSPITAL MANN - 9 9 [facility] OUTPATIEN INC T OFFICE 38684 Bibi BLACK OUTPATITERESSA 9 9 JERSEY Isbell VISIT 5 PSC MINUTES OFFICE 00326 A Korin SY OUTPATITERESSA 9 9 JERSEY Isbell VISIT PSC 25 MINUTES OFFICE 93376 A SANJU EPPSPATITERESSA 9 9 JERSEY Isbell VISIT PSC 25 MINUTES OFFICE 35074 SARAH HE 8 8 JERSEY BECKER T VISIT 5 PSC MINUTES OFFICE 37189 SARAH HE 8 8 JERSEY BECKER T VISIT PSC 25 MINUTES OFFICE 38303 Bibi BLACK 8 8 JERSEY Isbell VISIT 5 PSC MINUTES OFFICE 39595 SARAH HE 8 8 JERSEY BECKER T VISIT PSC 15 MINUTES [facility] MANN - 8 8 [facility] OUTPATIEN INC T OFFICE 33384 SARAH HE 8 8 JERSEY BECKER T VISIT PSC 15 MINUTES OFFICE 38274 Bibi BLACK 8 8 JERSEY Isbell VISIT PSC 25 MINUTES OFFICE 60953 Bibi BLACK 8 8 JERSEY Isbell VISIT 5 PSC MINUTES OFFICE 19587 SARAH HE 8 8 JERSEY Isbell VISIT PSC 15 MINUTES
--- OUTSIDE RECORDS SUMMARY | 2017-04-20 03:26 | External Medical Summary Rpt ---
Demographics Preferred Language Togolese Marital Status Unknown Jehovah'S Witness Affiliation Unknown Race Unknown Ethnic Group Unknown Author Author , MARIANNA CABRAL Address Unknown Phone Immunization Unable to retrieve immunization data due to connection failure with Immunization Registry. Please try again later.
--- OUTSIDE RECORDS SUMMARY | 2017-04-20 03:26 | External Medical Summary Rpt ---
Demographics Preferred Language Rwandan Marital Status Unknown Uatsdin Affiliation Unknown Race Unknown Ethnic Group Unknown Author Author , MARIANNA CABRAL Address Unknown Phone Immunization Unable to retrieve immunization data due to connection failure with Immunization Registry. Please try again later.
--- OUTSIDE RECORDS SUMMARY | 2017-04-20 03:27 | External Medical Summary Rpt ---
Author Author MARIANNA Ari, [employer] Address Unknown Phone Unavailable Results Glucose [Mass/volume] in Capillary blood by Glucometer Observa Value Referen Units Interpr Notes Date tion ce etation Range Glucose 70 - 110 mg/dl High No Apr 19 [Mass/vol informati 2016 6:54 ume] in on in AM Capillary source blood by data Glucomete r Glucose [Mass/volume] in Capillary blood by Glucometer Observa Value Referen Units Interpr Notes Date tion ce etation Range Glucose 70 - 110 mg/dl High No Apr 19 [Mass/vol informati 2016 5:49 ume] in on in AM Capillary source blood by data Glucomete r Basic metabolic panel in Blood Observa Value Referen Units Interpr Notes Date tion ce etation Range Urea 7 - 18 mg/dL High No Apr 19 nitrogen informati 2016 5:20 [Mass/vol on in AM ume] in source Serum or data Plasma Calcium 8.5 - mg/dL Low No Apr 19 [Mass/vol 10.1 informati 2016 5:20 ume] in on in AM Serum or source Plasma data Chloride 98 - 107 mmoL/L Normal No Apr 19 [Moles/vo informati 2016 5:20 lume] in on in AM Serum or source Plasma data Carbon 21.0 - mmoL/L Normal No Apr 19 dioxide, 32.0 informati 2016 5:20 total on in AM [Moles/vo source lume] in data Serum or Plasma Creatinin 0.55 - mg/dL High No Apr 19 e 1.02 informati 2016 5:20 [Mass/vol on in AM ume] in source Serum or data Plasma Creatinin 50 - 200 ML/MIN Low No Apr 19 e renal informati 2017 5:20 clearance on in AM source predicted data by Cockcroft -Gault formula Estimated 59- ML/MIN Low REFERENCE Apr 19 RANGE: 2017 5:20 glomerula >60 AM r ML/MIN/1. filtratio 73 SQUARE n rate METERSIf (GF this patient is -A merican, then multiply theresult by 1.210. Glucose 74 - 106 mg/dL High No Apr 4 [Mass/vol informati 2016 5:20 ume] in on in AM Serum or source Plasma data Potassium 3.5 - 5.1 mmoL/L Low alert Apr 19 2016 5:20 [Moles/vo CRITICAL AM lume] in RESULTS Serum or Plasma RESU LTS CALLED TO: TATE Zoila 04/19/17 0557 Bella Freeman ictoria Sodium 136 - 145 mmoL/L Normal No Apr 4 [Moles/vo informati 2016 5:20 lume] in on in AM Serum or source Plasma data Glucose [Mass/volume] in Capillary blood by Glucometer Observa Value Referen Units Interpr Notes Date tion ce etation Range Glucose 70 - 110 mg/dl High No Apr 19 [Mass/vol informati 2016 4:44 ume] in on in AM Capillary source blood by data Glucomete r Glucose [Mass/volume] in Capillary blood by Glucometer Observa Value Referen Units Interpr Notes Date tion ce etation Range Glucose 70 - 110 mg/dl High No Apr 19 [Mass/vol informati 2016 3:43 ume] in on in AM Capillary source blood by data Glucomete r Glucose [Mass/volume] in Capillary blood by Glucometer Observa Value Referen Units Interpr Notes Date ti ce etation Range Glucose 70 - 110 mg/dl High No Apr 4 [Mass/vol informati 2016 2:38 ume] in on in AM Capillary source blood by data Glucomete r Glucose [Mass/volume] in Capillary blood by Glucometer Observa Value Referen Units Interpr Notes Date tion ce etation Range Glucose 70 - 110 mg/dl High No Apr 4 [Mass/vol informati 2016 1:27 ume] in on in AM Capillary source blood by data Glucomete r Lactate [Moles/volume] in Serum or Plasma Observa Value Referen Units Interpr Notes Date tion ce etation Range Lactate 0.4 - 2.0 MMOL/L High Apr 19 [Moles/vo 2017 1:00 lume] in CRITICAL AM Serum or RESULTS Plasma RESU LTS CALLED TO: TATE Cummings 04/19/17 0137 Bella Freeman elevated Lactic Acid is suggestiv e of sepsis and shouldbe repeated within 6 hours of initial testing. Glucose [Mass/volume] in Capillary blood by Glucometer Observa Value Referen Units Interpr Notes Date tion ce etation Range Glucose 70 - 110 mg/dl High No Apr 4 [Mass/vol alert informati 2016 ume] in on in 12:38 AM Capillary source blood by data Glucomete r Glucose [Mass/volume] in Capillary blood by Glucometer Observa Value Referen Units Interpr Notes Date tion ce etation Range Glucose 70 - 110 mg/dl High No Apr 3 [Mass/vol alert informati 2016 ume] in on in 11:23 PM Capillary source blood by data Glucomete r Gas panel in Arterial blood Observa Value Referen Units Interpr Notes Date tion ce etation Range Base -2.4-+2.3 MMOL/L High No Apr 3 excess in informati 2016 Arterial on in 10:06 PM blood source data Arteria ACCEPTA No No No No Apr 3 l BLE informa informa informa informa 2017 patency tion in tion in tion in tion in 10:06 Wrist source source source source PM artery data data data data --pre arteria l punctur e Bicarbona 22.0 - MMOL/L High No Apr 3 te 26.0 informati 2016 [Moles/vo on in 10:06 PM lume] in source Arterial data blood Oxygen No No No No Apr 3 content informati informati informati informati 2017 in on in on in on in on in 10:06 PM Arterial source source source source blood data data data data Carbon 35.0 - MMHG Normal No Apr 18 dioxide 45.0 informati 2016 [Partial on in 10:06 PM pressure] source in data Arterial blood pH of 7.35 - MMOL/L Normal No Apr 3 Arterial 7.45 ati 2017 blood on in 10:06 PM source data Oxygen 80 - 100 MMHG Low No Apr 3 [Partial informati 2017 pressure] on in 10:06 PM in source Arterial data blood Oxygen 90 - 100 % Low No Apr 3 saturatio informati 2017 n.calcula on in 10:06 PM jeffy from source oxygen data partial pressure in Arterial blood Carbon 23 - 27 MMOL/L High No Apr 18 dioxide, 2016 total on in 10:06 PM [Moles/vo source lume] in data Arterial blood CBC W Auto Differential panel in Blood Observa Value Referen Units Interpr Notes Date tion ce etation Range Basophils 0 - 0.2 K/MM3 Normal No Apr 3 inform2016 9:00 [#/volume on in PM ] in source Blood by data Automated count Basophils 0.1 - 2.0 % Normal No Apr 3 /100 informati 2016 9:00 leukocyte on in PM s in source Blood by data Automated count Eosinophi 0.0 - 0.4 K/mm3 Normal No Apr 18 ls inform2016 9:00 [#/volume on in PM ] in source Blood by data Automated count Eosinophi 0.1 - % Normal No Apr 18 ls/100 12.0 inform2016 9:00 leukocyte on in PM s in source Blood by data Automated count Granulocy 1.8 - 7.8 K/mm3 Normal No Apr 18 valorie informati 2016 9:00 [#/volume on in PM ] in source Blood by data Automated count Granulocy 37.0 - % High No Apr 18 valorie/100 80.0 informati 2016 9:00 leukocyte on in PM s in source Blood by data Automated count Hematocri 37.0 - % High No Apr 18 t [Volume 47.0 inform2016 9:00 on in PM Fraction] source of Blood data Hemoglobi 12.2 - g/dL No Apr 18 n 16.2 informati informati 2016 9:00 [Mass/vol on in on in PM ume] in source source Blood data data Lymphocyt 0.7 - 4.5 K/mm3 Low No Apr 18 es inform2016 9:00 [#/volume on in PM ] in source Unspecifi data ed specimen by Automated count Lymphocyt 10 - 50.0 % Low No Apr 18 es 2016 9:00 [#/volume on in PM ] in source Unspecifi data ed specimen by Automated count Erythrocy 27 - 31.2 pg Normal No Apr 18 te mean informati 2016 9:00 corpuscul on in PM ar source hemoglobi data n [Entitic mass] Erythrocy 31.8 - g/dl Low No Apr 18 te mean 35.4 informati 2017 9:00 corpuscul on in PM ar source hemoglobi data n concentra tion [Mass/vol ume] by Automated count Erythrocy 82.2 - fl Normal No Apr 18 te mean 97.8 2016 9:00 corpuscul on in PM ar volume source [Entitic data volume] by Automated count Monocytes 0.1 - 1.0 K/mm3 Normal No Apr 3 2016 9:00 [#/volume on in PM ] in source Blood by data Automated count Monocytes 1.7 - 9.3 % Normal No Apr 18 /100 inform2016 9:00 leukocyte on in PM s in source Blood by data Automated count Platelet 7.4 - fl Normal No Apr 18 mean 10.4 2016 9:00 volume on in PM [Entitic source volume] data in Blood by Automated count Platelets 142 - 424 K/mm3 Normal No Apr 182016 9:00 [#/volume on in PM ] in source Blood data Erythrocy 4.2 - 5.4 M/mm3 Normal No Apr 18 valorie 2016 9:00 [#/volume on in PM ] in source Amniotic data fluid Erythrocy 11.5 - % Normal No Apr 18 te 17.5 2016 9:00 distribut on in PM ion width source [Entitic data volume] by Automated count Leukocyte 4.8 - K/MM3 Normal No Apr 18 s 10.8 2016 9:00 [#/volume on in PM ] in source Blood data Differential panel, method unspecified - Observa Value Referen Units Interpr Notes Date tion ce etation Range LYMPH 5 10 - 50 % Low No Apr 182016 tion in 9:00 PM source data Monocytes 2 - 9 % Normal No Apr 18 /100 2016 9:00 leukocyte on in PM s in source Blood by data Automated count Platele NORMAL No No No No Apr 18 ts informa informa 2016 [Presen tion in tion in tion in tion in 9:00 PM ce] in source source source source Blood data data data data by Light microsc opy Neutrophi 42 - 76 % High No Apr 18 ls 2016 9:00 [#/volume on in PM ] in source Blood by data Automated count Cells No #CELLS No No Apr 18 Counted informati ati 2017 9:00 Total [#] on in on in on in PM in Blood source source source data data data Acetone [Mass/volume] in Serum or Plasma Observa Value Referen Units Interpr Notes Date tion ce etation Range Acetone NOT No No No Apr 3 [Mass/vol DETECTD informati informati informati 2016 9:00 ume] in on in on in on in PM Serum or source source source Plasma data data data Cardiac enzymes Observa Value Referen Units Interpr Notes Date tion ce etation Range Creatine 0 - 4.0 U/L No No Apr 18 kinase.MB informati informati 2017 9:00 /Creatine on in on in PM source source kinase.to data data christina [Ratio] in Serum or Plasma Creatine 0.0 - 3.6 ng/mL Normal No Apr 18 kinase.MB informati 2017 9:00 on in PM [Mass/vol source ume] in data Serum or Plasma Creatine 26 - 192 U/L High No Apr 3 kinase informati 2017 9:00 [Enzymati on in PM c source activity/ data volume] in Serum or Plasma Troponin 0.00 - ng/mL High 0.04 - Apr 18 I.cardiac 0.06 0.49 IS 2017 9:00 AN PM [Mass/vol INDETERMI ume] in NANT Serum or ZONEAnd Plasma can be consisten t with the following diseases: Trauma Criticall y ill patients Mendez >30% TBSACHF Hypothyro idism Amyloidos isHyperte nsion Myocardit is SepsisHyp otension Rhabdomyo lysis Vital exhaust.P ostop surgery Pulmonary embolism CVARenal failure Acute neurologi curt disease Atrial fib. Comprehensive metabolic 2000 panel in Serum or Plasma Observa Value Referen Units Interpr Notes Date tion ce etation Range Albumin/G 1.1 - 1.8 No Low No Apr 3 lobulin informati informati 2017 9:00 [Mass on in on in PM ratio] in source source Serum or data data Plasma Albumin 3.4 - 5.0 gm/dL Low No Apr 3 [Mass/vol informati 2017 9:00 ume] in on in PM Serum or source Plasma data Alkaline 46 - 116 U/L High No Apr 3 phosphata informati 2017 9:00 se on in PM [Enzymati source c data activity/ volume] in Serum or Plasma Bilirubin 0.2 - 1.0 mg/dL High No Apr 3 .total informati 2017 9:00 [Mass/vol on in PM ume] in source Serum or data Plasma Urea 7 - 18 mg/dL High No Apr 18 nitrogen informati 2017 9:00 [Mass/vol on in PM ume] in source Serum or data Plasma Calcium 8.5 - mg/dL Normal No Apr 18 [Mass/vol 10.1 informati 2017 9:00 ume] in on in PM Serum or source Plasma data Chloride 98 - 107 mmoL/L Low No Apr 18 [Moles/vo informati 2016 9:00 lume] in on in PM Serum or source Plasma data Carbon 21.0 - mmoL/L Normal No Apr 18 dioxide, 32.0 informati 2017 9:00 total on in PM [Moles/vo source lume] in data Serum or Plasma Creatinin 0.55 - mg/dL High No Apr 18 e 1.02 informati 2016 9:00 [Mass/vol on in PM ume] in source Serum or data Plasma Creatinin 50 - 200 ML/MIN Low No Apr 18 e renal informati 2016 9:00 clearance on in PM source predicted data by Cockcroft -Gault formula Estimated 59- ML/MIN Low REFERENCE Apr 18 RANGE: 2017 9:00 glomerula >60 PM r ML/MIN/1. filtratio 73 SQUARE n rate METERSIf (GF this patient is -A merican, then multiply theresult by 1.210. Globulin 1.3 - 3.2 gm/dL High No Apr 18 [Mass/vol informati 2016 9:00 ume] in on in PM Serum source data Glucose 74 - 106 mg/dL High Apr 18 [Mass/vol alert 2016 9:00 ume] in CRITICAL PM Serum or RESULTS Plasma RESU LTS CALLED TO: LILLY 04/18/172137 Bella Freeman ictvladislav Potassium 3.5 - 5.1 mmoL/L Normal No Apr 18 informati 2016 9:00 [Moles/vo on in PM lume] in source Serum or data Plasma Sodium 136 - 145 mmoL/L Low No Apr 18 [Moles/vo informati 2016 9:00 lume] in on in PM Serum or source Plasma data Aspartate 15 - 37 U/L High No Apr 18 informati 2016 9:00 aminotran on in PM sferase source [Enzymati data c activity/ volume] in Serum or Plasma Alanine 12 - 78 U/L Normal No Apr 18 aminotran informati 2016 9:00 sferase on in PM [Enzymati source c data activity/ volume] in Serum or Plasma Protein 6.4 - 8.2 gm/dL High No Apr 18 [Mass/vol informati 2016 9:00 ume] in on in PM Serum or source Plasma data Lactate [Moles/volume] in Blood Observa Value Referen Units Interpr Notes Date tion ce etation Range Lactate 0.4 - 2.0 mmol/L High An Apr 18 [Moles/vo elevated 2016 9:00 lume] in Lactic PM Blood Acid is suggestiv e of sepsis and shouldbe repeated within 6 hours of initial testing. Urinalysis dipstick W Reflex Microscopic panel in Urine Observa Value Referen Units Interpr Notes Date tion ce etation Range Appeara CLEAR CLEAR No No No Apr 18 nce of informa informa informa 2016 Urine tion in tion in tion in 8:40 PM source source source data data data Bacteri 1+ O No No No Apr 18 a informa informa informa 2016 [Presen tion in tion in tion in 8:40 PM ce] in source source source Urine data data data sedimen t by Light microsc opy Bilirub NEGATIV NEG No No No Apr 18 in E informa informa informa 2016 [Presen tion in tion in tion in 8:40 PM ce] in source source source Urine data data data by Test strip Erythro 3+ NEG No Abnorma No Apr 18 cytes informa l informa 2016 [Presen tion in tion in 8:40 PM ce] in source source Urine data data Color YELLOW YELLOW No No No Apr 18 of informa informa informa 2016 Urine tion in tion in tion in 8:40 PM source source source data data data Glucose NEG No High No Apr 18 [Mass/vol informati informati 2016 8:40 ume] in on in on in PM Urine by source source Test data data strip Ketones NEGATIV NEG mg/dL No No Apr 18 E informa informa 2016 [Presen tion in tion in 8:40 PM ce] in source source Urine data data by Automat ed test strip Mucus 1+ NEG No Abnorma No Apr 3 [Presen informa l informa 2016 ce] in tion in tion in 8:40 PM Urine source source sedimen data data t by Light microsc opy Mucus 1+ OCC No No No Apr 3 [Presen informa informa informa 2016 ce] in tion in tion in tion in 8:40 PM Urine source source source sedimen data data data t by Light microsc opy Nitrite POSITIV NEG No Abnorma No Apr 3 E informa l informa 2016 [Presen tion in tion in 8:40 PM ce] in source source Urine data data by Test strip pH of 5.0 - 8.5 No Normal No Apr 18 Urine informati informati 2017 8:40 on in on in PM source source data data Protein NEG mg/dL High No Apr 18 [Mass/vol informati 2017 8:40 ume] in on in PM Urine by source Automated data test strip Erythro 10-20 0 rbc/hpf No No Apr 18 cytes informa informa 2016 [Presen tion in tion in 8:40 PM ce] in source source Urine data data sedimen t by Light microsc opy Specific 1.005 - No Normal No Apr 18 gravity 1.030 informati informati 2017 8:40 of Urine on in on in PM source source data data Epithel OCC 0 - 5 #/hpf No No Apr 18 ial informa informa 2016 cells.s tion in tion in 8:40 PM quamous source source data data [Presen ce] in Urine sedimen t by Microsc opy high power field Urobili 0.2 NEG E.U./dL No No Apr 18 nogen informa informa 2016 [Presen tion in tion in 8:40 PM ce] in source source Urine data data by Test strip Leukocy [20 O wbc/hpf No No Apr 3 valorie wbc/hpf informa informa 2016 [#/volu ; 50 tion in tion in 8:40 PM me] in wbc/hpf source source Urine ] data data Urinalysis dipstick W Reflex Microscopic panel in Urine Observa Value Referen Units Interpr Notes Date tion ce etation Range Appeara CLEAR CLEAR No No No Apr 18 nce of informa informa informa 2017 Urine tion in tion in tion in 8:40 PM source source source data data data Bilirub NEGATIV NEG No No No Apr 18 in E informa informa informa 2016 [Presen tion in tion in tion in 8:40 PM ce] in source source source Urine data data data by Test strip Erythro 3+ NEG No Abnorma No Apr 3 cytes informa l inform2016 [Presen tion in tion in 8:40 PM ce] in source source Urine data data Color YELLOW YELLOW No No No Apr 3 of informa informa informa 2016 Urine tion in tion in tion in 8:40 PM source source source data data data Glucose NEG No High No Apr 18 [Mass/vol informati informati 2016 8:40 ume] in on in on in PM Urine by source source Test data data strip Ketones NEGATIV NEG mg/dL No No Apr 18 E informa informa 2016 [Presen tion in tion in 8:40 PM ce] in source source Urine data data by Automat ed test strip Mucus 1+ NEG No Abnorma No Apr 3 [Pres informa l inform2016 ce] in tion in tion in 8:40 PM Urine source source sedimen data data t by Light microsc opy Nitrite POSITIV NEG No Abnorma No Apr 18 E informa l inform2016 [Presen tion in tion in 8:40 PM ce] in source source Urine data data by Test strip pH of 5.0 - 8.5 No Normal No Apr 18 Urine informati informati 2017 8:40 on in on in PM source source data data Protein NEG mg/dL High No Apr 18 [Mass/vol informati 2016 8:40 ume] in on in PM Urine by source Automated data test strip Specific 1.005 - No Normal No Apr 18 gravity 1.030 informati informati 2017 8:40 of Urine on in on in PM source source data data Urobili 0.2 NEG E.U./dL No No Apr 3 nogen informa informa 2016 [Presen tion in tion in 8:40 PM ce] in source source Urine data data by Test strip Comprehensive metabolic 2000 panel in Serum or Plasma Observa Value Referen Units Interpr Notes Date tion ce etation Range Albumin/G 1.1 - 1.8 No Low No Jose 7 lobulin informati informati 2016 [Mass on in on in 10:30 AM ratio] in source source Serum or data data Plasma Albumin 3.4 - 5.0 gm/dL Normal No Mar 22 [Mass/vol informati 2016 ume] in on in 10:30 AM Serum or source Plasma data Alkaline 46 - 116 U/L High No Mar 22 phosphata informati 2016 se on in 10:30 AM [Enzymati source c data activity/ volume] in Serum or Plasma Bilirubin 0.2 - 1.0 mg/dL High No Mar 22 .total informati 2016 [Mass/vol on in 10:30 AM ume] in source Serum or data Plasma Urea 7 - 18 mg/dL Normal No Mar 22 nitrogen informati 2016 [Mass/vol on in 10:30 AM ume] in source Serum or data Plasma Calcium 8.5 - mg/dL Normal No Mar 22 [Mass/vol 10.1 informati 2016 ume] in on in 10:30 AM Serum or source Plasma data Chloride 98 - 107 mmoL/L Normal No Mar 22 [Moles/vo informati 2016 lume] in on in 10:30 AM Serum or source Plasma data Carbon 21.0 - mmoL/L Normal No Mar 22 dioxide, 32.0 informati 2017 total on in 10:30 AM [Moles/vo source lume] in data Serum or Plasma Creatinin 0.55 - mg/dL High No Mar 22 e 1.02 informati 2016 [Mass/vol on in 10:30 AM ume] in source Serum or data Plasma Estimated 59- ML/MIN Low REFERENCE Mar 22 RANGE: 2017 glomerula >60 10:30 AM r ML/MIN/1. filtratio 73 SQUARE n rate METERSIf (GF this patient is -A merican, then multiply theresult by 1.210. Globulin 1.3 - 3.2 gm/dL High No Mar 22 [Mass/vol informati 2016 ume] in on in 10:30 AM Serum source data Glucose 74 - 106 mg/dL High No Mar 22 [Mass/vol informati 2017 ume] in on in 10:30 AM Serum or source Plasma data Potassium 3.5 - 5.1 mmoL/L Normal No Mar 22 informati 2017 [Moles/vo on in 10:30 AM lume] in source Serum or data Plasma Sodium 136 - 145 mmoL/L Normal No Mar 22 [Moles/vo informati 2017 lume] in on in 10:30 AM Serum or source Plasma data Aspartate 15 - 37 U/L Normal No Mar 222016 aminotran on in 10:30 AM sferase source [Enzymati data c activity/ volume] in Serum or Plasma Alanine 12 - 78 U/L Normal No Mar 22 aminotran inform2016 sferase on in 10:30 AM [Enzymati source c data activity/ volume] in Serum or Plasma Protein 6.4 - 8.2 gm/dL Normal No Mar 22 [Mass/vol informati 2017 ume] in on in 10:30 AM Serum or source Plasma data Thyroxine (T4) free [Mass/volume] in Serum or Plasma Observa Value Referen Units Interpr Notes ti ce etation Range Thyroxine 0.76 - ng/dL Normal No Mar 22 (T4) 1.46 informati 2016 free on in 10:30 AM [Mass/vol source ume] in data Serum or Plasma Thyrotropin [Units/volume] in Serum or Plasma Observa Value Referen Units Interpr Notes Date ti ce etation Range Thyrotrop 0.358 - uIU/ml No No Mar 22 in 3.740 informati informati 2016 [Units/vo on in on in 10:30 AM lume] in source source Serum or data data Plasma Hemoglobin A1c in Blood Observa Value Referen Units Interpr Notes Date ti ce etation Range Hemoglo 10.8 0.0 - % High < 6% Mar 22 bin A1c 7.0 NON-MIRANDA 2016 in [facility] 10:30 Blood LEVEL< AM 7% CONTROL LED DIABETI C LEVEL> 8% POORLY CONTROL LED DIABETI C LEVEL Hemoglobin A1c in Blood Observa Value Referen Units Interpr Notes Date ti ce etation Range Hemoglo 10.2 0.0 - % High < 6% Feb 19 bin A1c 7.0 NON-MIRANDA 2016 in [facility] 9:35 AM Blood LEVEL< 7% CONTROL LED DIABETI C LEVEL> 8% POORLY CONTROL LED DIABETI C LEVEL Urinalysis dipstick W Reflex Microscopic panel in Urine Observa Value Referen Units Interpr Notes Date ti ce etation Range Collected by nurse? Y Hold specimen in OE? N Appeara CLEAR CLEAR No No No Feb 18 nce of informa informa informa 2017 Urine tion in tion in tion in 11:50 source source source AM data data data Bacteri 1+ O No No No Ney 5 a informa informa informa 2017 [Presen tion in tion in tion in 11:50 ce] in source source source AM Urine data data data sedimen t by Light microsc opy Bilirub NEGATIV NEG No No No Ney 5 in E informa informa informa 2017 [Presen tion in tion in tion in 11:50 ce] in source source source AM Urine data data data by Test strip Erythro TRACE-L NEG No No No Ney 5 cytes YSED informa informa informa 2017 [Presen tion in tion in tion in 11:50 ce] in source source source AM Urine data data data Color YELLOW YELLOW No No No Ney 5 of informa informa informa 2017 Urine tion in tion in tion in 11:50 source source source AM data data data Glucose NEG No High No Ney 5 [Mass/vol informati informati 2017 ume] in on in on in 11:50 AM Urine by source source Test data data strip Ketones NEGATIV NEG mg/dL No No Ney 5 E informa informa 2017 [Presen tion in tion in 11:50 ce] in source source AM Urine data data by Automat ed test strip Mucus 1+ NEG No Abnorma No Ney 5 [Presen informa l informa 2017 ce] in tion in tion in 11:50 Urine source source AM sedimen data data t by Light microsc opy Nitrite NEGATIV NEG No No No Ney 5 E informa informa informa 2017 [Presen tion in tion in tion in 11:50 ce] in source source source AM Urine data data data by Test strip pH of 5.0 - 8.5 No Normal No Ney 5 Urine informati informati 2017 on in on in 11:50 AM source source data data Protein NEG mg/dL High No Ney 5 [Mass/vol informati 2017 ume] in on in 11:50 AM Urine by source Automated data test strip Erythro 3-5 0 rbc/hpf No No Ney 5 cytes informa informa 2017 [Presen tion in tion in 11:50 ce] in source source AM Urine data data sedimen t by Light microsc opy Specific 1.005 - No Normal No Ney 5 gravity 1.030 informati informati 2017 of Urine on in on in 11:50 AM source source data data Epithel 3-5 0 - 5 #/hpf No No Feb 18 ial informa informa 2017 cells.s tion in tion in 11:50 quamous source source AM data data [Presen ce] in Urine sedimen t by Microsc opy high power field Urobili 0.2 NEG E.U./dL No No Feb 18 nogen informa informa 2016 [Presen tion in tion in 11:50 ce] in source source AM Urine data data by Test strip Leukocy [3 O wbc/hpf No No Feb 18 valorie wbc/hpf informa informa 2017 [#/volu ; 5 tion in tion in 11:50 me] in wbc/hpf source source AM Urine ] data data Urinalysis dipstick W Reflex Microscopic panel in Urine Observa Value Referen Units Interpr Notes Date tion ce etation Range Collected by nurse? Y Hold specimen in OE? N Appeara CLEAR CLEAR No No No Feb 18 nce of informa informa informa 2017 Urine tion in tion in tion in 11:50 source source source AM data data data Bilirub NEGATIV NEG No No No Feb 18 in E informa informa informa 2016 [Presen tion in tion in tion in 11:50 ce] in source source source AM Urine data data data by Test strip Erythro TRACE-L NEG No No No Feb 18 cytes YSED informa informa informa 2016 [Presen tion in tion in tion in 11:50 ce] in source source source AM Urine data data data Color YELLOW YELLOW No No No Feb 18 of informa informa informa 2017 Urine tion in tion in tion in 11:50 source source source AM data data data Glucose NEG No High No Feb 18 [Mass/vol informati informati 2017 ume] in on in on in 11:50 AM Urine by source source Test data data strip Ketones NEGATIV NEG mg/dL No No Feb 18 E informa informa 2017 [Presen tion in tion in 11:50 ce] in source source AM Urine data data by Automat ed test strip Mucus 1+ NEG No Abnorma No Feb 18 [Presen informa l informa 2016 ce] in tion in tion in 11:50 Urine source source AM sedimen data data t by Light microsc opy Nitrite NEGATIV NEG No No No Ney 5 E informa informa informa 2017 [Presen tion in tion in tion in 11:50 ce] in source source source AM Urine data data data by Test strip pH of 5.0 - 8.5 No Normal No Ney 5 Urine informati informati 2017 on in on in 11:50 AM source source data data Protein NEG mg/dL High No Ney 5 [Mass/vol informati 2017 ume] in on in 11:50 AM Urine by source Automated data test strip Specific 1.005 - No Normal No Ney 5 gravity 1.030 informati informati 2017 of Urine on in on in 11:50 AM source source data data Urobili 0.2 NEG E.U./dL No No Ney 5 nogen informa informa 2017 [Presen tion in tion in 11:50 ce] in source source AM Urine data data by Test strip Renal function 2000 panel in Serum or Plasma Observa Value Referen Units Interpr Notes Date tion ce etation Range Albumin 3.4 - 5.0 gm/dL Low No Ney 5 [Mass/vol informati 2017 ume] in on in 11:10 AM Serum or source Plasma data Urea 7 - 18 mg/dL Normal No Ney 5 nitrogen informati 2017 [Mass/vol on in 11:10 AM ume] in source Serum or data Plasma Calcium 8.5 - mg/dL Normal No Ney 5 [Mass/vol 10.1 informati 2017 ume] in on in 11:10 AM Serum or source Plasma data Chloride 98 - 107 mmoL/L Normal No Ney 5 [Moles/vo informati 2017 lume] in on in 11:10 AM Serum or source Plasma data Carbon 21.0 - mmoL/L High No Ney 5 dioxide, 32.0 informati 2017 total on in 11:10 AM [Moles/vo source lume] in data Serum or Plasma Creatinin 0.55 - mg/dL High No Ney 5 e 1.02 informati 2017 [Mass/vol on in 11:10 AM ume] in source Serum or data Plasma Estimated 59- ML/MIN Low REFERENCE Ney 5 RANGE: 2017 glomerula >60 11:10 AM r ML/MIN/1. filtratio 73 SQUARE n rate METERSIf (GF this patient is -A merican, then multiply theresult by 1.210. Glucose 74 - 106 mg/dL High No Feb 18 [Mass/vol 2016 ume] in on in 11:10 AM Serum or source Plasma data Potassium 3.5 - 5.1 mmoL/L Low No Feb 182016 [Moles/vo on in 11:10 AM lume] in source Serum or data Plasma Sodium 136 - 145 mmoL/L Normal No Feb 18 [Moles/vo inform2016 lume] in on in 11:10 AM Serum or source Plasma data Phosphate 2.4 - 4.9 mg/dL Normal No Feb 182016 [Moles/vo on in 11:10 AM lume] in source Unspecifi data ed specimen CBC W Auto Differential panel in Blood Observa Value Referen Units Interpr Notes Date tion ce etation Range Basophils 0 - 0.2 K/MM3 Normal No Feb 182016 [#/volume on in 11:10 AM ] in source Blood by data Automated count Basophils 0.1 - 2.0 % Normal No Feb 18 /2016 leukocyte on in 11:10 AM s in source Blood by data Automated count Eosinophi 0.0 - 0.4 K/mm3 Normal No Feb 18 ls 2016 [#/volume on in 11:10 AM ] in source Blood by data Automated count Eosinophi 0.1 - % Normal No Feb 18 ls/100 12.0 2016 leukocyte on in 11:10 AM s in source Blood by data Automated count Granulocy 1.8 - 7.8 K/mm3 Normal No Feb 18 valorie 2016 [#/volume on in 11:10 AM ] in source Blood by data Automated count Granulocy 37.0 - % High No Feb 18 valorie/100 80.0 2016 leukocyte on in 11:10 AM s in source Blood by data Automated count Hematocri 37.0 - % Normal No Feb 18 t [Volume 47.0 2016 on in 11:10 AM Fraction] source of Blood data Hemoglobi 12.2 - g/dL Normal No Feb 18 n 16.2 2016 [Mass/vol on in 11:10 AM ume] in source Blood data Lymphocyt 0.7 - 4.5 K/mm3 Normal No Feb 18 es 2016 [#/volume on in 11:10 AM ] in source Unspecifi data ed specimen by Automated count Lymphocyt 10 - 50.0 % Normal No Feb 5 es informati 2016 [#/volume on in 11:10 AM ] in source Unspecifi data ed specimen by Automated count Erythrocy 27 - 31.2 pg Normal No Feb 18 te mean inform2016 corpuscul on in 11:10 AM ar source hemoglobi data n [Entitic mass] Erythrocy 31.8 - g/dl Low No Feb 18 te mean 35.4 inform2016 corpuscul on in 11:10 AM ar source hemoglobi data n concentra tion [Mass/vol ume] by Automated count Erythrocy 82.2 - fl Normal No Feb 18 te mean 97.8 informati 2016 corpuscul on in 11:10 AM ar volume source [Entitic data volume] by Automated count Monocytes 0.1 - 1.0 K/mm3 Normal No Feb 18 inform2016 [#/volume on in 11:10 AM ] in source Blood by data Automated count Monocytes 1.7 - 9.3 % Normal No Feb 5 /100 inform2016 leukocyte on in 11:10 AM s in source Blood by data Automated count Platelet 7.4 - fl Normal No Feb 18 mean 10.4 inform2016 volume on in 11:10 AM [Entitic source volume] data in Blood by Automated count Platelets 142 - 424 K/mm3 Normal No Feb 18 informati 2016 [#/volume on in 11:10 AM ] in source Blood data Erythrocy 4.2 - 5.4 M/mm3 Normal No Feb 18 valorie informati 2016 [#/volume on in 11:10 AM ] in source Amniotic data fluid Erythrocy 11.5 - % Normal No Feb 18 te 17.5 informati 2016 distribut on in 11:10 AM ion width source [Entitic data volume] by Automated count Leukocyte 4.8 - K/MM3 Normal No Feb 18 s 10.8 informati 2016 [#/volume on in 11:10 AM ] in source Blood data
--- OUTSIDE RECORDS SUMMARY | 2017-04-20 03:27 | External Medical Summary Rpt ---
[...] RESU LTS CALLED TO: LILLY [id number] Bella Fereman ictvladislav Potassium 3.5 - 5.1 mmoL/L Normal [...] 22 bin A1c 7.0 NON-MIRANDA 2016 in PSYCHIATRIC 10:30 Blood LEVEL< AM 7% CONTROL LED DIABETI C LEVEL> 8% POORLY CONTROL LED DIABETI C LEVEL Hemoglobin A1c in Blood Observa Value Referen Units Interpr Notes Date ti ce etation Range Hemoglo 10.2 0.0 - % High < 6% Feb 19 bin A1c 7.0 NON-MIRANDA 2016 in PSYCHIATRIC 9:35 AM Blood LEVEL< 7% CONTROL LED [...]
--- OUTSIDE RECORDS SUMMARY | 2017-04-20 04:09 | External Medical Summary Rpt ---
Author Author , MARIANNA Hamilton MARIANNA Address Unknown Phone [email or web address] Providers Care Stra[employer] Name Role Phone A Korin PUTNAM MD [...] Unavailable KATHRYN HUBERT IVAN PERALTA, Unavailable Unavailable KATHRYN, IVAN FRANSISCO PATEL, Unavailable Unavailable FRANSISCO PATEL [facility], Unavailable Unavailable LLC[facility] HUGO ADRIAN, HUGO Unavailable Unavailable ADRIAN [facility] Unavailable Unavailable HOSPITA, [facility] GRE, [facility] Unavailable Unavailable PB RHO, PB Unavailable Unavailable RHO PB RHO, PB Unavailable Unavailable RHO [facility] Unavailable Unavailable ALBERT LEA, [facility] Unavailable Unavailable ALBERT LEA, [facility] Unavailable Unavailable INC, [facility], Unavailable Unavailable [facility], Unavailable Unavailable [facility], Unavailable Unavailable [facility] KILPELA JEA, KILPELA Unavailable Unavailable JEA KILPELA JEA, KILPELA Unavailable Unavailable JEA [facility] Unavailable Unavailable [facility], [facility] [employer], Unavailable Unavailable [facility] [employer] [facility] Unavailable Unavailable SERVICES, [facility] Unavailable Unavailable [...] [facility]OSP [facility], Unavailable Unavailable [facility] Unavailable Unavailable [facility] MERLY WILLIS Unavailable Unavailable MERLY WILLIS Unavailable Unavailable [facility] Unavailable Unavailable [facility], Unavailable [facility]available [facility] Unavailable [facility]available [address], [facility] Unavailable Unavailable [address], [facility] # Unavailable Unavailable [id number], [facility] # [id number] [facility] Unavailable Unavailable AGENCY, [facility] PUTNAM A, PUTNAM A Unavailable Unavailable Bibi PUTNAM C, PUTNAM, Unavailable Unavailable A C CELESTINO [...] INC STAGE 3 MODERATE R0902 HYPOXEMIA 11-22-2015 [facility] [id number] BODY MASS 11-22-2015 [facility] INDEX BMI [facility] 45.0-49.9 INC ADULT [id number] PERSONAL 11-22-2015 [facility] HISTORY [facility] NICOTINE INC DEPENDENCE E8342 HYPOMAGNESE 09-30-2015 [facility]ARLOS [facility] INC E876 HYPOKALEMIA 09-30-2015 [facility] INC I129 HYPERTENSIV 09-30-2015 [facility] E CKD [facility] W/STAGE 1-4 INC CKD OR UNS CKD I2510 ASHD CITIZEN POTAWATOMI 09-30-2015 [facility] CORONARY [facility] ARTERY W/O INC ANGINA PECTORIS N179 ACUTE 09-30-2015 [facility] FAILURE INC UNSPECIFIED 32793 SEC 06-15-2013 [facility] LOCALIZED HOSP EQUIP OSTEOARTHRO SIS ANKLE AND FOOT 8248 UNSPECIFIED 01-28-2013 [facility] CLOSED FRACTURE OF ANKLE 17282 PAIN IN 01-22-2013 [facility]INT, [facility] ANKLE AND HOSPITA FOOT 56733 OTHER 01-22-2013 PB RHO NONSPECIFIC ABNORMAL FINDING OF LUNG FIELD V7283 OTHER 01-22-2013 [facility] SPECIFIED COMMUNITY PRE-OPERATI HOSPITA VE EXAMINATION 7859 OTHER 12-05-2012 [facility]MPTOMS [facility] INVOLVING INC CARDIOVASCU LAR SYSTEM V7612 OTHER 12-05-2012 [facility] SCREENING [facility] MAMMOGRAM INC 62305 PRIMARY 10-23-2012 ALLI [facility]OW JR. OSTEOARTHRO SIS ANKLE AND FOOT 57939 OSTEOARTHRO 10-08-2012 [facility] SIS UNSPEC [facility] WHETHER INC GEN/LOC ANK&FOOT 72945 DISORDER OF 10-01-2012 [facility] CARTILAGE UNSPECIFIED 59824 NONSPECIFIC 08-28-2012 [facility] J ABNORMAL ELECTROCARD IOGRAM 7852 UNDIAGNOSED 08-25-2012 [facility] J CARDIAC MURMURS 92354 SHORTNESS 08-25-2012 [facility] J OF BREATH V700 ROUTINE 08-04-2012 [facility]ACA GENERAL MEDICAL EXAM@HEALTH CARE FACL 4019 UNSPECIFIED 07-18-2012 [facility] DAO ESSENTIAL HYPERTENSIO N 66372 DIAB W/O 07-17-2012 [facility] COMP TYPE MOUNT II/UNS NOT JI STATED UNCNTRL 4293 CARDIOMEGAL 07-17-2012 [facility] Y MOUNT JI 4400 ATHEROSCLER 07-17-2012 [facility] [place] [facility] OF [facility] AORTA JI V7284 UNSPECIFIED 07-17-2012 [facility] PRE-OPERATI JI VE EXAMINATION 06110 DIAB W/O 06-09-2012 RASHAAD EILEEN MENTION COMP TYPE II/UNS TYPE UNCNTRL 2724 OTHER AND 06-05-2012 RASHAAD EILEEN UNSPECIFIED HYPERLIPIDE JUANCARLOS 4011 ESSENTIAL 06-05-2012 RASHAAD EILEEN HYPERTENSIO N, BENIGN 82797 OSTEOARTHRO 04-22-2012 CHERELLE S UNSPEC ORTHOPEDICS WHETHER GEN/LOC UNSPEC SITE 64222 PLANTAR 03-25-2012 JENY BARROW JR. JAM FIBROMATOSI S 36078 DIAB 02-21-2012 [facility] W/NEURO SURGICAL MANIFESTS TYPE II/UNS NOT UNCNTRL 73300 PRESSURE 02-21-2012 [facility] ULCER SURGICAL UNSPECIFIED SITE E9479 UNSPEC 02-01-2012 [facility] L SBSTNC CAUS ADVRS EFF TX USE V0481 NEED 06-27-2011 [facility] VACCINATION &INOCULATIO N FLU 65164 ULCER OF 05-01-2011 YOSSI DAO OTHER PART OF FOOT 72647 UNSPECIFIED 05-01-2011 YOS[facility] DAO ARTHROPATHY SITE UNSPECIFIED 44743 OBESITY, 04-16-2011 [facility] UNSPECIFIED HEALTH AGENCY 7812 ABNORMALITY 04-16-2011 [facility] OF [facility] AGENCY 8920 OPEN WOUND 04-16-2011 [facility] FT NO TOE HEALTH ALONE AGENCY WITHOUT MENTION COMP 8930 OPEN WOUND 04-16-2011 [facility] TOE WITHOUT HEALTH MENTION AGENCY COMPLICATIO N 7079 CHRONIC 03-23-2011 A C PUTNAM ULCER OF [facility] UNSPECIFIED SITE 5849 ACUTE 03-22-2011 [facility] FAILURE INC UNSPECIFIED 5939 UNSPECIFIED 03-22-2011 [facility] DISORDER [facility] KIDNEY [facility] AND URETER 6827 CELLULITIS 03-22-2011 [facility] AND ABSCESS EMERGENCY OF FOOT SERVICES EXCEPT TOES 75930 DIAB W/OTH 02-25-2011 [facility] MANIFESTS [facility] TYPE II/UNS INC NOT UNCNTRL 01341 PRESSURE 02-25-2011 [facility] ULCER OTHER EMERGENCY SITE SERVICES 17383 OTHER 02-25-2011 [facility] ABNORMAL EMERGENCY GLUCOSE SERVICES 7906 OTHER 02-25-2011 [facility] ABNORMAL [facility] BLOOD INC CHEMISTRY V431 LENS 04-13-2010 [place] FOR REPLACED BY EYEHLTH & OTHER SURGPSC MEANS 274 GOUT 11-17-2009 A Korin PUTNAM MD PSC 18813 CORTICAL 09-01-2009 [place] INST FOR SENILE EYEHLTH & CATARACT SURGPSC 3669 UNSPECIFIED 09-01-2009 [facility] V1582 PERS HX 09-01-2009 [facility] TOBACCO USE NEETU PRESENTING [facility] V0382 NEED PROPH 08-08-2009 DHS/CO VACCINATION HEALTH AGAINST CENTRAL STREP BANK ACCT PNEUMONE 5990 URINARY 07-28-2009 A Korin PUTNAM TRACT PSC INFECTION SITE NOT SPECIFIED 2449 UNSPECIFIED 07-22-2009 [facility] HYPOTHYROID [facility] ISM 6923 [facility] 12-17-2008 A Korin PUTNAM DERMATITIS& PSC OTH ECZEMA-RX&M EDS [facility] W/SKN 7881 DYSURIA 07-16-2008 A Korin PUTNAM MD PSC 1121 CANDIDIASIS 03-11-2008 A Korin PUTNAM OF [facility] 49433 OTHER SIGN 03-02-2008 [facility] AND SYMPTOM [facility] IN BREAST INC 24044 UNSPECIFIED 03-02-2008 [place] [facility] 7062 SEBACEOUS 01-29-2008 A Korin PUTNAM CYST [facility] 7862 COUGH 01-19-2008 A Korin PUTNAM MD [facility] 0340 STREPTOCOCC 11-04-2007 A Korin EUBANKS SORE [facility] THROAT C34.90 MALIGNANT NEOPLASM OF UNSP [...] D 25 IN ti 20 1- 4- 00 CA 52 EY ve OI 13 20 20 0 RE 01 L 32 16 16 OK 1, 9 PH CH 20 AR AE 0 MA L MG CY S SO LL FT C GE L RE 53 03 03 0 85 5 ME 12 GA Ac ME 32 -1 -1 0. D 22 IN ti DY 90 1- 4- 00 CA 01 EY ve 16 20 20 [...] ve LA 32 20 20 RT 0 NV 90 11 11 RI -V 1 PH [...] ve LA 32 20 20 RT 0 NV 90 11 11 RI -V 1 PH [...] ve LA 32 20 20 RT 9 NV 90 11 11 RI -V 1 PH [...] ve LA 32 20 20 RT 9 NV 90 11 11 RI -V 1 PH [...] ve LA 32 20 20 RT 9 NV 90 11 11 RI -V 1 PH [...] 0 20 10 WA 71 GR Ac NV 37 -1 -1 .0 L- 22 AY [...] ve LA 32 20 20 RT 6 NV 90 11 11 RI -V 1 PH [...] ve LA 32 20 20 RT 6 NV 90 11 11 RI -V 1 PH [...] ve LA 32 20 20 RT 6 NV 90 11 11 RI -V 1 PH [...] LA 32 [address] NV 90 11 11 EP -V 1 PH [...] ve LA 32 20 20 RT 6 NV 90 10 10 RI -V 1 PH [...] ve LA 32 20 20 RT 6 NV 90 10 10 RI -V 1 PH [...] ve LA 32 20 20 RT 6 NV 90 10 10 RI -V 1 PH [...] ve LA 32 20 20 RT 0 NV 90 10 10 RI -V 1 PH [...] ve LA 32 20 20 RT 7 NV 90 10 10 RI -V 1 PH [...] ve LA 32 20 20 RT 7 NV 90 10 10 RI -V 1 PH [...] ve LA 32 20 20 RT 7 NV 90 10 10 RI -V 1 PH [...] L- 63 SH ti TO 00 9 8- 00 MA 26 ER ve R [...] L- 63 SH ti TO 00 9- 9- 00 MA 26 ER ve R [...] #5 ET 91 JA 00 09 16 00 30 30 WA 70 RI Ac NU 00 -1 -2 .0 L- 54 SH ti 60 5- 8- 00 MA 50 ER ve A 27 20 20 RT 6 10 73 10 10 RI 0 1 PH CH MG AR AR MA D TA CY BL ET #5 91 00 01 00 30 30 WA 70 RI Ac 37 -1 -2 .0 L- 54 SH ti 80 8- 8- 00 MA 89 ER ve 21 20 20 RT 8 69 10 10 RI 3 PH CH AR AR MA D CY #5 91 CR 00 01 01 00 30 30 [...] BL #5 ET 91 54 12 02 02 30 30 WA 69 RI Ac 45 -0 -1 .0 L- 97 SH ti 80 2- 2- 00 MA 97 ER ve 97 20 20 RT 2 01 08 09 RI 0 PH CH AR AR MA D CY #5 91 CR 00 01 01 00 30 30 WA 70 RI Ac ES 31 -2 -3 .0 L- 04 SH ti TO 00 0- 0- 00 MA 71 ER ve R 75 20 20 RT 2 10 19 09 09 RI 0 PH CH MG AR AR MA D TA CY BL ET #5 91 PA 68 01 01 00 30 30 WA 70 RI Ac RO 38 -0 -1 .0 L- 02 SH ti XE 20 5- 5- 00 MA 53 ER ve TI 00 20 20 RT 9 NE 10 09 09 RI 6 PH CH HC AR AR L MA D 40 CY MG #5 91 TA BL ET 54 12 01 01 30 30 WA 69 RI Ac 45 -0 -1 .0 L- 97 SH ti 80 2- 5- 00 MA 97 ER ve 97 20 20 RT 2 01 08 09 RI 0 PH CH AR AR MA D CY #5 91 TA 00 12 01 01 30 30 WA 69 RI Ac RK 07 -0 -1 .0 L- 97 SH ti A 43 2- 5- 00 MA 97 ER ve ER 29 20 20 RT 0 01 08 09 RI 4- 3 PH CH 24 AR AR 0 MA D MG CY TA #5 BL 91 ET DI 00 01 01 00 30 [...] BL ET #5 91 AC 64 01 01 00 30 30 WA 70 [...] MG TA B AC 64 12 04 01 30 30 WA 69 No Ac TO 76 -1 -0 .0 L- 52 t ti S 40 4- 7- 00 MA 47 Av ve 45 45 20 20 RT 5 ai 12 07 08 la MG 4 PH bl AR e TA MA BL CY ET #5 91 LI 00 11 04 03 30 30 WA 69 No Ac PI 07 -2 -0 .0 L- 50 t ti TO 10 9- 7- 00 MA 32 Av ve R 15 20 20 RT 8 ai 20 62 07 08 la 3 PH bl MG AR e MA TA CY BL ET #5 91 PA 68 12 04 02 30 30 [...] 0.5 ML DOSA GE IM USE PPSV 11- 33 CAROLINE No DHS/ 23 3-20 VEE [...] Procedures Procedure DOS Code Location Performer Comment GLUC BLD 80039 [facility] GLUC MNTR 6 [facility] DEV INC INC CLEARED FDA SPEC HOME USE BLOOD 21644 [facility] COUNT 6 [facility] COMPLETE INC INC AUTO&AUTO DIFRNTL WBC PRESSURIZ 28674 [facility] ED/NONPRE 6 [facility] SSURIZED INC INC INHALATIO N TREATMENT COMPREHEN 58033 [facility] D[facility] SIVE 6 [facility] METABOLIC INC INC PANEL INJECTION J1642 [facility] HEPARIN 6 [facility] SODIUM INC INC PER 10 UNITS COLLECTIO 62661 [facility] D[facility] N VENOUS 6 [facility] BLOOD INC INC VENIPUNCT URE NONINVASI 59052 [facility]NE[facility] VE 6 [facility] EAR/PULSE INC INC OXIMETRY SINGLE DETER PRESSURIZ 41628 [facility] D[facility] ED/NONPRE 6 [facility] SSURIZED INC INC INHALATIO N TREATMENT THERAPEUT 27792 MANN DARNELL IC PX 1/> 6 [facility] AREAS INC INC EACH 15 MIN EXERCISES GLUC BLD 04628 [facility] GLUC MNTR 6 [facility] DEV INC INC CLEARED FDA SPEC HOME USE INJECTION J0692 [facility] CEFEPIME 6 [facility] INC INC HYDROCHLO RIDE 500 MG INJECTION J0692 [facility] CEFEPIME 6 [facility] INC INC HYDROCHLO RIDE 500 MG GLUC BLD 30087 [facility] GLUC MNTR 6 [facility] DEV INC INC CLEARED FDA SPEC HOME USE THERAPEUT 73218 [facility] ACTVITY 6 [facility] DIRECT PT INC INC CONTACT EACH 15 MIN BASIC 12823 [facility] METABOLIC 6 [facility] PANEL INC INC CALCIUM TOTAL PHYSICAL 79767 [facility] THERAPY 6 [facility] EVALUATIO INC INC N THERAPEUT 03872 MANN DARNELL IC PX 1/> 6 [facility] AREAS INC INC EACH 15 MIN EXERCISES PRESSURIZ 30472 M[facility] DARNE[facility] ED/NONPRE 6 [facility] SSURIZED [place] [address] [facility] AMMONIA 6 [facility] INC INC NONINVASI 78284 [facility] D[facility] VE 6 [facility] EAR/PULSE INC INC OXIMETRY SINGLE DETER RADIOLOGI 92033 [facility] D[facility] C 6 [facility] EXAMINATI INC INC ON CHEST SINGLE VIEW FRONTAL COLLECTIO 35368 [facility] D[facility] N VENOUS 6 [facility] BLOOD INC INC VENIPUNCT URE NONINVASI 15899 [facility] D[facility]NELL VE 6 [facility] EAR/PULSE INC INC OXIMETRY SINGLE DETER PRESSURIZ 50889 M[facility] DARNELL ED/NONPRE 6 [facility] SSURIZED INC INC INHALATIO N TREATMENT GLUC BLD 52878 [facility] D[facility]NE[facility] GLUC MNTR 6 [facility] DEV INC INC CLEARED FDA SPEC HOME USE INJECTION J0692 [facility] D[facility] CEFEPIME 6 [facility] INC INC HYDROCHLO RIDE 500 MG INJECTION J0692 [facility] D[facility] CEFEPIME 6 [facility] INC INC HYDROCHLO RIDE 500 MG GLUC BLD 21171 [facility] D[facility]NELL GLUC MNTR 6 [facility] DEV INC INC CLEARED FDA SPEC HOME USE BLOOD 51556 [facility] COUNT 6 [facility] COMPLETE INC INC AUTO&AUTO DIFRNTL WBC PRESSURIZ 05487 [facility] ED/NONPRE 6 [facility] SSURIZED [place] [address] [facility] MAGNESIUM 6 [facility] INC INC COMPREHEN 10469 [facility] D[facility] SIVE 6 [facility] METABOLIC INC INC PANEL COLLECTIO 58257 M[facility] DARNELL N VENOUS 6 [facility] BLOOD INC INC VENIPUNCT URE COLLECTIO 29679 M[facility] DARNELL N VENOUS 6 [facility] [place] [address] M[facility] DARNELL ANGIOGRAP 6 [facility] HY CHEST INC INC W/CONTRAS T/NONCONT RAST LOCM Q9967 MANN DARNELL [phone] 6 [facility] MG/ML INC INC IODINE CONCENTRA TION PER ML BRNCDILAT 95349 M[facility] DARNELL RSPSE 6 [facility] SPMTRY INC INC PRE&POST- BRNCDILAT ADMN NONINVASI 98267 MANN DARNELL VE 6 [facility] EAR/PULSE INC INC OXIMETRY SINGLE DETER BLOOD 29847 MANN DARNELL COUNT 6 [facility] COMPLETE INC INC AUTO&AUTO DIFRNTL WBC GLUC BLD 92146 MANN DARNELL GLUC MNTR 6 [facility] DEV INC INC CLEARED FDA SPEC HOME USE BASIC 09575 MANN DARNELL METABOLIC 6 [facility] PANEL INC INC CALCIUM TOTAL CULTURE 50822 M[facility] DARNELL BACTERIAL 6 [facility] BLOOD INC INC AEROBIC W/ID ISOLATES INJECTION J0692 M[facility] DARNELL CEFEPIME 6 [facility] INC INC HYDROCHLO RIDE 500 MG COLLECTIO 72431 MANN DELMI N VENOUS 6 [facility] MATTERS, BLOOD INC LLC. VENIPUNCT URE BASIC 28294 MANN DARNELL METABOLIC 6 [facility] PANEL INC INC CALCIUM TOTAL GLUC BLD 75257 MANN DARNELL GLUC MNTR 6 [facility] DEV INC INC CLEARED FDA SPEC HOME USE NONINVASI 67001 MANN MANN VE 6 [facility] EAR/PULSE INC INC OXIMETRY SINGLE DETER NONINVASI 14106 MANN MANN VE 6 [facility] EAR/PULSE INC [place] [address] MANN DARNELL MAGNESIUM 6 [facility] INC INC GLUC BLD 64201 MANN DARNELL GLUC MNTR 6 [facility] DEV INC [place] [address] MANN EVRYDAY TROPONIN 6 [facility] QUANTITAT INC LLC. GALDINO BLOOD 97595 MANN DARNELL COUNT 6 [facility] COMPLETE INC INC AUTO&AUTO DIFRNTL WBC BASIC 65373 MANN EVRYDAY METABOLIC 6 [facility] [place] [address] MANN DARNELL INFUSION 6 [facility] THERAPY/P INC INC ROPHYLAXI S /DX 1ST TO 1 HR THERAPEUT 95271 MANN DARNELL IC 6 [facility] INJECTION INC INC IV PUSH EACH NEW DRUG BLOOD 03688 [facility] D[facility]NE[facility] COUNT 6 [facility] COMPLETE INC INC AUTO&[place] [address] MANN EVRYDAY TROPONIN 6 [facility] INC LLC. GALDINO NATRIURET 40635 MANN EVRYDAY IC 6 [facility] PEPTIDE INC LLC. GLUC BLD 98051 MANN DARNELL GLUC MNTR 6 [facility] DEV INC INC CLEARED FDA SPEC HOME USE BLOOD 35137 MANN EVRYDAY GASES ANY 6 [facility] MATTERS, INC LLC. COMBINATI ON PH PCO2 PO2 CO2 HCO3 CYANOCOBA 39855 MANN DARNELL TIMA 6 [facility] VITAMIN INC INC B-12 [place] [address] MANN EVRYDAY FOLIC 6 [facility] ACID INC LLC. SERUM COLLECTIO 75294 MANN EVRYDAY N VENOUS 6 [facility] BLOOD INC LLC. VENIPUNCT URE COMPREHEN 60675 MANN EVRYDAY SIVE 6 [facility] METABOLIC INC LLC. PANEL BLOOD 63004 MANN DARNELL COUNT 6 [facility] RETICULOC INC INC YTE AUTOMATED RADIOLOGI 61029 MANNRAY BLAKEON C 6 [facility] EXAMINATI INC INC ON CHEST SINGLE VIEW FRONTAL RADIOLOGI 65634 MANNRAY BLAKEON C 6 [facility] EXAMINATI INC INC ON CHEST SINGLE VIEW FRONTAL NONINVASI 91076 M[facility] DARNELL VE 6 [facility] EAR/PULSE INC INC OXIMETRY SINGLE DETER COMPREHEN 94740 M[facility] D[facility]LL SIVE 6 [facility] METABOLIC INC INC PANEL COLLECTIO 50520 [facility] D[facility] N VENOUS 6 [facility] BLOOD INC INC VENIPUNCT URE PRESSURIZ 70653 [facility] D[facility] ED/NONPRE 6 [facility] SSURIZED INC INC INHALATIO N TREATMENT BLOOD 12587 [facility] COUNT 6 [facility] COMPLETE INC INC AUTO&AUTO DIFRNTL WBC URNLS DIP 40795 M[facility] D[facility]NELL 6 [facility] STICK/TAB INC INC LET REAGENT AUTO MICROSCOP Y BASIC 32221 M[facility] DARNELL METABOLIC 6 [facility] PANEL INC INC CALCIUM TOTAL COLLECTIO 53126 M[facility] DARNELL N VENOUS 6 [facility] BLOOD INC INC VENIPUNCT URE NONINVASI 32496 M[facility] DARNELL VE 6 [facility] EAR/PULSE INC INC OXIMETRY SINGLE DETER CULTURE 76952 M[facility] DARENLL BACTERIAL 6 [facility] INC INC QUANTTATI VE COLONY COUNT URINE RADIOLOGI 04002 MANN DARNELL C 6 [facility] EXAMINATI INC INC ON CHEST SINGLE VIEW FRONTAL NONINVASI 81834 MANN DARNELL VE 6 [facility] EAR/PULSE INC INC OXIMETRY SINGLE DETER COMPREHEN 91716 [facility]LL SIVE 6 [facility] [address] M[facility] D[facility]NE[facility] THYROID 6 [facility] STIMULATI INC INC NG HORMONE TSH CREATINE 02730 MANN DARNELL KINASE MB 6 [facility] FRACTION INC INC ONLY CREATINE 89975 M[facility] DARNELL KINASE 6 [facility] TOTAL INC INC NATRIURET 41889 M[facility] DARNELL IC 6 [facility] [place] [address] MANN DARNELL TROPONIN 6 [facility] QUANTITAT INC INC GALDINO BLOOD 00282 M[facility] D[facility]NE[facility] COUNT 6 [facility] COMPLETE INC INC AUTO&AUTO DIFRNTL WBC ECG 69273 [facility] D[facility] ROUTINE 6 [facility] ECG INC INC W/LEAST 12 LDS TRCG ONLY W/O I&R ECG 76010 M[facility] D[facility]NELL ROUTINE 6 [facility] ECG INC INC W/LEAST 12 LDS TRCG ONLY W/O I&R BLOOD 28222 M[facility] DARNELL COUNT 6 [facility] COMPLETE INC INC AUTO&[place] [address] MANN DARNELL TROPONIN 6 [facility] QUANTITAT INC INC GALDINO NATRIURET 20654 MANN DARNELL IC 6 [facility] PEPTIDE INC INC BLOOD 02237 MANN DARNELL GASES ANY 6 [facility] INC INC COMBINATI ON PH PCO2 PO2 CO2 HCO3 CREATINE 66690 MANN DARNELL KINASE 6 [facility] TOTAL INC INC THER 61134 MANN DARNELL PROPH/DX 6 [facility] NJX IV INC INC PUSH SINGLE/1S T SBST/DRUG CREATINE 47350 MANN DARNELL KINASE MB 6 [facility] [place] [address] MANN DARENLL THYROID 6 [facility] STIMULATI INC INC NG HORMONE TSH COMPREHEN 07833 M[facility] DARNELL SIVE 6 [facility] METABOLIC INC INC PANEL RADIOLOGI 88936 MANN DARNELL C 6 [facility] EXAMINATI INC INC ON CHEST SINGLE VIEW FRONTAL INSERTION [id number] MANN DARNELL INFUSION 6 [facility] DEVC RT INC INC SUBCLAVIA N VEIN PERQ INSERTION [id number] MANN DARNELL VAD 6 [facility] CHEST INC INC SUBQ TISSUE & FASCIA OPEN FLUOROSCO [id number] MANN DARNELL PY LEFT 6 [facility] HEART LOW INC INC OSMOLAR CONTRAST MEASUREME [id number] MANN DARNELL NT 6 [facility] CARDIAC INC INC SAMPLING PRESS LT HEART PERQ FLUORO [id number] MANN DARNELL MULTI 6 [facility] CORONARY INC INC ARTERIES LOW OSMOLAR CONT HEAVY-DUT K0006 [facility] WHEELCHAI EQUIP EQUIP R HEAVY-DUT K0006 [facility] Y 3 [facility] EQUIP EQUIP R HEAVY-DUT K0006 [facility] 3 [facility] EQUIP EQUIP R HEAVY-DUT K0006 [facility] 3 [facility] EQUIP EQUIP R HEAVY-DUT K0006 [facility] EQUIP EQUIP R RADIOLOGI 16531 CELESTINO MAT CELESTINO MAT C 3 EXAMINATI ON ANKLE 2 VIEWS COLLECTIO [id number] [facility] N VENOUS 3 N N BLOOD COMM[facility]ITY [facility] VENIPUNCT HOSPITA HOSPITA URE RADIOLOGI 49843 PB PB C EXAM 3 RHO RHO CHEST 2 VIEWS FRONTAL&L ATERAL BLOOD 88721 [facility] COUNT 3 N N COMPLETE [facility] AUTO&AUTO HOSPITA HOSPITA DIFRNTL WBC BASIC 94395 [facility] METABOLIC 3 N N PANEL COMMUNITY COMMUNITY CALCIUM HOSPITA HOSPITA TOTAL HEAVY-DUT K0006 [facility] Y 3 HOSP HOSP WHEELCHAI EQUIP EQUIP R HEAVY-DUT K0006 [facility] Y 3 HOSP HOSP WHEEL[facility]AI EQUIP EQUIP R SCREENING [id number] MANN DARNELL 3 [facility] MAMMOGRAP INC INC HY JOSEFINA INCL CAD WHEN PERFORMD COMPUTER- [id number] MANN DARNELL AIDED 3 [facility] DETECTION INC INC SCREENING MAMMOGRAP HY DUPLEX 30616 MANN DARNELL SCAN 3 [facility] EXTRACRAN INC INC IAL ART COMPL BI STUDY ECG 02204 [facility] ROUTINE 3 N N ECG COMM[facility]ITY COMMUNITY W/LEAST HOSPITA HOSPITA 12 LDS TRCG ONLY W/O I&R RADIOLOGI 96067 CELESTINO MAT CELESTINO MAT C EXAM 3 CHEST 2 VIEWS FRONTAL&L ATERAL COLLECTIO 01334 [facility] N VENOUS 3 N N BLOOD [facility] COMMUNITY VENIPUNCT HOSPITA HOSPITA URE BASIC 46463 [facility] METABOLIC 3 N N PANEL [facility] COMM[facility]ITY CALCIUM HOSPITA HOSPITA TOTAL BLOOD 50580 [facility] COUNT [address] [facility] AUTO&AUTO HOSPITA HOSPITA DIFRNTL WBC HEAVY-DUT K0006 DAINA LAMA Y 3 HOSP [facility] E[facility] 64768 MANN MANN R MGMT EA 3 [facility] 15 MIN INC INC RADEX 21637 [facility] ANKLE 3 Y Y [facility] MINIMUM 3 VIEWS DOP 32741 MER[facility] Byrd ECHOCARD 2 [place] [address] [facility] ECHO 2 CONTRAST AGENT DURING STRESS ECHO ECHO 54077 MER[facility] TTHRC R-T 2 2D W/WO M-MODE REST&STRS CONT ECG INJECTION Q9957 [facility] 2 PERFLUTRE N LIPID MICROSPHE RES PER ML DOPPLER 95020 [facility] ECHOCARD 2 PULSE WAVE W/SPECTRA L DISPLAY HEAVY-DUT K0006 DAINA LAMA Y 2 HOSP HOSP [facility] EQUIP EQUIP R ECG 61385 BALTA DAO BALTA DAO ROUTINE 2 ECG W/LEAST 12 LDS I&R ONLY RADIOLOGI [address] [facility] C EXAM [address] [facility] CHEST 2 JI JI VIEWS FRONTAL&L ATERAL COLLECTIO 74713 [facility] N VENOUS 2 [place] [place] BLOOD JI JI VENIPUNCT URE COMPREHEN 61760 [facility] SIVE 2 [place] METABOLIC JI JI PANEL BLOOD 91118 [facility] COUNT 2 [place] [place] COMPLETE JI JI AUTO&AUTO DIFRNTL WBC ECG 53321 [facility] ROUTINE 2 [place] [place] ECG JI JI W/LEAST 12 LDS TRCG ONLY W/O I&R HEAVY-DUT K0006 DAINA LAMA Y 2 HOSP HOSP WHEELCHAI EQUIP EQUIP R RADEX 43091 [facility] GRE ANKLE 2 COMPLETE MINIMUM 3 VIEWS DIAB ONLY A5500 CHERELLE VILLARREAL FIT CSTM 2 ORTHOPEDI ORTHOPEDI PREP&SPL CS CS SHOE MX DNSITY INSRT TRANSFERA 28153 RASHAAD EILEEN RASHAAD EILEEN SE 2 ASPARTATE AMINO AST SGOT LIPID 46067 RASHAAD EILEEN RASHAAD EILEEN PANEL 2 GLUCOSE 62105 RASHAAD EILEEN RASHAAD EILEEN QUANTITAT 2 GALDINO BLOOD XCPT REAGENT STRIP HEMOGLOBI 10557 RASHAAD EILEEN RASHAAD EILEEN N 2 GLYCOSYLA ELSA A1C BASIC 65377 [facility] QUEST METABOLIC 2 DIAGNOSTI DIAGNOSTI PANEL CS CS CALCIUM TOTAL ADD LW L2820 CHERELLE VILLARREAL EXT ORTH 2 ORTHOPEDI ORTHOPEDI SFT CS CS INTERFCE MOLD BELW KNEE RADEX 61663 BARROW, BARROW, ANKLE 2 JR. JAM JR. JAM COMPLETE MINIMUM 3 VIEWS WALKER E0143 SHIVANI PARRISH FOLDING 2 SURGICAL SURGICAL WHEELED ADJUSTABL E/FIXED HEIGHT SEAT E0156 SHIVANI PARRISH ATTACHMEN 2 SURGICAL SURGICAL T WALKER DIAB ONLY A5500 SHIVANI PARRISH FIT CSTM 2 SURGICAL SURGICAL PREP&SPL SHOE MX DNSITY INSRT TRANSFERA 38213 QUEST QUEST SE 2 DIAGNOSTI DIAGNOSTI ASPARTATE CS CS AMINO AST SGOT COLLECTIO 72291 RASHAAD EILEEN RASHAAD EILEEN N VENOUS 2 BLOOD VENIPUNCT URE BASIC 07354 [facility]ST METABOLIC 2 DIAGNOSTI DIAGNOSTI PANEL CS CS CALCIUM TOTAL HEMOGLOBI 85264 QUEST QUEST N 2 DIAGNOSTI DIAGNOSTI GLYCOSYLA CS CS ELSA A1C LIPID 67053 QUEST QUEST PANEL 2 DIAGNOSTI DIAGNOSTI CS CS LIPID 62406 QUEST QUEST PANEL 2 DIAGNOSTI DIAGNOSTI CS CS HEMOGLOBI 82780 QUEST QUEST N 2 DIAGNOSTI DIAGNOSTI GLYCOSYLA CS CS ELSA A1C BASIC 62995 [facility]ST QUEST METABOLIC 2 DIAGNOSTI DIAGNOSTI PANEL CS CS CALCIUM TOTAL COLLECTIO 49658 YOSSI SY N VENOUS 2 DAO DAO BLOOD VENIPUNCT URE TRANSFERA 90010 [facility] QUEST SE 2 DIAGNOSTI DIAGNOSTI ASPARTATE CS CS AMINO AST SGOT SCREENING G0202 [facility] MAMMOGRAP IMAGING HY JOSEFINA ASS INCL CAD WHEN PERFORMD COMPUTER- 65541 [facility] PERALTA AIDED 1 [facility] DETECTION IMAGING ASS SCREENING MAMMOGRAP HY IIV3 43318 MANN DARNELL VACCINE 1 [facility] VIRUS 0.5 ML DOSAGE IM USE TRANSFERA 20194 [facility] QUEST SE 1 DIAGNOSTI DIAGNOSTI ASPARTATE CS CS AMINO AST SGOT BASIC 22373 [facility] METABOLIC 1 DIAGNOSTI DIAGNOSTI PANEL CS CS CALCIUM TOTAL HEMOGLOBI 82781 [facility] QUEST N 1 DIAGNOSTI DIAGNOSTI GLYCOSYLA CS CS ELSA A1C LIPID 83078 [facility] PANEL 1 DIAGNOSTI DIAGNOSTI CS CS GAUZE A6402 [facility] NON-IMPRE 1 [facility] 16 SQ/< AGENCY AGENCY W/O ADHES BORDR CONFORMIN A6446 [facility] ARH G BANDGE 1 HOME REFERENC NON-[facility] AGENCY KNITTED/W OVEN STERL TAPE A4450 [facility] NON-WATER 1 HOME HOME PROOF PER HEALTH HEALTH 18 AGENCY AGENCY SQUARE INCHES SUSCEPTIB 30399 MANN DARNELL LTY STDY 1 [facility] ANTIMICRB INC INC IAL MICRO/AGA R DILUTJ CUL BACT 20565 MANN DARNELL AEROBIC 1 [facility] ADDL INC INC METHS DEFINITIV E EA ISOL CUL BACT 92730 MANN DARNELL XCPT 1 [facility] URINE INC INC BLOOD[place] [address] MANN DARNELL INFUSION 1 [facility] THERAPY/P INC INC ROPHYLAXI S /DX 1ST TO 1 HR BLOOD 44885 MANN DARNELL COUNT 1 [facility] COMPLETE INC INC AUTO&AUTO DIFRNTL WBC BASIC 49974 MANN DARNELL METABOLIC 1 [facility] PANEL INC INC CALCIUM TOTAL RADEX 21927 EB GONZALEZCHER FOOT 1 [facility] COMPLETE IMAGING MINIMUM 3 ASS VIEWS TUBULAR A6457 [facility] DRSG W/WO 1 [...] 16 SQ/< AGENCY AGENCY W/O ADHES BORDR TAPE A4450 [facility] NON-WATER 1 HOME HOME PROOF PER HEALTH HEALTH 18 AGENCY AGENCY SQUARE INCHES GLOVES A4927 [facility] NON-STERI 1 HOME HOME LE PER HEALTH HEALTH 100 AGENCY AGENCY STERILE A4217 [facility] WATER/SULEMA 1 HOME HOME INE 500 HEALTH HEALTH ML AGENCY AGENCY CULTURE 72143 MANN DARNELL BACTERIAL 1 [facility] BLOOD INC INC AEROBIC W/ID ISOLATES SUSCEPTIB 95285 MANN DARNELL LTY STDY 1 [facility] ANTIMICRB INC INC IAL MICRO/AGA R DILUTJ BASIC 14866 MANN DARNELL METABOLIC 1 [facility] PANEL INC INC CALCIUM TOTAL BLOOD 64090 MANN DARNELL COUNT 1 [facility] COMPLETE INC INC AUTO&[place] [address] MANN DARNELL INFUSION 1 [facility] THERAPY/P INC INC ROPHYLAXI S /DX 1ST TO 1 HR CUL BACT 04028 MANN DARNELL AEROBIC 1 [facility] ADDL INC INC METHS DEFINITIV E EA ISOL DIAB ONLY A5500 SHIVANI PARRISH FIT CSTM 1 SURGICAL SURGICAL PREP&SPL SHOE MX DNSITY INSRT FOR DIAB A5512 SHIVANI PARRISH ONLY MX 1 SURGICAL SURGICAL DNSITY INSRT DIR FORMD PRFAB EA BASIC 63851 [facility] METABOLIC 1 [place] [facility] PANEL CALCIUM TOTAL LIPID 52983 [facility] PANEL 1 [facility] HEMOGLOBI 79920 [facility] N 1 [place] [facility] GLYCOSYLA ELSA A1C TRANSFERA 21813 [facility] SE 1 [facility] ASPARTATE AMINO AST SGOT SCREENING G0202 [place] KATHRYN 0 MED[facility] MAMMOGRAP IMAGING HY JOSEFINA ASS INCL CAD WHEN PERFORMD COMPUTER- 03590 [facility] AIDED 0 [facility] DETECTION IMAGING ASS SCREENING MAMMOGRAP HY IIV3 39479 MANN [place] VACCINE 0 [facility] VIRUS 0.5 ML DOSAGE IM USE TRANSFERA 08341 [facility] SE 0 [facility] ASPARTATE AMINO AST SGOT HEMOGLOBI 89875 [facility] N 0 [facility] GLYCOSYLA ELSA A1C LIPID 93482 [facility] PANEL 0 [facility] BASIC 39443 [facility] METABOLIC 0 [facility] PANEL CALCIUM TOTAL BLD GLU A4253 AM MED AM MED TEST/REAG 0 DIRECT DIRECT T STRIPS [facility] HOME BLD GLU SAT-50 BLD GLU A4253 AM MED AM MED TEST/REAG 0 DIRECT DIRECT T STRIPS [facility] HOME BLD GLU MON-50 LANCETS A4259 AM MED AM MED PER BOX 0 DIRECT DIRECT OF 100 [facility] DETERMINA 00004 [facility], TION 0 FOR FRANSISCO REFRACTIV EYEHLTH & C E STATE SURGPS DUPLEX 41283 [facility], SCAN 0 MEDICAL IVAN EXTRACRAN IMAGING IAL ART ASSOCIATE COMPL BI S STUDY TRANSFERA 77630 [facility] SE 0 [facility] ASPARTATE AMINO AST SGOT BASIC 13957 [facility] METABOLIC 0 [facility] PANEL CALCIUM TOTAL LIPID 37585 [facility] PANEL 0 [facility] HEMOGLOBI 71722 Sandrine HE 0 JERSEY BECKER GLYCOSYLA PSC ELSA A1C BLD GLU A4253 AM MED AM MED TEST/REAG 0 DIRECT DIRECT T STRIPS [facility] HOME BLD GLU MON-50 BLD GLU A4253 AM MED AM MED TEST/REAG 0 DIRECT DIRECT T STRIPS [facility] PH[facility]Y PHARMACY GLU MON-50 LANCETS A4259 AM MED AM MED PER BOX 0 DIRECT DIRECT OF 100 [facility] PHARMACY PHARMACY BLD GLU A4253 AM MED AM MED TEST/REAG 0 DIRECT [facility] MON-50 FOR DIAB A5512 SHIVANI PARRISH ONLY MX 0 SURGICAL SURGICAL DNSITY INSRT DIR FORMD PRFAB EA DIAB ONLY A5500 SHIVANI PARRISH FIT CSTM 0 SURGICAL SURGICAL PREP&SPL SHOE MX DNSITY INSRT BLD GLU A4253 AM MED AM MED TEST/REAG 0 DIRECT DIRECT T STRIPS [facility] PHARMACY PHARMACY GLU SAT-50 BASIC 96039 [facility] METABOLIC 0 [facility] PANEL CALCIUM TOTAL HEMOGLOBI 58679 [facility] N 0 [place] GLYCOSYLA ELSA A1C LIPID 56835 [facility] PANEL 0 [place] TRANSFERA 82134 [facility] 0 [place] [facility] [employer] ASPARTATE AMINO AST SGOT BLD GLU A4253 AM MED AM MED TEST/REAG 0 DIRECT [facility] GLU 50 LANCETS A4259 AM MED AM MED PER BOX 0 DIRECT DIRECT OF 100 [facility] PHARMACY PHARMACY BLD GLU A4253 AM MED AM MED TEST/REAG 0 DIRECT DIRECT T [facility] GLU SAT-50 CATARACT 40889 [facility] REMOV[facility] 9 [facility] INSERTION [facility] POST[facility]IOR V2632 [facility] CHAMBER 9 [facility] INTRAOCUL [facility] OPH BMTRY 12838 SD US AUTUMN 9 FOR FRANSISCO ECHOGRAPY EYEHLTH & C A-SCAN SURGPSC IO LENS PWR GUS BLD GLU A4253 AM MED AM MED TEST/REAG 9 DIRECT DIRECT T STRIPS [facility] HOME BLD PHARMACY PHARMACY GLU CATARACT 14777 [place] [email or web address] JORGE, REMOVAL 9 FOR FRANSISCO INSERTION EYEHLTH & C OF LENS SURGPSC ANESTHESI 74363 [facility], A EYE 9 [facility] LAN R LENS ANESTHESI SURGERY A PSC PPSV23 59722 DHS/CO MANN VACCINE 2 9 [facility] OLDER FOR BANK ACCT SUBQ/IM USE OPH BMTRY 12784 [facility] [place], [place] 9 FOR FRANSISCO ECHOGRAPY EYEHLTH & C A-SCAN SURGPSC IO LENS PWR GUS OPHTH 76989 [place] [facility] [[email or web address] JORGE, MEDICAL 9 FOR FRANSISCO XM&EVAL EYEHLTH & C COMPRHNSV SURGPSC ESTAB PT 1/> BLD GLU A4253 AM MED AM MED TEST/REAG 9 DIRECT DIRECT T [facility]IPS [facility] HOME BLD PHARMACY PHARMACY GLU LANCETS A4259 AM MED AM MED PER BOX 9 DIRECT DIRECT OF 100 [facility] PHARMACY PHARMACY BASIC 25338 [facility] METABOLIC 9 [employer] PANEL HOLDING HOLDING CALCIUM TOTAL LIPID 99250 [facility] PANEL 9 [employer] HOLDING HEMOGLOBI 85224 [facility] N 9 AMERIC AMERIC GLYCOSYLA HOLDING HOLDING ELSA A1C TRANSFERA 89524 [facility] SE 9 AMERIC AMERIC ASPARTATE [place] [address] [facility] THYROID 9 AMERIC AMERIC STIMULATI HOLDING HOLDING NG HORMONE TSH BLD GLU A4253 AM MED AM MED TEST/REAG 9 DIRECT DIRECT T STRIPS [facility] HOME BLD PHARMACY PHARMACY GLU IIV3 64869 DHS/CO MANN VACCINE 9 [facility]TRAL ALBERT LEA VIRUS 0.5 BANK ACCT ML DOSAGE IM USE COMPUTER- 04875 MANN DARNELL AIDED 9 [facility] DETECTION INC INC SCREENING MAMMOGRAP HY SCREENING 98020 MANN MANN 9 [facility] MAMMOGRAP INC INC HY BILATERAL DIAB ONLY A5500 SHIVANI PARRISH FIT CSTM 9 SURGICAL SURGICAL PREP&SPL SHOE MX DNSITY INSRT FOR DIAB A5512 SHIVANI PARRISH ONLY MX 9 SURGICAL SURGICAL DNSITY INSRT DIR FORMD PRFAB EA BLD GLU A4253 AM MED AM MED TEST/REAG 9 DIRECT DIRECT T STRIPS [facility] PHARMACY PHARMACY GLU MON-50 BLD GLU A4253 AM MED AM MED TEST/REAG 9 DIRECT [facility] GLU MON-50 LANCETS A4259 AM MED AM MED PER BOX 9 DIRECT DIRECT OF 100 [facility] PHARMACY PHARMACY BASIC 24730 [facility] METABOLIC 9 [employer] AMER[employer] PANEL HOLDING HOLDING CALCIUM TOTAL HEMOGLOBI 73401 [facility] N 9 AMERIC AMERIC GLYCOSYLA HOLDING HOLDING ELSA A1C LIPID 32911 [facility] PANEL 9 AMER[employer] HOLDING HOLDING TRANSFERA 36836 [facility] SE 9 AMERIC AMERIC ASPARTATE HOLDING HOLDING AMINO AST SGOT COLLECTIO 77571 Bibi BLACK N VENOUS 9 JERSEY Langley BLOOD PSC VENIPUNCT URE BLD GLU A4253 AM MED AM MED TEST/REAG 9 DIRECT DIRECT T [facility] GLU MON-50 BLD GLU A4253 [facility] TEST/REAG 9 PHARMACY PHARMACY T STRIPS #591 #591 HOME BLD GLU MON-50 BLD GLU A4253 AM MED AM MED TEST/REAG 9 DIRECT DIRECT T [facility] GLU MON-50 BLD GLU A4253 AM MED AM MED TEST/REAG 9 DIRECT DIRECT [facility] GLU MON-50 LANCETS A4259 AM MED AM MED PER BOX 9 DIRECT DIRECT OF 100 [facility] PHARMACY PHARMACY BLD GLU A4253 AM MED AM MED TEST/REAG 9 DIRECT DIRECT T [facility] GLU MON-50 BASIC 79039 [facility] METABOLIC 9 AMERIC AMER[employer] PANEL HOLDING HOLDING CALCIUM TOTAL LIPID 88974 [facility] PANEL 9 [employer] HOLDING HOLDING HEMOGLOBI 64641 [facility] N 9 AMERIC AMERIC GLYCOSYLA HOLDING HOLDING ELSA A1C COLLECTIO 44753 Sandrine HE VENOUS 9 JERSEY BECKER BLOOD PSC VENIPUNCT URE TRANSFERA 62189 [facility] SE 9 AMERIC [...] LLC HOME BLD PHARMACY PHARMACY GLU SAT-50 BASIC 01710 [facility] METABOLIC 8 AMERIC AMER[employer] PANEL HOLDING HOLDING CALCIUM TOTAL HEMOGLOBI 99700 [facility] N 8 AMERIC AMERIC GLYCOSYLA HOLDING HOLDING ELSA A1C LIPID 54617 [facility] PANEL 8 AMERIC AMERIC HOLDING HOLDING TRANSFERA 03556 [facility] SE 8 AMERIC AMERIC ASPARTATE HOLDING HOLDING AMINO AST SGOT COLLECTIO 18431 Sandrine HE VENOUS 8 JERSEY BECKER BLOOD PSC VENIPUNCT URE URINLS 50236 Bibi SY DIP 8 JERSEY BECKER STICK/TAB PSC LET REAGNT NON-AUTO MICRSCPY LIPID 65279 [facility] PANEL 8 AMERIC [employer] HOLDING HOLDING HEMOGLOBI 48200 LAB [facility] N 8 AMERIC AMERIC GLYCOSYLA HOLDING HOLDING ELSA A1C GLUCOSE 37363 [facility] QUANTITAT 8 AMERIC AMERIC GALDINO BLOOD HOLDING HOLDING XCPT REAGENT STRIP COLLECTIO 45171 Bibi BLACK VENOUS 8 JERSEY Langley BLOOD PSC VENIPUNCT URE TRANSFERA 89309 [facility] SE 8 AMERIC AMERIC ASPARTATE HOLDING HOLDING AMINO AST SGOT MAMMOGRAP 22038 [place] ZACH, 8 MEDICAL KELLEY P UNILATERA IMAGING L ASSOCIATE S EXC B9 69117 Bibi SY LESION 8 JERSEY BECKER MRGN XCP PSC SK TG T/A/L 2.1-3.0 CM LIPID 04111 [facility] PANEL 8 AMERIC AMERIC HOLDING HOLDING HEMOGLOBI 03580 [facility] N 8 AMERIC AMERIC GLYCOSYLA HOLDING HOLDING ELSA A1C BASIC 31636 [facility] METABOLIC 8 AMERIC AMERIC PANEL HOLDING HOLDING CALCIUM TOTAL TRANSFERA 47898 [facility] SE 8 AMERIC AMERIC ASPARTATE HOLDING HOLDING AMINO AST SGOT COLLECTIO 85240 Bibi BLACK N VENOUS 8 JERSEY Langley BLOOD PSC VENIPUNCT URE BLD GLU A4253 [facility] TEST/REAG 8 PHARMACY PHARMACY T [facility] #591 #591 HOME BLD GLU IADNA 19034 Bibi SY, STREPTOCO 8 JERSEY BECKER CCUS PSC GROUP A QUANTIFIC ATION BLD GLU A4253 [facility] TEST/REAG 8 PHARMACY PHARMACY T STRIPS #591 #591 HOME BLD GLU 50 Encounters Encounter Start End Date Code Location Performer Type Date HOSPITAL MANN - 6 6 [facility] INPATIENT [facility] EMERGENCY 87793 MANN DEPT 6 6 [facility] VISIT [facility] HIGH SEVERITY& THREAT [facility] MANN - 6 6 [facility] INPATIENT [facility] EMERGENCY 19527 MANN 6 6 [facility] T VISIT HIGH/URGE NT SEVERITY EMERGENCY 19958 MANN DEPT 6 6 [facility] VISIT [facility] HIGH SEVERITY& THREAT [facility] MANN - 6 6 [facility] [place] [address] [facility] [place] [address] [facility] 36380 B[place], B[place], OUTPATIEN 3 3 JR. FREYA PILLAI T VISIT 15 MINUTES HOSPITAL MANN - 3 3 [facility] OUTPATIEN [facility] UNIVERSIT - 3 3 Y OUTREGENCY [facility] T OFFICE 41997 GUICHOJUDY MORELAND Rochelle OUTPATIEN 2 2 T NEW 45 MINUTES PERIODIC 34368 KILPEREN KILPELA PREVENTIV 2 2 NOLA VACA E MED EST PATIENT 40-64YRS OFFICE 33972 BARROW, BARROW, OUTPATIEN 2 2 JR. FREYA PILLAI T VISIT 15 MINUTES HOSPITAL [facility] - 2 2 [facility] T OFFICE 36705 [facility] GRE OUTPATIEN 2 2 T NEW 30 MINUTES OFFICE 05674 RASHAAD EILEEN RASHAAD EILEEN OUTPATIEN 2 2 T VISIT 15 MINUTES OFFICE 77660 BARROW, BARROW, OUTPATIEN 2 2 JR. FREYA HAQUE FREYA T VISIT 15 MINUTES OFFICE 37848 BARROW, BARROW, OUTPATIEN 2 2 JR. FREYA PILLAI T NEW 30 MINUTES OFFICE 84863 YOSSI YOSSI OUTPATIEN 2 2 DAO DAO T VISIT 25 MINUTES OFFICE 28529 YOSSI YOSSI OUTPATIEN 2 2 DAO DAO T VISIT 10 MINUTES HOSPITAL [facility] - [facility] 87035 YOSSI YOSSI OUTPATIEN 1 1 DAO DAO T VISIT 25 MINUTES [facility] 1 1 HOME OUTPSYCHIATRIC HEALTH T AGENCY OFFICE 88874 A C YOSSI OUTPATIEN 1 1 JERSEY AARON DAO T VISIT PSC 15 MINUTES HOSPITAL MANN - 1 1 [facility] OUTPATIEN INC T EMERGENCY 21078 MANN 1 1 [facility] DEPARTMEN INC T VISIT MODERATE SEVERITY EMERGENCY 59837 ARLENE ARIAS DEPT 1 1 EMERGENCY ADRIAN VISIT SERVICES HIGH SEVERITY& THREAT FUNC [facility], 1 1 HOME OUTPATIEN HEALTH T AGENCY [facility], 1 1 HOME OUTPATIEN HEALTH T AGENCY OFFICE 18317 A C YOSSI OUTPATIEN 1 1 JERSEY DC T VISIT PSC 25 MINUTES HOSPITAL MANN - 1 1 [facility] OUTPATIEN INC T EMERGENCY 92834 [facility]IGH/URGE NT SEVERITY OFFICE 30042 A C YOSSI OUTPATIEN 1 1 JERSEY DC T VISIT PSC 25 MINUTES OFFICE 36294 A Korin Mtz OUTPATIEN 1 1 JERSEY AARON T VISIT 5 PSC MINUTES HOSPITAL MANN - 0 0 [facility] OUTPATIEN [facility] T OFFICE 09382 A C YOSSI OUTPATIEN 0 0 JERSEY DC T VISIT 5 PSC MINUTES OFFICE 09467 [facility] 0 0 [facility] T VISIT EYEHLTH & C 15 SURGPSC MINUTES HOSPITAL MANN - 0 0 [facility] OUTPATIEN INC T OFFICE 16055 A C YOSSI, OUTPATIEN 0 0 JERSEY Isbell VISIT PSC 25 MINUTES OFFICE 23340 A Bibi ANDUJAR OUTPATIEN 0 0 JERSEY Isbell VISIT 5 PSC MINUTES HOSPITAL [address] OFFICE 05764 DHS/CO MANN OUTPATIEN 9 9 HEALTH [facility] T [facility] MINUTES BANK ACCT OFFICE 91699 A Korin SY OUTPATIEN 9 9 JERSEY BECKER T VISIT PSC 15 MINUTES OFFICE 25943 A Korin SY OUTPATIEN 9 9 JERSEY BECKER T VISIT PSC [address] [facility] MANN - 9 9 [facility] OUTPATIEN INC T OFFICE 41663 A Korin [place] A OUTPATIEN 9 9 JERSEY Langley T VISIT 5 PSC MINUTES OFFICE 07137 A Korin SY OUTPATIEN 9 9 JERSEY BECKER T VISIT PSC 25 MINUTES OFFICE 86107 A Korin SY OUTPATIEN 9 9 JERSEY BECKER T VISIT PSC 25 MINUTES OFFICE 57737 A Korin SY OUTPATIEN 8 8 JERSEY BECKER T VISIT 5 PSC MINUTES OFFICE 63557 A Korin SY, OUTPATIEN 8 8 JERSEY BECKER T VISIT PSC 25 MINUTES OFFICE 34155 A Bibi ANDUJAR OUTPATIEN 8 8 JERSEY Langley T VISIT 5 PSC MINUTES OFFICE 04236 A Korin SY OUTPATIEN 8 8 JERSEY BECKER T VISIT PSC [address] [facility] MANN - 8 8 [facility] OUTPATIEN INC T OFFICE 73006 A Korin SY OUTPATIEN 8 8 JERSEY BECKER T VISIT PSC 15 MINUTES OFFICE 17933 A Bibi ANDUJAR OUTPATIEN 8 8 JERSEY Langley T VISIT PSC 25 MINUTES OFFICE 42780 A Bibi ANDUJAR OUTPATIEN 8 8 JERSEY Langley T VISIT 5 PSC MINUTES OFFICE 55520 A Korin SY OUTPATIEN 8 8 JERSEY BECKER T VISIT PSC 15 MINUTES
--- OUTSIDE RECORDS SUMMARY | 2017-04-20 04:09 | External Medical Summary Rpt ---
Author Author , MARIANNA Hamilton MARIANNA Address Unknown Phone [email or web address] Care Team Providers Care Reporting Specialist Name Role Phone A Korin PUTNAM MD [...] HUBERT IVAN PERALTA, Unavailable Unavailable KATHRYN, IVAN FRANSSICO PATEL, Unavailable Unavailable FRANSISCO PATEL [facility], Unavailable Unavailable LLC[facility] HUGO ADRIAN, HUGO Unavailable Unavailable ADRIAN [facility] Unavailable Unavailable HOSPITA, [facility] GRE, [facility] Unavailable Unavailable PB RHO, PB Unavailable Unavailable RHO PB RHO, PB Unavailable Unavailable RHO [facility] Unavailable Unavailable LEOMINSTER, [facility] Unavailable Unavailable LEOMINSTER, [facility] Unavailable Unavailable INC, [facility], Unavailable Unavailable [facility], Unavailable Unavailable [facility], Unavailable Unavailable [facility] KILPELA JEA, KILPELA Unavailable Unavailable JEA KILPELA JEA, KILPELA Unavailable Unavailable JEA [facility] Unavailable Unavailable [facility], [facility] [facility], Unavailable Unavailable [facility] Unavailable Unavailable SERVICES, [facility] Unavailable Unavailable [...] [facility]OSP [facility], Unavailable Unavailable [facility] Unavailable Unavailable [facility] MERLY WILLIS Unavailable Unavailable MERLY WILLIS Unavailable Unavailable [facility] Unavailable Unavailable [facility], Unavailable Unavailable [facility] Unavailable Unavailable [address]591, [facility] Unavailable Unavailable #[facility], [facility] # Unavailable Unavailable [id number], [facility] # [id number] [facility] Unavailable Unavailable AGENCY, [facility] PUTNAM A, PUTNAM A Unavailable Unavailable [...] INC STAGE 3 MODERATE R0902 HYPOXEMIA 11-22-2015 [facility] [id number] BODY MASS 11-22-2015 [facility] INDEX BMI [facility] 45.0-49.9 INC ADULT [id number] PERSONAL 11-22-2015 [facility] NICOTINE INC DEPENDENCE E8342 HYPOMAGNESE 09-30-2015 [facility]LOS [facility] INC E876 HYPOKALEMIA 09-30-2015 [facility] I129 HYPERTENSIV 09-30-2015 [facility] E CKD [facility] W/STAGE 1-4 INC CKD OR UNS CKD I2510 ASHD [place] 09-30-2015 [facility] CORONARY [facility] ARTERY W/O INC ANGINA PECTORIS N179 ACUTE 09-30-2015 [facility] FAILURE INC UNSPECIFIED 26787 SEC 06-15-2013 [facility] LOCALIZED HOSP EQUIP OSTEOARTHRO SIS ANKLE AND FOOT 8248 UNSPECIFIED 01-28-2013 [facility] CLOSED FRACTURE OF ANKLE 36727 PAIN IN 01-22-2013 [place] JOINT, [facility] ANKLE AND HOSPITA FOOT 99095 OTHER 01-22-2013 PB [facility] NONSPECIFIC ABNORMAL FINDING OF LUNG FIELD V7283 OTHER 01-22-2013 [place] SPECIFIED COMMUNITY PRE-OPERATI HOSPITA VE EXAMINATION 7859 OTHER 12-05-2012 [facility] SYMPTOMS [facility] INVOLVING INC CARDIOVASCU LAR SYSTEM V7612 OTHER 12-05-2012 [facility] SCREENING [facility] MAMMOGRAM INC [id number] PRIMARY 10-23-2012 ALLI BARROW JR. OSTEOARTHRO SIS ANKLE AND FOOT 80364 OSTEOARTHRO 10-08-2012 [facility] SIS UNSPEC [facility] WHETHER INC GEN/LOC ANK&FOOT 76916 DISORDER OF 10-01-2012 [facility] CARTILAGE UNSPECIFIED 56905 NONSPECIFIC 08-28-2012 [facility] ABNORMAL ELECTROCARD IOGRAM 7852 UNDIAGNOSED 08-25-2012 [facility] CARDIAC MURMURS 54857 SHORTNESS 08-25-2012 [facility] J OF BREATH V700 ROUTINE 08-04-2012 [facility]ACA GENERAL MEDICAL EXAM@HEALTH CARE FACL 4019 UNSPECIFIED 07-18-2012 [facility] ESSENTIAL HYPERTENSIO N 78502 DIAB W/O 07-17-2012 [facility] COMP TYPE MOUNT II/UNS NOT JI STATED UNCNTRL 4293 CARDIOMEGAL 07-17-2012 [facility] Y MOUNT JI 4400 ATHEROSCLER 07-17-2012 [facility] A[facility] JI V7284 UNSPECIFIED 07-17-2012 [facility] PRE-OPERATI JI VE EXAMINATION 91333 DIAB W/O 06-09-2012 RASHAAD EILEEN MENTION COMP TYPE II/UNS TYPE UNCNTRL 2724 OTHER AND 06-05-2012 RASHAAD EILEEN UNSPECIFIED HYPERLIPIDE JUANCARLOS 4011 ESSENTIAL 06-05-2012 RASHAAD EILEEN HYPERTENSIO N, BENIGN 72848 OSTEOARTHRO 04-22-2012 CHERELLE S UNSPEC ORTHOPEDICS WHETHER GEN/LOC UNSPEC SITE 13271 PLANTAR 03-25-2012 JENY BARROW JR. JAM FIBROMATOSI S 09290 DIAB 02-21-2012 [facility] W/NEURO SURGICAL MANIFESTS TYPE II/UNS NOT UNCNTRL 29076 PRESSURE 02-21-2012 [facility] ULCER SURGICAL UNSPECIFIED SITE E9479 UNSPEC 02-01-2012 [facility] L SBSTNC CAUS ADVRS EFF TX USE V0481 NEED 06-27-2011 [facility] VACCINATION &INOCULATIO N FLU 95598 ULCER OF 05-01-2011 YOSSI DAO OTHER PART OF FOOT 97078 UNSPECIFIED 05-01-2011 [facility] DAO ARTHROPATHY SITE UNSPECIFIED 88701 OBESITY, 04-16-2011 [facility] UNSPECIFIED HEALTH AGENCY 7812 ABNORMALITY 04-16-2011 [facility] OF GAIT HEALTH AGENCY 8920 OPEN WOUND 04-16-2011 [facility] FT NO TOE HEALTH ALONE AGENCY WITHOUT MENTION COMP 8930 OPEN WOUND 04-16-2011 [facility] TOE WITHOUT HEALTH MENTION AGENCY COMPLICATIO N 7079 CHRONIC 03-23-2011 A C PUTNAM ULCER OF [facility] UNSPECIFIED SITE 5849 ACUTE 03-22-2011 [facility] FAILURE INC UNSPECIFIED 5939 UNSPECIFIED 03-22-2011 [facility]RETER 6827 CELLULITIS 03-22-2011 [facility] AND ABSCESS [facility]ERGENCY OF FOOT SERVICES EXCEPT TOES 30635 DIAB W/OTH 02-25-2011 [facility] MANIFESTS [facility] TYPE II/UNS INC NOT UNCNTRL 44343 PRESSURE 02-25-2011 [facility] ULCER OTHER EMERGENCY SITE SERVICES 99249 OTHER 02-25-2011 [facility] ABNORMAL EMERGENCY GLUCOSE SERVICES 7906 OTHER 02-25-2011 [facility] ABNORMAL [facility] BLOOD INC CHEMISTRY V431 LENS 04-13-2010 [place] [facility] FOR REPLACED BY EYEHLTH & OTHER SURGPSC MEANS 274 GOUT 11-17-2009 A Korin PUTNAM MD PSC 26181 CORTICAL 09-01-2009 [place] IN[facility] FOR SENILE EYEHLTH & CATARACT SURGPSC 3669 UNSPECIFIED 09-01-2009 [facility] V1582 PERS HX 09-01-2009 [facility] TOBACCO USE NEETU PRESENTING [facility] V0382 NEED PROPH 08-08-2009 [facility]/CO VACCINATION HEALTH AGAINST CENTRAL STREP BANK ACCT PNEUMONE 5990 URINARY 07-28-2009 A Korin PUTNAM TRACT PSC INFECTION SITE NOT SPECIFIED 2449 UNSPECIFIED 07-22-2009 [facility] HYPOTHYROID [facility] ISM 6923 [facility] 12-17-2008 A Korin PUTNAM DERMATITIS& PSC OTH ECZEMA-RX&M EDS [facility] W/SKN 7881 DYSURIA 07-16-2008 A Korin PUTNAM MD PSC 1121 CANDIDIASIS 03-11-2008 A Korin PUTNAM OF [facility] 20206 OTHER SIGN 03-02-2008 [facility] AND SYMPTOM [facility] IN BREAST INC 22814 UNSPECIFIED 03-02-2008 [facility] 7062 SEBACEOUS 01-29-2008 A Korin PUTNAM CYST [facility] 7862 COUGH 01-19-2008 A Korin PUTNAM MD [facility] 0340 STREPTOCOCC 11-04-2007 A Korin EUBANKS SORE [facility] THROAT C34.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 D 33 IN ti DY 90 3- 6- 00 CA 98 EY ve 16 20 20 0 RE 48 PH 97 16 16 ND YT 9 PH CH OP AR AE LE MA L X CY S AN TI LL FU C NG AL 2% MA 00 04 04 0 30 5 ME 12 GA Ac PA 90 -0 -0 0. D 29 IN ti P 41 4- 4- 00 CA 37 EY ve 50 98 20 20 0 RE 72 0 86 16 16 ND MG 1 PH CH AR AE TA MA L BL CY S ET LL C RE 53 04 04 0 85 7 ME 12 GA Ac ME 32 -0 -0 0. D 29 IN ti DY 90 3- 4- 00 CA 40 EY ve 16 20 20 0 RE 18 PH 97 16 16 ND YT 9 PH CH OP AR AE LE MA L X CY S AN TI LL FU C NG AL 2% PO 00 04 04 0 60 30 ME 12 GA Ac TA 78 -0 -0 0. D 29 IN ti SS 15 4- 4- 00 CA 37 EY ve IU 71 20 20 0 RE 88 M 01 16 16 ND CL 0 PH CH AR AE ER MA L CY S 10 LL ME C Q TA BL ET Q- 00 04 04 0 11 3 ME 12 GA Ac TU 60 -0 -0 80 D 29 IN ti SS 30 4- 4- .0 CA 37 EY ve IN 85 20 20 00 RE 80 59 16 16 ND DM 4 PH CH AR AE SY MA L RU CY S P LL C FI 74 03 03 0 15 15 ME 12 GA Ac SH 31 -1 -2 0. D 25 IN ti 20 1- 4- 00 CA 52 EY ve OI 13 20 20 0 RE 01 L 32 16 16 ND 1, 9 PH CH 20 AR AE 0 MA L MG CY S SO LL FT C GE L RE 53 03 03 0 85 5 ME 12 GA Ac ME 32 -1 -1 0. D 22 IN ti DY 90 1- 4- 00 CA 01 EY ve 16 20 20 0 RE 51 PH 97 16 16 ND YT 9 PH CH OP AR AE LE MA L X CY S AN TI LL FU C NG AL 2% FI 74 03 03 0 15 15 ME 12 GA Ac SH 31 -1 -1 0. D 22 IN ti 20 1- 1- 00 CA 01 EY ve OI 13 20 20 0 RE 93 L 32 16 16 ND 1, 9 PH CH 20 AR AE 0 MA L MG CY S SO LL FT C GE L FU 63 09 10 5 30 30 WA 71 RI Ac RO 30 -1 -2 .0 L- 34 SH ti SE 40 3- 8- 00 MA 63 ER ve ND 62 20 20 RT 9 DE 51 [...] 3- 5- 00 MA 63 ER ve ND 62 20 20 RT 9 DE 51 [...] 6- 9- 00 MA 49 ER ve ND 62 20 20 RT 0 DE 51 [...] 6- 9- 00 MA 49 ER ve ND 62 20 20 RT 0 DE 51 [...] 6- 3- 00 MA 49 ER ve ND 62 20 20 RT 0 DE 51 [...] 7- 3- 00 MA 98 ER ve ND 62 20 20 RT 1 DE 51 [...] 7- 3- 00 MA 98 ER ve ND 62 20 20 RT 1 DE 51 [...] 7- 2- 00 MA 98 ER ve ND 62 20 20 RT 1 DE 51 [...] 7- 2- 00 MA 98 ER ve ND 62 20 20 RT 1 DE 51 [...] 4- 5- 00 MA 63 ER ve ND 62 20 20 RT 8 DE 51 [...] 4- 4- 00 MA 63 ER ve ND 62 20 20 RT 8 DE 51 [...] 2- 5- 00 MA 97 S ve ND [address] DE [...] 2- 8- 00 MA 97 S ve ND 21 [address] DE [...] 5- 7- 00 MA 76 S ve ND 21 [address] DE [...] 5- 9- 00 MA 76 S ve ND 21 [address] DE [...] 5- 1- 00 MA 76 S ve ND 21 [address] DE [...] 5- 1- 00 MA 76 S ve ND 21 [address] DE [...] 6- 3- 00 MA 62 ER ve ND 21 20 20 RT 4 DE 61 [...] 6- 5- 00 MA 62 ER ve ND 21 20 20 RT 4 DE 61 [...] 6- 8- 00 MA 62 Av ve ND 21 20 20 RT 4 ai DE [...] 6- 0- 00 MA 62 Av ve ND 21 20 20 RT 4 ai DE [...] 9- 7- 00 MA 06 Av ve ND 21 20 20 RT 8 ai DE [...] 9- 5- 00 MA 06 Av ve ND 21 20 20 RT 8 ai DE [...] DOSA GE IM USE IIV3 07-17 141 CAORLINE No CAROLINE 0-20 VEE VEE VACC 10 [...] DOS Code Location Performer Comment GLUC BLD 75470 [facility] GLUC MNTR 6 [facility] DEV INC INC CLEARED FDA SPEC HOME USE BLOOD 69377 [facility] COUNT 6 [facility] COMPLETE INC INC AUTO&AUTO DIFRNTL WBC PRESSURIZ 48309 [facility] ED/NONPRE 6 [facility] SSURIZED INC INC INHALATIO N TREATMENT COMPREHEN 86795 [facility] SIVE 6 [facility] METABOLIC INC INC PANEL INJECTION J1642 [facility] HEPARIN 6 [facility] SODIUM INC INC PER 10 UNITS COLLECTIO 11805 [facility] D[facility] N VENOUS 6 [facility] BLOOD INC INC VENIPUNCT URE NONINVASI 47175 [facility] VE 6 [facility] EAR/PULSE INC INC OXIMETRY SINGLE DETER PRESSURIZ 28725 [facility] D[facility] ED/NONPRE 6 [facility] SSURIZED INC INC INHALATIO N TREATMENT THERAPEUT 28826 MANN DARNELL IC PX 1/> 6 [facility] AREAS INC INC EACH 15 MIN EXERCISES GLUC BLD 86704 [facility] D[facility] GLUC MNTR 6 [facility] DEV INC INC CLEARED FDA SPEC HOME USE INJECTION J0692 [facility] CEFEPIME 6 [facility] INC INC HYDROCHLO RIDE 500 MG INJECTION J0692 [facility] CEFEPIME 6 [facility] INC INC HYDROCHLO RIDE 500 MG GLUC BLD 98286 M[facility] GLUC MNTR 6 [facility] DEV INC INC CLEARED FDA SPEC HOME USE THERAPEUT 16276 [facility] ACTVITY 6 [facility] DIRECT PT INC INC CONTACT EACH 15 MIN BASIC 83379 [facility] METABOLIC 6 [facility] PANEL INC INC CALCIUM TOTAL PHYSICAL 56008 [facility] THERAPY 6 [facility] EVALUATIO INC INC N THERAPEUT 33881 [facility] D[facility]NE[facility] IC PX 1/> 6 [facility] AREAS INC INC EACH 15 MIN EXERCISES PRESSURIZ 82869 [facility] ED/NONPRE 6 [facility] SSURIZED [place] [address] [facility] AMMONIA 6 [facility] INC INC NONINVASI 29705 [facility] D[facility] VE 6 [facility] EAR/PULSE INC INC OXIMETRY SINGLE DETER RADIOLOGI 28838 [facility] C 6 [facility] EXAMINATI INC INC ON CHEST SINGLE VIEW FRONTAL COLLECTIO 12180 [facility] D[facility] N VENOUS 6 [facility] BLOOD INC INC VENIPUNCT URE NONINVASI 43760 [facility] D[facility]NE[facility] VE 6 [facility] EAR/PULSE INC INC OXIMETRY SINGLE DETER PRESSURIZ 19210 [facility] D[facility] ED/NONPRE 6 [facility] SSURIZED INC INC INHALATIO N TREATMENT GLUC BLD 01474 M[facility] D[facility]NELL GLUC MNTR 6 [facility] DEV INC INC CLEARED FDA SPEC HOME USE INJECTION J0692 [facility] CEFEPIME 6 [facility] INC INC HYDROCHLO RIDE 500 MG INJECTION J0692 [facility] CEFEPIME 6 [facility] INC INC HYDROCHLO RIDE 500 MG GLUC BLD 51480 [facility] DARNELL GLUC MNTR 6 [facility] DEV INC INC CLEARED FDA SPEC HOME USE BLOOD 14880 [facility] COUNT 6 [facility] COMPLETE INC INC AUTO&AUTO DIFRNTL WBC PRESSURIZ 28122 [facility] ED/NONPRE 6 [facility] SSURIZED [place] [address] [facility] MAGNESIUM 6 [facility] INC INC COMPREHEN 14908 [facility] D[facility] SIVE 6 [facility] METABOLIC INC INC PANEL COLLECTIO 85291 [facility] D[facility] N VENOUS 6 [facility] BLOOD INC INC VENIPUNCT URE COLLECTIO 34133 [facility] D[facility] N VENOUS 6 [facility] [place] [address] M[facility] DARNE[facility] ANGIOGRAP 6 [facility] HY CHEST INC INC W/CONTRAS T/NONCONT RAST LOCM Q9967 [facility]LL [phone] 6 [facility] MG/ML INC INC IODINE CONCENTRA TION PER ML BRNCDILAT 39519 [facility] DARNE[facility] RSPSE 6 [facility] SPMTRY INC INC PRE&POST- BRNCDILAT ADMN NONINVASI 08796 MANN DARNELL VE 6 [facility] EAR/PULSE INC INC OXIMETRY SINGLE DETER BLOOD 15299 M[facility] DARNELL COUNT 6 [facility] COMPLETE INC INC AUTO&AUTO DIFRNTL WBC GLUC BLD 75359 MANN DARNELL GLUC MNTR 6 [facility] DEV INC INC CLEARED FDA SPEC HOME USE BASIC 29265 MANN DARNELL METABOLIC 6 [facility] PANEL INC INC CALCIUM TOTAL CULTURE 62530 [facility] D[facility]NE[facility] BACTERIAL 6 [facility] BLOOD INC INC AEROBIC W/ID ISOLATES INJECTION J0692 [facility]LL CEFEPIME 6 [facility] INC INC HYDROCHLO RIDE 500 MG COLLECTIO 72368 MANN DELMI N VENOUS 6 [facility] MATTERS, BLOOD INC LLC. VENIPUNCT URE BASIC 79530 MANN DARNELL METABOLIC 6 [facility] PANEL INC INC CALCIUM TOTAL GLUC BLD 08314 MANN DARNELL GLUC MNTR 6 [facility] DEV INC INC CLEARED FDA SPEC HOME USE NONINVASI 71387 MANN MANN VE 6 [facility] EAR/PULSE INC INC OXIMETRY SINGLE DETER NONINVASI 39546 MANN MANN VE 6 [facility] EAR/PULSE INC [place] [address] MANN DARNELL MAGNESIUM 6 [facility] INC INC GLUC BLD 74629 MANN DARNELL GLUC MNTR 6 [facility] DEV INC [place] [address] MANN EV[facility]DAY TROPONIN 6 [facility] QUANTITAT INC LLC. GALDINO BLOOD 65026 [facility] DARNELL COUNT 6 [facility] COMPLETE INC INC AUTO&AUTO DIFRNTL WBC BASIC 13898 MANN EVRYDAY METABOLIC 6 [facility] [place] [address] [facility] INFUSION 6 [facility] THERAPY/P INC INC ROPHYLAXI S /DX 1ST TO 1 HR THERAPEUT 46525 [facility] DARNELL IC 6 [facility] INJECTION INC INC IV PUSH EACH NEW DRUG BLOOD 60733 [facility] D[facility]NELL COUNT 6 [facility] COMPLETE INC INC AUTO&[place] [address] MANN EV[facility]DAY TROPONIN 6 [facility] LLC. GALDINO NATRIURET 01374 MANN EVRYDAY IC 6 [facility], PEPTIDE INC LLC. GLUC BLD 75381 MANN DARNELL GLUC MNTR 6 [facility] DEV INC INC CLEARED FDA SPEC HOME USE BLOOD 79291 MANN EVRYDAY GASES ANY 6 [facility] MATTERS, INC LLC. COMBINATI ON PH PCO2 PO2 CO2 HCO3 CYANOCOBA 65552 M[facility] DARNELL TIMA 6 [facility] VITAMIN INC INC B-12 [place] [address] MANN EVRYDAY FOLIC 6 [facility] ACID INC LLC. SERUM COLLECTIO 00379 MANN EVRYDAY N VENOUS 6 [facility], BLOOD INC LLC. VENIPUNCT URE COMPREHEN 49474 MANN EVRYDAY SIVE 6 [facility], METABOLIC INC LLC. PANEL BLOOD 10329 [facility] DARNELL COUNT 6 [facility] RETICULOC INC INC YTE AUTOMATED RADIOLOGI 47073 MANNRAY BLAKEON C 6 [facility] EXAMINATI INC INC ON CHEST SINGLE VIEW FRONTAL RADIOLOGI 26417 MANNRAY BLAKEON C 6 [facility] EXAMINATI INC INC ON CHEST SINGLE VIEW FRONTAL NONINVASI 71691 M[facility] DARNELL VE 6 [facility] EAR/PULSE INC INC OXIMETRY SINGLE DETER COMPREHEN 80439 [facility] SIVE 6 [facility] METABOLIC INC INC PANEL COLLECTIO 43201 [facility] D[facility] N VENOUS 6 [facility] BLOOD INC INC VENIPUNCT URE PRESSURIZ 35920 [facility] D[facility] ED/NONPRE 6 [facility] SSURIZED INC INC INHALATIO N TREATMENT BLOOD 94243 [facility] COUNT 6 [facility] COMPLETE INC INC AUTO&AUTO DIFRNTL WBC URNLS DIP 08840 [facility]NELL 6 [facility] STICK/TAB INC INC LET REAGENT AUTO MICROSCOP Y BASIC 84382 M[facility] DARNELL METABOLIC 6 [facility] PANEL INC INC CALCIUM TOTAL COLLECTIO 66222 MANN DARNELL N VENOUS 6 [facility] BLOOD INC INC VENIPUNCT URE NONINVASI 32056 M[facility] DARNELL VE 6 [facility] EAR/PULSE INC INC OXIMETRY SINGLE DETER CULTURE 89815 [facility] BACTERIAL 6 [facility] INC INC QUANTTATI VE COLONY COUNT URINE RADIOLOGI 74436 [facility] D[facility]NELL C 6 [facility] EXAMINATI INC INC ON CHEST SINGLE VIEW FRONTAL NONINVASI 61576 M[facility] DARNELL VE 6 [facility] EAR/PULSE INC INC OXIMETRY SINGLE DETER COMPREHEN 89686 [facility] SIVE 6 [facility] [address] M[facility] D[facility] THYROID 6 [facility] STIMULATI INC INC NG HORMONE TSH CREATINE 23567 MANN DARNELL KINASE MB 6 [facility] FRACTION INC INC ONLY CREATINE 23176 MANN DARNELL KINASE 6 [facility] TOTAL INC INC NATRIURET 44285 M[facility] DARNELL IC 6 [facility] [place] [address] M[facility] DARNELL TROPONIN 6 [facility] QUANTITAT INC INC GALDINO BLOOD 71062 [facility] COUNT 6 [facility] COMPLETE INC INC AUTO&AUTO DIFRNTL WBC ECG 00977 [facility] D[facility] ROUTINE 6 [facility] ECG INC INC W/LEAST 12 LDS TRCG ONLY W/O I&R ECG 81183 [facility]NE[facility] ROUTINE 6 [facility] ECG INC INC W/LEAST 12 LDS TRCG ONLY W/O I&R BLOOD 54260 [facility] DARNELL COUNT 6 [facility] COMPLETE INC INC AUTO&[place] [address] MANN DARNELL TROPONIN 6 [facility] QUANTITAT INC INC GALDINO NATRIURET 17165 MANN DARNELL IC 6 [facility] PEPTIDE INC INC BLOOD 72109 MANN DARNELL GASES ANY 6 [facility] INC INC COMBINATI ON PH PCO2 PO2 CO2 HCO3 CREATINE 43435 MANN DARNELL KINASE 6 [facility] TOTAL INC INC THER 74699 MANN DARNELL PROPH/DX 6 [facility] NJX IV INC INC PUSH SINGLE/1S T SBST/DRUG CREATINE 47695 MANN [facility]ARNELL KINASE MB 6 [facility] [address] MANN DARNELL THYROID 6 [facility] STIMULATI INC INC NG HORMONE TSH COMPREHEN 65580 MANN DARNELL SIVE 6 [facility] METABOLIC INC INC PANEL RADIOLOGI 70349 MANN DARNELL C 6 [facility] EXAMINATI INC INC ON CHEST SINGLE VIEW FRONTAL INSERTION [id number] MANN DARNELL INFUSION 6 [facility] DEVC RT INC INC SUBCLAVIA N VEIN PERQ INSERTION [id number] MANN DARNELL VAD 6 [facility] CHEST INC INC SUBQ TISSUE & FASCIA OPEN FLUOROSCO [id number] MANN DARNELL PY LEFT 6 [facility] HEART LOW INC INC OSMOLAR CONTRAST MEASUREME [id number] MANN DARNELL NT 6 [facility] CARDIAC INC INC SAMPLING PRESS LT HEART PERQ FLUORO [id number] MANN DARNELL MULTI 6 [facility] [...] HOSP HOSP WHEELCHAI EQUIP EQUIP R RADIOLOGI [id number] CELESTINO MAT CELESTINO MAT C 3 EXAMINATI ON ANKLE 2 VIEWS COLLECTIO 21535 [facility] N VENOUS 3 N N BLOOD COMMUNITY [facility] HOSPITA URE RADIOLOGI 22757 PB PB C EXAM 3 RHO RHO CHEST 2 VIEWS FRONTAL&L ATERAL BLOOD 59611 [facility] COUNT 3 N N COMPLETE COMMUNITY COMMUNITY AUTO&AUTO HOSPITA HOSPITA DIFRNTL WBC BASIC 43449 [facility] METABOLIC 3 N N PANEL COMMUNITY COMMUNITY CALCIUM HOSPITA HOSPITA TOTAL HEAVY-DUT K0006 [facility] Y 3 HOSP HOSP WHEELCHAI EQUIP EQUIP R HEAVY-DUT K0006 [facility] Y 3 HOSP HOSP WHEELCHAI EQUIP EQUIP R SCREENING [id number] MANN DARNELL 3 [facility] MAMMOGRAP INC INC HY JOSEFINA INCL CAD WHEN PERFORMD COMPUTER- 92505 MANN DARNELL AIDED 3 [facility] DETECTION INC INC SCREENING MAMMOGRAP HY DUPLEX 17368 MANN DARNELL SCAN 3 [facility] EXTRACRAN INC INC IAL ART COMPL BI STUDY ECG 88945 [facility] ROUTINE 3 N N ECG COMMUNITY COMMUNITY W/LEAST HOSPITA HOSPITA 12 LDS TRCG ONLY W/O I&R RADIOLOGI 23160 CELESTINO MAT CELESTINO MAT C EXAM 3 CHEST 2 VIEWS FRONTAL&L ATERAL COLLECTIO 35237 [facility] N VENOUS 3 N N BLOOD [facility] HOSPITA URE BASIC 59721 [facility] METABOLIC 3 N N PANEL [facility] HOSPITA TOTAL BLOOD 82889 [facility] COUNT 3 N N COMPLETE [facility] AUTO&AUTO HOSPITA HOSPITA DIFRNTL WBC HEAVY-DUT K0006 DAINA LAMA Y 3 [facility]P [facility] E[facility] 47688 MANN MANN R MGMT EA 3 MEM H[facility]OS[facility] 15 MIN INC INC RADEX 04588 [facility] ANKLE 3 Y Y [facility] MINIMUM 3 VIEWS DOP 32974 [facility] ECHOCARD 2 [place] V[place] [address] [facility] ECHO 2 CONTRAST AGENT DURING STRESS ECHO ECHO 55564 [facility] TTHRC R-T 2 2D W/WO M-MODE REST&STRS CONT ECG INJECTION Q9957 [facility] 2 PERFLUTRE N LIPID MICROSPHE RES PER ML DOPPLER 26203 [facility] ECHOCARD 2 PULSE WAVE W/SPECTRA L DISPLAY HEAVY-DUT K0006 DAINA LAMA Y 2 HOSP [facility]OSP [facility] EQUIP EQUIP R ECG 32828 [facility] ROUTINE 2 ECG W/LEAST 12 LDS I&R ONLY RADIOLOGI 56975 [facility] C EXAM 2 [facility] CHEST 2 JI JI VIEWS FRONTAL&L ATERAL COLLECTIO 73407 [facility] N VENOUS 2 [place] BLOOD JI JI VENIPUNCT URE COMPREHEN 64484 [facility] SIVE 2 [place] [place] METABOLIC JI JI PANEL BLOOD 46002 [facility] COUNT 2 [facility] COMPLETE JI JI AUTO&AUTO DIFRNTL WBC ECG 16087 [facility] ROUTINE 2 [place] ECG JI JI W/LEAST 12 LDS TRCG ONLY W/O I&R HEAVY-DUT K0006 DAINA LAMA Y 2 HOSP HOSP [facility] EQUIP EQUIP R RADEX 85460 [facility] ANKLE 2 COMPLETE MINIMUM 3 VIEWS DIAB ONLY A5500 [facility] VILLARREAL FIT CSTM 2 ORTHOPEDI ORTHOPEDI PREP&SPL CS CS SHOE MX DNSITY INSRT TRANSFERA 25728 RASHAAD EILEEN RASHAAD EILEEN SE 2 ASPARTATE AMINO AST SGOT LIPID 09900 RASHAAD EILEEN RASHAAD EILEEN PANEL 2 GLUCOSE 18542 RASHAAD EILEEN RASHAAD EILEEN QUANTITAT 2 GALDINO BLOOD XCPT REAGENT STRIP HEMOGLOBI 53803 RASHAAD EILEEN RASHAAD EILEEN N 2 GLYCOSYLA ELSA A1C BASIC 44231 QUEST QUEST METABOLIC 2 DIAGNOSTI DIAGNOSTI PANEL CS CS CALCIUM TOTAL ADD LW L2820 CHERELLE VILLARREAL EXT ORTH 2 ORTHOPEDI ORTHOPEDI SFT CS CS INTERFCE MOLD BELW KNEE RADEX 28572 BARROW, BARROW, ANKLE 2 JR. JAM JR. JAM COMPLETE MINIMUM 3 VIEWS WALKER E0143 SHIVANI PARRISH FOLDING 2 SURGICAL SURGICAL WHEELED ADJUSTABL E/FIXED HEIGHT SEAT E0156 SHIVANI PARRISH ATTACHMEN 2 SURGICAL SURGICAL T WALKER DIAB ONLY A5500 SHIVANI PARRISH FIT CSTM 2 SURGICAL SURGICAL PREP&SPL SHOE MX DNSITY INSRT TRANSFERA 25331 QUEST QUEST SE 2 DIAGNOSTI DIAGNOSTI ASPARTATE CS CS AMINO AST SGOT COLLECTIO 51327 RASHAAD EILEEN RASHAAD EILEEN N VENOUS 2 BLOOD VENIPUNCT URE BASIC 62193 QUEST QUEST METABOLIC 2 DIAGNOSTI DIAGNOSTI PANEL CS CS CALCIUM TOTAL HEMOGLOBI 13775 QUEST QUEST N 2 DIAGNOSTI DIAGNOSTI GLYCOSYLA CS CS ELSA A1C LIPID 12409 QUEST QUEST PANEL 2 DIAGNOSTI DIAGNOSTI CS CS LIPID 16194 QUEST QUEST PANEL 2 DIAGNOSTI DIAGNOSTI CS CS HEMOGLOBI 57266 QUEST QUEST N 2 DIAGNOSTI DIAGNOSTI GLYCOSYLA CS CS ELSA A1C BASIC 77442 QUEST QUEST METABOLIC 2 DIAGNOSTI DIAGNOSTI PANEL CS CS CALCIUM TOTAL COLLECTIO 94352 YOSSI SY N VENOUS 2 DAO DAO BLOOD VENIPUNCT URE TRANSFERA 16562 QUEST QUEST SE 2 DIAGNOSTI DIAGNOSTI ASPARTATE CS CS AMINO AST SGOT SCREENING G0202 [facility] 1 [facility] MAMMOGRAP IMAGING HY JOSEFINA ASS INCL CAD WHEN PERFORMD COMPUTER- 76648 [facility]TA AIDED 1 [facility] DETECTION IMAGING ASS SCREENING MAMMOGRAP HY IIV3 65935 MANN DARNELL VACCINE 1 [facility] CENTER VIRUS 0.5 ML DOSAGE IM USE TRANSFERA 19050 [facility] QUEST SE 1 DIAGNOSTI DIAGNOSTI ASPARTATE CS CS AMINO AST SGOT BASIC 66777 [facility] METABOLIC 1 DIAGNOSTI DIAGNOSTI PANEL CS CS CALCIUM TOTAL HEMOGLOBI 63057 [facility] QUEST N 1 DIAGNOSTI DIAGNOSTI GLYCOSYLA CS CS ELSA A1C LIPID 33616 [facility] PANEL 1 DIAGNOSTI DIAGNOSTI CS CS GAUZE A6402 [facility] NON-[facility]PRE 1 [facility] SQ/< AGENCY AGENCY W/O ADHES BORDR CONFORMIN A6446 [facility] ARH G BANDGE 1 HOME REFERENC NON-[facility] AGENCY KNITTED/W OVEN STERL TAPE A4450 [facility] NON-WATER 1 HOME HOME PROOF PER HEALTH HEALTH 18 AGENCY AGENCY SQUARE INCHES SUSCEPTIB 22050 MANN DARNELL LTY STDY 1 [facility] ANTIMICRB INC INC IAL MICRO/AGA R DILUTJ CUL BACT 69798 MANN DARNELL AEROBIC 1 [facility] ADDL INC INC METHS DEFINITIV E EA ISOL CUL BACT 17469 MANN DARNELL XCPT 1 [facility] URINE INC INC BLOOD[place] [address] MANN DARNELL INFUSION 1 [facility] THERAPY/P INC INC ROPHYLAXI S /DX 1ST TO 1 HR BLOOD 29134 MANN DARNELL COUNT 1 [facility] COMPLETE INC INC AUTO&AUTO DIFRNTL WBC BASIC 89210 MANN DARNELL METABOLIC 1 [facility] PANEL INC INC CALCIUM TOTAL RADEX 02351 EB GONZALEZCHER FOOT 1 MEDICAL [facility]ERT COMPLETE [...] 500 HEALTH HEALTH ML AGENCY AGENCY CULTURE 32502 MANN DARNELL BACTERIAL 1 [facility] BLOOD INC INC AEROBIC W/ID ISOLATES SUSCEPTIB 10435 MANN DARNELL LTY STDY 1 [facility] ANTIMICRB INC INC IAL MICRO/AGA R DILUTJ BASIC 18626 MANN DARNELL METABOLIC 1 [facility] PANEL INC INC CALCIUM TOTAL BLOOD 60802 MANN DARNELL COUNT 1 [facility] COMPLETE INC INC AUTO&[place] [address] MANN DARNELL INFUSION 1 [facility] THERAPY/P INC INC ROPHYLAXI S /DX 1ST TO 1 HR CUL BACT 26535 MANN DARNELL AEROBIC 1 [facility] ADDL INC INC METHS DEFINITIV E EA ISOL DIAB ONLY A5500 SHIVANI PARRISH FIT CSTM 1 SURGICAL SURGICAL PREP&SPL SHOE MX DNSITY INSRT FOR DIAB A5512 SHIVANI PARRISH ONLY MX 1 SURGICAL SURGICAL DNSITY INSRT DIR FORMD PRFAB EA BASIC 84505 [facility] METABOLIC 1 [place] [facility] PANEL CALCIUM TOTAL LIPID 65256 [facility] PANEL 1 [facility] HEMOGLOBI 25499 [facility] N 1 [place] [facility] GLYCOSYLA ELSA A1C TRANSFERA 95878 [facility] SE 1 [facility] ASPARTATE AMINO AST SGOT SCREENING G0202 [place] KATHRYN 0 [facility] MAMMOGRAP IMAGING HY JOSEFINA ASS INCL CAD WHEN PERFORMD COMPUTER- 94960 [facility] BEREAUTCHER AIDED 0 MEDICAL [facility] DETECTION IMAGING ASS SCREENING MAMMOGRAP HY IIV3 76136 MANN [place] VACCINE 0 [facility] CENTER VIRUS 0.5 ML DOSAGE IM USE TRANSFERA 11389 [facility] SE 0 [facility] ASPARTATE AMINO AST SGOT HEMOGLOBI 34127 [facility] N 0 [facility] GLYCOSYLA ELSA A1C LIPID 87687 [facility] PANEL 0 [facility] BASIC 18324 [facility] METABOLIC 0 [facility] PANEL CALCIUM TOTAL BLD GLU A4253 AM MED AM MED TEST/REAG [address] DIRECT T [facility] HOME BLD GLU SAT-50 BLD GLU A4253 AM MED AM MED TEST/REAG 0 [address] DIRECT T [facility] HOME BLD GLU MON-50 LANCETS A4259 AM MED AM MED PER BOX 0 DIRECT DIRECT OF [address] [facility] DETERMINA 20172 [facility] PATEL, TION 0 FOR FRANSISCO REFRACTIV EYEHLTH & C E STATE SURGPS DUPLEX 64598 [facility] BEREAUTCHER, SCAN 0 MEDICAL IVAN EXTRACRAN IMAGING IAL ART ASSOCIATE COMPL BI S STUDY TRANSFERA 59286 [facility] SE 0 [facility] ASPARTATE AMINO AST SGOT BASIC 31102 [facility] METABOLIC 0 [facility] PANEL CALCIUM TOTAL LIPID 77677 [facility] PANEL 0 [facility] HEMOGLOBI 43252 Sandrine HE 0 JERSEY BECKER GLYCOSYLA PSC ELSA A1C BLD GLU A4253 AM MED AM MED TEST/REAG 0 [address] DIRECT T [facility] HOME BLD GLU MON-50 BLD GLU A4253 AM MED AM MED TEST/REAG 0 DIRECT DIRECT T STRIPS [facility] PHARMACY PHARMACY GLU MON-50 LANCETS A4259 AM MED AM MED PER BOX 0 DIRECT DIRECT OF [address] [facility] PHARMACY PHARMACY BLD GLU A4253 AM MED AM MED TEST/REAG 0 DIRECT DIRECT T [facility] GLU MON-50 FOR DIAB A5512 SHIVANI PARRISH ONLY MX 0 SURGICAL SURGICAL DNSITY INSRT DIR FORMD PRFAB EA DIAB ONLY A5500 SHIVANI PARRISH FIT CSTM 0 SURGICAL SURGICAL PREP&SPL SHOE MX DNSITY INSRT BLD GLU A4253 AM MED AM MED TEST/REAG 0 DIRECT DIRECT T STRIPS [facility] PHARMACY PHARMACY GLU SAT-50 BASIC 64441 [facility] METABOLIC 0 [facility] PANEL CALCIUM TOTAL HEMOGLOBI 13297 [facility] N 0 [facility] GLYCOSYLA ELSA A1C LIPID 87143 [facility] PANEL 0 [facility] TRANSFERA 76118 [facility] SE 0 [place] [facility] [employer] ASPARTATE AMINO AST SGOT BLD GLU A4253 AM MED AM MED TEST/REAG 0 DIRECT DIRECT T [facility] GLU 50 LANCETS A4259 AM MED AM MED PER BOX 0 DIRECT DIRECT OF [address] [facility] PHARMACY PHARMACY BLD GLU A4253 AM MED AM MED TEST/REAG 0 DIRECT DIRECT T [facility] PHARMAC[facility] GLU SAT-50 CATARACT 56708 [facility] REMOVAL 9 [facility] INSERTION [facility] POSTERIOR V2632 [facility] CHAMBER 9 [facility] INTRAOCUL [facility] OPH BMTRY 70214 SD US AUTUMN 9 FOR FRANSISCO ECHOGRAPY EYEHLTH & C A-SCAN SURGPSC IO LENS PWR GUS BLD GLU A4253 AM MED AM MED TEST/REAG 9 DIRECT DIRECT T STRIPS [facility] HOME BLD PHARMACY PHARMACY GLU CATARACT 89897 [place] [facility] JORGE, REMOVAL 9 FOR FRANSISCO INSERTION EYEHLTH & C OF LENS SURGPSC ANESTHESI 16782 [facility] MT[facility], A EYE 9 [facility] LAN R LENS ANESTHESI SURGERY A PSC PPSV23 61462 DHS/CO MANN VACCINE 2 9 HEALTH [facility] OLDER FOR BANK ACCT SUBQ/IM USE OPH BMTRY 64642 [facility], [place] 9 FOR FRANSISCO ECHOGRAPY EYEHLTH & C A-SCAN SURGPSC IO LENS PWR GUS OPHTH 06282 [place] [facility] J[facility]GE, MEDICAL 9 FOR FRANSISCO XM&EVAL EYEHLTH & C COMPRHNSV SURGPSC ESTAB PT 1/> BLD GLU A4253 AM MED AM MED TEST/REAG 9 DIRECT DIRECT T STRIPS [facility] HOME BLD PHARMACY PHARMACY GLU LANCETS A4259 AM MED AM MED PER BOX 9 [address] [facility] PHARMACY PHARMACY BASIC 16151 [facility] METABOLIC 9 [employer] PANEL HOLDING HOLDING CALCIUM TOTAL LIPID 14133 [facility] PANEL 9 [employer] HOLDING HOLDING HEMOGLOBI 94982 [facility] N 9 AMERIC AMERIC GLYCOSYLA HOLDING HOLDING ELSA A1C TRANSFERA 40252 [facility] SE 9 [employer] ASPARTATE HOLD[place] [address] [facility] THYROID 9 AMERIC [employer] STIMULATI HOLDING HOLDING NG HORMONE TSH BLD GLU A4253 AM MED AM MED TEST/REAG 9 [address] DIRECT T [facility] HOME BLD PHARMACY PHARMACY GLU IIV3 90576 DHS/CO MANN VACCINE 9 [facility] VIRUS 0.5 BANK ACCT ML DOSAGE IM USE COMPUTER- 78454 MANN DARNELL AIDED 9 [facility] DETECTION INC INC SCREENING MAMMOGRAP HY SCREENING 98854 MANN MANN 9 [facility] MAMMOGRAP INC INC HY BILATERAL DIAB ONLY A5500 SHIVANI PARRISH FIT CSTM 9 SURGICAL SURGICAL PREP&SPL SHOE MX DNSITY INSRT FOR DIAB A5512 SHIVANI PARRISH ONLY MX 9 SURGICAL SURGICAL DNSITY INSRT DIR FORMD PRFAB EA BLD GLU A4253 AM MED AM MED TEST/REAG 9 DIRECT DIRECT T STRIPS [facility] PHARMACY PHARMACY GLU MON-50 BLD GLU A4253 AM MED AM MED TEST/REAG 9 DIRECT DIRECT T [facility] PHARMACY GLU MON-50 LANCETS A4259 AM MED AM MED PER BOX 9 DIRECT DIRECT OF [address] [facility] PHARMACY PHARMACY BASIC 53872 [facility] METABOLIC 9 [employer] PANEL HOLDING HOLDING CALCIUM TOTAL HEMOGLOBI 81165 [facility] N 9 AMERIC AMERIC GLYCOSYLA HOLDING HOLDING ELSA A1C LIPID 06648 [facility] PANEL 9 [employer] HOLDING HOLDING TRANSFERA 81672 [facility] SE 9 AMERIC AMER[employer] ASPARTATE HOLDING HOLDING AMINO AST SGOT COLLECTIO 96194 Bibi BLACK N VENOUS 9 JERSEY Langley BLOOD PSC VENIPUNCT URE BLD GLU A4253 AM MED AM MED TEST/REAG 9 DIRECT DIRECT T [facility] PHARMACY GLU MON-50 BLD GLU A4253 [facility] TEST/REAG 9 PHARMACY PHARMACY T STRIPS #591 #591 HOME BLD GLU MON-50 BLD GLU A4253 AM MED AM MED TEST/REAG 9 DIRECT DIRECT T [facility] PHARMACY GLU MON-50 BLD GLU A4253 AM MED AM MED TEST/REAG 9 DIRECT DIRECT T [facility] PHARMACY GLU MON-50 LANCETS A4259 AM MED AM MED PER BOX 9 DIRECT DIRECT OF [facility] PHARMACY PHARMACY BLD GLU A4253 AM MED AM MED TEST/REAG 9 DIRECT DIRECT T [facility] PHARMACY GLU MON-50 BASIC 69577 [facility] METABOLIC 9 [employer] PANEL HOLDING HOLDING CALCIUM TOTAL LIPID 79746 [facility] PANEL 9 [employer] HOLDING HOLDING HEMOGLOBI 38987 [facility] N 9 AMERIC AMERIC GLYCOSYLA HOLDING HOLDING ELSA A1C COLLECTIO 16135 Sandrine HE VENOUS 9 JERSEY BECKER BLOOD PSC VENIPUNCT URE TRANSFERA 12866 [facility] SE 9 AMERIC [...] HOME BLD PHARMACY PHARMACY GLU SAT-50 BASIC 59418 [facility] METABOLIC 8 AMER[employer] PANEL HOLDING HOLDING CALCIUM TOTAL HEMOGLOBI 55502 [facility] N 8 AMERIC AMERIC GLYCOSYLA HOLDING HOLDING ELSA A1C LIPID 62936 [facility] PANEL 8 [employer] HOLDING HOLDING TRANSFERA 76137 [facility] SE 8 AMERIC AMERIC ASPARTATE HOLDING HOLDING AMINO AST SGOT COLLECTIO 43564 Sandrine HE VENOUS 8 JERSEY BECKER BLOOD PSC VENIPUNCT URE URINLS 74014 Bibi SY DIP 8 JERSEY BECKER STICK/TAB PSC LET REAGNT NON-AUTO MICRSCPY LIPID 29062 [facility] PANEL 8 [employer] HOLDING HOLDING HEMOGLOBI 45863 [facility] N 8 AMERIC AMERIC GLYCOSYLA HOLDING HOLDING ELSA A1C GLUCOSE 84537 [facility] QUANTITAT 8 AMERIC AMERIC GALDINO BLOOD HOLDING HOLDING XCPT REAGENT STRIP COLLECTIO 35480 Bibi BLACK VENOUS 8 JERSEY Langley BLOOD PSC VENIPUNCT URE TRANSFERA 65514 [facility] SE 8 AMERIC AMERIC ASPARTATE HOLDING HOLDING AMINO AST SGOT MAMMOGRAP 44685 [place] ZACH, 8 MEDICAL KELLEY P UNILATERA IMAGING L ASSOCIATE S EXC B9 69591 Bibi SY LESION 8 JERSEY BECKER MRGN XCP PSC SK TG T/A/L 2.1-3.0 CM LIPID 84056 [facility] PANEL 8 AMERIC AMERIC HOLDING HOLDING HEMOGLOBI 82349 [facility] N 8 AMERIC AMERIC GLYCOSYLA HOLDING HOLDING ELSA A1C BASIC 35518 [facility] METABOLIC 8 AMERIC AMERIC PANEL HOLDING HOLDING CALCIUM TOTAL TRANSFERA 58506 [facility] SE 8 AMERIC AMERIC ASPARTATE HOLDING HOLDING AMINO AST SGOT COLLECTIO 92600 Bibi BLACK N VENOUS 8 JERSEY Langley BLOOD PSC VENIPUNCT URE BLD GLU A4253 [facility] TEST/REAG 8 PHARMACY PHARMACY T STRIPS #591 #591 HOME BLD GLU IADNA 45477 Bibi SY, STREPTOCO 8 JERSEY BECKER CCUS PSC GROUP A QUANTIFIC ATION BLD GLU A4253 [facility] TEST/REAG 8 PHARMACY PHARMACY T STRIPS #591 #591 HOME BLD GLU 50 Encounters Encounter Start End Date Code Location Performer Type Date HOSPITAL MANN - 6 6 [facility] INPATIENT [facility] EMERGENCY 62739 MANN [facility]PT 6 6 [facility] VISIT [facility] HIGH SEVERITY& THREAT [facility] MANN - 6 6 [facility] INPATIENT [facility] EMERGENCY 00477 MANN 6 6 [facility] T VISIT HIGH/URGE NT SEVERITY EMERGENCY 33067 MANN DEPT 6 6 [facility] VISIT [facility] HIGH SEVERITY& THREAT [facility] MANN - 6 6 [facility] INPATIENT [facility] [place] [address] 3 N [facility] MANN - 3 3 [facility] [place] [address] [facility] [address] B[place]OW, B[place]OW, OUTPATIEN 3 3 JR. FREYA PILLAI T VISIT 15 MINUTES HOSPITAL MANN - 3 3 [facility] OUTPATIEN [facility] UN[facility]ERS[facility] - 3 [facility] 41427 GUICHOJUDY MORELAND Rochelle OUTPATIEN 2 2 T NEW 45 MINUTES PERIODIC 89842 KILPEREN KILPELA PREVENTIV 2 2 [facility]OL[facility] VACA E MED EST PATIENT 40-64YRS OFFICE 22413 BARROW, BARROW, OUTPATIEN 2 2 JR. FREYA PILLAI T VISIT 15 MINUTES [facility] 2 [facility] OFFICE [address] [facility] OUTPATIEN 2 2 T NEW 30 MINUTES OFFICE 40977 RASHAAD EILEEN RASHAAD EILEEN OUTPATIEN 2 2 T VISIT 15 MINUTES OFFICE 52269 BARROW, BARROW, OUTPATIEN 2 2 JR. FREYA HAQUE FREYA T VISIT 15 MINUTES OFFICE 93151 BARROW, BARROW, OUTPATIEN 2 2 JR. FREYA PILLAI T NEW 30 MINUTES OFFICE 23137 YOSSI YOSSI OUTPATIEN 2 2 DAO DAO T VISIT 25 MINUTES OFFICE 12380 YOSSI YOSSI OUTPATIEN 2 2 DAO DAO T VISIT 10 MINUTES HOSPITAL [facility] T OFFICE 15300 YOSSI YOSSI OUTPATIEN 1 1 DAO DAO T VISIT 25 MINUTES HOME [facility] AG[facility] OFF[facility] 85027 A C YOSSI OUTPATIEN 1 1 JERSEY AARON DAO T VISIT PSC 15 MINUTES HOSPITAL MANN - 1 1 [facility] OUTPATIEN INC T EMERGENCY 95346 MANN 1 1 [facility] DEPARTMEN INC T VISIT MODERATE SEVERITY EMERGENCY 30162 ARLENE ARIAS DEPT 1 1 EMERGENCY ADRIAN VISIT SERVICES HIGH SEVERITY& THREAT FUNC HOME [facility], 1 1 HOME OUTPATIEN HEALTH T AGENCY HOME [facility], 1 1 HOME OUTPATIEN HEALTH T AGENCY OFFICE 08418 A C YOSSI OUTPATIEN 1 1 JERSEY DC T VISIT PSC 25 MINUTES HOSPITAL MANN - 1 1 [facility] OUTPATIEN INC T EMERGENCY 19244 [facility] HIGH/URGE NT SEVERITY OFFICE 62973 A C YOSSI OUTPATIEN 1 1 JERSEY DC T VISIT PSC 25 MINUTES OFFICE 19436 A Korin Mtz OUTPATIEN 1 1 JERSEY AARON T VISIT 5 PSC MINUTES HOSPITAL MANN - 0 0 [facility] OUTPATIEN [facility] T OFFICE 42242 A C YOSSI OUTPATIEN 0 0 JERSEY DC T VISIT 5 PSC MINUTES OFFICE 84807 [facility] JORGE OUTPATIEN 0 0 FOR [facility] T VISIT EYEHLTH & C 15 SURGPSC MINUTES HOSPITAL MANN - 0 0 [facility] OUTPATIEN INC T OFFICE 74108 A C YOSSI, OUTPATIEN 0 0 JERSEY Isbell VISIT PSC 25 MINUTES OFFICE 51389 A Bibi ANDUJAR OUTPATIEN 0 0 JERSEY Isbell VISIT 5 PSC MINUTES HOSPITAL [address] OFFICE 8[address] DHS/CO MANN OUTPATIEN 9 9 [facility] MINUTES BANK ACCT OFFICE 12055 A Korin SY OUTPATIEN 9 9 JERSEY BECKER T VISIT PSC 15 MINUTES OFFICE 42227 A Korin SY OUTPATIEN 9 9 JERSEY BECKER T VISIT PSC 25 MINUTES [facility] MANN - 9 9 [facility] OUTPATIEN INC T OFFICE 65432 A Korin [place] A OUTPATIEN 9 9 JERSEY Langley T VISIT 5 PSC MINUTES OFFICE 78373 A Korin SY OUTPATIEN 9 9 JERSEY BECKER T VISIT PSC 25 MINUTES OFFICE 37062 A Korin SY OUTPATIEN 9 9 JERSEY BECKER T VISIT PSC 25 MINUTES OFFICE 84645 A Korin SY OUTPATIEN 8 8 JERSEY BECKER T VISIT 5 PSC MINUTES OFFICE 71773 A Korin SY, OUTPATIEN 8 8 JERSEY BECKER T VISIT PSC 25 MINUTES OFFICE 79555 A Bibi ANDUJAR OUTPATIEN 8 8 JERSEY Langley T VISIT 5 PSC MINUTES OFFICE 83242 A Korin SY OUTPATIEN 8 8 JERSEY BECKER T VISIT PSC 15 MINUTES [facility] MANN - 8 8 [facility] OUTPATIEN INC T OFFICE 78690 A Korin SY OUTPATIEN 8 8 JERSEY BECKER T VISIT PSC 15 MINUTES OFFICE 01645 A Bibi ANDUJAR OUTPATIEN 8 8 JERSEY Langley T VISIT PSC 25 MINUTES OFFICE 57345 A Bibi ANDUJAR OUTPATIEN 8 8 JERSEY Langley T VISIT 5 PSC MINUTES OFFICE 07435 A Korin SY OUTPATIEN 8 8 JERSEY BECKER T VISIT PSC 15 MINUTES
--- OUTSIDE RECORDS SUMMARY | 2017-04-20 04:22 | External Medical Summary Rpt ---
Author Author , MARIANNA CABRAL Address Unknown Phone [email or web address] Care Team Providers Care Agile Business Analyst Name Role Phone A Korin PUTNAM MD [...] FRANSISCO [facility], Unavailable Unavailable LLC., [employer] HUGO ADRIAN, HUGO Unavailable Unavailable ADRIAN [facility] Unavailable Unavailable HOSPITA, [facility], [facility] Unavailable Unavailable PB RHO, PB Unavailable Unavailable RHO PB RHO, PB Unavailable Unavailable RHO [facility] Unavailable Unavailable [facility] Unavailable Unavailable [facility], [facility] Unavailable Unavailable INC, [facility], Unavailable Unavailable [facility], Unavailable Unavailable [facility], Unavailable Unavailable [facility] KILPELA JEA, KILPELA Unavailable Unavailable JEA KILPELA JEA, KILPELA Unavailable Unavailable JEA [facility] Unavailable Unavailable HOLDING, [facility] [employer], Unavailable Unavailable [facility] [employer] [facility] Unavailable Unavailable SERVICES, [facility] Unavailable [facility]available [...] [facility]P [facility], Unavailable Unavailable [facility] Unavailable Unavailable [facility] MERLY WILLIS Unavailable Unavailable MERLY WILLIS Unavailable Unavailable [facility] Unavailable Unavailable [facility], Unavailable Unavailable [facility] Unavailable Unavailable [address], [facility] Unavailable Unavailable [address], [facility] # Unavailable Unavailable [id number], [facility] # [id number] [facility] Unavailable Unavailable AGENCY, [facility] PUTNAM A, PUTNAM A Unavailable Unavailable [...] INDEX BMI [facility] 45.0-49.9 INC ADULT [id number] PERSONAL 11-22-2015 [facility] NICOTINE INC DEPENDENCE E8342 HYPOMAGNESE 09-30-2015 [facility] JUANCARLOS [facility] INC E876 HYPOKALEMIA 09-30-2015 [facility] INC I129 HYPERTENSIV 09-30-2015 [facility] E CKD [facility] W/STAGE 1-4 INC CKD OR UNS CKD I2510 ASHD CADDO 09-30-2015 [facility] CORONARY [facility] ARTERY W/O INC ANGINA PECTORIS N179 ACUTE 09-30-2015 [facility] KIDNEY [facility] FAILURE INC UNSPECIFIED 55925 SEC 06-15-2013 [facility] OSTEOARTHRO SIS ANKLE AND FOOT 8248 UNSPECIFIED 01-28-2013 CELEST[facility] MAT CLOSED FRACTURE OF ANKLE 17145 PAIN IN 01-22-2013 [place], [facility] ANKLE AND HOSPITA FOOT 20606 OTHER 01-22-2013 PB RHO NONSPECIFIC ABNORMAL FINDING OF LUNG FIELD V7283 OTHER 01-22-2013 [facility] PRE-OPERATI HOSPITA VE EXAMINATION 7859 OTHER 12-05-2012 [facility] SYMPTOMS [facility] INVOLVING INC CARDIOVASCU LAR SYSTEM V7612 OTHER 12-05-2012 MANN SCREENING [facility] MAMMOGRAM INC [id number] PRIMARY 10-23-2012 ALLI BARROW JR. OSTEOARTHRO SIS ANKLE AND FOOT 04068 OSTEOARTHRO 10-08-2012 [facility] SIS UNSPEC [facility] WHETHER INC GEN/LOC ANK&FOOT 14474 DISORDER OF 10-01-2012 [facility] CARTILAGE UNSPECIFIED 37253 NONSPECIFIC 08-28-2012 [facility] J ABNORMAL ELECTROCARD IOGRAM 7852 UNDIAGNOSED 08-25-2012 [facility] CARDIAC MURMURS 35163 SHORTNESS 08-25-2012 [facility] J OF BREATH V700 ROUTINE 08-04-2012 CANELO VACA GENERAL MEDICAL EXAM@HEALTH CARE FACL 4019 UNSPECIFIED 07-18-2012 [place] DAO ESSENTIAL HYPERTENSIO N 08983 DIAB W/O 07-17-2012 ST NEETU COMP TYPE MOUNT II/UNS NOT JI STATED UNCNTRL 4293 CARDIOMEGAL 07-17-2012 ST TRAER Y MOUNT JI 4400 ATHEROSCLER 07-17-2012 ST TRAER OSIS OF [facility] AORTA JI V7284 UNSPECIFIED 07-17-2012 [facility] PRE-OPERATI JI VE EXAMINATION 45122 DIAB W/O 06-09-2012 RASHAAD EILEEN MENTION COMP TYPE II/UNS TYPE UNCNTRL 2724 OTHER AND 06-05-2012 RASHAAD EILEEN UNSPECIFIED HYPERLIPIDE JUANCARLOS 4011 ESSENTIAL 06-05-2012 RASHAAD EILEEN HYPERTENSIO N, BENIGN 68742 OSTEOARTHRO 04-22-2012 CHERELLE S UNSPEC ORTHOPEDICS WHETHER GEN/LOC UNSPEC SITE 46025 PLANTAR 03-25-2012 JENY BARROW JR. JAM FIBROMATOSI S 40699 DIAB 02-21-2012 [facility] W/NEURO SURGICAL MANIFESTS TYPE II/UNS NOT UNCNTRL 10087 PRESSURE 02-21-2012 [facility] ULCER SURGICAL UNSPECIFIED SITE E9479 UNSPEC 02-01-2012 [facility] L SBSTNC CAUS ADVRS EFF TX USE V0481 NEED 06-27-2011 [facility] VACCINATION &INOCULATIO N FLU 03341 ULCER OF 05-01-2011 YOSSI DAO OTHER PART OF FOOT 09873 UNSPECIFIED 05-01-2011 YOSSI DAO ARTHROPATHY SITE UNSPECIFIED 32277 OBESITY, 04-16-2011 [facility] UNSPECIFIED HEALTH AGENCY [...] ABSCESS EMERGENCY OF FOOT SERVICES EXCEPT TOES 38453 DIAB W/OTH 02-25-2011 [facility] MANIFESTS [facility] TYPE II/UNS INC NOT UNCNTRL 36161 PRESSURE 02-25-2011 [facility] ULCER OTHER EMERGENCY SITE SERVICES 19062 OTHER 02-25-2011 [facility] ABNORMAL EMERGENCY GLUCOSE SERVICES 7906 OTHER 02-25-2011 [facility] ABNORMAL [facility] BLOOD INC CHEMISTRY V431 LENS 04-13-2010 [place] INST FOR REPLACED BY EYEHLTH & OTHER SURGPSC MEANS 274 GOUT 11-17-2009 A Korin PUTNAM MD PSC 61147 CORTICAL 09-01-2009 [place] INST FOR SENILE EYEHLTH & CATARACT SURGPSC 3669 UNSPECIFIED 09-01-2009 [facility] CATARACT [facility]U [facility] V1582 PERS HX 09-01-2009 [facility] TOBACCO USE NEETU PRESENTING [facility] V0382 NEED PROPH 08-08-2009 DHS/CO VACCINATION HEALTH AGAINST CENTRAL STREP BANK ACCT PNEUMONE 5990 URINARY 07-28-2009 A Korin LEUNG MD PSC INFECTION SITE NOT SPECIFIED 2449 UNSPECIFIED 07-22-2009 [facility] HYPOTHYROID [facility] ISM 6923 [facility] 12-17-2008 A Korin PUTNAM DERMATITIS& PSC OTH ECZEMA-RX&M EDS [facility] W/SKN 7881 DYSURIA 07-16-2008 A Korin PUTNAM MD PSC 1121 CANDIDIASIS 03-11-2008 A Korin PUTNAM OF VULVA PSC AND VAGINA 44981 OTHER SIGN 03-02-2008 [facility] AND SYMPTOM [facility] IN BREAST INC 23326 UNSPECIFIED 03-02-2008 [facility] 7062 SEBACEOUS [...] 0 RE 32 PH 97 16 16 [place] YT 9 PH CH OP AR AE LE MA L X CY S AN TI LL FU C NG AL 2% RE 53 04 04 0 85 7 ME 12 GA Ac ME 32 -0 -1 0. D 33 IN ti DY 90 3- 6- 00 CA 98 EY ve 16 20 20 0 RE 48 PH 97 16 16 [place] YT 9 PH CH OP AR AE LE MA L X CY S AN TI LL FU C NG AL 2% MA 00 04 04 0 30 5 ME 12 GA Ac PA 90 -0 -0 0. D 29 IN ti P 41 4- 4- 00 CA 37 EY ve 50 98 20 20 0 RE 72 0 86 16 16 [place] MG 1 PH CH AR AE TA MA L BL CY S ET LL C RE 53 04 04 0 85 7 ME 12 GA Ac ME 32 -0 -0 0. D 29 IN ti DY 90 3- 4- 00 CA 40 EY ve 16 20 20 0 RE 18 PH 97 16 16 [place] YT 9 PH CH OP AR AE LE MA L X CY S AN TI LL FU C NG AL 2% PO 00 04 04 0 60 30 ME 12 GA Ac TA 78 -0 -0 0. D 29 IN ti SS 15 4- 4- 00 CA 37 EY ve IU 71 20 20 0 RE 88 M 01 16 16 [place] CL 0 PH CH AR AE ER MA L CY S 10 LL ME C Q TA BL ET Q- 00 04 04 0 11 3 ME 12 GA Ac TU 60 -0 -0 80 D 29 IN ti SS 30 4- 4- .0 CA 37 EY ve IN 85 20 20 00 RE 80 59 16 16 NY DM 4 PH CH AR AE SY MA L RU CY S P LL C FI 74 03 03 0 15 15 ME 12 GA Ac SH 31 -1 -2 0. D 25 IN ti 20 CA 52 EY ve OI 13 20 20 0 RE 01 L 32 16 16 [place] 1, 9 PH CH 20 AR AE 0 MA L MG CY S SO LL FT C GE L RE 53 03 03 0 85 5 ME 12 GA Ac ME 32 -1 -1 0. D 22 IN ti DY 90 CA 01 EY ve 16 20 20 0 RE 51 PH 97 16 16 [place] YT 9 PH CH OP AR AE LE MA L X CY S AN TI LL FU C NG AL 2% FI 74 03 03 0 15 15 ME 12 GA Ac SH 31 -1 -1 0. D 22 IN ti 20 09-16- CA 01 EY ve OI 13 20 20 0 RE 93 L 32 16 16 [place] 1, 9 PH CH 20 AR AE 0 MA L MG CY S SO LL FT C GE L FU 63 09 10 5 30 30 WA 71 RI Ac RO 30 -1 -2 .0 L- 34 SH ti SE 40 3- 8- 00 MA 63 ER ve [place] 62 20 20 RT 9 DE 51 [...] ve LA 32 20 20 RT 0 CA 90 11 11 RI -V 1 PH [...] 3- 5- 00 MA 63 ER ve [place] 62 20 20 RT 9 DE 51 [...] ve LA 32 20 20 RT 0 CA 90 11 11 RI -V 1 PH [...] 6- 9- 00 MA 49 ER ve [place] 62 20 20 RT 0 DE 51 [...] ve LA 32 20 20 RT 9 CA 90 11 11 RI -V 1 PH [...] 6- 9- 00 MA 49 ER ve [place] 62 20 20 RT 0 DE 51 [...] ve LA 32 20 20 RT 9 CA 90 11 11 RI -V 1 PH [...] 6- 3- 00 MA 49 ER ve [place] 62 20 20 RT 0 DE 51 [...] ve LA 32 20 20 RT 9 CA 90 11 11 RI -V 1 PH [...] 0 20 10 WA 71 GR Ac CA 37 -1 -1 .0 L- 22 AY [...] ve LA 32 20 20 RT 6 CA 90 11 11 RI -V 1 PH [...] ve LA 32 20 20 RT 6 CA 90 11 11 RI -V 1 PH [...] ve LA 32 20 20 RT 6 CA 90 11 11 RI -V 1 PH [...] 7- 3- 00 MA 98 ER ve [place] 62 20 20 RT 1 DE 51 [...] LA 32 [address] CA 90 11 11 EP -V 1 PH [...] 7- 3- 00 MA 98 ER ve [place] 62 20 20 RT 1 DE 51 [...] ve LA 32 20 20 RT 6 CA 90 10 10 RI -V 1 PH [...] 7- 2- 00 MA 98 ER ve [place] 62 20 20 RT 1 DE 51 [...] ve LA 32 20 20 RT 6 CA 90 10 10 RI -V 1 PH [...] 7- 2- 00 MA 98 ER ve [place] 62 20 20 RT 1 DE 51 [...] ve LA 32 20 20 RT 6 CA 90 10 10 RI -V 1 PH CH ER AR AR AP MA D AM CY # ER 10 4- 05 24 91 0 MG FU 63 09 10 1 30 30 WA 70 RI Ac RO 30 -2 -2 .0 L- 87 SH ti SE 40 4- 5- 00 MA 63 ER ve [place] 62 20 20 RT 8 DE 51 [...] ve LA 32 20 20 RT 0 CA 90 10 10 RI -V 1 PH CH ER AR AR AP MA D AM CY # ER 10 4- 05 24 91 0 MG FU 63 09 09 1 30 30 WA 70 RI Ac RO 30 -2 -2 .0 L- 87 SH ti SE 40 4- 4- 00 MA 63 ER ve [place] 62 20 20 RT 8 DE 51 [...] ve LA 32 20 20 RT 7 CA 90 10 10 RI -V 1 PH [...] ve LA 32 20 20 RT 7 CA 90 10 10 RI -V 1 PH [...] ve LA 32 20 20 RT 7 CA 90 10 10 RI -V 1 PH [...] 2- 5- 00 MA 97 S ve [place] 21 [address] DE [...] 2- 8- 00 MA 97 S ve [place] 21 [address] DE [...] 5- 7- 00 MA 76 S ve [place] 21 [address] DE [...] 5- 9- 00 MA 76 S ve [place] 21 [address] DE [...] 5- 1- 00 MA 76 S ve [place] 21 [address] DE [...] 5- 1- 00 MA 76 S ve [place] 21 [address] DE [...] 6- 3- 00 MA 62 ER ve [place] 21 20 20 RT 4 DE 61 [...] 6- 5- 00 MA 62 ER ve NY 21 20 20 RT 4 DE 61 [...] 6- 8- 00 MA 62 Av ve NY 21 20 20 RT 4 ai DE [...] 6- 0- 00 MA 62 Av ve [place] 21 20 20 RT 4 ai DE [...] 9- 7- 00 MA 06 Av ve [place] 21 20 20 RT 8 ai DE [...] 9- 5- 00 MA 06 Av ve [place] 21 20 20 RT 8 ai DE [...] DOS Code Location Performer Comment GLUC BLD 91184 MANN DARNELL GLUC MNTR 6 [facility] DEV INC INC CLEARED FDA SPEC HOME USE COLLECTIO 56668 MANN DARNELL N VENOUS 6 [facility] BLOOD INC INC VENIPUNCT URE COMPREHEN 02927 [facility] DARNELL SIVE 6 [facility] METABOLIC INC INC PANEL BLOOD 91052 M[facility] DARNE[facility] COUNT 6 [facility] COMPLETE INC INC AUTO&AUTO DIFRNTL WBC PRESSURIZ 36836 MANN DARNELL ED/NONPRE 6 [facility] SSURIZED INC INC INHALATIO N TREATMENT INJECTION J1642 MANN DARNELL HEPARIN 6 [facility] SODIUM INC INC PER 10 UNITS INJECTION J0692 MANN DARNELL CEFEPIME 6 [facility] INC INC HYDROCHLO RIDE 500 MG PRESSURIZ 13721 MANN DARNELL ED/NONPRE 6 [facility] SSURIZED INC INC INHALATIO N TREATMENT NONINVASI 85560 MANN DARNELL VE 6 [facility] EAR/PULSE INC INC OXIMETRY SINGLE DETER THERAPEUT 62324 MANN DARNELL IC PX 1/> 6 [facility] AREAS INC INC EACH 15 MIN EXERCISES GLUC BLD 78864 MANN DARNLEL GLUC MNTR 6 [facility] DEV INC INC CLEARED FDA SPEC HOME USE COLLECTIO 91946 MANN Deluca VENOUS 6 [facility] BLOOD INC INC VENIPUNCT URE GLUC BLD 11154 MANN DARNELL GLUC MNTR 6 [facility] DEV INC [place] [address] MANN DARNELL AMMONIA 6 [facility] INC INC THERAPEUT 33811 MANN DARNELL ACTVITY 6 [facility] DIRECT PT INC INC CONTACT EACH 15 MIN PHYSICAL 43630 MANN DARNELL THERAPY 6 [facility] EVALUATIO INC INC N THERAPEUT 54603 MANN DANRELL IC PX 1/> 6 [facility] AREAS INC INC EACH 15 MIN EXERCISES RADIOLOGI 35221 MANN DARNELL C 6 [facility] EXAMINATI INC INC ON CHEST SINGLE VIEW FRONTAL BASIC 22603 MANN DARNELL METABOLIC 6 [facility] PANEL INC INC CALCIUM TOTAL NONINVASI 74798 MANN DARNELL VE 6 [facility] EAR/PULSE INC INC OXIMETRY SINGLE DETER PRESSURIZ 72147 MANN DARNELL ED/NONPRE 6 [facility] SSURIZED INC INC INHALATIO N TREATMENT INJECTION J0692 MANN DARNELL CEFEPIME 6 [facility] INC INC HYDROCHLO RIDE 500 MG INJECTION J0692 MANN DARNELL CEFEPIME 6 [facility] INC INC HYDROCHLO RIDE 500 MG PRESSURIZ 76665 MANN DARNELL ED/NONPRE 6 [facility] SSURIZED INC INC INHALATIO N TREATMENT NONINVASI 91357 MANN DARNELL VE 6 [facility] EAR/PULSE INC INC OXIMETRY SINGLE DETER GLUC BLD 12166 MANN DARNELL GLUC MNTR 6 [facility] DEV INC INC CLEARED FDA SPEC HOME USE GLUC BLD 77436 MANNRAY DARNELL GLUC MNTR 6 [facility] DEV INC INC CLEARED FDA SPEC HOME USE COLLECTIO 89233 MANN DARNELL N VENOUS 6 [facility] BLOOD INC INC VENIPUNCT URE COMPREHEN 13565 M[facility] DARNELL SIVE 6 [facility] METABOLIC INC INC PANEL BLOOD 74827 MANN DARNELL COUNT 6 [facility] COMPLETE INC INC AUTO&AUTO DIFRNTL WBC PRESSURIZ 16555 MANN DARNELL ED/NONPRE 6 [facility] SSURIZED [place] [address] MANN DARNELL MAGNESIUM 6 [facility] INC INC INJECTION J0692 MANN DARNELL CEFEPIME 6 [facility] INC INC HYDROCHLO RIDE 500 MG LOCM Q9967 MANN DARNELL [phone] 6 [facility] MG/ML INC INC IODINE CONCENTRA TION PER ML INJECTION J0692 MANN DARNELL CEFEPIME 6 [facility] INC INC HYDROCHLO RIDE 500 MG BASIC 14055 MANN DARNELL METABOLIC 6 [facility] [place] [address] MANN DARNELL ANGIOGRAP 6 [facility] HY CHEST INC INC W/CONTRAS T/NONCONT RAST BRNCDILAT 34609 MANN DARNELL RSPSE 6 [facility] SPMTRY INC INC PRE&POST- BRNCDILAT ADMN NONINVASI 25801 MANN DARNELL VE 6 [facility] EAR/PULSE INC INC OXIMETRY SINGLE DETER CULTURE 40211 MANN DARNELL BACTERIAL 6 [facility] BLOOD INC INC AEROBIC W/ID ISOLATES BLOOD 67282 MANN DARNELL COUNT 6 [facility] COMPLETE INC INC AUTO&AUTO DIFRNTL WBC COLLECTIO 87409 MANN DARNELL N VENOUS 6 [facility] BLOOD INC INC VENIPUNCT URE GLUC BLD 44172 MANN DARNELL GLUC MNTR 6 [facility] DEV INC INC CLEARED FDA SPEC HOME USE GLUC BLD 35250 MANN DARNELL GLUC MNTR 6 [facility] DEV INC INC CLEARED FDA SPEC HOME USE COLLECTIO 63678 MANN MOHRDAY N VENOUS 6 [facility], BLOOD INC LLC. VENIPUNCT URE NONINVASI 28606 MANN DARNELL VE 6 [facility] EAR/PULSE INC INC OXIMETRY SINGLE DETER BASIC 07661 MANN DARNELL METABOLIC 6 [facility] PANEL INC INC CALCIUM TOTAL BASIC 26260 MANN EVRYDAY METABOLIC 6 [facility] MATTERS, [place] [address] MANN DARNELL MAGNESIUM 6 [facility] INC INC NONINVASI 94674 MANN DARNELL VE 6 [facility] EAR/PULSE INC INC OXIMETRY SINGLE DETER GLUC BLD 64787 MANN DARNELL GLUC MNTR 6 [facility] DEV INC INC CLEARED FDA SPEC HOME USE BLOOD 79465 MANN DARNELL COUNT 6 [facility] COMPLETE INC INC AUTO&[place] [address] MANN EVRYDAY TROPONIN 6 [facility] MATTERS, [place] [address] MANN EVRYDAY TROPONIN 6 [facility], QUANTITAT INC LLC. GALDINO BLOOD 26617 MANN DARNELL COUNT 6 [facility] COMPLETE INC INC AUTO&AUTO DIFRNTL WBC NATRIURET 56440 MANN EVRYDAY IC 6 [facility], [place] [address] MANN DARNELL INFUSION 6 [facility] THERAPY/P INC INC ROPHYLAXI S /DX 1ST TO 1 HR THERAPEUT 64667 MANN DARNELL IC 6 [facility] INJECTION INC INC IV PUSH EACH NEW DRUG BLOOD 40075 MANN AWAD GASES ANY 6 [facility] MATTERS, INC LLC. COMBINATI ON PH PCO2 PO2 CO2 HCO3 GLUC BLD 80405 MANN DARNELL GLUC MNTR 6 [facility] DEV INC INC CLEARED FDA SPEC HOME USE COMPREHEN 96906 MANN BURNHAMRYDAY SIVE 6 [facility] MATTERS, METABOLIC INC LLC. PANEL COLLECTIO 95196 MANN MOHRDAY N VENOUS 6 [facility], [place]LOOD [place] [address] MANN AWAD FOLIC 6 [facility] MATTERS, ACID INC LLC. SERUM RADIOLOGI 32258 MANN DARNELL C 6 [facility] EXAMINATI INC INC ON CHEST SINGLE VIEW FRONTAL BLOOD 51713 MANN DARNELL COUNT 6 [facility] RETICULOC INC INC YTE AUTOMATED CYANOCOBA 86786 MANN DARNELL TIMA 6 [facility] VITAMIN INC INC B-12 RADIOLOGI 66139 MANN DARNELL C 6 [facility] EXAMINATI INC INC ON CHEST SINGLE VIEW FRONTAL PRESSURIZ 62534 MANN DARNELL ED/NONPRE 6 [facility] SSURIZED INC INC INHALATIO N TREATMENT NONINVASI 57191 MANN DARNELL VE 6 [facility] EAR/PULSE INC INC OXIMETRY SINGLE DETER COLLECTIO 29259 MANN DARNELL N VENOUS 6 [facility] BLOOD INC INC VENIPUNCT URE COMPREHEN 25731 MANN DARNELL SIVE 6 [facility] METABOLIC INC INC PANEL BLOOD 76147 MANN DARNELL COUNT 6 [facility] COMPLETE INC INC AUTO&AUTO DIFRNTL WBC COLLECTIO 26424 MANN DARNELL N VENOUS 6 [facility] BLOOD INC INC VENIPUNCT URE URNLS DIP 48830 MANN DARNELL 6 [facility] STICK/TAB INC INC LET REAGENT AUTO MICROSCOP Y NONINVASI 77023 MANN DARNELL VE 6 [facility] EAR/PULSE INC INC OXIMETRY SINGLE DETER CULTURE 69453 MANN DARNELL BACTERIAL 6 [facility] INC INC QUANTTATI VE COLONY COUNT URINE BASIC 96555 MANN MANN METABOLIC 6 [facility] PANEL INC INC CALCIUM TOTAL CREATINE 02018 MANN DARNELL KINASE 6 [facility] TOTAL INC INC RADIOLOGI 59747 MANN DARNELL C 6 [facility] EXAMINATI INC INC ON CHEST SINGLE VIEW FRONTAL ECG 16917 MANN MANN ROUTINE 6 [facility] ECG INC INC W/LEAST 12 LDS TRCG ONLY W/O I&R NONINVASI 90689 MANN MANN VE 6 [facility] EAR/PULSE INC INC OXIMETRY SINGLE DETER CREATINE 52811 MANN DARNELL KINASE MB 6 [facility] [place] [address] MANN DARNELL THYROID 6 [facility] STIMULATI [place] [address] MANN DARNELL TROPONIN 6 [facility] QUANTITAT INC INC GALDINO NATRIURET 23036 MANN DARNELL IC 6 [facility] PEPTIDE INC INC COMPREHEN 54081 MANN DARNELL SIVE 6 [facility] METABOLIC INC INC PANEL BLOOD 75306 MANN DARNELL COUNT 6 [facility] COMPLETE INC INC AUTO&AUTO DIFRNTL WBC BLOOD 01963 MANN DARNELL COUNT 6 [facility] COMPLETE INC INC AUTO&AUTO DIFRNTL WBC COMPREHEN 80482 MANN DARNELL SIVE 6 [facility] METABOLIC INC INC PANEL NATRIURET 41726 MANN DARNELL IC 6 [facility] [place] [address] MANN DARNELL TROPONIN 6 [facility] [address] MANN DARNELL THYROID 6 [facility] STIMULATI INC INC NG HORMONE TSH CREATINE 11637 MANN DARNELL KINASE MB 6 [facility] FRACTION INC INC ONLY BLOOD 04853 MANN DARNELL GASES ANY 6 [facility] INC INC COMBINATI ON PH PCO2 PO2 CO2 HCO3 ECG 91543 MANN DARNELL ROUTINE 6 [facility] ECG INC INC W/LEAST 12 LDS TRCG ONLY W/O I&R RADIOLOGI 97056 MANN DARNELL C 6 [facility] EXAMINATI INC INC ON CHEST SINGLE VIEW FRONTAL THER 47864 MANN DARNELL PROPH/DX 6 [facility] NJX IV INC INC PUSH SINGLE/1S T SBST/DRUG CREATINE 01616 MANN DARNELL KINASE 6 [facility] TOTAL INC INC INSERTION [id number] MANN DARNELL INFUSION 6 [facility] DEVC RT INC INC SUBCLAVIA N VEIN PERQ INSERTION [id number] MANN DARNELL VAD 6 [facility] CHEST INC INC SUBQ TISSUE & FASCIA OPEN FLUORO [id number] MANN DARNELL MULTI 6 [facility] CORONARY INC INC ARTERIES LOW OSMOLAR CONT MEASUREME [id number] [facility] NT 6 [facility] CARDIAC INC INC SAMPLING PRESS LT HEART PERQ FLUOROSCO [id number] [facility] PY LEFT 6 [facility] [...] HOSP HOSP WHEELCHAI EQUIP EQUIP R RADIOLOGI 20629 CELESTINO [place] 3 EXAMINATI ON ANKLE 2 VIEWS BASIC 97416 [facility] METABOLIC 3 N N PANEL [facility] HOSPITA TOTAL RADIOLOGI 52771 PB PB C EXAM 3 RHO RHO CHEST 2 VIEWS FRONTAL&L ATERAL COLLECTIO 90223 [facility] N VENOUS 3 N N BLOOD [facility] VENIPUNCT HOSPITA HOSPITA URE BLOOD 82664 [facility] COUNT 3 N N COMPLETE [facility] AUTO&AUTO HOSPITA HOSPITA DIFRNTL WBC HEAVY-DUT K0006 [facility] Y 3 [facility]P HOSP WHEEL[facility] EQUIP EQUIP R HEAVY-DUT K0006 [facility] Y 3 [facility] HOSP [facility] EQUIP EQUIP R SCREENING [id number] [facility] 3 [facility] MAMMOGRAP INC INC HY JOSEFINA INCL CAD WHEN PERFORMD DUPLEX 14497 [facility] SCAN 3 [facility] EXTRACRAN INC INC IAL ART COMPL BI STUDY COMPUTER- 37600 M[facility]NELL AIDED 3 [facility] DETECTION INC INC SCREENING MAMMOGRAP HY ECG 04874 [facility] ROUTINE 3 N N ECG [facility] W/LEAST HOSPITA HOSPITA 12 LDS TRCG ONLY W/O I&R BASIC 30577 [facility] METABOLIC 3 N N PANEL [facility] CALCIUM HOSPITA HOSPITA TOTAL RADIOLOGI 77457 CELESTINO YO C EXAM 3 CHEST 2 VIEWS FRONTAL&L ATERAL BLOOD 63984 [facility] COUNT 3 N N COMPLETE [facility] AUTO&AUTO HOSPITA HOSPITA DIFRNTL WBC COLLECTIO 68549 [facility] N VENOUS 3 N N BLOOD [facility] VENIPUNCT HOSPITA HOSPITA URE HEAVY-DUT K0006 [facility] Y 3 HOSP HOSP [facility] EQUIP EQUIP R WHEELCHAI 49421 M[facility]NELL R MGMT EA 3 [facility] 15 MIN INC INC RADEX 35054 [facility] Y [facility] MINIMUM 3 VIEWS INJECTION Q9957 [facility] Byrd 2 PERFLUTRE N LIPID MICROSPHE RES PER ML DOPPLER 18977 [facility] ECHOCARD 2 PULSE WAVE W/SPECTRA L DISPLAY DOP 39899 [facility] ECHOCARD 2 [place] [address] [facility] ECHO 2 CONTRAST AGENT DURING STRESS ECHO ECHO 21663 [facility] TTHRC R-T 2 2D W/WO M-MODE REST&STRS CONT ECG HEAVY-DUT K0006 DAINA LAMA Y 2 HOSP [facility] EQUIP EQUIP R ECG 08674 [facility] ROUTINE 2 ECG W/LEAST 12 LDS I&R ONLY RADIOLOGI 45427 [facility] C EXAM 2 [place] CHEST 2 JI JI VIEWS FRONTAL&L ATERAL ECG 57012 [facility] ROUTINE 2 [place] ECG JI JI W/LEAST 12 LDS TRCG ONLY W/O I&R COLLECTIO 36703 [facility] N VENOUS 2 [place] BLOOD JI JI VENIPUNCT URE COMPREHEN 66332 [facility] SIVE 2 [place] METABOLIC JI JI PANEL BLOOD 66752 [facility] COUNT 2 [place] COMPLETE JI JI AUTO&AUTO DIFRNTL WBC HEAVY-DUT K0006 DAINA LAMA Y 2 HOSP [facility] EQUIP EQUIP R RADEX 56220 [facility] ANKLE 2 COMPLETE MINIMUM 3 VIEWS DIAB ONLY A5500 [facility]EREL[facility] VILLARREAL FIT CSTM 2 ORTHOPEDI ORTHOPEDI PREP&SPL CS CS SHOE MX DNSITY INSRT BASIC 78413 [facility] METABOLIC 2 DIAGNOSTI DIAGNOSTI PANEL CS CS CALCIUM TOTAL LIPID 65193 RASHAAD EILEEN RASHAAD EILEEN PANEL 2 HEMOGLOBI 56132 RASHAAD EILEEN RASHAAD EILEEN N 2 GLYCOSYLA ELSA A1C GLUCOSE 28408 RASHAAD EILEEN RASHAAD EILEEN QUANTITAT 2 GALDINO BLOOD XCPT REAGENT STRIP TRANSFERA 37769 RASHAAD BERMUDEZ EILEEN SE 2 ASPARTATE AMINO AST SGOT ADD LW L2820 CHERELLE VILLARREAL EXT ORTH 2 ORTHOPEDI ORTHOPEDI SFT CS CS INTERFCE MOLD BELW KNEE RADEX 43945 BARROW, BARROW, ANKLE 2 JR. FREYA JR. FREYA COMPLETE MINIMUM 3 VIEWS SEAT E0156 SHIVANI PARRISH ATTACHMEN 2 SURGICAL SURGICAL T WALKER WALKER E0143 SHIVANI PARRSIH FOLDING 2 SURGICAL SURGICAL WHEELED ADJUSTABL E/FIXED HEIGHT DIAB ONLY A5500 SHIVANI PARRISH FIT CSTM 2 SURGICAL SURGICAL PREP&SPL SHOE MX DNSITY INSRT BASIC 88535 QUEST QUEST METABOLIC 2 DIAGNOSTI DIAGNOSTI PANEL CS CS CALCIUM TOTAL LIPID 45220 QUEST QUEST PANEL 2 DIAGNOSTI DIAGNOSTI CS CS TRANSFERA 47749 QUEST QUEST SE 2 DIAGNOSTI DIAGNOSTI ASPARTATE CS CS AMINO AST SGOT COLLECTIO 27174 RASHAAD EILEEN RASHAAD EILEEN N VENOUS 2 BLOOD VENIPUNCT URE HEMOGLOBI 24333 QUEST QUEST N 2 DIAGNOSTI DIAGNOSTI GLYCOSYLA CS CS ELSA A1C HEMOGLOBI 15918 QUEST QUEST N 2 DIAGNOSTI DIAGNOSTI GLYCOSYLA CS CS ELSA A1C COLLECTIO 90072 YOSSI YOSSI N VENOUS 2 DAO DAO BLOOD VENIPUNCT URE TRANSFERA 42423 QUEST QUEST SE 2 DIAGNOSTI DIAGNOSTI ASPARTATE CS CS AMINO AST SGOT LIPID 84749 QUEST QUEST PANEL 2 DIAGNOSTI DIAGNOSTI CS CS BASIC 71442 QUEST QUEST METABOLIC 2 DIAGNOSTI DIAGNOSTI PANEL CS CS CALCIUM TOTAL COMPUTER- 42600 [place] KATHRYN AIDED 1 MEDICAL HUBERT DETECTION IMAGING ASS SCREENING MAMMOGRAP HY SCREENING G0202 [place] KATHRYN 1 MEDICAL [facility] MAMMOGRAP IMAGING HY JOSEFINA ASS INCL CAD WHEN PERFORMD IIV3 02640 MANN MANN VACCINE 1 [facility] VIRUS 0.5 ML DOSAGE IM USE LIPID 22364 QUEST QUEST PANEL 1 DIAGNOSTI DIAGNOSTI CS CS BASIC 55098 QUEST QUEST METABOLIC 1 DIAGNOSTI DIAGNOSTI PANEL CS CS CALCIUM TOTAL TRANSFERA 01521 QUEST QUEST SE 1 DIAGNOSTI DIAGNOSTI ASPARTATE CS CS AMINO AST SGOT HEMOGLOBI 79342 QUEST QUEST N 1 DIAGNOSTI DIAGNOSTI GLYCOSYLA CS CS ELSA A1C GAUZE A6402 [facility] NON-[facility]PRE 1 [facility] 16 SQ/< AGENCY AGENCY W/O ADHES BORDR CONFORMIN A6446 [facility] ARH G BANDGE 1 HOME REFERENC NON-[facility] AGENCY KNITTED/W OVEN STERL TAPE A4450 [facility] NON-WATER 1 HOME HOME PROOF PER HEALTH HEALTH 18 AGENCY AGENCY SQUARE INCHES BASIC 05612 MANN DARNELL METABOLIC 1 [facility] PANEL INC INC CALCIUM TOTAL CUL BACT 42084 [facility] DARNELL AEROBIC 1 [facility] ADDL INC INC METHS DEFINITIV E EA ISOL CUL BACT 78334 MANN BLAKEON XCPT 1 [facility] URINE INC INC BLOOD/STO OL AEROBIC ISOL SUSCEPTIB 14511 MANN DARNELL LTY STDY 1 [facility] ANTIMICRB INC INC IAL MICRO/AGA R DILUTJ BLOOD 85447 MANN MANN COUNT 1 [facility] COMPLETE INC INC AUTO&[place] [address] MANN DARNELL INFUSION 1 [facility] THERAPY/P INC INC ROPHYLAXI S /DX 1ST TO 1 HR RADEX 03503 [place] KATHRYN FOOT 1 [facility] COMPLETE IMAGING MINIMUM 3 ASS VIEWS CONFORMIN A6446 [facility] G BANDGE 1 [...] LE PER [facility] HEALTH 100 AGENCY AGENCY CONFORMIN A6446 [facility] G BANDGE 1 HOME HOME NON-[facility] AGENCY AGENCY KNITTED/W OVEN STERL GAUZE A6402 [facility] NON-IMPRE 1 HOME [facility] 16 SQ/< AGENCY AGENCY W/O ADHES BORDR STERILE A4217 [facility] WATER/SULEMA 1 HOME HOME INE 500 [place] [address] MANN DARNELL INFUSION 1 [facility] THERAPY/P INC INC ROPHYLAXI S /DX 1ST TO 1 HR BLOOD 68984 MANN DARNELL COUNT 1 [facility] COMPLETE INC INC AUTO&AUTO DIFRNTL WBC SUSCEPTIB 03268 MANN DARNELL LTY STDY 1 [facility] ANTIMICRB INC INC IAL MICRO/AGA R DILUTJ CULTURE 32592 MANN DARNELL BACTERIAL 1 [facility] BLOOD INC INC AEROBIC W/ID ISOLATES CUL BACT 78467 MANN DARNELL AEROBIC 1 [facility] ADDL INC INC METHS DEFINITIV E EA ISOL BASIC 60402 MANN DARNELL METABOLIC 1 [facility] PANEL INC INC CALCIUM TOTAL DIAB ONLY A5500 SHIVANI PARRISH FIT CSTM 1 SURGICAL SURGICAL PREP&SPL SHOE MX DNSITY INSRT FOR DIAB A5512 SHIVANI PARRISH ONLY MX 1 SURGICAL SURGICAL DNSITY INSRT DIR FORMD PRFAB EA LIPID 02600 [facility] PANEL 1 Priccut BASIC 64914 [facility] METABOLIC 1 Priccut PANEL CALCIUM TOTAL HEMOGLOBI 14125 [facility] N 1 Priccut GLYCOSYLA ELSA A1C TRANSFERA 93833 [facility] SE 1 Priccut ASPARTATE AMINO AST SGOT COMPUTER- 21906 [place] KATHRYN AIDED 0 MEDICAL HUBERT DETECTION IMAGING ASS SCREENING MAMMOGRAP HY SCREENING G0202 [place] KATHRYN 0 MEDICAL HUBERT MAMMOGRAP IMAGING HY JOSEFINA ASS INCL CAD WHEN PERFORMD IIV3 42808 MANN DARNELL VACCINE 0 [facility] VIRUS 0.5 ML DOSAGE IM USE LIPID 44725 [facility] PANEL 0 Priccut BASIC 94104 [facility] METABOLIC 0 [facility] PANEL CALCIUM TOTAL TRANSFERA 80946 [facility] SE 0 [facility] ASPARTATE AMINO AST SGOT HEMOGLOBI 92702 [facility] N 0 [facility] GLYCOSYLA ELSA A1C BLD GLU A4253 AM MED AM MED TEST/REAG 0 DIRECT DIRECT T STRIPS [facility] HOME BLD GLU MON-50 BLD GLU A4253 AM MED AM MED TEST/REAG 0 DIRECT DIRECT T STRIPS [facility] HOME BLD GLU MON-50 LANCETS A4259 AM MED AM MED PER BOX 0 DIRECT DIRECT OF 100 [facility] DETERMINA 18586 [facility], TION 0 FOR FRANSISCO REFRACTIV EYEHLTH & C E STATE SURGPS DUPLEX 20466 [place] KATHRYN, SCAN 0 MEDICAL IVAN EXTRACRAN IMAGING IAL ART ASSOCIATE COMPL BI S STUDY BASIC 16853 [facility] METABOLIC 0 [facility] PANEL CALCIUM TOTAL LIPID 18704 [facility] PANEL 0 [facility] HEMOGLOBI 67204 A C YOSSI, N 0 JERSEY BECKER GLYCOSYLA PSC ELSA A1C TRANSFERA 26316 [facility] SE 0 [facility] ASPARTATE AMINO AST SGOT BLD GLU A4253 AM MED AM MED TEST/REAG 0 DIRECT DIRECT T STRIPS [facility] HOME BLD GLU MON-50 BLD GLU A4253 AM MED AM MED TEST/REAG 0 DIRECT DIRECT T STRIPS [facility] HOME D PHARMACY PHARMACY GLU MON-50 LANCETS A4259 AM MED AM MED PER BOX 0 DIRECT DIRECT OF 100 [facility] PHARMACY PHARMACY BLD GLU A4253 AM MED AM MED TEST/REAG 0 DIRECT DIRECT T STRIPS [facility] HOME D PHARMACY PHARMACY GLU MON-50 FOR DIAB A5512 SHIVANI PARRISH ONLY MX 0 SURGICAL SURGICAL DNSITY INSRT DIR FORMD PRFAB EA DIAB ONLY A5500 SHIVANI PARRISH FIT CSTM 0 SURGICAL SURGICAL PREP&SPL SHOE MX DNSITY INSRT BLD GLU A4253 AM MED AM MED TEST/REAG 0 DIRECT DIRECT [facility] PH[facility] GLU MON-50 HEMOGLOBI 80254 [facility] N 0 [facility] GLYCOSYLA ELSA A1C TRANSFERA 04431 [facility] SE 0 [facility] ASPARTATE AMINO AST SGOT BASIC 50575 [facility] METABOLIC 0 [facility] PANEL CALCIUM TOTAL LIPID 31406 [facility] PANEL 0 [facility] LANCETS A4259 AM MED AM MED PER BOX 0 DIRECT DIRECT OF 100 [facility] PHARMACY PHARMACY BLD GLU A4253 AM MED AM MED TEST/REAG 0 DIRECT DIRECT T STRIPS [facility] PHARMACY PHARMACY GLU SAT-50 BLD GLU A4253 AM MED AM MED TEST/REAG 0 DIRECT DIRECT T STRIPS [facility] PHARMACY PHARMACY GLU CATARACT 62742 [facility] REMOVAL 9 [facility] INSERTION [facility] OF LENS [facility] POSTERIOR V2632 [facility] CHAMBER 9 [facility] INTRAOCUL [facility] AR LENS [facility] OPH BMTRY 81344 [facility], 9 FOR FRANSISCO ECHOGRAPY EYEHLTH & C A-SCAN SURGPSC IO LENS PWR GUS BLD GLU A4253 AM MED AM MED TEST/REAG 9 DIRECT DIRECT T [facility] PHARMACY GLU ANESTHESI 18591 [facility], A EYE 9 [facility] LAN R LENS ANESTHESI SURGERY A PSC CATARACT 15990 [facility], REMOVAL 9 FOR FRANSISCO INSERTION EYEHLTH & C OF LENS SURGPSC PPSV23 60559 DHS/CO MANN VACCINE 2 9 HEALTH CO [facility]ALTH YRS [facility] O[facility] FOR BANK ACCT SUBQ/IM USE OPH BMTRY 65040 [facility], [place] 9 FOR FRANSISCO ECHOGRAPY EYEHLTH & C A-SCAN SURGPSC IO LENS PWR GUS OPHTH 53473 [facility], MEDICAL 9 FOR FRANSISCO XM&EVAL EYEHLTH & C COMPRHNSV SURGPSC ESTAB PT 1/> BLD GLU A4253 AM MED AM MED TEST/REAG 9 DIRECT DIRECT T STRIPS [facility] HOME D PHARMACY PHARMACY GLU SAT- LANCETS A4259 AM MED AM MED PER BOX 9 DIRECT DIRECT OF 100 [facility] [place] [address] [facility] THYROID 9 AMERIC AMERIC STIMULATI HOLDING HOLDING NG HORMONE TSH TRANSFERA 57906 [facility] SE 9 AMERIC AMERIC ASPARTATE HOLDING HOLDING AMINO AST SGOT HEMOGLOBI 89833 [facility] N 9 AMERIC AMERIC GLYCOSYLA HOLDING HOLDING ELSA A1C BASIC 27410 [facility] METABOLIC 9 AMERIC AMERIC PANEL HOLDING HOLDING CALCIUM TOTAL LIPID 20766 [facility] PANEL 9 AMERIC AMERIC HOLDING HOLDING BLD GLU A4253 AM MED AM MED TEST/REAG 9 DIRECT DIRECT T STRIPS [facility] HOME D PHARMACY PHARMACY GLU IIV3 16098 DHS/CO MANN VACCINE 9 [facility]ALTH [facility] VIRUS 0.5 BANK ACCT ML DOSAGE IM USE COMPUTER- 94040 MANN DARNELL AIDED 9 [facility] DETECTION INC INC SCREENING MAMMOGRAP HY SCREENING 24743 MANN DARNELL 9 [facility] MAMMOGRAP INC INC HY BILATERAL DIAB ONLY A5500 ROSS ROSS FIT CSTM 9 SURGICAL SURGICAL PREP&SPL SHOE MX DNSITY INSRT FOR DIAB A5512 ROSS ROSS ONLY MX 9 SURGICAL SURGICAL DNSITY INSRT DIR FORMD PRFAB EA BLD GLU A4253 AM MED AM MED TEST/REAG 9 DIRECT DIRECT T STRIPS [facility] HOME D PHARMACY PHARMACY GLU BLD GLU A4253 AM MED AM MED TEST/REAG 9 DIRECT DIRECT T STRIPS [facility] HOME D PHARMACY PHARMACY GLU SAT- LANCETS A4259 AM MED AM MED PER BOX 9 DIRECT DIRECT OF 100 [facility] PHARMACY PHARMACY LIPID 26270 [facility] PANEL 9 AMERIC [employer] HOLDING HOLDING BASIC 12972 [facility] METABOLIC 9 AMERIC AMERIC PANEL HOLDING HOLDING CALCIUM TOTAL HEMOGLOBI 64352 [facility] N 9 AMERIC AMERIC GLYCOSYLA HOLDING HOLDING ELSA A1C TRANSFERA 95936 [facility] SE 9 AMERIC AMERIC ASPARTATE HOLDING HOLDING AMINO AST SGOT COLLECTIO 77122 Bibi BLACK N VENOUS 9 JERSEY Langley BLOOD PSC VENIPUNCT URE BLD GLU A4253 AM MED AM MED TEST/REAG 9 DIRECT DIRECT T [facility] PH[facility]Y GLU MON-50 BLD GLU A4253 [facility] TEST/REAG 9 PHARMACY PHARMACY T STRIPS #591 #591 HOME BLD GLU MON-50 BLD GLU A4253 AM MED AM MED TEST/REAG 9 DIRECT DIRECT [facility] PH[facility] GLU MON-50 LANCETS A4259 AM MED AM MED PER BOX 9 DIRECT DIRECT OF 100 [facility] PHARMACY PHARMACY BLD GLU A4253 AM MED AM MED TEST/REAG 9 DIRECT DIRECT [facility] PHARMACY GLU MON-50 BLD GLU A4253 AM MED AM MED TEST/REAG 9 DIRECT DIRECT [facility] PHARM[facility]Y GLU MON-50 COLLECTIO 66279 Sandrine HE VENOUS 9 JERSEY BECKER BLOOD PSC VENIPUNCT URE TRANSFERA 22994 [facility] SE 9 AMERIC AMERIC ASPARTATE HOLDING HOLDING AMINO AST SGOT HEMOGLOBI 65783 [facility] N 9 AMERIC AMERIC GLYCOSYLA HOLDING HOLDING ELSA A1C BASIC 85035 [facility] METABOLIC 9 AMERIC AMERIC PANEL HOLDING HOLDING CALCIUM TOTAL LIPID 73089 [facility] PANEL 9 AMERIC AMERIC HOLDING HOLDING LANCETS A4259 AM MED AM MED PER BOX 9 DIRECT DIRECT OF 100 [facility] BLD GLU A4253 AM MED AM MED TEST/REAG 9 DIRECT DIRECT T STRIPS [facility] HOME BLD GLU MON-50 BLD GLU A4253 AM MED AM MED TEST/REAG 8 DIRECT DIRECT [facility] PHARMACY GLU MON-50 LANCETS A4259 AM MED AM MED PER BOX 8 DIRECT DIRECT OF 100 [facility] PHARMACY PHARMACY LIPID 80316 [facility] PANEL 8 AMERIC AMERIC HOLDING HOLDING BASIC 21959 [facility] METABOLIC 8 AMERIC AMERIC PANEL HOLDING HOLDING CALCIUM TOTAL HEMOGLOBI 96218 [facility] N 8 AMERIC AMERIC GLYCOSYLA HOLDING HOLDING ELSA A1C TRANSFERA 99138 [facility] SE 8 AMERIC AMERIC ASPARTATE HOLDING HOLDING AMINO AST SGOT COLLECTIO 30228 Bibi SY, N VENOUS 8 JERSEY BECKER BLOOD PSC VENIPUNCT URE URINLS 69656 Bibi SY, DIP 8 JERSEY BECKER STICK/TAB PSC LET REAGNT NON-AUTO MICRSCPY LIPID 65610 [facility] PANEL 8 AMERIC AMERIC HOLDING HOLDING COLLECTIO 87997 Bibi BLACK N VENOUS 8 JERSEY Langley BLOOD PSC VENIPUNCT URE TRANSFERA 92112 [facility] SE 8 AMERIC AMERIC ASPARTATE HOLDING HOLDING AMINO AST SGOT GLUCOSE 94055 [facility] QUANTITAT 8 AMERIC AMERIC GALDINO BLOOD HOLDING HOLDING XCPT REAGENT STRIP HEMOGLOBI 37025 [facility] N 8 AMERIC AMERIC GLYCOSYLA HOLDING HOLDING ELSA A1C MAMMOGRAP 59975 [place] ZACH, HY 8 MEDICAL KELLEY P UNILATERA IMAGING L ASSOCIATE S EXC B9 49938 Bibi SY, LESION 8 JERSEY BECKER MRGN XCP PSC SK TG T/A/L 2.1-3.0 CM HEMOGLOBI 00853 [facility] N 8 AMERIC AMERIC GLYCOSYLA HOLDING HOLDING ELSA A1C TRANSFERA 27276 [facility] SE 8 AMERIC AMERIC ASPARTATE HOLDING HOLDING AMINO AST SGOT COLLECTIO 60580 Bibi BLACK N VENOUS 8 JERSEY Langley BLOOD PSC VENIPUNCT URE LIPID 09619 [facility] PANEL 8 AMERIC AMERIC HOLDING HOLDING BASIC 74405 [facility] METABOLIC 8 AMERIC AMERIC PANEL HOLDING HOLDING CALCIUM TOTAL BLD GLU A4253 [facility] TEST/REAG 8 PHARMACY PHARMACY T [facility] #591 #591 HOME BLD GLU MON-50 IADNA 09851 Bibi SY STREPTOCO 8 JERSEY BECKER CCUS PSC GROUP A QUANTIFIC ATION BLD GLU A4253 [facility] TEST/REAG 8 PHARMACY PHARMACY T [facility] #591 #591 HOME BLD GLU MON-50 Encounters Encounter Start End Date Code Location Performer Type Date [facility] MANN - 6 6 [facility] INPATIENT [facility] 07605 MANN [facility]PT 6 6 [facility] VISIT [facility] HIGH SEVERITY& THREAT FUN EMERGENCY 80019 MANN DEPT 6 6 [facility] HIGH SEVERITY& THREAT FUN EMERGENCY [address] MANN [address] [facility] VISIT HIGH/URGE NT SEVERITY [facility] MANN - 6 6 [facility] - 6 6 [facility] 3 3 N [facility] 3 3 [facility] [address] [facility] OFFICE 59092 BARROW, BARROW, OUTPATIEN 3 3 JR. FREYA PILLAI T VISIT 15 MINUTES [facility] 3 3 [facility] - 3 3 Y [facility] T OFFICE 84835 MERLY Byrd OUTPATIEN 2 2 T [facility] 45 MINUTES PERIODIC 99043 KILPELA KILPELA PREVENTIV 2 2 NOLA VACA E MED EST PATIENT 40-64YRS [facility] - 2 2 [facility] T OFFICE 97094 BARROW, BARROW, OUTPATIEN 2 2 JR. FREYA PILLAI T VISIT 15 MINUTES OFFICE 88380 [facility] OUTPATIEN 2 2 T NEW 30 MINUTES OFFICE 51672 RASHAAD EILEEN RASHAAD EILEEN OUTPATIEN 2 2 T VISIT 15 MINUTES OFFICE 31738 BARROW, BARROW, OUTPATIEN 2 2 JR. FREYA PILLAI T VISIT 15 MINUTES OFFICE 13950 BARROW, BARROW, OUTPATIEN 2 2 JR. FREYA PILLAI T NEW 30 MINUTES OFFICE 81413 YOSSI YOSSI OUTPATIEN 2 2 DAO DAO T VISIT 25 MINUTES OFFICE 91126 YOSSI YOSSI OUTPATIEN 2 2 DAO DAO T VISIT 10 MINUTES [facility]OSPITAL [facility] - 1 1 [facility] OUTPATIEN INC T OFFICE 22740 YOSSI YOSSI OUTPATIEN 1 1 DAO DAO T VISIT 25 MINUTES HOME [facility], 1 1 HOME OUTPATIEN HEALTH T AGENCY OFFICE 02820 A C YOSSI OUTPATIEN 1 1 JERSEY AARON DAO T VISIT PSC 15 MINUTES HOSPITAL [facility] - 1 1 [facility] OUTPATIEN INC T EMERGENCY 94779 MANN 1 1 [facility] DEPARTMEN INC T VISIT MODERATE SEVERITY EMERGENCY 49775 ARLENE FORDEY DEPT 1 1 EMERGENCY ADRIAN VISIT SERVICES HIGH SEVERITY& THREAT FUNCJ HOME [facility], 1 1 HOME OUTPATIEN HEALTH T AGENCY HOME [facility], 1 1 HOME OUTPATIEN HEALTH T AGENCY OFFICE 36656 A C YOSSI OUTPATIEN 1 1 JERSEY AARON DAO T VISIT PSC 25 MINUTES EMERGENCY 37419 MANN 1 1 [facility] DEPARTMEN INC T VISIT HIGH/URGE NT SEVERITY HOSPITAL M[facility] - 1 1 [facility] OUTPATIEN INC T OFFICE 84921 A C YOSSI OUTPATIEN 1 1 JERSEY Isbell VISIT PSC 25 MINUTES OFFICE 30508 A Korin Mtz OUTPATIEN 1 1 JERSEY Isbell VISIT 5 PSC MINUTES HOSPITAL [facility] - 0 0 [facility] OUTPATIEN INC T OFFICE 54912 A Korin SY OUTPATIEN 0 0 JERSEY Isbell VISIT 5 PSC MINUTES OFFICE 25000 [place] [facility] PATEL OUTPATIEN 0 0 FOR FRANSISCO T VISIT EYEHLTH & C 15 SURGPSC MINUTES HOSPITAL MANN - 0 0 [facility] OUTPATIEN INC T OFFICE 46030 A C YOSSI OUTPATIEN 0 0 JERSEY Isbell VISIT PSC 25 MINUTES OFFICE 46280 A Bibi ANDUJAR OUTPATIEN 0 0 JERSEY Isbell VISIT 5 PSC MINUTES HOSP[facility] [place] [address] 9 [facility] [place] [address] 9 [facility] OFFICE 36340 DHS/CO MANN OUTPATIEN 9 [address] MINUTES [facility] ACCT OFFICE 51108 A SANJU EPPSPATIEN 9 9 JERSEY Isbell VISIT PSC 15 MINUTES OFFICE 33649 A Korin SY OUTPATITERESSA 9 9 JERSEY Isbell VISIT PSC 25 MINUTES HOSPITAL MANN - 9 9 [facility] OUTPATIEN INC T OFFICE 71281 Bibi BLACK OUTPATITERESSA 9 9 JERSEY Isbell VISIT 5 PSC MINUTES OFFICE 06395 A Korin SY OUTPATITERESSA 9 9 JERSEY Isbell VISIT PSC 25 MINUTES OFFICE 03770 A SANJU EPPSPATITERESSA 9 9 JERSEY Isbell VISIT PSC 25 MINUTES OFFICE 60695 SARAH HE 8 8 JERSEY BECKER T VISIT 5 PSC MINUTES OFFICE 35873 SARAH HE 8 8 JERSEY BECKER T VISIT PSC 25 MINUTES OFFICE 76392 Bibi BLACK 8 8 JERSEY Isbell VISIT 5 PSC MINUTES OFFICE 61095 SARAH HE 8 8 JERSEY BECKER T VISIT PSC 15 MINUTES [facility] MANN - 8 8 [facility] OUTPATIEN INC T OFFICE 38854 SARAH HE 8 8 JERSEY BECKER T VISIT PSC 15 MINUTES OFFICE 83085 Bibi BLACK 8 8 JERSEY Isbell VISIT PSC 25 MINUTES OFFICE 26961 Bibi BLACK 8 8 JERSEY Isbell VISIT 5 PSC MINUTES OFFICE 92970 SARAH HE 8 8 JERSEY Isbell VISIT PSC 15 MINUTES
--- OUTSIDE RECORDS SUMMARY | 2017-04-20 04:22 | External Medical Summary Rpt ---
Author Author , MARIANNA CABRAL Address Unknown Phone [email or web address] Care Team Providers Care Staff Pharmacist Name Role Phone A Korin PUTNAM MD [...] FRANSISCO PATEL [facility], Unavailable Unavailable LLC., [employer] HUGO ADRIAN, HUGO Unavailable Unavailable ADRIAN [facility] Unavailable Unavailable HOSPITA, [facility] SIERRA GRE, [facility] GRE Unavailable Unavailable PB RHO, PB Unavailable Unavailable RHO PB RHO, BP Unavailable Unavailable RHO [facility] Unavailable Unavailable [facility] Unavailable Unavailable [place] Unavailable Unavailable INC, [facility], Unavailable Unavailable [facility], Unavailable Unavailable [facility], Unavailable Unavailable [facility] KILPELA JEA, KILPELA Unavailable Unavailable JEA KILPELA JEA, KILPELA Unavailable Unavailable JEA [facility] Unavailable Unavailable HOLD[facility], [facility] [employer], Unavailable Unavailable [facility] [employer] [facility] Unavailable Unavailable SERVICES, [facility] Unavailable Unavailable [...] [facility]OS[facility], Unavailable Unavailable [facility] Unavailable Unavailable [facility] MERLY WILLIS Unavailable Unavailable MERLY WILLIS Unavailable Unavailable [facility] Unavailable Unavailable [facility], Unavailable Unavailable [facility] Unavailable [facility]available [address], [facility] Unavailable Unavailable [address], [facility] # Unavailable Unavailable [id number], [facility] # [id number] [facility] Unavailable Unavailable AGENCY, [facility] PUTNAM A, PUTNAM A Unavailable Unavailable [...] INDEX BMI [facility] 45.0-49.9 INC ADULT [id number] PERSONAL 11-22-2015 [facility] NICOTINE INC DEPENDENCE E8342 HYPOMAGNESE 09-30-2015 [facility] JUANCARLOS [facility] INC E876 HYPOKALEMIA 09-30-2015 [facility] INC I129 HYPERTENSIV 09-30-2015 [facility] E CKD [facility] W/STAGE 1-4 INC CKD OR UNS CKD I2510 ASHD LA POSTA 09-30-2015 [facility] CORONARY [facility] ARTERY W/O INC ANGINA PECTORIS N179 ACUTE 09-30-2015 [facility] KIDNEY [facility] FAILURE INC UNSPECIFIED 57559 SEC 06-15-2013 [facility] OSTEOARTHRO SIS ANKLE AND FOOT 8248 UNSPECIFIED 01-28-2013 CELE[facility] MAT CLOSED FRACTURE OF ANKLE 31255 PAIN IN 01-22-2013 [facility] JOINT, [facility] ANKLE [facility]OSP[facility] FOOT 59040 OTHER 01-22-2013 PB RHO NONSPECIFIC ABNORMAL FINDING OF LUNG FIELD V7283 OTHER 01-22-2013 [facility] PRE-OPERATI HOSPITA VE EXAMINATION 7859 OTHER 12-05-2012 [facility] SYMPTOMS [facility] INVOLVING INC CARDIOVASCU LAR SYSTEM V7612 OTHER 12-05-2012 MANN SCREENING [facility] MAMMOGRAM INC 11502 PRIMARY 10-23-2012 ALLI BARROW JR. OSTEOARTHRO SIS ANKLE AND FOOT 73341 OSTEOARTHRO 10-08-2012 [facility] SIS UNSPEC [facility] WHETHER INC GEN/LOC ANK&FOOT 75691 DISORDER OF 10-01-2012 [facility] CARTILAGE UNSPECIFIED 87755 NONSPECIFIC 08-28-2012 [facility] J ABNORMAL ELECTROCARD IOGRAM 7852 UNDIAGNOSED 08-25-2012 [facility] J CARDIAC MURMURS 84830 SHORTNESS 08-25-2012 [facility] J OF BREATH V700 ROUTINE 08-04-2012 [facility]ACA GENERAL MEDICAL EXAM@HEALTH CARE FACL 4019 UNSPECIFIED 07-18-2012 [place] DAO ESSENTIAL HYPERTENSIO N 88569 DIAB W/O 07-17-2012 ST [facility] COMP TYPE MOUNT II/UNS NOT JI STATED UNCNTRL 4293 CARDIOMEGAL 07-17-2012 [place] Y MOUNT JI 4400 ATHEROSCLER 07-17-2012 [place] OSIS OF [facility] AORTA JI V7284 UNSPECIFIED 07-17-2012 [facility] PRE-OPERATI JI VE EXAMINATION 90140 DIAB W/O 06-09-2012 RASHAAD EILEEN MENTION COMP TYPE II/UNS TYPE UNCNTRL 2724 OTHER AND 06-05-2012 RASHAAD EILEEN UNSPECIFIED HYPERLIPIDE JUANCARLOS 4011 ESSENTIAL 06-05-2012 RASHAAD EILEEN HYPERTENSIO N, BENIGN 01642 OSTEOARTHRO 04-22-2012 CHERELLE S UNSPEC ORTHOPEDICS WHETHER GEN/LOC UNSPEC SITE 56722 PLANTAR 03-25-2012 JENY BARROW JR. JAM FIBROMATOSI S 79992 DIAB 02-21-2012 [facility] W/NEURO SURGICAL MANIFESTS TYPE II/UNS NOT UNCNTRL 46239 PRESSURE 02-21-2012 [facility] ULCER SURGICAL UNSPECIFIED SITE E9479 UNSPEC 02-01-2012 [facility] L SBSTNC CAUS ADVRS EFF TX USE V0481 NEED 06-27-2011 [facility] VACCINATION &INOCULATIO N FLU 59758 ULCER OF 05-01-2011 YOSSI DAO OTHER PART OF FOOT 96703 UNSPECIFIED 05-01-2011 YOSSI DAO ARTHROPATHY SITE UNSPECIFIED 10121 OBESITY, 04-16-2011 [facility] UNSPECIFIED HEALTH AGENCY [...] ABSCESS EMERGENCY OF FOOT SERVICES EXCEPT TOES 02006 DIAB W/OTH 02-25-2011 [facility] MANIFESTS [facility] TYPE II/UNS INC NOT UNCNTRL 19255 PRESSURE 02-25-2011 [facility] ULCER OTHER EMERGENCY SITE SERVICES 07805 OTHER 02-25-2011 [facility] ABNORMAL EMERGENCY GLUCOSE SERVICES 7906 OTHER 02-25-2011 [facility] ABNORMAL [facility] BLOOD INC CHEMISTRY V431 LENS 04-13-2010 [place] INST FOR REPLACED BY EYEHLTH & OTHER SURGPSC MEANS 274 GOUT 11-17-2009 A Korin PUTNAM MD PSC 39209 CORTICAL 09-01-2009 [place] INST FOR SENILE EYEHLTH & CATARACT SURGPSC 3669 UNSPECIFIED 09-01-2009 [facility] V1582 PERS HX 09-01-2009 [facility] TOBACCO USE NEETU [employer] V0382 NEED PROPH 08-08-2009 DHS/CO VACCINATION HEALTH AGAINST CENTRAL STREP BANK ACCT PNEUMONE 5990 URINARY 07-28-2009 A Korin LEUNG MD PSC INFECTION SITE NOT SPECIFIED 2449 UNSPECIFIED 07-22-2009 [facility] HYPOTHYROID [facility] ISM 6923 [facility] 12-17-2008 A Korin PUTNAM DERMATITIS& PSC OTH ECZEMA-RX&M EDS [facility] W/SKN 7881 DYSURIA 07-16-2008 A Korin PUTNAM MD PSC 1121 CANDIDIASIS 03-11-2008 A Korin PUTNAM OF VULVA PSC AND VAGINA 89636 OTHER SIGN 03-02-2008 [facility] AND SYMPTOM [facility] IN BREAST INC 25473 UNSPECIFIED 03-02-2008 [place] ABNORMAL MEDICAL MAMMOGRAM IMAGING [...] 0 RE 32 PH 97 16 16 MO YT 9 PH CH OP AR AE LE MA L X CY S AN TI LL FU C NG AL 2% RE 53 04 04 0 85 7 ME 12 GA Ac ME 32 -0 -1 0. D 33 IN ti DY 90 3- 6- 00 CA 98 EY ve 16 20 20 0 RE 48 PH 97 16 16 MO YT 9 PH CH OP AR AE LE MA L X CY S AN TI LL FU C NG AL 2% MA 00 04 04 0 30 5 ME 12 GA Ac PA 90 -0 -0 0. D 29 IN ti P 41 4- 4- 00 CA 37 EY ve 50 98 20 20 0 RE 72 0 86 16 16 MO MG 1 PH CH AR AE TA MA L BL CY S ET LL C RE 53 04 04 0 85 7 ME 12 GA Ac ME 32 -0 -0 0. D 29 IN ti DY 90 3- 4- 00 CA 40 EY ve 16 20 20 0 RE 18 PH 97 16 16 MO YT 9 PH CH OP AR AE LE MA L X CY S AN TI LL FU C NG AL 2% PO 00 04 04 0 60 30 ME 12 GA Ac TA 78 -0 -0 0. D 29 IN ti SS 15 4- 4- 00 CA 37 EY ve IU 71 20 20 0 RE 88 M 01 16 16 MO CL 0 PH CH AR AE ER MA L CY S 10 LL ME C Q TA BL ET Q- 00 04 04 0 11 3 ME 12 GA Ac TU 60 -0 -0 80 D 29 IN ti SS 30 4- 4- .0 CA 37 EY ve IN 85 20 20 00 RE 80 59 16 16 MO DM 4 PH CH AR AE SY MA L RU CY S P LL C FI 74 03 03 0 15 15 ME 12 GA Ac SH 31 -1 -2 0. D 25 IN ti 20 CA 52 EY ve OI 13 20 20 0 RE 01 L 32 16 16 MO 1, 9 PH CH 20 AR AE 0 MA L MG CY S SO LL FT C GE L RE 53 03 03 0 85 5 ME 12 GA Ac ME 32 -1 -1 0. D 22 IN ti DY 90 CA 01 EY ve 16 20 20 0 RE 51 PH 97 16 16 MO YT 9 PH CH OP AR AE LE MA L X CY S AN TI LL FU C NG AL 2% FI 74 03 03 0 15 15 ME 12 GA Ac SH 31 -1 -1 0. D 22 IN ti 20 09-16- CA 01 EY ve OI 13 20 20 0 RE 93 L 32 16 16 MO 1, 9 PH CH 20 AR AE 0 MA L MG CY S SO LL FT C GE L FU 63 09 10 5 30 30 WA 71 RI Ac RO 30 -1 -2 .0 L- 34 SH ti SE 40 3- 8- 00 MA 63 ER ve MO 62 20 20 RT 9 DE 51 [...] ve LA 32 20 20 RT 0 NM 90 11 11 RI -V 1 PH [...] 3- 5- 00 MA 63 ER ve MO 62 20 20 RT 9 DE 51 [...] ve LA 32 20 20 RT 0 NM 90 11 11 RI -V 1 PH [...] 6- 9- 00 MA 49 ER ve MO 62 20 20 RT 0 DE 51 [...] ve LA 32 20 20 RT 9 NM 90 11 11 RI -V 1 PH [...] 6- 9- 00 MA 49 ER ve MO 62 20 20 RT 0 DE 51 [...] ve LA 32 20 20 RT 9 NM 90 11 11 RI -V 1 PH [...] 6- 3- 00 MA 49 ER ve MO 62 20 20 RT 0 DE 51 [...] ve LA 32 20 20 RT 9 NM 90 11 11 RI -V 1 PH [...] 0 20 10 WA 71 GR Ac NM 37 -1 -1 .0 L- 22 AY [...] ve LA 32 20 20 RT 6 NM 90 11 11 RI -V 1 PH [...] ve LA 32 20 20 RT 6 NM 90 11 11 RI -V 1 PH [...] ve LA 32 20 20 RT 6 NM 90 11 11 RI -V 1 PH [...] 7- 3- 00 MA 98 ER ve MO 62 20 20 RT 1 DE 51 [...] LA 32 [address] NM 90 11 11 EP -V 1 PH [...] 7- 3- 00 MA 98 ER ve MO 62 20 20 RT 1 DE 51 [...] ve LA 32 20 20 RT 6 NM 90 10 10 RI -V 1 PH [...] 7- 2- 00 MA 98 ER ve MO 62 20 20 RT 1 DE 51 [...] ve LA 32 20 20 RT 6 NM 90 10 10 RI -V 1 PH [...] 7- 2- 00 MA 98 ER ve MO 62 20 20 RT 1 DE 51 [...] ve LA 32 20 20 RT 6 NM 90 10 10 RI -V 1 PH CH ER AR AR AP MA D AM CY # ER 10 4- 05 24 91 0 MG FU 63 09 10 1 30 30 WA 70 RI Ac RO 30 -2 -2 .0 L- 87 SH ti SE 40 4- 5- 00 MA 63 ER ve MO 62 20 20 RT 8 DE 51 [...] ve LA 32 20 20 RT 0 NM 90 10 10 RI -V 1 PH CH ER AR AR AP MA D AM CY # ER 10 4- 05 24 91 0 MG FU 63 09 09 1 30 30 WA 70 RI Ac RO 30 -2 -2 .0 L- 87 SH ti SE 40 4- 4- 00 MA 63 ER ve MO 62 20 20 RT 8 DE 51 [...] ve LA 32 20 20 RT 7 NM 90 10 10 RI -V 1 PH [...] ve LA 32 20 20 RT 7 NM 90 10 10 RI -V 1 PH [...] ve LA 32 20 20 RT 7 NM 90 10 10 RI -V 1 PH [...] 2- 5- 00 MA 97 S ve MO [address] DE [...] 2- 8- 00 MA 97 S ve MO 21 [address] DE [...] 5- 7- 00 MA 76 S ve MO 21 [address] DE [...] 5- 9- 00 MA 76 S ve MO 21 [address] DE [...] 5- 1- 00 MA 76 S ve MO 21 [address] DE [...] 5- 1- 00 MA 76 S ve MO 21 [address] DE [...] 6- 3- 00 MA 62 ER ve MO 21 20 20 RT 4 DE 61 [...] 6- 5- 00 MA 62 ER ve MO 21 20 20 RT 4 DE 61 [...] 6- 8- 00 MA 62 Av ve MO 21 20 20 RT 4 ai DE [...] 6- 0- 00 MA 62 Av ve MO 21 20 20 RT 4 ai DE [...] 9- 7- 00 MA 06 Av ve MO 21 20 20 RT 8 ai DE [...] 9- 5- 00 MA 06 Av ve MO 21 20 20 RT 8 ai DE [...] DOS Code Location Performer Comment GLUC BLD 46570 MANN DARNELL GLUC MNTR 6 [facility] DEV INC INC CLEARED FDA SPEC HOME USE COLLECTIO 58964 MANN DARNELL N VENOUS 6 [facility] BLOOD INC INC VENIPUNCT URE COMPREHEN 49983 M[facility] DARNE[facility] SIVE 6 [facility] METABOLIC INC INC PANEL BLOOD 59417 M[facility] D[facility]NE[facility] COUNT 6 [facility] COMPLETE INC INC AUTO&AUTO DIFRNTL WBC PRESSURIZ 40492 MANN DARNELL ED/NONPRE 6 [facility] SSURIZED INC INC INHALATIO N TREATMENT INJECTION J1642 MANN D[facility]NELL HEPARIN 6 [facility] SODIUM INC INC PER 10 UNITS INJECTION J0692 MANN DARNELL CEFEPIME 6 [facility] INC INC HYDROCHLO RIDE 500 MG PRESSURIZ 79198 MANN DARNELL ED/NONPRE 6 [facility] SSURIZED INC INC INHALATIO N TREATMENT NONINVASI 36896 MANN DARNELL VE 6 [facility] EAR/PULSE INC INC OXIMETRY SINGLE DETER THERAPEUT 66159 MANN DARNELL IC PX 1/> 6 [facility] AREAS INC INC EACH 15 MIN EXERCISES GLUC BLD 95640 MANN DARNELL GLUC MNTR 6 [facility] DEV INC INC CLEARED FDA SPEC HOME USE COLLECTIO 72116 MANN Deluca VENOUS 6 [facility] BLOOD INC INC VENIPUNCT URE GLUC BLD 47626 MANN DARNELL GLUC MNTR 6 [facility] DEV INC [place] [address] MANN DARNELL AMMONIA 6 [facility] INC INC THERAPEUT 67830 MANN DARNELL ACTVITY 6 [facility] DIRECT PT INC INC CONTACT EACH 15 MIN PHYSICAL 62364 MANN DARNELL THERAPY 6 [facility] EVALUATIO INC INC N THERAPEUT 90190 MANN DARNELL IC PX 1/> 6 [facility] AREAS INC INC EACH 15 MIN EXERCISES RADIOLOGI 23949 MANN DARNELL C 6 [facility] EXAMINATI INC INC ON CHEST SINGLE VIEW FRONTAL BASIC 17040 MANN DARNELL METABOLIC 6 [facility] PANEL INC INC CALCIUM TOTAL NONINVASI 70951 MANN DARNELL VE 6 [facility] EAR/PULSE INC INC OXIMETRY SINGLE DETER PRESSURIZ 73868 MANN DARNELL ED/NONPRE 6 [facility] SSURIZED INC INC INHALATIO N TREATMENT INJECTION J0692 MANN DARNELL CEFEPIME 6 [facility] INC INC HYDROCHLO RIDE 500 MG INJECTION J0692 MANN DARNELL CEFEPIME 6 [facility] INC INC HYDROCHLO RIDE 500 MG PRESSURIZ 86460 MANN DARNELL ED/NONPRE 6 [facility] SSURIZED INC INC INHALATIO N TREATMENT NONINVASI 87022 MANN DARNELL VE 6 [facility] EAR/PULSE INC INC OXIMETRY SINGLE DETER GLUC BLD 09787 MANN DARNELL GLUC MNTR 6 [facility] DEV INC INC CLEARED FDA SPEC HOME USE GLUC BLD 56590 MANNRAY DARNELL GLUC MNTR 6 [facility] DEV INC INC CLEARED FDA SPEC HOME USE COLLECTIO 36491 MANN DARNELL N VENOUS 6 [facility] BLOOD INC INC VENIPUNCT URE COMPREHEN 76036 MANN DARNELL SIVE 6 [facility] METABOLIC INC INC PANEL BLOOD 49268 MANN DARNELL COUNT 6 [facility] COMPLETE INC INC AUTO&AUTO DIFRNTL WBC PRESSURIZ 66745 MANN DARNELL ED/NONPRE 6 [facility] SSURIZED [place] [address] MANN DARNELL MAGNESIUM 6 [facility] INC INC INJECTION J0692 MANN DARNELL CEFEPIME 6 [facility] INC INC HYDROCHLO RIDE 500 MG LOCM Q9967 MANN DARNELL [phone] 6 [facility] MG/ML INC INC IODINE CONCENTRA TION PER ML INJECTION J0692 MANN DARNELL CEFEPIME 6 [facility] INC INC HYDROCHLO RIDE 500 MG BASIC 08569 MANN DARNELL METABOLIC 6 [facility] [place] [address] MANN DARNELL ANGIOGRAP 6 [facility] HY CHEST INC INC W/CONTRAS T/NONCONT RAST BRNCDILAT 27709 MANN DARNELL RSPSE 6 [facility] SPMTRY INC INC PRE&POST- BRNCDILAT ADMN NONINVASI 85029 MANN DARNELL VE 6 [facility] EAR/PULSE INC INC OXIMETRY SINGLE DETER CULTURE 30271 MANN DARNELL BACTERIAL 6 [facility] BLOOD INC INC AEROBIC W/ID ISOLATES BLOOD 88734 MANN DARNELL COUNT 6 [facility] COMPLETE INC INC AUTO&AUTO DIFRNTL WBC COLLECTIO 19581 MANN DARNELL N VENOUS 6 [facility] BLOOD INC INC VENIPUNCT URE GLUC BLD 06699 MANN DARNELL GLUC MNTR 6 [facility] DEV INC INC CLEARED FDA SPEC HOME USE GLUC BLD 82234 MANN DARNELL GLUC MNTR 6 [facility] DEV INC INC CLEARED FDA SPEC HOME USE COLLECTIO 44048 MANN MOHRDAY N VENOUS 6 [facility], BLOOD INC LLC. VENIPUNCT URE NONINVASI 74375 MANN DARNELL VE 6 [facility] EAR/PULSE INC INC OXIMETRY SINGLE DETER BASIC 30902 MANN DARNELL METABOLIC 6 [facility] PANEL INC INC CALCIUM TOTAL BASIC 04339 MANN EVRYDAY METABOLIC 6 [facility]TER[facility], [place] [address] MANN DARNELL MAGNESIUM 6 [facility] INC INC NONINVASI 82525 MANN DARNELL VE 6 [facility] EAR/PULSE INC INC OXIMETRY SINGLE DETER GLUC BLD 37241 MANN DARNELL GLUC MNTR 6 [facility] DEV INC INC CLEARED FDA SPEC HOME USE BLOOD 03873 MANN DARNELL COUNT 6 [facility] COMPLETE INC INC AUTO&[place] [address] MANN EVRYDAY TROPONIN 6 [facility], [place] [address] MANN EVRYDAY TROPONIN 6 [facility], QUANTITAT INC LLC. GALDINO BLOOD 34481 MANN DARNELL COUNT 6 [facility] COMPLETE INC INC AUTO&AUTO DIFRNTL WBC NATRIURET 48990 MANN EVRYDAY IC 6 [facility], [place] [address] MANN DARNELL INFUSION 6 [facility] THERAPY/P INC INC ROPHYLAXI S /DX 1ST TO 1 HR THERAPEUT 40572 MANN DARNELL IC 6 [facility] INJECTION INC INC IV PUSH EACH NEW DRUG BLOOD 84256 MANN AWAD GASES ANY 6 [facility] MATTERS, INC LLC. COMBINATI ON PH PCO2 PO2 CO2 HCO3 GLUC BLD 88144 MANN DARNELL GLUC MNTR 6 [facility] DEV INC INC CLEARED FDA SPEC HOME USE COMPREHEN 72315 MANN BURNHAMRYDAY SIVE 6 [facility] MATTERS, METABOLIC INC LLC. PANEL COLLECTIO 55067 MANN MOHRDAY N VENOUS 6 [facility], [place] [address] MANN AWAD FOLIC 6 [facility] MATTERS, ACID INC LLC. SERUM RADIOLOGI 75990 MANN DARNELL C 6 [facility] EXAMINATI INC INC ON CHEST SINGLE VIEW FRONTAL BLOOD 88329 MANN DARNELL COUNT 6 [facility] RETICULOC INC INC YTE AUTOMATED CYANOCOBA 74243 MANN DARNELL TIMA 6 [facility] VITAMIN INC INC B-12 RADIOLOGI 00171 MANN DARNELL C 6 [facility] EXAMINATI INC INC ON CHEST SING[place] VIEW FRONTAL PRESSURIZ 76120 MANN DARNELL ED/NONPRE 6 [facility] SSURIZED INC INC INHALATIO N TREATMENT NONINVASI 10924 MANN DARNELL VE 6 [facility] EAR/PULSE INC INC OXIMETRY SINGLE DETER COLLECTIO 86726 MANN DARNELL N VENOUS 6 [facility] BLOOD INC INC VENIPUNCT URE COMPREHEN 14244 MANN DARNELL SIVE 6 [facility] METABOLIC INC INC PANEL BLOOD 02519 MANN DARNELL COUNT 6 [facility] COMPLETE INC INC AUTO&AUTO DIFRNTL WBC COLLECTIO 91916 MANN DARNELL N VENOUS 6 [facility] BLOOD INC INC VENIPUNCT URE URNLS DIP 09079 MANN DARNELL 6 [facility] STICK/TAB INC INC LET REAGENT AUTO MICROSCOP Y NONINVASI 20282 MANN DARNELL VE 6 [facility] EAR/PULSE INC INC OXIMETRY SINGLE DETER CULTURE 69239 MANN DARNELL BACTERIAL 6 [facility] INC INC QUANTTATI VE COLONY COUNT URINE BASIC 76763 MANN MANN METABOLIC 6 [facility] PANEL INC INC CALCIUM TOTAL CREATINE 70548 MANN DARNELL KINASE 6 [facility] TOTAL INC INC RADIOLOGI 19928 MANN DARNELL C 6 [facility] EXAMINATI INC INC ON CHEST SING[place]IEW FRONTAL ECG 95632 MANN MANN ROUTINE 6 [facility] ECG INC INC W/LEAST 12 LDS TRCG ONLY W/O I&R NONINVASI 87658 MANN MANN VE 6 [facility] EAR/PULSE INC INC OXIMETRY SINGLE DETER CREATINE 54557 MANN DARNELL KINASE MB 6 [facility] [place] [address] MANN DARNELL THYROID 6 [facility] STIMULATI [place] [address] MANN DARNELL TROPONIN 6 [facility] QUANTITAT INC INC GALDINO NATRIURET 34649 MANN DARNELL IC 6 [facility] PEPTIDE INC INC COMPREHEN 31751 MANN DARNELL SIVE 6 [facility] METABOLIC INC INC PANEL BLOOD 23529 [facility] COUNT 6 [facility] COMPLETE INC INC AUTO&AUTO DIFRNTL WBC BLOOD 50025 [facility] COUNT 6 [facility] COMPLETE INC INC AUTO&AUTO DIFRNTL WBC COMPREHEN 68221 [facility] SIVE 6 [facility] METABOLIC INC INC PANEL NATRIURET 38771 M[facility] IC 6 [facility] [place] [address] M[facility] TROPONIN 6 [facility] [place] [address] M[facility] THYROID 6 [facility] STIMULATI INC INC NG HORMONE TSH CREATINE 84627 MANN DARNELL KINASE MB 6 [facility] FRACTION INC INC ONLY BLOOD 02730 [facility] GASES ANY 6 [facility] INC INC COMBINATI ON PH PCO2 PO2 CO2 HCO3 ECG 35416 [facility] ROUTINE 6 [facility] ECG INC INC W/LEAST 12 LDS TRCG ONLY W/O I&R RADIOLOGI 68583 [facility] C 6 [facility] EXAMINATI INC INC ON CHEST SING[place] VIEW FRONTAL THER 57493 M[facility] DARNE[facility] PROPH/DX 6 [facility] NJX IV INC INC PUSH SINGLE/1S T SBST/DRUG CREATINE 59220 [facility] KINASE 6 [facility] TOTAL INC INC INSERTION [id number] [facility] INFUSION 6 [facility] DEVC RT INC INC SUBCLAVIA N VEIN PERQ INSERTION [id number] [facility] D[facility] VAD 6 [facility] CHEST INC INC SUBQ TISSUE & FASCIA OPEN FLUORO [id number] [facility] D[facility] MULTI 6 [facility] CORONARY INC INC ARTERIES LOW OSMOLAR CONT MEASUREME [id number] [facility] D[facility] NT 6 [facility] CARDIAC INC INC SAMPLING PRESS LT HEART PERQ FLUOROSCO [id number] M[facility] D[facility] PY LEFT 6 [facility] [...] HOSP HOSP WHEELCHAI EQUIP EQUIP R RADIOLOGI 27752 CELESTINO Langley 3 EXAMINATI ON ANKLE 2 VIEWS BASIC 78152 [facility] METABOLIC 3 N N PANEL [facility] HOSPITA TOTAL RADIOLOGI 16672 PB PB C EXAM 3 RHO RHO CHEST 2 VIEWS FRONTAL&L ATERAL COLLECTIO 67898 [facility] N VENOUS 3 N N BLOOD [facility] VENIPUNCT HOSPITA HOSPITA URE BLOOD 77608 [facility] COUNT 3 N N COMPLETE [facility] AUTO&AUTO HOSPITA HOSPITA DIFRNTL WBC HEAVY-DUT K0006 [facility] Y 3 HOSP HOSP WHEELCHAI EQUIP EQUIP R HEAVY-DUT K0006 [facility] Y 3 [facility]OSP HOSP WHEELCHAI EQUIP EQUIP R SCREENING G0202 [facility] 3 [facility] MAMMOGRAP INC INC HY JOSEFINA INCL CAD WHEN PERFORMD DUPLEX 41854 M[facility] D[facility] SCAN 3 [facility] EXTRACRAN INC INC IAL ART COMPL BI STUDY COMPUTER- 99722 MANN DARNELL AIDED 3 [facility] DETECTION INC INC SCREENING MAMMOGRAP HY ECG 04105 [facility] ROUTINE 3 N N ECG [facility] W/LEAST HOSPITA HOSPITA 12 LDS TRCG ONLY W/O I&R BASIC 44761 [facility] METABOLIC 3 N N PANEL [facility] CALCIUM HOSPITA HOSPITA TOTAL RADIOLOGI 01772 CELESTINO YO C EXAM 3 CHEST 2 VIEWS FRONTAL&L ATERAL BLOOD 26427 [facility] COUNT 3 N N COMPLETE [facility] AUTO&AUTO HOSPITA HOSPITA DIFRNTL WBC COLLECTIO 53600 [facility] N VENOUS 3 N N BLOOD [facility] VENIPUNCT HOSPITA HOSPITA URE HEAVY-DUT K0006 [facility] Y 3 HOSP HOSP WHEELCHAI EQUIP EQUIP R WHEELCHAI 70175 MANN DANRELL R MGMT EA 3 [facility] 15 MIN INC INC RADEX 37640 [facility] 3 Y Y [facility] MINIMUM 3 VIEWS INJECTION Q9957 MERLY Byrd 2 PERFLUTRE N LIPID MICROSPHE RES PER ML DOPPLER 16608 MERLY Byrd ECHOCARD 2 PULSE WAVE W/SPECTRA L DISPLAY DOP 19292 MERLY Byrd ECHOCARD 2 [place] [address] MERLY Byrd ECHO 2 CONTRAST AGENT DURING STRESS ECHO ECHO 15559 MERLY Byrd TTHRC R-T 2 2D W/WO M-MODE REST&STRS CONT ECG HEAVY-DUT K0006 DAINA LAMA Y 2 HOSP [facility]P [facility] EQUIP EQUIP R ECG 96869 BALTA DAO BALTA DAO ROUTINE 2 ECG W/LEAST 12 LDS I&R ONLY RADIOLOGI 35645 [facility] C EXAM 2 [place] CHEST 2 JI JI VIEWS FRONTAL&L ATERAL ECG 54020 [facility] ROUTINE 2 [place] ECG JI JI W/LEAST 12 LDS TRCG ONLY W/O I&R COLLECTIO 63403 [facility] N VENOUS 2 [place] BLOOD JI JI VENIPUNCT URE COMPREHEN 76517 [facility] SIVE 2 [place] METABOLIC JI JI PANEL BLOOD 34224 [facility] COUNT 2 [place] COMPLETE JI JI AUTO&AUTO DIFRNTL WBC HEAVY-DUT K0006 DAINA LAMA Y 2 HOSP [facility] EQUIP EQUIP R RADEX 72537 SIERRA GRE SIERRA GRE ANKLE 2 COMPLETE MINIMUM 3 VIEWS DIAB ONLY A5500 CHERELLE VILLARREAL FIT CSTM 2 ORTHOPEDI ORTHOPEDI PREP&SPL CS CS SHOE MX DNSITY INSRT BASIC 25073 [facility] METABOLIC 2 DIAGNOSTI DIAGNOSTI PANEL CS CS CALCIUM TOTAL LIPID 58129 RASHAAD EILEEN RASHAAD EILEEN PANEL 2 HEMOGLOBI 22720 RASHAAD EILEEN RASHAAD EILEEN N 2 GLYCOSYLA ELSA A1C GLUCOSE 77761 RASHAAD EILEEN RASHAAD EILEEN QUANTITAT 2 GALDINO BLOOD XCPT REAGENT STRIP TRANSFERA 45901 RASHAAD BERMUDEZ EILEEN SE 2 ASPARTATE AMINO AST SGOT ADD LW L2820 CHERELLE VILLARREAL EXT ORTH 2 ORTHOPEDI ORTHOPEDI SFT CS CS INTERFCE MOLD BELW KNEE RADEX 51826 BARROW, BARROW, ANKLE 2 JR. FREYA JR. FREYA COMPLETE MINIMUM 3 VIEWS SEAT E0156 SHIVANI PARRISH ATTACHMEN 2 SURGICAL SURGICAL T WALKER WALKER E0143 SHIVANI PARRISH FOLDING 2 SURGICAL SURGICAL WHEELED ADJUSTABL E/FIXED HEIGHT DIAB ONLY A5500 SHIVANI PARRISH FIT CSTM 2 SURGICAL SURGICAL PREP&SPL SHOE MX DNSITY INSRT BASIC 66469 [facility] QUEST METABOLIC 2 DIAGNOSTI DIAGNOSTI PANEL CS CS CALCIUM TOTAL LIPID 27338 QUEST QUEST PANEL 2 DIAGNOSTI DIAGNOSTI CS CS TRANSFERA 13699 QUEST QUEST SE 2 DIAGNOSTI DIAGNOSTI ASPARTATE CS CS AMINO AST SGOT COLLECTIO 51331 RASHAAD EILEEN RASHAAD EILEEN N VENOUS 2 BLOOD VENIPUNCT URE HEMOGLOBI 11742 QUEST QUEST N 2 DIAGNOSTI DIAGNOSTI GLYCOSYLA CS CS ELSA A1C HEMOGLOBI 13558 QUEST QUEST N 2 DIAGNOSTI DIAGNOSTI GLYCOSYLA CS CS ELSA A1C COLLECTIO 63039 YOSSI YOSSI N VENOUS 2 DAO DAO BLOOD VENIPUNCT URE TRANSFERA 99694 [facility] QUEST SE 2 DIAGNOSTI DIAGNOSTI ASPARTATE CS CS AMINO AST SGOT LIPID 91248 [facility] QUEST PANEL 2 DIAGNOSTI DIAGNOSTI CS CS BASIC 70556 [facility] QUEST METABOLIC 2 DIAGNOSTI DIAGNOSTI PANEL CS CS CALCIUM TOTAL COMPUTER- 24680 [place] KATHRYN AIDED 1 MEDICAL [facility] DETECTION IMAGING ASS SCREENING MAMMOGRAP HY SCREENING G0202 [place] KATHRYN 1 MEDICAL [facility]ERT MAMMOGRAP IMAGING HY JOSEFINA ASS INCL CAD WHEN PERFORMD IIV3 51320 MANN MANN VACCINE 1 [facility] VIRUS 0.5 ML DOSAGE IM USE LIPID 12086 [facility] QUEST PANEL 1 DIAGNOSTI DIAGNOSTI CS CS BASIC 54714 [facility] QUEST METABOLIC 1 DIAGNOSTI DIAGNOSTI PANEL CS CS CALCIUM TOTAL TRANSFERA 46271 [facility] QUEST SE 1 DIAGNOSTI DIAGNOSTI ASPARTATE CS CS AMINO AST SGOT HEMOGLOBI 30775 [facility]ST QUEST N 1 DIAGNOSTI DIAGNOSTI GLYCOSYLA CS CS ELSA A1C GAUZE A6402 [facility] NON-IMPRE 1 [facility] SQ/< AGENCY AGENCY W/O ADHES BORDR CONFORMIN A6446 [facility] ARH G BANDGE 1 HOME REFERENC NON-[facility] AGENCY KNITTED/W OVEN STERL TAPE A4450 [facility] NON-WATER 1 HOME HOME PROOF PER HEALTH HEALTH 18 AGENCY AGENCY SQUARE INCHES BASIC 23378 MANN DARNELL METABOLIC 1 [facility] PANEL INC INC CALCIUM TOTAL CUL BACT 67672 [facility] DARNELL AEROBIC 1 [facility] ADDL INC INC METHS DEFINITIV E EA ISOL CUL BACT 01933 MANN BLAKEON XCPT 1 [facility] URINE INC INC BLOOD/STO OL AEROBIC ISOL SUSCEPTIB 95521 MANN DARNELL LTY STDY 1 [facility] ANTIMICRB INC INC IAL MICRO/AGA R DILUTJ BLOOD 96597 MANN MANN COUNT 1 [facility] COMPLETE INC INC AUTO&[place] [address] MANN DARNELL INFUSION 1 [facility] THERAPY/P INC INC ROPHYLAXI S /DX 1ST TO 1 HR RADEX 86014 [place] KATHRYN FOOT 1 [facility]ICAL [facility] COMPLETE IMAGING [...] 500 [place] [address] MANN DARNELL INFUSION 1 [facility] THERAPY/P INC INC ROPHYLAXI S /DX 1ST TO 1 HR BLOOD 76314 MANN DARNELL COUNT 1 [facility] COMPLETE INC INC AUTO&AUTO DIFRNTL WBC SUSCEPTIB 85952 MANN DARNELL LTY STDY 1 [facility] ANTIMICRB INC INC IAL MICRO/AGA R DILUTJ CULTURE 46625 MANN DARNELL BACTERIAL 1 [facility] BLOOD INC INC AEROBIC W/ID ISOLATES CUL BACT 95527 MANN DARNELL AEROBIC 1 [facility] ADDL INC INC METHS DEFINITIV E EA ISOL BASIC 64242 MANN DARNELL METABOLIC 1 [facility] PANEL INC INC CALCIUM TOTAL DIAB ONLY A5500 SHIVANI PARRISH FIT CSTM 1 SURGICAL SURGICAL PREP&SPL SHOE MX DNSITY INSRT FOR DIAB A5512 SHIVANI PARRISH ONLY MX 1 SURGICAL SURGICAL DNSITY INSRT DIR FORMD PRFAB EA LIPID 55997 [facility] PANEL 1 Dinos Rule BASIC 73708 [facility] METABOLIC 1 Dinos Rule PANEL CALCIUM TOTAL HEMOGLOBI 04657 [facility] N 1 Dinos Rule GLYCOSYLA ELSA A1C TRANSFERA 76595 [facility] SE 1 Dinos Rule ASPARTATE AMINO AST SGOT COMPUTER- 08709 [place] KATHRYN AIDED 0 MEDICAL HUBERT DETECTION IMAGING ASS SCREENING MAMMOGRAP HY SCREENING G0202 [place] KATHRYN 0 MEDICAL HUBERT MAMMOGRAP IMAGING HY JOSEFINA ASS INCL CAD WHEN PERFORMD IIV3 80597 MANN DARNELL VACCINE 0 [facility] VIRUS 0.5 ML DOSAGE IM USE LIPID 27818 [facility] PANEL 0 Dinos Rule BASIC 57795 [facility] METABOLIC 0 [facility] PANEL CALCIUM TOTAL TRANSFERA 85823 [facility] SE 0 [facility] ASPARTATE AMINO AST SGOT HEMOGLOBI 51563 [facility] N 0 [facility] GLYCOSYLA ELSA A1C BLD GLU A4253 AM MED AM MED TEST/REAG 0 DIRECT DIRECT T STRIPS [facility] HOME BLD GLU MON-50 BLD GLU A4253 AM MED AM MED TEST/REAG 0 DIRECT DIRECT T STRIPS [facility] HOME BLD GLU MON-50 LANCETS A4259 AM MED AM MED PER BOX 0 DIRECT DIRECT OF 100 [facility] DETERMINA 79804 [facility], TION 0 FOR FRANSISCO REFRACTIV EYEHLTH & C E STATE SURGPS DUPLEX 57063 [place] KATHRYN, SCAN 0 MEDICAL IVAN EXTRACRAN IMAGING IAL ART ASSOCIATE COMPL BI S STUDY BASIC 31785 [facility] METABOLIC 0 [facility] PANEL CALCIUM TOTAL LIPID 84862 [facility] PANEL 0 [facility] HEMOGLOBI 26825 A C YOSSI, N 0 JERSEY BECKER GLYCOSYLA PSC ELSA A1C TRANSFERA 42587 [facility] SE 0 [facility] ASPARTATE AMINO AST SGOT BLD GLU A4253 AM MED AM MED TEST/REAG 0 DIRECT DIRECT T STRIPS [facility] HOME BLD GLU MON-50 BLD GLU A4253 AM MED AM MED TEST/REAG 0 DIRECT DIRECT T STRIPS [facility] HOME D PHARMACY PHARMACY GLU MON-50 LANCETS A4259 AM MED AM MED PER BOX 0 DIRECT DIRECT OF 100 [facility] PHARMACY PHARMACY BLD GLU A4253 AM MED AM MED TEST/REAG 0 DIRECT DIRECT T STRIPS [facility] HOME D PHARMACY PHARMACY GLU MON-50 FOR DIAB A5512 SHIVANI PARRISH ONLY MX 0 SURGICAL SURGICAL DNSITY INSRT DIR FORMD PRFAB EA DIAB ONLY A5500 SHIVANI PARRISH FIT CSTM 0 SURGICAL SURGICAL PREP&SPL SHOE MX DNSITY INSRT BLD GLU A4253 AM MED AM MED TEST/REAG 0 DIRECT DIRECT T [facility] PHARMACY GLU MON-50 HEMOGLOBI 77527 [facility] N 0 [facility] GLYCOSYLA ELSA A1C TRANSFERA 62441 [facility] SE 0 [facility] ASPARTATE AMINO AST SGOT BASIC 63067 [facility] METABOLIC 0 [facility] PANEL CALCIUM TOTAL LIPID 71696 [facility] PANEL 0 [facility] LANCETS A4259 AM MED AM MED PER BOX 0 DIRECT DIRECT OF 100 [facility] PHARMACY PHARMACY BLD GLU A4253 AM MED AM MED TEST/REAG 0 DIRECT DIRECT T STRIPS [facility] PHARMACY PHARMACY GLU SAT-50 BLD GLU A4253 AM MED AM MED TEST/REAG 0 DIRECT DIRECT T STRIPS [facility] PHARMACY PHARMACY GLU CATARACT 68145 [facility] REMOVAL 9 [facility] INSERTION [facility] POST[facility]IOR V2632 [facility] CHAMBER 9 [facility] INTRAOCUL [facility] OPH BMTRY 46698 [facility], 9 FOR FRANSISCO ECHOGRAPY EYEHLTH & C A-SCAN SURGPSC IO LENS PWR GUS BLD GLU A4253 AM MED AM MED TEST/REAG 9 DIRECT DIRECT T STRIPS [facility] PHARMACY GLU ANESTHESI 19623 [facility], A EYE 9 [facility] LENS ANESTHESI SURGERY A PSC CATARACT 06875 [facility], REMOVAL 9 FOR FRANSISCO INSERTION EYEHLTH & C OF LENS SURGPSC PPSV23 34305 DHS/CO MANN VACCINE 2 9 HEALTH CO HEALTH YRS OR [facility] O[facility]ER FOR BANK ACCT SUBQ/IM USE OPH BMTRY 45329 [facility], [place] 9 FOR FRANSISCO ECHOGRAPY EYEHLTH & C A-SCAN SURGPSC IO LENS PWR GUS OPHTH 24173 [facility], MEDICAL 9 FOR FRANSISCO XM&EVAL EYEHLTH & C COMPRHNSV SURGPSC ESTAB PT 1/> BLD GLU A4253 AM MED AM MED TEST/REAG 9 DIRECT DIRECT T STRIPS [facility] HOME D PHARMACY PHARMACY GLU SAT- LANCETS A4259 AM MED AM MED PER BOX 9 DIRECT DIRECT OF 100 [facility] [address] [facility] THYROID 9 AMERIC AMERIC STIMULATI HOLDING HOLDING NG HORMONE TSH TRANSFERA 01486 [facility] SE 9 AMERIC AMERIC ASPARTATE HOLDING HOLDING AMINO AST SGOT HEMOGLOBI 82625 [facility] N 9 AMERIC AMERIC GLYCOSYLA HOLDING HOLDING ELSA A1C BASIC 14075 [facility] METABOLIC 9 AMERIC AMERIC PANEL HOLDING HOLDING CALCIUM TOTAL LIPID 04699 [facility] PANEL 9 AMERIC AMERIC HOLDING HOLDING BLD GLU A4253 AM MED AM MED TEST/REAG 9 DIRECT DIRECT T STRIPS [facility] HOME D PHARMACY PHARMACY GLU IIV3 58949 DHS/CO MANN VACCINE 9 HEALTH CO [facility] VIRUS 0.5 BANK ACCT ML DOSAGE IM USE COMPUTER- 65875 MANN DARNELL AIDED 9 [facility] DETECTION INC INC SCREENING MAMMOGRAP HY SCREENING 85411 MANN DARNELL 9 [facility] MAMMOGRAP INC INC HY BILATERAL DIAB ONLY A5500 ROSS ROSS FIT CSTM 9 SURGICAL SURGICAL PREP&SPL SHOE MX DNSITY INSRT FOR DIAB A5512 ROSS ROSS ONLY MX 9 SURGICAL SURGICAL DNSITY INSRT DIR FORMD PRFAB EA BLD GLU A4253 AM MED AM MED TEST/REAG 9 DIRECT DIRECT T STRIPS [facility] HOME D PHARMACY PHARMACY GLU BLD GLU A4253 AM MED AM MED TEST/REAG 9 DIRECT DIRECT T STRIPS [facility] HOME D PHARMACY PHARMACY GLU SAT- LANCETS A4259 AM MED AM MED PER BOX 9 DIRECT DIRECT OF 100 [facility] PHARMACY PHARMACY LIPID 86111 [facility] PANEL 9 AMERIC AMERIC HOLDING HOLDING BASIC 06182 [facility] METABOLIC 9 AMERIC AMERIC PANEL HOLDING HOLDING CALCIUM TOTAL HEMOGLOBI 24496 [facility] N 9 AMERIC AMERIC GLYCOSYLA HOLDING HOLDING ELSA A1C TRANSFERA 66892 [facility] SE 9 AMERIC AMERIC ASPARTATE HOLDING HOLDING AMINO AST SGOT COLLECTIO 56180 Bibi BLACK N VENOUS 9 JERSEY Langley BLOOD PSC VENIPUNCT URE BLD GLU A4253 AM MED AM MED TEST/REAG 9 DIRECT DIRECT T STRIPS [facility] PHARMACY GLU MON-50 BLD GLU A4253 [facility] TEST/REAG 9 PHARMACY PHARMACY T STRIPS #591 #591 HOME BLD GLU MON-50 BLD GLU A4253 AM MED AM MED TEST/REAG 9 DIRECT DIRECT T STRIPS [facility] PHARMACY GLU MON-50 LANCETS A4259 AM MED AM MED PER BOX 9 DIRECT DIRECT OF 100 [facility] PHARMACY PHARMACY BLD GLU A4253 AM MED AM MED TEST/REAG 9 DIRECT DIRECT T STRIPS [facility] PHARMACY GLU MON-50 BLD GLU A4253 AM MED AM MED TEST/REAG 9 DIRECT DIRECT T STRIPS [facility] PHARMACY GLU MON-50 COLLECTIO 03300 Sandrine HE VENOUS 9 JERSEY BECKER BLOOD PSC VENIPUNCT URE TRANSFERA 97352 [facility] SE 9 AMERIC AMERIC ASPARTATE HOLDING HOLDING AMINO AST SGOT HEMOGLOBI 49951 [facility] N 9 AMERIC AMERIC GLYCOSYLA HOLDING HOLDING ELSA A1C BASIC 86153 [facility] METABOLIC 9 AMERIC AMERIC PANEL HOLDING HOLDING CALCIUM TOTAL LIPID 92817 [facility] PANEL 9 AMERIC AMERIC HOLDING HOLDING LANCETS A4259 AM MED AM MED PER BOX 9 DIRECT DIRECT OF 100 [facility] BLD GLU A4253 AM MED AM MED TEST/REAG 9 DIRECT DIRECT T STRIPS [facility] HOME BLD GLU MON-50 BLD GLU A4253 AM MED AM MED TEST/REAG 8 DIRECT DIRECT T STRIPS [facility] PHARMACY GLU MON-50 LANCETS A4259 AM MED AM MED PER BOX 8 DIRECT DIRECT OF 100 [facility] PHARMACY PHARMACY LIPID 17108 [facility] PANEL 8 AMERIC AMERIC HOLDING HOLDING BASIC 22763 [facility] METABOLIC 8 AMERIC AMERIC PANEL HOLDING HOLDING CALCIUM TOTAL HEMOGLOBI 09668 LAB [facility] N 8 AMERIC AMERIC GLYCOSYLA HOLDING HOLDING ELSA A1C TRANSFERA 67186 LAB [facility] SE 8 AMERIC AMERIC ASPARTATE HOLDING HOLDING AMINO AST SGOT COLLECTIO 91368 Bibi SY, N VENOUS 8 JERSEY BECKER BLOOD PSC VENIPUNCT URE URINLS 69242 Bibi SY, DIP 8 JERSEY BECKER STICK/TAB PSC LET REAGNT NON-AUTO MICRSCPY LIPID 02220 [facility] PANEL 8 AMERIC AMERIC HOLDING HOLDING COLLECTIO 16700 Bibi BLACK N VENOUS 8 JERSEY Langley BLOOD PSC VENIPUNCT URE TRANSFERA 02883 LAB [facility] SE 8 AMERIC AMERIC ASPARTATE HOLDING HOLDING AMINO AST SGOT GLUCOSE 95005 [facility] QUANTITAT 8 AMERIC AMERIC GALDINO BLOOD HOLDING HOLDING XCPT REAGENT STRIP HEMOGLOBI 84704 [facility] N 8 AMERIC AMERIC GLYCOSYLA HOLDING HOLDING ELSA A1C MAMMOGRAP 88227 [place] ZACH, HY 8 MEDICAL KELLEY P UNILATERA IMAGING L ASSOCIATE S EXC B9 82668 Bibi SY, LESION 8 JERSEY BECKER MRGN XCP PSC SK TG T/A/L 2.1-3.0 CM HEMOGLOBI 27288 LAB [facility] N 8 AMERIC AMERIC GLYCOSYLA HOLDING HOLDING ELSA A1C TRANSFERA 28448 [facility] SE 8 AMERIC AMERIC ASPARTATE HOLDING HOLDING AMINO AST SGOT COLLECTIO 71018 Bibi BLACK N VENOUS 8 JERSEY Langley BLOOD PSC VENIPUNCT URE LIPID 20195 [facility] PANEL 8 AMERIC AMERIC HOLDING HOLDING BASIC 71657 [facility] METABOLIC 8 AMERIC AMERIC PANEL HOLDING HOLDING CALCIUM TOTAL BLD GLU A4253 [facility] TEST/REAG 8 PHARMACY PHARMACY T STRIPS #591 #591 HOME BLD GLU MON-50 IADNA 33661 Bibi SY STREPTOCO 8 JERSEY BECKER CCUS PSC GROUP A QUANTIFIC ATION BLD GLU A4253 [facility] TEST/REAG 8 PHARMACY PHARMACY T STRIPS #591 #591 HOME BLD GLU MON-50 Encounters Encounter Start End Date Code Location Performer Type Date [facility] MANN - 6 6 [facility] INPATIENT [facility] EMERGENCY 63562 MANN [facility]PT 6 6 [facility] VIS[facility] HIGH SEVERITY& THREAT FUN EMERGENCY 64910 MANN DEPT 6 6 [facility] VISIT [facility] HIGH SEVERITY& THREAT FUN EMERGENCY 61032 MANN 6 6 [facility] VISIT [facility]IGH/URGE NT SEVERITY [facility] MANN - 6 6 [facility] GREER - 6 6 [facility] 3 3 N [facility] 3 3 [facility] 3 3 N [facility] OFFICE 79104 BARROW, BARROW, OUTPATIEN 3 3 JR. FREYA PILLAI T VISIT 15 MINUTES [facility] 3 3 [facility] - [address] [facility] T OFFICE 23785 MERLY Byrd OUTPATIEN 2 2 T [facility] 45 MINUTES PERIODIC 68950 KILPELA KILPELA PREVENTIV 2 2 NOLA VACA E MED EST PATIENT 40-64YRS [facility] - 2 2 [facility] T OFFICE 55862 BARROW, BARROW, OUTPATIEN 2 2 JR. FREYA PILLAI T VISIT 15 MINUTES OFFICE 61594 SIERRA GRE SIERRA GRE OUTPATIEN 2 2 T NEW 30 MINUTES OFFICE 42303 RASHAAD EILEEN RASHAAD EILEEN OUTPATIEN 2 2 T VISIT 15 MINUTES OFFICE 41228 BARROW, BARROW, OUTPATIEN 2 2 JR. FREYA PILLAI T VISIT 15 MINUTES OFFICE 25045 BARROW, BARROW, OUTPATIEN 2 2 JR. FREYA PILLAI T NEW 30 MINUTES OFFICE 53109 YOSSI YOSSI OUTPATIEN 2 2 DAO DAO T VISIT 25 MINUTES OFFICE 19300 YOSSI YOSSI OUTPATIEN 2 2 DAO DAO T VISIT 10 MINUTES HOSPITAL [facility]ANN - 1 1 [facility] OUTPATIEN INC T OFFICE 34945 YOSSI YOSSI OUTPATIEN 1 1 DAO DAO T VISIT 25 MINUTES HOME [facility], 1 1 HOME OUTPATIEN HEALTH T AGENCY OFFICE 79368 A C YOSSI OUTPATIEN 1 1 JERSEY AARON DAO T VISIT PSC 15 MINUTES HOSPITAL MANN - 1 1 [facility] OUTPATIEN INC T EMERGENCY 33323 MANN 1 1 [facility] DEPARTMEN INC T VISIT MODERATE SEVERITY EMERGENCY 12648 ARLENE FORDEY DEPT 1 1 EMERGENCY ADRIAN VISIT SERVICES HIGH SEVERITY& THREAT FUNCJ HOME [facility], 1 1 HOME OUTPATIEN HEALTH T AGENCY HOME [facility], 1 1 HOME OUTPATIEN HEALTH T AGENCY OFFICE 73748 A C YOSSI OUTPATIEN 1 1 JERSEY AARON DAO T VISIT PSC 25 MINUTES EMERGENCY 92500 MANN 1 1 [facility] DEPARTMEN INC T VISIT HIGH/URGE NT SEVERITY HOSPITAL MANN - 1 1 [facility] OUTPATIEN INC T OFFICE 12458 A C YOSSI OUTPATIEN 1 1 JERSEY Isbell VISIT PSC 25 MINUTES OFFICE 29594 A Korin Mtz OUTPATIEN 1 1 JERSEY Isbell VISIT 5 PSC MINUTES HOSPITAL MANN - 0 0 [facility] OUTPATIEN INC T OFFICE 44878 A Korin SY OUTPATIEN 0 0 JERSEY Isbell VISIT 5 PSC MINUTES OFFICE 53551 [place] [facility] PATEL OUTPATIEN 0 0 FOR FRANSISCO T VISIT EYEHLTH & C 15 SURGPSC MINUTES HOSPITAL MANN - 0 0 [facility] OUTPATIEN INC T OFFICE 14648 A C YOSSI OUTPATIEN 0 0 JERSEY Isbell VISIT PSC 25 MINUTES OFFICE 56889 A Bibi ANDUJAR OUTPATIEN 0 0 JERSEY Isbell VISIT 5 PSC MINUTES HOSP[facility] [place] [address] 9 [facility] [place] [address] 9 [facility] OFFICE 93182 DHS/CO MANN OUTPATIEN 9 [address] [facility] MINUTES [facility] ACCT OFFICE 05993 A SANJU EPPSPATIEN 9 9 JERSEY Isbell VISIT PSC 15 MINUTES OFFICE 42794 A Korin SY OUTPATITERESSA 9 9 JERSEY Isbell VISIT PSC 25 MINUTES HOSPITAL MANN - 9 9 [facility] OUTPATIEN INC T OFFICE 39625 Bibi BLACK OUTPATITERESSA 9 9 JERSEY Isbell VISIT 5 PSC MINUTES OFFICE 12639 A Korin SY OUTPATITERESSA 9 9 JERSEY Isbell VISIT PSC 25 MINUTES OFFICE 91606 A SANJU EPPSPATITERESSA 9 9 JERSEY Isbell VISIT PSC 25 MINUTES OFFICE 91701 SARAH HE 8 8 JERSEY BECKER T VISIT 5 PSC MINUTES OFFICE 61274 SARAH HE 8 8 JERSEY BECKER T VISIT PSC 25 MINUTES OFFICE 00619 Bibi BLACK 8 8 JERSEY Isbell VISIT 5 PSC MINUTES OFFICE 45007 SARAH HE 8 8 JERSEY BECKER T VISIT PSC 15 MINUTES [facility] MANN - 8 8 [facility] OUTPATIEN INC T OFFICE 61940 SARAH HE 8 8 JERSEY BECKRE T VISIT PSC 15 MINUTES OFFICE 60520 Bibi BLACK 8 8 JERSEY Isbell VISIT PSC 25 MINUTES OFFICE 76002 Bibi BLACK 8 8 JERSEY Isbell VISIT 5 PSC MINUTES OFFICE 50307 SARAH HE 8 8 JERSEY Isbell VISIT PSC 15 MINUTES
--- OUTSIDE RECORDS SUMMARY | 2017-04-20 04:25 | External Medical Summary Rpt ---
Demographics Preferred Language Chilean Marital Status Unknown Rastafarian Affiliation Unknown Race Unknown Ethnic Group Unknown Author Author , MARIANNA CABRAL Address Unknown Phone Immunization Unable to retrieve immunization data due to connection failure with Immunization Registry. Please try again later.
--- OUTSIDE RECORDS SUMMARY | 2017-04-20 04:25 | External Medical Summary Rpt ---
Demographics Preferred Language Tanzanian Marital Status Unknown Samaritan Affiliation Unknown Race Unknown Ethnic Group Unknown Author Author , MARIANNA CABRAL Address Unknown Phone Immunization Unable to retrieve immunization data due to connection failure with Immunization Registry. Please try again later.
--- OUTSIDE RECORDS SUMMARY | 2017-04-20 04:26 | External Medical Summary Rpt ---
[...] 22 bin A1c 7.0 NON-MIRANDA 2016 in [facility] 10:30 Blood LEVEL< AM 7% CONTROL LED DIABETI C LEVEL> 8% POORLY CONTROL LED DIABETI C LEVEL Hemoglobin A1c in Blood Observa Value Referen Units Interpr Notes Date ti ce etation Range Hemoglo 10.2 0.0 - % High < 6% Feb 19 bin A1c 7.0 NON-MIRANDA 2016 in [facility] 9:35 AM Blood LEVEL< 7% CONTROL LED [...]
--- OUTSIDE RECORDS SUMMARY | 2017-04-20 04:26 | External Medical Summary Rpt ---
[...] 22 bin A1c 7.0 NON-MIRANDA 2016 in [facility] 10:30 Blood LEVEL< AM 7% CONTROL LED DIABETI C LEVEL> 8% POORLY CONTROL LED DIABETI C LEVEL Hemoglobin A1c in Blood Observa Value Referen Units Interpr Notes Date ti ce etation Range Hemoglo 10.2 0.0 - % High < 6% Feb 19 bin A1c 7.0 NON-MIRANDA 2016 in [facility] 9:35 AM Blood LEVEL< 7% CONTROL LED [...] - 7.8 K/mm3 Normal No Feb 18 vaolrie 2016 [#/volume on in 11:10 AM ] [...]
== END 2017-04-19 08:03 | disposition hospice, home (50) | DRG 641 ==
LOC: ER 20:10 → 2ND 22:13 → ER 22:13 → 2ND 22:35
PROVIDERS: Emergency Medicine
DX: E86.0 Dehydration (principal); C79.9 Secondary malignant neoplasm of unspecified site; C34.90 Malignant neoplasm of unspecified part of unspecified bronchus or lung; E11.9 Type 2 diabetes mellitus without complications; I10 Essential (primary) hypertension

== ENCOUNTER 2017-04-23 15:47 | Outpatient (CLI) | payer MEDICARE ==
[~2017-04-23 15:47] MED LIST changes: +ASPIRIN 325MG325 MG PO; +GLIMEPIRIDE 2MG2 MG PO; +LASIX20 MG PO; +PEPCID 20MG TAB20 MG PO
[2017-04-23 16:14] VITALS: BP 190/91
[2017-04-23] MEDS ORDERED: ALDACTONE 25MG25 MG PO (16:48)
[2017-04-23] MEDS ORDERED: ISOSORBIDE MONO30 MG PO (16:49)
[2017-04-23] MEDS ORDERED: BISOPROLOL 5MG T5 MG PO (16:49)
[2017-04-23] MEDS ORDERED: LISINOPRIL 5MG T5 MG PO (16:51)
[2017-04-23] MEDS ORDERED: FUROSEMIDE40 MG PO (16:52)
[2017-04-23] MEDS ORDERED: POTASSIUM CHLO20 ME2 PO (16:52)
[2017-04-23] MEDS ORDERED: SYNTHROID 0.00.05 MG PO (16:53)
[2017-04-23] MEDS ORDERED: CRESTOR5 MG PO (16:54)
[2017-04-23] MEDS ORDERED: DIAZEPAM5 MG PO (16:55)
[2017-04-23] MEDS ORDERED: TYLENOL ES500 MG PO (16:55)
[2017-04-23] MEDS ORDERED: SEROQUEL 25MG T25 MG PO (16:56)
== END 2017-04-23 16:32 | disposition home or self-care (01) ==
LOC: COP 15:47
DX: N39.0 Urinary tract infection, site not specified (principal); B96.20 Unspecified Escherichia coli [E. coli] as the cause of diseases classified elsewhere
CPT/HCPCS: J1335